=== PATIENT | male | born 1945 | race Caucasian/White ===

== ENCOUNTER 2018-08-03 15:40 | Emergency (ER) | payer BC ==
[2018-08-03 16:47] LABS: Absolute Lymphocytes (CBC) 1.1 K/uL (0.7-4.9); Absolute Monocytes 0.8 K/uL (0.1-1.3); Absolute Neutrophil 9.7 K/uL (1.8-8.0); Basophils % 0.4 % (0-1.3); Eosinophils % 0.5 % (0-4.4); Lymphocytes % 9.5 % (15.3-44.8); MCH 33.1 pg (27.0-35.0); MCV 98.4 fL (80-100); MPV 9.4 fL (7.6-11.3); Monocytes % 6.9 % (3.3-12.3); RBC Red Blood Cell Count 4.06 M/uL (4.33-5.43)
[2018-08-03 16:54] LABS: Protime INR 1.47
--- NOTE | 2018-08-03 16:59 | RAD REPORT ---
EXAM DESCRIPTION: RAD - Chest Single View - 08/03/2018 4:51 pm CLINICAL HISTORY: Left-sided weakness, history of atrial fibrillation and CHF COMPARISON: November 2017 TECHNIQUE: AP portable chest image was obtained 1647 hours . FINDINGS: No focal mass or consolidation. Interstitial markings are prominent but not clearly differ ent from prior imaging. Heart size is upper normal. Cardiac silhouette is accentuated by pericardial fat pads. Vascular engorgement not suspected. Lung markings are accentuated by shallow inspiration, p ortable technique and large body habitus. No measurable pleural effusion and no pneumothorax. No varun s bony abnormality seen. No acute aortic findings suspected. IMPRESSION: Limited portable study without acute cardiopulmonary finding. No significant change from comparison.
[2018-08-03 17:07] LABS: ALT/SGPT 37 U/L (12-78); AST/SGOT 15 U/L (15-37); Albumin 3.4 g/dL (3.4-5.0); Alkaline Phosphatase 125 U/L (45-117); BUN Blood Urea Nitrogen 11 mg/dL (7-18); Bicarbonate 28 mmol/L (21-32); Bilirubin Direct 0.3 mg/dL (0-0.2); Bilirubin Total 0.9 mg/dL (0.2-1.0); Glucose Level 140 mg/dL (74-106); Magnesium 2.3 mg/dL (1.8-2.4); NT PRO-BNP 1118 pg/mL (<125); Potassium 3.6 mmol/L (3.5-5.1); Protein, Total 7.6 g/dL (6.4-8.2); Sodium Level 137 mmol/L (136-145); Troponin (Emerg Dept Use Only) < 0.02 ng/mL (0.0-0.045)
[2018-08-03] MEDS ORDERED: NA CHLORIDE 0.9% 1,000 ML ONE (18:00)
[2018-08-03] MEDS ORDERED: FOLIC ACID 5 MG/ML VIAL ONE (18:01)
[2018-08-03] MEDS ORDERED: NA CHLORIDE 0.9% 50 ML IV ONE (18:01)
--- NOTE | 2018-08-03 18:04 | EDPHYS ---
Physician Documentation [facility] Name: Alejo Rae Age: 73 yrs Sex: Male : 1945 Arrival Date: 08/03/2018 Time: 15:46 Bed 26 Private MD: DWIGHT Physician Joaquin Sams HPI: 08/03 17:54 This 73 yrs old Male presents to ER via EMS with complaints of weak all over, magda left arm greatest, better now, on elquis. 17:54 The patient's problem is reported as weakness, in the left upper extremity, resolved. magda Onset: The symptoms/episode began/occurred at 14:00. Duration: This was a single incident, resolved. Context: the episode(s) was witnessed, by no one. The symptoms are alleviated by nothing. The symptoms are aggravated by nothing. weakness, hx afib, on eliquis. Associated signs and symptoms: The patient has no apparent associated signs or symptoms. Severity of symptoms: At their worst the symptoms were mild in the emergency department the symptoms have improved markedly, at baseline. Historical: - Allergies: 16:00 No Known Allergies; mg2 - Home Meds: 19:59 amlodipine 5 mg tab 1 tab once daily [Active]; atorvastatin 80 mg Oral tab 1 tab once mg2 daily [Active]; dofetilide 500mcg Oral 1 cap 2 times per day [Active]; furosemide 40 mg Oral tab 1 tab 2 times per day [Active]; gabapentin 300 mg Oral cap 1 cap 3 times per day [Active]; lisinopril 2.5 mg Oral tab 1 tab once daily [Active]; metoprolol succinate 200 mg Oral Tb24 1 tab once daily [Active]; omeprazole 20 mg Oral cpDR 1 cap once daily [Active]; sertraline 100 mg Oral tab 1 tab once daily [Active]; warfarin 5 mg Oral tab 2 tabs once daily [Active]; Xarelto Oral [Active]; - PMHx: 16:00 Atrial Fib; CHF; PTSD; mg2 - PSHx: 16:00 Hernia repair; C1-3 Surgery; mg2 - Immunization history:: Flu vaccine is not up to date. - Social history:: Smoking status: Patient/guardian denies using tobacco, Patient uses alcohol, on a daily basis. - Ebola Screening: : No symptoms or risks identified at this time. - Family history:: not pertinent. ROS: 17:54 Constitutional: Negative for fever, chills, and weight loss, Eyes: Negative for injury, magda pain, redness, and discharge, ENT: Negative for injury, pain, and discharge, Neck: Negative for injury, pain, and swelling, Respiratory: Negative for shortness of breath, cough, wheezing, and pleuritic chest pain, Abdomen/GI: Negative for abdominal pain, nausea, vomiting, diarrhea, and constipation, Back: Negative for injury and pain, : Negative for injury, bleeding, discharge, and swelling, MS/Extremity: Negative for injury and deformity, Skin: Negative for injury, rash, and discoloration, Psych: Negative for depression, anxiety, suicide ideation, homicidal ideation, and hallucinations, Allergy/Immunology: Negative for hives, rash, and allergies, Endocrine: Negative for neck swelling, polydipsia, polyuria, polyphagia, and marked weight changes, Hematologic/Lymphatic: Negative for swollen nodes, abnormal bleeding, and unusual bruising. 17:54 Cardiovascular: Positive for palpitations. 17:54 Neuro: Positive for weakness, of the left arm. Exam: 17:54 Radiologist reports: [facility] 17:54 Constitutional: This is a well developed, well nourished patient who is awake, alert, and in no acute distress. Head/Face: Normocephalic, atraumatic. Eyes: Pupils equal round and reactive to light, extra-ocular motions intact. Lids and lashes normal. Conjunctiva and sclera are non-icteric and not injected. Cornea within normal limits. Periorbital areas with no swelling, redness, or edema. ENT: Nares patent. No nasal discharge, no septal abnormalities noted. Tympanic membranes are normal and external auditory canals are clear. Oropharynx with no redness, swelling, or masses, exudates, or evidence of obstruction, uvula midline. Mucous membranes moist. Neck: Trachea midline, no thyromegaly or masses palpated, and no cervical lymphadenopathy. Supple, full range of motion without nuchal rigidity, or vertebral point tenderness. No Meningismus. Chest/axilla: Normal chest wall appearance and motion. Nontender with no deformity. No lesions are appreciated. Respiratory: Lungs have equal breath sounds bilaterally, clear to auscultation and percussion. No rales, rhonchi or wheezes noted. No increased work of breathing, no retractions or nasal flaring. Abdomen/GI: Soft, non-tender, with normal bowel sounds. No distension or tympany. No guarding or rebound. No evidence of tenderness throughout. Back: No spinal tenderness. No costovertebral tenderness. Full range of motion. Male : Normal genitalia with no discharge or lesions. Skin: Warm, dry with normal turgor. Normal color with no rashes, no lesions, and no evidence of cellulitis. MS/ Extremity: Pulses equal, no cyanosis. Neurovascular intact. Full, normal range of motion. Neuro: Awake and alert, GCS 15, oriented to person, place, time, and situation. Cranial nerves II-XII grossly intact. Motor strength 5/5 in all extremities. Sensory grossly intact. Cerebellar exam normal. Normal gait. Psych: Awake, alert, with orientation to person, place and time. Behavior, mood, and affect are within normal limits. 17:54 Cardiovascular: Rate: normal, Rhythm: irregularly irregular, Pulses: no pulse deficits are appreciated, Heart sounds: normal, Edema: is not appreciated, JVD: is not appreciated. 18:09 Neuro: Orientation: is normal, appropriate for stated age, no acute changes, Mentation: magda is normal, appropriate for stated age, no acute changes, Memory: is normal, appropriate for stated age, no acute changes, Cranial nerves: grossly normal, is grossly normal based on the patient's age, no acute changes, Cerebellar function: is grossly normal, is grossly normal based on the patient's age, no acute changes, Motor: is normal, is grossly normal based on the patient's age, no acute changes, moves all fours, Sensation: is normal, no obvious gross deficits, appropriate no acute changes, Gait: Babinski testing is normal, seizure activity, is not displayed by the patient. 19:08 Neuro: not a tpa candidate, pt at [facility], [facility], on eliquis, took last dose this magda morning. Vital Signs: 16:00 BP 132 / 73; Pulse 67; Resp 18; Pulse Ox 97% on R/A; Weight 113.4 kg; Height 6 ft. 1 mg2 in. (185.42 cm); Pain 0/10; 17:34 BP 139 / 91; Pulse 77; Resp 18; Pulse Ox 99% on R/A; Pain 0/10; mg2 19:16 BP 118 / 77; Pulse 71; Resp 18; Pulse Ox 98% on R/A; Pain 0/10; mg2 20:30 BP 154 / 75; Pulse 80; Resp 18; Temp 98.2; Pulse Ox 100% on R/A; Pain 3/10; mg2 16:00 Body Mass Index 32.98 (113.40 kg, 185.42 cm) mg2 NIH Stroke Scale Scores: 16:32 NIHSS Score: 0 mg2 18:09 NIHSS Score: 0 [facility] [place] Coma Score: 16:32 Eye Response: spontaneous(4). Verbal Response: oriented(5). Motor Response: obeys mg2 commands(6). Total: 15. MDM: 16:17 Patient medically screened. [facility] 18:01 Data reviewed: vital signs, nurses notes, lab test result(s), EKG, radiologic studies, [facility] CT scan, plain films. 08/03 16:34 Order name: Basic Metabolic Panel; Complete Time: 17:40 [facility] [place] 08/03 16:34 Order name: CBC with Diff; Complete Time: 17:40 [facility] [place] 08/03 16:34 Order name: LFT's; Complete Time: 17:40 [facility] [place] [place] 08/03 16:34 Order name: Magnesium; Complete Time: 17:40 [facility] [place] [place] 08/03 16:34 Order name: NT PRO-BNP; Complete Time: 17:40 [facility] [place] [place] 08/03 16:34 Order name: PT-INR; Complete Time: 17:40 [facility] [place] 08/03 16:34 Order name: Troponin (emerg Dept Use Only); Complete Time: 17:40 [facility] [place] 08/03 16:34 Order name: XRAY Chest (1 view); Complete Time: 17:40 [facility] [place] 08/03 17:42 Order name: TSH [facility] 08/03 17:54 Order name: CT Traumagram (Head C Spine CAP wo con); Complete Time: 19:02 [facility] 08/03 16:34 Order name: EKG; Complete Time: 16:35 [facility] [place] [place] 08/03 16:34 Order name: Cardiac monitoring; Complete Time: 16:34 [facility] [place] [place] 08/03 16:34 Order name: EKG - Nurse/Tech; Complete Time: 16:34 [facility] [place] 08/03 16:34 Order name: IV Saline Lock; Complete Time: 16:34 [facility] [place] 08/03 16:34 Order name: Labs collected and sent; Complete Time: 16:34 [facility] [place] 08/03 16:34 Order name: O2 Per Protocol; Complete Time: 16:35 mg2 08/03 16:34 Order name: O2 Sat Monitoring; Complete Time: 16:35 mg2 Administered Medications: 18:32 Drug: foLIC Acid 1 mg Route: IVPB; Site: right hand; mg2 19:49 Follow up: Response: No adverse reaction; IV Status: Completed infusion mg2 18:32 Drug: NS 0.9% 1000 ml Route: IV; Rate: 125 ml/hr; Site: right hand; mg2 19:49 Follow up: Response: No adverse reaction; IV Status: Infusion continued upon transfer mg2 19:49 Drug: Eliquis 5 mg Route: PO; mg2 21:01 Follow up: Response: No adverse reaction mg2 20:30 Drug: fentaNYL (PF) 25 mcg Route: IVP; Site: right hand; mg2 21:01 Follow up: Response: No adverse reaction; Medication administered at discharge. mg2 20:30 Drug: Zofran 4 mg Route: IVP; Site: right hand; mg2 21:00 Follow up: Response: No adverse reaction; Medication administered at discharge. mg2 21:01 Not Given (pain tolerable): fentaNYL (PF) 25 mcg IVP once mg2 Disposition: 08/03/18 18:03 Transfer ordered to [facility]. Diagnosis are Atrial fibrillation and flutter, Weakness, Obesity, unspecified. - Reason for transfer: Higher level of care. - Accepting physician is to [facility], stroke wqork up. - Condition is Stable. - Problem is new. - Symptoms have improved. NIH Stroke Scale - NIH Stroke Score Date: 08/03/2018 Time: 16:32 Total Score = 0 1a. Level of Consciousness (LOC) - 0(Alert) 1b. Level of Consciousness (LOC) (Year \T\ Age) - 0(Both) 1c. LOC Commands (Open \T\ Closes Eyes/Grants Assistant) - 0(Both) 2. Best Gaze (Lateral Gaze Paresis) - 0(Normal) 3. Visual Field Loss - 0(No visual loss) 4. Facial Palsy - 0(Normal) 5a. Left Arm: Motor (10-second hold) - 0(No drift) 5b. Right Arm: Motor (10-second hold) - 0(No drift) 6a. Left Leg: Motor (5-second hold - always test supine) - 0(No drift) 6b. Right Leg: Motor (5-second hold - always test supine) - 0(No drift) 7. Limb Ataxia (finger/nose \T\ heel/crandall - test with eyes open) - 0(Absent) 8. Sensory Loss (pinprick arms/legs/face) - 0(Normal) 9. Best Language: Aphasia (description/naming/reading) - 0(No aphasia) 10. Dysarthria (speech clarity - read or repeat words) - 0(Normal) 11. Extinction and Inattention (visual/tactile/auditory/spatial/personal) - 0(No abnormality) Initials: mg2 NIH Stroke Scale - NIH Stroke Score Date: 08/03/2018 Time: 18:09 Total Score = 0 1a. Level of Consciousness (LOC) - 0(Alert) 1b. Level of Consciousness (LOC) (Year \T\ Age) - 0(Both) 1c. LOC Commands (Open \T\ Closes Eyes/Grants Assistant) - 0(Both) 2. Best Gaze (Lateral Gaze Paresis) - 0(Normal) 3. Visual Field Loss - 0(No visual loss) 4. Facial Palsy - 0(Normal) 5a. Left Arm: Motor (10-second hold) - 0(No drift) 5b. Right Arm: Motor (10-second hold) - 0(No drift) 6a. Left Leg: Motor (5-second hold - always test supine) - 0(No drift) 6b. Right Leg: Motor (5-second hold - always test supine) - 0(No drift) 7. Limb Ataxia (finger/nose \T\ heel/crandall - test with eyes open) - 0(Absent) 8. Sensory Loss (pinprick arms/legs/face) - 0(Normal) 9. Best Language: Aphasia (description/naming/reading) - 0(No aphasia) 10. Dysarthria (speech clarity - read or repeat words) - 0(Normal) 11. Extinction and Inattention (visual/tactile/auditory/spatial/personal) - 0(No abnormality) Initials: magda Signatures: Dispatcher [employer] EDMS Joaquin Sams MD MD cha Gardose, Michele RN RN mg2 Corrections: (The following items were deleted from the chart) 18:10 17:42 Head Brain Wo [id number].BRZ ordered. EDMS EDMS 21:05 18:03 08/03/2018 18:03 Transfer ordered to [facility]. mg2 Diagnosis is Atrial fibrillation and flutter; Weakness; Obesity, unspecified. Reason for transfer: Higher level of care. Accepting physician is to [facility], stroke wqork up. Condition is Stable. Problem is new. Symptoms have improved. magda
--- NOTE | 2018-08-03 18:04 | ER ---
Nurse's Notes [facility] Name: Alejo Rae Age: 73 yrs Sex: Male : 1945 Arrival Date: 08/03/2018 Time: 15:46 Bed 26 Private MD: Diagnosis: Atrial fibrillation and flutter;Weakness;Obesity, unspecified Presentation: 08/03 15:50 Presenting complaint: EMS states: \T\ 1400H he was sitting on his computer chair and mg2 suddenly weakness on his left side and almost fell but the was able to catch him. He had oral surgery last Friday and 3 days prior to that he stopped taking his blood thinner. EMS did the stroke scale and he passed. BGL - 157. Transition of care: patient was not received from another setting of care. Onset of symptoms was August 03, 2018. Risk Assessment: Do you want to hurt yourself or someone else? Patient reports no desire to harm self or others. Initial Sepsis Screen: Does the patient meet any 2 criteria? No. Patient's initial sepsis screen is negative. Does the patient have a suspected source of infection? No. Patient's initial sepsis screen is negative. Care prior to arrival: None. 15:50 Method Of Arrival: EMS: [facility] mg2 15:50 Acuity: ANNA 3 mg2 Historical: - Allergies: 16:00 No Known Allergies; mg2 - Home Meds: 19:59 amlodipine 5 mg tab 1 tab once daily [Active]; atorvastatin 80 mg Oral tab 1 tab once mg2 daily [Active]; dofetilide 500mcg Oral 1 cap 2 times per day [Active]; furosemide 40 mg Oral tab 1 tab 2 times per day [Active]; gabapentin 300 mg Oral cap 1 cap 3 times per day [Active]; lisinopril 2.5 mg Oral tab 1 tab once daily [Active]; metoprolol succinate 200 mg Oral Tb24 1 tab once daily [Active]; omeprazole 20 mg Oral cpDR 1 cap once daily [Active]; sertraline 100 mg Oral tab 1 tab once daily [Active]; warfarin 5 mg Oral tab 2 tabs once daily [Active]; Xarelto Oral [Active]; - PMHx: 16:00 Atrial Fib; CHF; PTSD; mg2 - PSHx: 16:00 Hernia repair; C1-3 Surgery; mg2 - Immunization history:: Flu vaccine is not up to date. - Social history:: Smoking status: Patient/guardian denies using tobacco, Patient uses alcohol, on a daily basis. - Ebola Screening: : No symptoms or risks identified at this time. - Family history:: not pertinent. Screenin:30 Abuse screen: Denies threats or abuse. Denies injuries from another. Nutritional mg2 screening: No deficits noted. Tuberculosis screening: No symptoms or risk factors identified. Fall Risk IV access (20 points). Gait- Weak (10 pts.). Assessment: 16:30 General: Appears in no apparent distress. comfortable, Behavior is calm, cooperative. mg2 Pain: Denies pain. Neuro: Level of Consciousness is awake, alert, obeys commands, Oriented to person, place, time, situation. Cardiovascular: Capillary refill < 3 seconds Patient's skin is warm and dry. Respiratory: Airway is patent Respiratory effort is even, unlabored, Respiratory pattern is regular, symmetrical. GI: No signs and/or symptoms were reported involving the gastrointestinal system. : No signs and/or symptoms were reported regarding the genitourinary system. EENT: No signs and/or symptoms were reported regarding the EENT system. Derm: Skin is intact, Skin is pink, warm \T\ dry. normal. Musculoskeletal: Circulation, motion, and sensation intact. 19:55 Reassessment: Patient appears in no apparent distress at this time. Patient and/or mg2 family updated on plan of care and expected duration. Pain level reassessed. Patient is alert, oriented x 3, equal unlabored respirations, skin warm/dry/pink. report given to EVY An of [facility]. 20:30 Reassessment: Patient appears in no apparent distress at this time. Patient and/or mg2 family updated on plan of care and expected duration. Pain level reassessed. Patient is alert, oriented x 3, equal unlabored respirations, skin warm/dry/pink. Vital Signs: 16:00 BP 132 / 73; Pulse 67; Resp 18; Pulse Ox 97% on R/A; Weight 113.4 kg; Height 6 ft. 1 mg2 in. (185.42 cm); Pain 0/10; 17:34 BP 139 / 91; Pulse 77; Resp 18; Pulse Ox 99% on R/A; Pain 0/10; mg2 19:16 BP 118 / 77; Pulse 71; Resp 18; Pulse Ox 98% on R/A; Pain 0/10; mg2 20:30 BP 154 / 75; Pulse 80; Resp 18; Temp 98.2; Pulse Ox 100% on R/A; Pain 3/10; mg2 16:00 Body Mass Index 32.98 (113.40 kg, 185.42 cm) mg2 [place] Coma Score: 16:32 Eye Response: spontaneous(4). Verbal Response: oriented(5). Motor Response: obeys mg2 commands(6). Total: 15. NIH Stroke Scale Scores: 16:32 NIHSS Score: 0 mg2 18:09 NIHSS Score: 0 [facility] ED Course: 15:46 Patient arrived in ED. iw 15:50 Jamie Enciso, RN is Primary Nurse. mg2 15:58 Triage completed. mg2 16:00 Arm band placed on. mg2 16:14 EKG done, by residential service technician. reviewed by Joaquin Sams MD. sm3 16:17 Joaquin Sams MD is Attending Physician. [facility] 16:31 Patient has correct armband on for positive identification. potline monitor on. Pulse mg2 ox on. NIBP on. Door closed. 16:31 No provider procedures requiring assistance completed. Inserted saline lock: 20 gauge mg2 in right hand, using aseptic technique. Blood collected. 16:49 X-ray completed. Portable x-ray completed in exam room. Patient tolerated procedure ml well. 16:52 XRAY Chest (1 view) In Process Unspecified. EDMS 18:[address] nj 18:13 CT completed. Patient tolerated procedure well. Patient moved back from CT. nj 18:14 CT Traumagram (Head C Spine CAP wo con) In Process Unspecified. EDMS 21:05 Patient transferred, IV remains in place. mg2 Administered Medications: 18:32 Drug: foLIC Acid 1 mg Route: IVPB; Site: right hand; mg2 19:49 Follow up: Response: No adverse reaction; IV Status: Completed infusion mg2 18:32 Drug: NS 0.9% 1000 ml Route: IV; Rate: 125 ml/hr; Site: right hand; mg2 19:49 Follow up: Response: No adverse reaction; IV Status: Infusion continued upon transfer mg2 19:49 Drug: Eliquis 5 mg Route: PO; mg2 21:01 Follow up: Response: No adverse reaction mg2 20:30 Drug: fentaNYL (PF) 25 mcg Route: IVP; Site: right hand; mg2 21:01 Follow up: Response: No adverse reaction; Medication administered at discharge. mg2 20:30 Drug: Zofran 4 mg Route: IVP; Site: right hand; mg2 21:00 Follow up: Response: No adverse reaction; Medication administered at discharge. mg2 21:01 Not Given (pain tolerable): fentaNYL (PF) 25 mcg IVP once mg2 Outcome: 18:03 ER care complete, transfer ordered by . magda 21:05 Transferred by ground EMS to [facility], Transfer form completed. mg2 21:05 Condition: stable 21:05 Instructed on the need for transfer. 21:05 Patient left the ED. mg2 NIH Stroke Scale - NIH Stroke Score Date: 08/03/2018 Time: 16:32 Total Score = 0 1a. Level of Consciousness (LOC) - 0(Alert) 1b. Level of Consciousness (LOC) (Year \T\ Age) - 0(Both) 1c. LOC Commands (Open \T\ Closes Eyes/Head Host/Hostess) - 0(Both) 2. Best Gaze (Lateral Gaze Paresis) - 0(Normal) 3. Visual Field Loss - 0(No visual loss) 4. Facial Palsy - 0(Normal) 5a. Left Arm: Motor (10-second hold) - 0(No drift) 5b. Right Arm: Motor (10-second hold) - 0(No drift) 6a. Left Leg: Motor (5-second hold - always test supine) - 0(No drift) 6b. Right Leg: Motor (5-second hold - always test supine) - 0(No drift) 7. Limb Ataxia (finger/nose \T\ heel/crandall - test with eyes open) - 0(Absent) 8. Sensory Loss (pinprick arms/legs/face) - 0(Normal) 9. Best Language: Aphasia (description/naming/reading) - 0(No aphasia) 10. Dysarthria (speech clarity - read or repeat words) - 0(Normal) 11. Extinction and Inattention (visual/tactile/auditory/spatial/personal) - 0(No abnormality) Initials: mg2 NIH Stroke Scale - NIH Stroke Score Date: 08/03/2018 Time: 18:09 Total Score = 0 1a. Level of Consciousness (LOC) - 0(Alert) 1b. Level of Consciousness (LOC) (Year \T\ Age) - 0(Both) 1c. LOC Commands (Open \T\ Closes Eyes/Head Host/Hostess) - 0(Both) 2. Best Gaze (Lateral Gaze Paresis) - 0(Normal) 3. Visual Field Loss - 0(No visual loss) 4. Facial Palsy - 0(Normal) 5a. Left Arm: Motor (10-second hold) - 0(No drift) 5b. Right Arm: Motor (10-second hold) - 0(No drift) 6a. Left Leg: Motor (5-second hold - always test supine) - 0(No drift) 6b. Right Leg: Motor (5-second hold - always test supine) - 0(No drift) 7. Limb Ataxia (finger/nose \T\ heel/carndall - test with eyes open) - 0(Absent) 8. Sensory Loss (pinprick arms/legs/face) - 0(Normal) 9. Best Language: Aphasia (description/naming/reading) - 0(No aphasia) 10. Dysarthria (speech clarity - read or repeat words) - 0(Normal) 11. Extinction and Inattention (visual/tactile/auditory/spatial/personal) - 0(No abnormality) Initials: magda Signatures: Dispatcher [employer] EDJoaquin Jett MD MD cha Williams, Irene, EVY RATLIFF iw Donald, Sukhdeep Hope Michele, RN RN mg2 Yu Clay3 Corrections: (The following items were deleted from the chart) 16:01 15:50 Presenting complaint: EMS states: he was sitting on his computer chair mg2 and suddenly weakness on his left side and almost fell but the was able to catch him. He had oral surgery last Friday and 3 days prior to that he stopped taking his blood thinner. EMS did the stroke scale and he passed. BGL - 157. mg2
--- NOTE | 2018-08-03 18:40 | RAD REPORT ---
EXAM DESCRIPTION: CT - Head C Spine Cap Wo Con - 08/03/2018 6:13 pm CLINICAL HISTORY: Head and neck injury with chest and abdominal pain status post fall. TECHNIQUE: Computed axial tomography of the head and cervical spine was obtained. Coronal and sagitt al reconstruction was performed Computed axial tomography of the chest, abdomen and pelvis was obtained. Contrast was not requested. All CT scans are performed using dose optimization technique as appropriate and may include automated exposure control or mA/KV adjustment according to patient size. COMPARISON: November 2017 FINDINGS: The evaluation of the mediastinum, aftab, vessels, solid organs and bowel is limited secondary to lack of contrast administration. An intracranial bleed is not seen. Mild low-density areas within periventricular, deep and subcortica l white matter are unchanged likely representing ischemic changes secondary to small vessel disease. The ventricles are normal in caliber. An extra-axial fluid collection is not seen. Fluid within the sinuses/mastoids is not seen. A cervical fracture is not seen. No dislocation is noted .spondylosis involves the cervical spine A mediastinal hematoma is not seen. Small pleural effusions are present. . A lung contusion is not se en. A lung consolidation is not noted Fatty infiltration liver is seen. Spleen, pancreas, adrenals and right kidney appear grossly normal. 6.8 centimeters cyst extends off of the left kidney. The appendix is normal. There is no evidence of diverticulitis. Small inguinal hernias contain fat IMPRESSION: 1. No acute intracranial abnormality is seen. 2. A cervical fracture is not visualized. If the patient continues have symptoms to suggest intracran ial/spinal cord pathology then MRI would be recommended 3. No acute abnormality involving the chest /abdomen/pelvis
[2018-08-03] MEDS ORDERED: APIXABAN 5 MG TABLET ONE (19:47)
[2018-08-03] MEDS ORDERED: FENTANYL CITR 100 MCG/2 ML ONE (20:29)
[2018-08-03] MEDS ORDERED: ONDANSETRON 4 MG/2 ML VIAL ONE (20:29)
[2018-08-03 22:05] VITALS: BP 154/75; TEMP 98.2; O2SAT 100
--- NOTE | 2018-08-04 09:26 | EKG ---
Test Date: 2018-08-03 Test Time: 16:02:57 Bill Of Materials Clerk: LEILANI MEASUREMENT RESULTS: Intervals: Rate: 61 NV: QRSD: 70 QT: 444 QTc: 446 [place]: P: NV: QRS: 69 T: 80 INTERPRETIVE STATEMENTS: Atrial fibrillation Nonspecific ST abnormality, probably digitalis effect Abnormal ECG Compared to ECG 11/15/2017 23:49:45 ST (T wave) deviation now present Electronically Signed On 08-04-18 09:24:21 CDT by Dante Little
== END 2018-08-03 21:05 | disposition short-term general hospital (02) ==
LOC: ER 15:40
DX: I48.91 Unspecified atrial fibrillation (principal); I48.92 Unspecified atrial flutter; E66.9 Obesity, unspecified; I50.9 Heart failure, unspecified; F43.10 Post-traumatic stress disorder, unspecified; Z79.01 Long term (current) use of anticoagulants
CPT/HCPCS: 36415; 70450; 71045; 71250; 72125; 80048; 80076; 83735; 83880; 84443; 84484; 85025; 85610; 93005; 96365; 96375; 99285; J2405; J3010; J7030

== ENCOUNTER 2019-03-02 18:56 | Inpatient (IN) | payer BC ==
--- OUTSIDE RECORDS SUMMARY | 2019-03-02 19:42 | XMS REPORT | Clinical Summary ---
:1945 Author Organization [facility] Address [address] [place] [address] Care Team Providers Name Role Phone Bayron Nuno MD Primary Care Provider Allergies No Known Allergies Medications Medication Sig Dispensed Refills Start Date End Date Status metoprolol Take 100 mg 0 Active (TOPROL-XL) 100 MG 24 by mouth 2 hr tablet (two) times daily before meals. gabapentin Take 300 mg 0 Active (NEURONTIN) 300 MG by mouth 3 capsule (three) times daily. furosemide (LASIX) 40 Take 40 mg by 0 Active MG tablet mouth daily. atorvastatin Take 80 mg by 0 Active (LIPITOR) 80 MG mouth daily. tablet dofetilide (TIKOSYN) Take 500 mcg 0 Active 500 MCG capsule by mouth 2 (two) times daily. apixaban (ELIQUIS) 5 Take 5 mg by 0 Active mg Tab tablet mouth 2 (two) times daily. amLODIPine (NORVASC) Take 1 tablet 90 tablet 3 08/14/2018 Active 5 MG tablet (5 mg total) 9 by mouth daily. lisinopril Take 2 180 tablet 3 08/14/2018 Active (PRINIVIL,ZESTRIL) tablets (5 mg 9 2.5 MG tablet total) by mouth daily. ticagrelor (BRILINTA) Take 1 tablet 180 tablet 3 08/14/2018 Active 90 mg Tab tablet (90 mg total) 9 by mouth 2 (two) times daily. pantoprazole Take 1 tablet 180 tablet 3 08/14/2018 Active (PROTONIX) 40 MG (40 mg total) 9 tablet by mouth 2 (two) times daily. lisinopril Take 2.5 mg 0 Discontinued (PRINIVIL,ZESTRIL) by mouth 8 2.5 MG tablet daily. amoxicillin (AMOXIL) Take 500 mg 0 Discontinued 500 MG capsule by mouth 3 8 (three) times daily. diphenhydrAMINE 12.5 Take 20 mg by 0 Discontinued mg/5 mL (BENADRYL) mouth 2 (two) 8 12.5 mg/5 mL times daily. elixirIndications: Allergies aspirin 81 MG EC Take 1 tablet 30 tablet 0 08/14/2018 tablet (81 mg total) 8 by mouth daily for 30 days. Active Problems Problem Noted Date Leukocytosis 08/06/2018 Abdominal pain 08/06/2018 Multiple and bilateral precerebral artery syndromes 08/06/2018 Acute CVA (cerebrovascular accident) 08/06/2018 Generalized abdominal pain 08/05/2018 Other constipation 08/05/2018 TIA (transient ischemic attack) 08/03/2018 Encounters Date Type Specialty Care Team Description 11/18/2018 Hospital Encounter Radiology Chaz France Occlusion of right ManMD carotid artery 11/17/2018 Outside Orders Radiology Chaz France of right ManMD carotid artery (Primary Dx) 08/12/2018 Orders Only General Internal Medicine 08/11/2018 Anesthesia Event Perez Pulido 08/11/2018 Surgery Virtual, Surgeon PROCEDURE DONE OUTSIDE OR 08/10/2018 Surgery Virtual, Surgeon PROCEDURE DONE OUTSIDE OR 08/10/2018 Anesthesia Event Perez Pulido 08/08/2018 Anesthesia Event Milagros Diggs MD 08/07/2018 Surgery Virtual, Surgeon PROCEDURE DONE OUTSIDE OR 08/03/2018 - Hospital Encounter General Internal Stefanie De La Cruz Multiple and bilateral precerebral artery syndromes; 08/14/2018 Rulsan Campos MD Transient cerebral ischemia, unspecified type; Steve Hernandez Hypertension, unspecified type; MD Nelson Atrial fibrillation, unspecified type (HCC); Franny Carter MD Generalized abdominal pain; Leukocytosis, unspecified type; Chronic congestive heart failure, unspecified heart failure type (HCC); Acute CVA (cerebrovascular accident) (HCC); Stenosis of right carotid artery; TIA (transient ischemic attack) after 03/01/2018 Immunizations Name Dates Previously Given Next Due Influenza Four-QIV Non-PF 5+ YR 08/14/2018 Pneumococcal Conjugate (Prevnar) 13-Valent 08/14/2018 Social History Tobacco Use Types Packs/Day Years Used Date Never Smoker Sex Assigned at Date Recorded Not on file Job Start Date Occupation Industry Not on file Not on file Not on file Travel History Travel Start Travel End No recent travel history available. Last Filed Vital Signs Vital Sign Reading Time Taken Blood Pressure 116/67 08/14/2018 11:45 AM CDT Pulse 68 08/14/2018 11:45 AM CDT Temperature 37 C (98.6 F) 08/14/2018 11:45 AM CDT Respiratory Rate 18 08/14/2018 11:45 AM CDT Oxygen Saturation 97% 08/14/2018 11:45 AM CDT Inhaled Oxygen Concentration 40% 08/12/2018 4:23 AM CDT Weight 129.7 kg (286 lb) 08/03/2018 10:54 PM CDT Height 185.4 cm (6' 1") 08/03/2018 10:54 PM CDT Body Mass Index 37.73 08/03/2018 10:54 PM CDT Plan of Treatment Not on file Procedures Procedure Name Priority Date/Time Associated Comments Diagnosis CAROTID DOPPLER Routine 11/18/2018 9:45 Occlusion of right Results for this BILATERAL AM MAIL CALLER carotid artery procedure are in the results section. RHYTHM STRIP - SCAN 08/18/2018 8:21 AM CDT (CELLAVISION MANUAL Routine 08/14/2018 4:24 Results for this DIFF) AM CDT procedure are in the results section. CBC W/PLT COUNT & Routine 08/14/2018 4:24 Results for this AUTO DIFFERENTIAL AM CDT procedure are in the results section. BASIC METABOLIC PANEL Routine 08/14/2018 4:24 Results for this (7) AM CDT procedure are in the results section. CBC W/PLT COUNT & Routine 08/14/2018 4:24 Results for this AUTO DIFFERENTIAL AM CDT procedure are in the results section. CBC W/PLT COUNT & Routine 08/13/2018 4:06 Results for this AUTO DIFFERENTIAL AM CDT procedure are in the results section. BASIC METABOLIC PANEL Routine 08/13/2018 4:06 Results for this (7) AM CDT procedure are in the results section. CBC W/PLT COUNT & Routine 08/13/2018 4:06 Results for this AUTO DIFFERENTIAL AM CDT procedure are in the results section. XR CHEST 1 VIEW SHELBY 08/12/2018 2:54 Results for this PORTABLE/BEDSIDE PM CDT procedure are in the results section. ECG 12-LEAD Routine 08/12/2018 8:50 AM CDT Procedure Note - Interface, External Ris In - 08/12/2018 9:02 AM CDT Ventricular Rate 82 BPM Atrial Rate 357 BPM QRS Duration 84 ms Q-T Interval 408 ms QTC Calculation(Bazett) 476 ms R [place] 44 degrees T [place] 49 degrees Atrial fibrillation Abnormal ECG When compared with ECG of 08-AUG-2018 14:50, No significant change was found ECG 12-LEAD Routine 08/12/2018 8:50 AM Results for this CDT procedure are in the results section. CBC W/PLT COUNT & Routine 08/12/2018 3:43 AM Results for this AUTO DIFFERENTIAL CDT procedure are in the results section. BASIC METABOLIC PANEL Routine 08/12/2018 3:43 AM Results for this (7) CDT procedure are in the results section. CBC W/PLT COUNT & Routine 08/12/2018 3:43 AM Results for this AUTO DIFFERENTIAL CDT procedure are in the results section. NV CAROTID ARTERY Routine 08/11/2018 4:51 PM Results for this STENT PLACEMENT W CDT procedure are in PROTECTION the results section. POCT-ACT Routine 08/11/2018 3:47 PM Results for this CDT procedure are in the results section. PROCEDURE DONE 08/11/2018 2:00 PM Stenosis of carotid OUTSIDE OR CDT artery, unspecified laterality POCT-P2Y12 PLATELET STAT 08/11/2018 12:21 PM Results for this AGGREGATION CDT procedure are in the results section. PT/APTT STAT 08/11/2018 12:21 PM Results for this CDT procedure are in the results section. CBC W/PLT COUNT & Routine 08/11/2018 6:24 AM Results for this AUTO DIFFERENTIAL CDT procedure are in the results section. CBC (HEMOGRAM ONLY) Routine 08/11/2018 6:24 AM Results for this CDT procedure are in the results section. POCT-P2Y12 PLATELET Routine 08/11/2018 6:24 AM Results for this AGGREGATION CDT procedure are in the results section. POCT-ASPIRIN PLATELET Routine 08/11/2018 6:24 AM Results for this AGGREGATION CDT procedure are in the results section. BASIC METABOLIC PANEL Routine 08/11/2018 6:24 AM Results for this (7) CDT procedure are in the results section. CBC W/PLT COUNT & Routine 08/11/2018 6:24 AM Results for this AUTO DIFFERENTIAL CDT procedure are in the results section. NV CAROTID ARTERY Routine 08/10/2018 1:22 PM Results for this STENT PLACEMENT W CDT procedure are in PROTECTION the results section. NV CEREBRAL 4 VESSEL Routine 08/10/2018 1:22 PM Results for this ANGIOGRAM CDT procedure are in the results section. PROCEDURE DONE 08/10/2018 12:00 PM Stenosis of carotid OUTSIDE OR CDT artery, unspecified laterality Special Needs ; REQ TF BASIC METABOLIC PANEL (7) Routine 08/10/2018 6:50 AM CDT CBC W/PLT COUNT & AUTO Routine 08/10/2018 6:08 AM CDT Results for this DIFFERENTIAL procedure are in the results section. APTT Routine 08/10/2018 6:08 AM CDT CBC W/PLT COUNT & AUTO Routine 08/10/2018 6:08 AM CDT Results for this DIFFERENTIAL procedure are in the results section. APTT Routine 08/09/2018 10:00 PM CDT URINALYSIS W/ MICROSCOPIC Routine 08/09/2018 12:35 PM CDT EOSINOPHIL SMEAR, URINE Routine 08/09/2018 12:35 PM CDT SODIUM, RANDOM URINE Routine 08/09/2018 12:35 PM CDT CREATININE, RANDOM URINE Routine 08/09/2018 12:35 PM CDT PROTEIN, RANDOM URINE Routine 08/09/2018 12:35 PM CDT APTT Routine 08/09/2018 12:12 PM CDT PROTEIN ELECTROPHORESIS, AP Routine 08/09/2018 5:16 AM CDT Results for this SERUM procedure are in the results section. MANINDER TITER AND PATTERN Routine 08/09/2018 5:07 AM CDT RPR Routine 08/09/2018 5:07 AM CDT ANTI-NUCLEAR ANTIBODY (MANINDER) Routine 08/09/2018 5:07 AM CDT TSH/FREE T4 IF INDICATED Routine 08/09/2018 5:07 AM CDT BASIC METABOLIC PANEL (7) Routine 08/09/2018 5:07 AM CDT POTASSIUM Routine 08/09/2018 5:07 AM CDT BUN AND CREATININE Routine 08/09/2018 5:07 AM CDT CBC W/PLT COUNT & AUTO Routine 08/09/2018 3:55 AM CDT Results for this DIFFERENTIAL procedure are in the results section. APTT Routine 08/09/2018 3:55 AM CDT CBC (HEMOGRAM ONLY) Routine 08/09/2018 3:55 AM CDT CBC W/PLT COUNT & AUTO Routine 08/09/2018 3:55 AM CDT Results for this DIFFERENTIAL procedure are in the results section. APTT Routine 08/08/2018 4:29 PM CDT PLATELET COUNT Routine 08/08/2018 4:29 PM CDT ECG 12-LEAD Routine 08/08/2018 2:50 PM CDT CBC W/PLT COUNT & AUTO Routine 08/08/2018 6:43 AM CDT Results for this DIFFERENTIAL procedure are in the results section. MAGNESIUM Routine 08/08/2018 6:43 AM CDT BASIC METABOLIC PANEL (7) Routine 08/08/2018 6:43 AM CDT CBC W/PLT COUNT & AUTO Routine 08/08/2018 6:43 AM CDT Results for this DIFFERENTIAL procedure are in the results section. TRANSFUSION SERVICE REPORT 08/07/2018 6:01 PM CDT - SCAN CT ABDOMEN/PELVIS WITH IV Routine 08/07/2018 4:36 PM CDT Results for this CONTRAST procedure are in the results section. CT CHEST WITH IV CONTRAST Routine 08/07/2018 4:36 PM CDT CBC W/PLT COUNT & AUTO Routine 08/07/2018 5:58 AM CDT Results for this DIFFERENTIAL procedure are in the results section. BASIC METABOLIC PANEL (7) Routine 08/07/2018 5:58 AM CDT CBC W/PLT COUNT & AUTO Routine 08/07/2018 5:58 AM CDT Results for this DIFFERENTIAL procedure are in the results section. XR CHEST 2 VIEWS Routine 08/06/2018 9:27 PM CDT ECG 12-LEAD Routine 08/06/2018 7:54 PM CDT TYPE AND SCREEN, AUTOMATED Routine 08/06/2018 4:10 PM CDT PROTHROMBIN TIME/INR Routine 08/06/2018 4:10 PM CDT PROCALCITONIN Routine 08/06/2018 4:10 PM CDT VITAMIN B12 AND FOLATE Routine 08/06/2018 3:43 PM CDT LACTIC ACID, VENOUS Routine 08/06/2018 3:43 PM CDT BLOOD CULTURE Routine 08/06/2018 3:43 PM CDT BLOOD CULTURE Routine 08/06/2018 3:43 PM CDT MR BRAIN WITHOUT IV STAT 08/06/2018 11:40 AM CDT Results for this CONTRAST procedure are in the results section. MR MRA NECK WITHOUT IV Routine 08/06/2018 11:33 AM CDT Results for this CONTRAST procedure are in the results section. MR MRA HEAD WITHOUT Routine 08/06/2018 11:33 AM CDT Results for this CONTRAST procedure are in the results section. (CELLAVISION MANUAL DIFF) Routine 08/06/2018 5:51 AM CDT CBC W/PLT COUNT & AUTO Routine 08/06/2018 5:51 AM CDT Results for this DIFFERENTIAL procedure are in the results section. BASIC METABOLIC PANEL (7) Routine 08/06/2018 5:51 AM CDT CBC W/PLT COUNT & AUTO Routine 08/06/2018 5:51 AM CDT Results for this DIFFERENTIAL procedure are in the results section. ECHOCARDIOGRAM REPORT - 08/05/2018 5:30 PM CDT SCAN 2D ECHO W/ DOPPLER Routine 08/05/2018 11:12 AM CDT Results for this (CW/PW/COLOR) procedure are in the results section. URINALYSIS W/ REFLEX URINE Routine 08/05/2018 5:30 AM CDT Results for this CULTURE procedure are in the results section. (CELLAVISION MANUAL DIFF) Routine 08/05/2018 4:46 AM CDT CBC W/PLT COUNT & AUTO Routine 08/05/2018 4:46 AM CDT Results for this DIFFERENTIAL procedure are in the results section. BASIC METABOLIC PANEL (7) Routine 08/05/2018 4:46 AM CDT CBC W/PLT COUNT & AUTO Routine 08/05/2018 4:46 AM CDT Results for this DIFFERENTIAL procedure are in the results section. US TESTICULAR (SCROTUM) Routine 08/05/2018 4:09 AM CDT TROPONIN I Routine 08/04/2018 1:35 PM CDT XR ABDOMEN 1 VIEW STAT 08/04/2018 11:39 AM CDT ECG 12-LEAD Routine 08/04/2018 10:15 AM CDT CBC W/PLT COUNT & AUTO Routine 08/04/2018 1:39 AM CDT Results for this DIFFERENTIAL procedure are in the results section. HEMOGLOBIN A1C Routine 08/04/2018 1:39 AM CDT LIPID PANEL Routine 08/04/2018 1:39 AM CDT HOMOCYSTEINE Routine 08/04/2018 1:39 AM CDT TROPONIN I Routine 08/04/2018 1:39 AM CDT CBC W/PLT COUNT & AUTO Routine 08/04/2018 1:39 AM CDT Results for this DIFFERENTIAL procedure are in the results section. BASIC METABOLIC PANEL (7) Routine 08/04/2018 1:39 AM CDT after 03/01/2018 Results Carotid doppler bilateral (11/18/2018 9:45 AM MAIL CALLER) [facility] Specimen Impressions Performed At Right Impression [facility] 1. Post stent placement, the internal carotid artery is patent with velocities of: Pre stent- 76/19 cm/sec, proximal stent- 41/8 cm/sec, mid stent-51/12 cm/sec , distal stent- 50/15 cm/sec, post stent- 66/24 cm/sec. 2. There is stenosis in the external carotid artery. 3. There is mild intimal thickening in the common carotid artery. 4. The vertebral artery flow is antegrade . 5. The subclavian artery is patent where visualized. Left Impression 1. There is <50% diameter reduction (approximately 38% by 2-D measurement) in the internal carotid artery with a peak velocity of cm/sec and heterogeneous plaque. 2. There is stenosis in the external carotid artery. 3. There is mild intimal thickening in the common carotid artery. 4. The vertebral artery flow is antegrade . 5. The subclavian artery is patent where visualized. Conclusions Summary Carotid duplex scanning and color flow imaging were performed bilaterally. The arteries were technically difficult however adequately viauslized. The right internal carotid artery was patent post stent placement. The left internal carotid artery had <50% hemodynamically insignificant stenosis (approximately 38% by 2-D measurement) with heterogeneous plaque. The vertebral artery flow was antegrade bilaterally. Signature Velocities are measured in cm/s ; Diameters are measured in cm Carotid Right Measurements + +----+----+-----+ +---- + + !Location !PSV !EDV !Angle!%Stenosis 2D!%Stenosis Doppler!Tortuosity ! + +----+----+-----+ +---- + + !Prox CCA !116 !28.4! !! ! ! + +----+----+-----+ +---- + + !Dist CCA !87.9!20.8! !! ! ! + +----+----+-----+ +---- + + !Prox ICA !41!8 ! !! ! ! + +----+----+-----+ +---- + + !Mid ICA!51!12! !! ! ! + +----+----+-----+ +---- + + !Dist ICA !66!24! !! ! ! + +----+----+-----+ +---- + + !Prox ECA !187 !40.5! !! ! ! + +----+----+-----+ +---- + + !Vertebral!58!21! !! ! ! + +----+----+-----+ +---- + + !Prox Subclavian!100 !28! !! ! ! + +----+----+-----+ +---- + + - There is antegrade vertebral flow noted on the right side. - Additional Measurements:ICAPSV/CCAPSV 0.75.ICAEDV/CCAEDV 0.85. Carotid Left Measurements + +----+----+-----+ +---- + + !Location !PSV !EDV !Angle!%Stenosis 2D!%Stenosis Doppler!Tortuosity ! + +----+----+-----+ +---- + + !Prox CCA !117 !29.9! !! ! ! + +----+----+-----+ +---- + + !Dist CCA !125 !33.1! !! ! ! + +----+----+-----+ +---- + + !Prox ICA !102 !26.8! !38% !<50% ! ! + +----+----+-----+ +---- + + !Dist ICA !103 !40.5! !! ! ! + +----+----+-----+ +---- + + !Prox ECA !178 !32.4! !! ! ! + +----+----+-----+ +---- + + !Vertebral!59.7!24.8! !! ! ! + +----+----+-----+ +---- + + !Prox Subclavian!100 !25! !! ! ! + +----+----+-----+ +---- + + - There is antegrade vertebral flow noted on the left side. - Additional Measurements:ICAPSV/CCAPSV 0.82.ICAEDV/CCAEDV 1.35. Narrative Performed At [facility] - Carotid Duplex Study [facility] Demographics Patient Name ALEJO LIVINGSTON Date of Study11/18/2018 [id number] Visit Number [id number] Gender Male Accession Number [id number] Date of Birth1945 [facility] Number Physician SonographerTuyet Zuñiga Interpreting Gillian Cai, EVY, Norberto VILLEDA Procedure Type of Study: Cerebral: Carotid, CAROTID DOPPLER, BILATERAL. Indications for Study:Carotid artery stenosis . Patient Status:Routine. Study Location:Vascular Lab. Technical Quality:Adequate visualization. Risk Factors History of Disease + +----+ + !Diagnosis!Kennedy e!Comments ! + +----+ + !History/Risk Factors:!!CHF, a fib, SADIQ stent 2017! + +----+ + Procedure Note Interface, External Ris In - 11/18/2018 10:10 AM MAIL CALLER [facility] - Carotid Duplex Study Demographics Patient Name ALEJO LIVINGSTON Date of Study 11/18/2018 Age 73 Visit Number [id number] Gender Male Accession Number [id number] Date of 1945 Referring [facility] Room Number Physician Community Education Specialist Tuyet Zuñiga Interpreting Gillian Cai, EVY, RVT Physician MD Procedure Type of Study: Cerebral: Carotid, CAROTID DOPPLER, BILATERAL. Indications for Study:Carotid artery stenosis . Patient Status:Routine. Study Location:Vascular Lab. Technical Quality:Adequate visualization. Risk Factors History of Disease + +----+ + !Diagnosis !Date!Comments ! + +----+ + !History/Risk Factors: ! !CHF, a fib, SADIQ stent 2018 ! + +----+ + Impressions Right Impression 1. Post stent placement, the internal carotid artery is patent with velocities of: Pre stent- 76/19 cm/sec, proximal stent- 41/8 cm/sec, mid stent-51/12 cm/sec , distal stent- 50/15 cm/sec, post stent- 66/24 cm/sec. 2. There is stenosis in the external carotid artery. 3. There is mild intimal thickening in the common carotid artery. 4. The vertebral artery flow is antegrade . 5. The subclavian artery is patent where visualized. Left Impression 1. There is <50% diameter reduction (approximately 38% by 2-D measurement) in the internal carotid artery with a peak velocity of cm/sec and heterogeneous plaque. 2. There is stenosis in the external carotid artery. 3. There is mild intimal thickening in the common carotid artery. 4. The vertebral artery flow is antegrade . 5. The subclavian artery is patent where visualized. Conclusions Summary Carotid duplex scanning and color flow imaging were performed bilaterally. The arteries were technically difficult however adequately viauslized. The right internal carotid artery was patent post stent placement. The left internal carotid artery had <50% hemodynamically insignificant stenosis (approximately 38% by 2-D measurement) with heterogeneous plaque. The vertebral artery flow was antegrade bilaterally. Signature Velocities are measured in cm/s ; Diameters are measured in cm Carotid Right Measurements + +----+----+-----+ + + + !Location !PSV !EDV !Angle!%Stenosis 2D!%Stenosis Doppler!Tortuosity ! + +----+----+-----+ + + + !Prox CCA !116 !28.4! ! ! ! ! + +----+----+-----+ + + + !Dist CCA !87.9!20.8! ! ! ! ! + +----+----+-----+ + + + !Prox ICA !41 !8 ! ! ! ! ! + +----+----+-----+ + + + !Mid ICA !51 !12 ! ! ! ! ! + +----+----+-----+ + + + !Dist ICA !66 !24 ! ! ! ! ! + +----+----+-----+ + + + !Prox ECA !187 !40.5! ! ! ! ! + +----+----+-----+ + + + !Vertebral !58 !21 ! ! ! ! ! + +----+----+-----+ + + + !Prox Subclavian!100 !28 ! ! ! ! ! + +----+----+-----+ + + + - There is antegrade vertebral flow noted on the right side. - Additional Measurements:ICAPSV/CCAPSV 0.75.ICAEDV/CCAEDV 0.85. Carotid Left Measurements + +----+----+-----+ + + + !Location !PSV !EDV !Angle!%Stenosis 2D!%Stenosis Doppler!Tortuosity ! + +----+----+-----+ + + + !Prox CCA !117 !29.9! ! ! ! ! + +----+----+-----+ + + + !Dist CCA !125 !33.1! ! ! ! ! + +----+----+-----+ + + + !Prox ICA !102 !26.8! !38% !<50% ! ! + +----+----+-----+ + + + !Dist ICA !103 !40.5! ! ! ! ! + +----+----+-----+ + + + !Prox ECA !178 !32.4! ! ! ! ! + +----+----+-----+ + + + !Vertebral !59.7!24.8! ! ! ! ! + +----+----+-----+ + + + !Prox Subclavian!100 !25 ! ! ! ! ! + +----+----+-----+ + + + - There is antegrade vertebral flow noted on the left side. - Additional Measurements:ICAPSV/CCAPSV 0.82.ICAEDV/CCAEDV 1.35. Performing Organization Address City/State/Zipcode Phone Number [facility] RHYTHM STRIP - SCAN (08/18/2018 8:21 AM CDT) Narrative Performed At Manual Differential (08/14/2018 4:24 AM CDT)Only the most recent of3 resultswithin the time period is included. % Neutros 73 % [facility] % Lymphs 9 % [facility] % Monos 9 % [facility] % Eos 2 % [facility] % Metamyelo 1 (H) 0 - 0 % [facility] % Bands 5 0 - 10 % [facility] % Atypical Lymphs 1 (H) 0 - 0 % [facility] # Neutros 8.18 (H) 1.78 - 5.38 K/ul [facility] # Lymphs 1.01 (L) 1.32 - 3.57 K/ul [facility] # Monos 1.01 (H) 0.30 - 0.82 K/uL [facility] # Eos 0.22 0.04 - 0.54 K/uL [facility] # Metamyelo 0.11 (H) 0.00 - 0.00 K/uL [facility] # Bands 0.56 0.00 - 0.80 K/uL [facility] # Atypical Lymphs 0.11 (H) 0.00 - 0.00 K/uL [facility] Total Counted 100 [facility] Smudge Cells Present [facility] Giant Platelet Present [facility] Polychromasia 1+ few [facility] Anisocytosis 1+ few [facility] Poikilocytes 2+ moderate [facility] Milton Cells 1+ few [facility] Platelet Conc Adequate [facility] Specimen Blood Narrative Performed At Received comment: [facility] User comments: Slide comments: Performing Organization Address City/State/Zipcode Phone Number [facility] [address] [place] [address] [phone] CENTER CBC with platelet count + automated diff (08/14/2018 4:24 AM CDT)Only the most recent of11 resultswithin the time period is included. WBC 11.2 (H) 3.5 - 10.5 K/L [facility] RBC 3.76 (L) 4.63 - 6.08 M/L [facility] Hemoglobin 12.2 (L) 13.7 - 17.5 GM/DL [facility] Hematocrit 38.3 (L) 40.1 - 51.0 % [facility] MCV 101.9 (H) 79.0 - 92.2 fL [facility] MCH 32.4 (H) 25.7 - 32.2 pg [facility] MCHC 31.9 (L) 32.3 - 36.5 GM/DL [facility] RDW 11.9 11.6 - 14.4 % [facility] Platelets 275 150 - 450 K/CU MM [facility] MPV 11.0 9.4 - 12.4 fL [facility] nRBC 0 0 - 0 /100 WBC [facility] Specimen Blood Performing Organization Address City/State/Zipcode Phone Number [facility] [address] [place] [address] CENTER Basic Metabolic Panel (08/14/2018 4:24 AM CDT)Only the most recent of11 resultswithin the time period is included. Sodium 133 (L) 136 - 145 meq/L [facility] Potassium 3.9 3.5 - 5.1 meq/L [facility] Chloride 100 98 - 107 meq/L [facility] CO2 26 22 - 29 meq/L [facility] BUN 17 7 - 21 mg/dL [facility] Creatinine 0.84 0.57 - 1.25 mg/dL [facility] Glucose 111 (H) 70 - 105 mg/dL [facility] [facility] Calcium 8.6 8.4 - 10.2 mg/dL [facility] EGFR 89Comment: ESTIMATED GFR IS mL/min/1.73 sq m [facility] NOT ACCURATE [facility] CLEARANCE IN PREDICTING GLOMERULAR FILTRATION RATE. ESTIMATED GFR IS NOT APPLICABLE FOR DIALYSIS PATIENTS. Specimen Blood Performing Organization Address City/State/Zipcode Phone Number [facility] [address] [place] [address] [phone] CENTER XR chest 1 view portable / bedside (08/12/2018 2:54 PM CDT) Specimen Narrative Performed At FINAL REPORT GE RIS Chest one view INDICATION: Shortness of breath COMPARISON: 08/06/2018 IMPRESSION: Multiple chronic right rib fractures are again seen with stable pleural thickening and possible effusion with stable right lung opacity suggesting atelectasis or scarring. The left lung is grossly clear. Heart size is at the upper limit of normal. Aortic tortuosity and hypertrophic spine changes are noted. Signed: Chantale Hernandez MD Report Verified Date/Time:08/12/2018 15:59:35 Reading Location: [address] Transitional Reading Room Procedure Note Interface, External Ris In - 08/12/2018 4:01 PM CDT FINAL REPORT Chest one view INDICATION: Shortness of breath COMPARISON: 08/06/2018 IMPRESSION: Multiple chronic right rib fractures are again seen with stable pleural thickening and possible effusion with stable right lung opacity suggesting atelectasis or scarring. The left lung is grossly clear. Heart size is at the upper limit of normal. Aortic tortuosity and hypertrophic spine changes are noted. Signed: Chantale Hernandez MD Report Verified Date/Time: 08/12/2018 15:59:35 Reading Location: [facility] C0[facility] Transitional Reading Room Performing Organization Address City/State/Zipcode Phone Number GE RIS ECG 12 lead (08/12/2018 8:50 AM CDT)Only the most recent of4 resultswithin the time period is included. Specimen Narrative Performed At Ventricular Rate 82 BPM GE MUSE Atrial Rate 357 BPM QRS Duration 84 ms Q-T Interval 408 ms QTC Calculation(Bazett) 476 ms R [place] 44 degrees T [place] 49 degrees Atrial fibrillation Nonspecific ST abnormality Abnormal ECG When compared with ECG of 08-AUG-2018 14:50, No significant change was found Confirmed by MD HOLDER JORGE ([id number]) on 08/12/2018 1:55:24 PM Procedure Note Interface, External Ris In - 08/12/2018 1:55 PM CDT Ventricular Rate 82 BPM Atrial Rate 357 BPM QRS Duration 84 ms Q-T Interval 408 ms QTC Calculation(Bazett) 476 ms R [place] 44 degrees T [place] 49 degrees Atrial fibrillation Nonspecific ST abnormality Abnormal ECG When compared with ECG of 08-AUG-2018 14:50, No significant change was found Confirmed by MD HOLDER JORGE ([id number]) on 08/12/2018 1:55:24 PM Performing Organization Address City/State/Zipcode Phone Number GE MUSE [place] Carotid Artery Stent Placement w/Protection (08/11/2018 4:51 PM CDT)Only the most recent of2 resultswithin the time period is included. Specimen Narrative Performed At FINAL REPORT [facility] DATE OF PROCEDURE: 08/11/18 SURGEON:Chaz France MD ANALYTICAL CHEMIST: Leta Barreto MD PREOPERATIVE DIAGNOSIS: Transient ischemic attacks and severe right carotid artery stenosis POST OPERATIVE DIAGNOSIS: Transient ischemic attacks and severe right carotid artery stenosis OPERATION: 1) Selective Cerebral Angiogram 2) Right carotid stent ANESTHESIA:Moderate sedation ESTIMATED BLOOD LOSS: Less than 15 mL COMPLICATIONS: None INDICATIONS:The patient is a 73-year-old man who presented with transient ischemic attack. Stroke work up revealed carotid stenosis for which he underwent a diagnostic cerebral angiogram demonstrating critical right internal carotid artery stenosis. He presents today for angiogram for stenting. He had been maintained on Brilinta and ASA prior to the procedure with sufficient platelet inhibition. The lesion here extends up to the bottom of C2. PROCEDURE:Following explanation of the benefits, risks and alternatives for the procedure, informed consent was obtained from the patient.The risks including but not limited to stroke, intracranial hemorrhage, vascular injury to the cervical or femoral vessels and groin hematoma were discussed with the patient.A time-out was performed.Both groins were prepped in the usual sterile fashion using Chloraprep, and sterilely draped. A standard access using a micropuncture kit was attempted on each side, but due to difficulty arising from his calcified femoral arteries, no blood return could be achieved. Ultrasound guidance was used, and blood return was achieved, but the wire could not be passed through the micropuncture needle. Thus, an 18-gauge needle was used to puncture the right femoral artery. A 5 Taiwanese short sheath was then passed over an angled glide catheter. Using coaxial technique, a 5 Taiwanese [place] 2 catheter was advanced into the descending aorta, back-bled, and flushed in the usual fashion.Using coaxial technique, the catheter was advanced into the aortic arch, and with the aid of the roadmapping, digital fluoroscopy, and careful guidewire manipulation the right common carotid artery.Upon each successive selective catheterization, digital subtraction angiography using the appropriate rate and volume of contrast in multiple projections was performed.Digital subtraction angiogram of the common femoral arteries was performed. The catheter was removed. The femoral sheath was removed and hemostasis was achieved with angio seal and manual compression. The patient tolerated the procedure well and was taken to recovery in stable condition. FINDINGS: RIGHT COMMON FEMORAL ARTERY (DSA \\X2013\\ PA - PELVIS) The right femoral artery is patent with no stenosis or ulceration. The puncture is above the level of the bifurcation. RIGHT COMMON CAROTID ARTERY (DSA - PA, LATERAL - CERVICAL) The origin of the right internal carotid artery demonstrates significant stenosis, measuringgreater than 80% stenosis by NASCET criteria.The external carotid artery is widely patent without evidence of ulceration or stenosis. RIGHT COMMON CAROTID ARTERY (DSA - PA, LATERAL, OBLIQUE - HEAD) There is a small size posterior communicating artery, through which the vertebrobasilar system is opacified. There is initially is no spontaneous filling of the right anterior cerebral artery and delayed flow; however, after stenting, there is improvement in flow with opacification of the right anterior cerebral artery territory. No vascular malformation or arteriovenous shunting is noted. No stenosis or vasospasm is observed. No significant abnormalities are seen in the capillary and venous phases. The venous phase demonstrates patent transverse and sigmoid sinuses. The visualized portions of the external carotid artery and its branches are normal without evidence of ulceration or stenosis. ENDOVASCULAR INTERVENTION: The diagnostic catheter was removed and exchanged in the descending aorta for a 6F Cook shuttle sheath. At this point, the patient was heparinized, with a satisfactory ACT. A VTK catheter was then used to position the shuttle within the common carotid artery. The stenotic lesion was traversed using a NAV6 distal projection device. Using standard monorail technique, a 8 x6 x 40 Xact carotid stent was then deployed in the internal carotid artery extending into the common carotid artery.Next we inflated a 4 x 30mm Viatrac 14 Plus balloon within the stent to ensure full deployment and apposition. The anesthesia team had given glycopyrrolate preemptively and had atropine on standby during this maneuver. Post stenting, an angiogram of the cervical carotid was performed demonstrating mild stenosis on the order of under 30% and satisfactory positioning of the stent. The distal projection device was then captured. A repeat whole head angiogram demonstrated improved flow in right ICA territory with no evidence of branch occlusions or slow filling branches, and no other untoward findings. SUPERVISION AND INTERPRETATION: Angiographic study demonstrates: 1. Severe right carotid stenosis, successfully treated with an 8 x 6x 40mm Xact carotid stent. No immediate technical or clinical complications. Signed: Chaz France MD Report Verified Date/Time:08/12/2018 12:14:40 Reading Location: [facility] Y026 Neuro Angio Reading Room Procedure Note Interface, External Ris In - 08/12/2018 12:17 PM CDT FINAL REPORT DATE OF PROCEDURE: 08/11/18 SURGEON: Chaz France MD ANALYTICAL CHEMIST: Leta Barreto MD PREOPERATIVE DIAGNOSIS: Transient ischemic attacks and severe right carotid artery stenosis POST OPERATIVE DIAGNOSIS: Transient ischemic attacks and severe right carotid artery stenosis OPERATION: 1) Selective Cerebral Angiogram 2) Right carotid stent ANESTHESIA: Moderate sedation ESTIMATED BLOOD LOSS: Less than 15 mL COMPLICATIONS: None INDICATIONS: The patient is a 73-year-old man who presented with transient ischemic attack. Stroke work up revealed carotid stenosis for which he underwent a diagnostic cerebral angiogram demonstrating critical right internal carotid artery stenosis. He presents today for angiogram for stenting. He had been maintained on Brilinta and ASA prior to the procedure with sufficient platelet inhibition. The lesion here extends up to the bottom of C2. PROCEDURE: Following explanation of the benefits, risks and alternatives for the procedure, informed consent was obtained from the patient. The risks including but not limited to stroke, intracranial hemorrhage, vascular injury to the cervical or femoral vessels and groin hematoma were discussed with the patient. A time-out was performed. Both groins were prepped in the usual sterile fashion using Chloraprep, and sterilely draped. A standard access using a micropuncture kit was attempted on each side, but due to difficulty arising from his calcified femoral arteries, no blood return could be achieved. Ultrasound guidance was used, and blood return was achieved, but the wire could not be passed through the micropuncture needle. Thus, an 18-gauge needle was used to puncture the right femoral artery. A 5 Taiwanese short sheath was then passed over an angled glide catheter. Using coaxial technique, a 5 Taiwanese [place] 2 catheter was advanced into the descending aorta, back-bled, and flushed in the usual fashion. Using coaxial technique, the catheter was advanced into the aortic arch, and with the aid of the roadmapping, digital fluoroscopy, and careful guidewire manipulation the right common carotid artery. Upon each successive selective catheterization, digital subtraction angiography using the appropriate rate and volume of contrast in multiple projections was performed. Digital subtraction angiogram of the common femoral arteries was performed. The catheter was removed. The femoral sheath was removed and hemostasis was achieved with angio seal and manual compression. The patient tolerated the procedure well and was taken to recovery in stable condition. FINDINGS: RIGHT COMMON FEMORAL ARTERY (DSA \\X2013\\ PA - PELVIS) The right femoral artery is patent with no stenosis or ulceration. The puncture is above the level of the bifurcation. RIGHT COMMON CAROTID ARTERY (DSA - PA, LATERAL - CERVICAL) The origin of the right internal carotid artery demonstrates significant stenosis, measuring greater than 80% stenosis by NASCET criteria. The external carotid artery is widely patent without evidence of ulceration or stenosis. RIGHT COMMON CAROTID ARTERY (DSA - PA, LATERAL, OBLIQUE - HEAD) There is a small size posterior communicating artery, through which the vertebrobasilar system is opacified. There is initially is no spontaneous filling of the right anterior cerebral artery and delayed flow; however, after stenting, there is improvement in flow with opacification of the right anterior cerebral artery territory. No vascular malformation or arteriovenous shunting is noted. No stenosis or vasospasm is observed. No significant abnormalities are seen in the capillary and venous phases. The venous phase demonstrates patent transverse and sigmoid sinuses. The visualized portions of the external carotid artery and its branches are normal without evidence of ulceration or stenosis. ENDOVASCULAR INTERVENTION: The diagnostic catheter was removed and exchanged in the descending aorta for a 6F Cook shuttle sheath. At this point, the patient was heparinized, with a satisfactory ACT. A VTK catheter was then used to position the shuttle within the common carotid artery. The stenotic lesion was traversed using a NAV6 distal projection device. Using standard monorail technique, a 8 x6 x 40 Xact carotid stent was then deployed in the internal carotid artery extending into the common carotid artery. Next we inflated a 4 x 30mm Viatrac 14 Plus balloon within the stent to ensure full deployment and apposition. The anesthesia team had given glycopyrrolate preemptively and had atropine on standby during this maneuver. Post stenting, an angiogram of the cervical carotid was performed demonstrating mild stenosis on the order of under 30% and satisfactory positioning of the stent. The distal projection device was then captured. A repeat whole head angiogram demonstrated improved flow in right ICA territory with no evidence of branch occlusions or slow filling branches, and no other untoward findings. SUPERVISION AND INTERPRETATION: Angiographic study demonstrates: 1. Severe right carotid stenosis, successfully treated with an 8 x 6x 40mm Xact carotid stent. No immediate technical or clinical complications. Signed: Chaz France MD Report Verified Date/Time: 08/12/2018 12:14:40 Reading Location: [facility] Y02 Neuro Angio Reading Room Performing Organization Address City/[facility]/Zipcode Phone Number GE RIS POC ACTIVATED CLOTTING TIME (08/11/2018 3:47 PM CDT) Activated Clotting Time 241Comment: TESTED AT sec [address] [id number] Specimen Blood Performing Organization Address City/[facility]/Zipcode Phone Number [address] [address] [phone] CENTER POCT-P2Y12 PLATELET AGGREGATION (08/11/2018 12:21 PM CDT)Only the most recent of2 resultswithin the time period is included. POC-P2Y12 Plt Agg 51 PRU [facility] Specimen Blood Narrative Performed At RANGE INFORMATION: PRU reference range is [facility] 194-418. Post Drug Results: Lower PRU levels are associated with expected antiplatelet effect. Values may be below the stated reference range above. The post-drug PRU values reported in the VerifyNow P2Y12 package insert are [id number]. Performing Organization Address [facility] Phone Number [address] [phone] [place] PT/aPTT (08/11/2018 12:21 PM CDT) Protime 16.1 (H) 11.7 - 14.7 seconds [facility] INR 1.3 <=5.9 [facility] PTT 40.0 (H) 22.5 - 36.0 seconds [facility] Specimen Blood Narrative Performed At [facility] RECOMMENDED COUMADIN/WARFARIN INR THERAPY RANGES STANDARD DOSE: 2.0 - 3.0 Includes: PROPHYLAXIS for venous thrombosis, systemic embolization; TREATMENT for venous thrombosis and/or pulmonary embolus. HIGH RISK: Target INR is 2.5-3.5 for patients with mechanical heart valves. Performing Organization Address [facility] Phone Number [address] [address] [place] POCT-ASPIRIN PLATELET AGGREGATION (08/11/2018 6:24 AM CDT) POC-Aspirin Plt Agg 408 ARU [facility] Specimen Blood Narrative Performed At RANGE INFORMATION: 350-549 ARU Therapeutic [facility] range for platelet function. 550-700 ARU Non-Therapeutic range for platelet function. Performing Organization Address [facility] Phone Number [address] [address] [place] CBC (hemogram only) (08/11/2018 6:24 AM CDT)Only the most recent of2 resultswithin the time period is included. WBC 12.4 (H) 3.5 - 10.5 K/L [facility] RBC 3.54 (L) 4.63 - 6.08 M/L [facility] Hemoglobin 11.4 (L) 13.7 - 17.5 GM/DL [facility] Hematocrit 35.6 (L) 40.1 - 51.0 % [facility] MCV 100.6 (H) 79.0 - 92.2 fL [facility] MCH 32.2 25.7 - 32.2 pg [facility] MCHC 32.0 (L) 32.3 - 36.5 GM/DL [facility] RDW 11.9 11.6 - 14.4 % [facility] Platelets 271 150 - 450 K/CU MM [facility] MPV 11.2 9.4 - 12.4 fL [facility] nRBC 0 0 - 0 /100 WBC [facility] Specimen Blood Performing Organization Address City/State/Zipcode Phone Number [facility] [address] [place] [address] CENTER [place] cerebral 4 vessel angiogram (08/10/2018 1:22 PM CDT) Specimen Narrative Performed At FINAL REPORT [facility] DATE OF PROCEDURE: 08/10/2018 SURGEON: Chaz France M.D. ANALYTICAL CHEMIST:Leta Barreto MD PREOPERATIVE DIAGNOSIS:carotid stenosis POST OPERATIVE DIAGNOSIS:critical right carotid stenosis PROCEDURE:Cerebral Angiogram ANESTHESIA: MAC ESTIMATED BLOOD LOSS: Minimal COMPLICATIONS: None INDICATIONS: The patient is a 73 year old man with a history of atrial fibrillation on apixiban, hypertension, obesity, and heart disease who presents after transient ischemic attack.Stroke work up at that time was suggestive of carotid stenosis prompting cerebral angiogram for further evaluation. PROCEDURE: Following explanation of the benefits, risks and alternatives for the procedure, informed consent was obtained from the patient. The risks including but not limited to stroke, intracranial hemorrhage, vascular injury to the cervical or femoral vessels and groin hematoma were discussed with the patient. A time-out was performed. Both groins were prepped in the usual sterile fashion using Chloraprep, and sterilely draped. The skin over the right femoral artery was anesthetized with 1% lidocaine. A single wall puncture of the right femoral artery was performed using a micropuncture set and dilator and a 5-Fr short sheath was inserted into the right common femoral artery and maintained on heparinized flush. Using coaxial technique, a 5-Fr Angled glide catheter was advanced into the descending aorta, back-bled, and flushed in the usual fashion. Using coaxial technique, the catheter was advanced into the aortic arch, and with the aid of the roadmapping, digital fluoroscopy, and careful guidewire manipulation the right vertebral, right common carotid, right left common carotid, and left vertebral arteries were catheterized. Upon each successive selective catheterization, digital subtraction angiography using the appropriate rate and volume of contrast in multiple projections was performed. The catheter was removed. The femoral sheath was removed and hemostasis was achieved with manual compression. The patient tolerated the procedure well and was taken to recovery in stable condition. FINDINGS: RIGHT COMMON FEMORAL ARTERY (DSA - PA, LATERAL - ILIAC) The sheath enters above the femoral bifurcation. The femoral artery and bifurcation are widely patent without evidence of ulceration or stenosis. RIGHT COMMON CAROTID ARTERY (DSA - PA, LATERAL - CERVICAL) The right internal carotid artery has critical stenosis at its origin. There is over 80% stenosis by NASCET criteria with down regulation of the vessel caliber distal to the stenosis.The visualized portions of the external carotid artery is patent and normal. RIGHT COMMON CAROTID ARTERY (DSA - PA, LATERAL, OBLIQUE - HEAD) There is a small posterior communicating artery. The left anterior cerebral artery territory is supplied by the contralateral internal carotid artery.There is delayed filling of the right middle cerebral artery territory. No vascular malformation or arteriovenous shunting is noted. No stenosis or vasospasm is observed. No significant abnormalities are seen in the capillary and venous phases. The venous phase demonstrates patent transverse and sigmoid sinuses. The visualized portions of the external carotid artery and its branches are normal without evidence of ulceration or stenosis. There is no evidence of arteriovenous shunting. The venous phase is normal. RIGHT VERTEBRAL ARTERY (DSA - PA, LATERAL - CERVICAL) The origin of the right vertebral artery is patent without significant stenotic lesion. LEFT COMMON CAROTID ARTERY (DSA - PA, LATERAL - CERVICAL) The origins of the left internal and external carotid arteries are widely patent without evidence of ulceration or stenosis. LEFT COMMON CAROTID ARTERY (DSA - PA, LATERAL, OBLIQUE - HEAD) There is spontaneous crossfilling across the anterior communicating artery with opacification of the distal right anterior cerebral and right middle cerebral arteries territories. There is a medium size posterior communicating artery. No vascular malformations, stenosis, or vasospasm is observed. No significant abnormalities are seen in the capillary and venous phases. The venous phase demonstrates patent transverse and sigmoid sinuses. The visualized portions of the external carotid artery and its branches are normal without evidence of ulceration or stenosis. There is no evidence of arteriovenous shunting. The venous phase is normal. LEFT VERTEBRAL ARTERY (DSA - PA, LATERAL - HEAD) The left vertebral artery is patent without significant stenotic lesion. The basilar artery shows no significant abnormality. 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 There is contrast reflux into the right vertebral artery. No aneurysms, vascular malformations, or stenotic lesions are noted in the vertebrobasilar system. The venous phase shows patent bilateral transverse and sigmoid sinuses. SUPERVISION AND INTERPRETATION: Angiographic study demonstrates: 1. 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 No immediate technical or clinical complications. Signed: Chaz France MD Report Verified Date/Time:08/12/2018 09:29:38 Reading Location: [place] [address] Neuro Angio Reading Room Procedure Note Interface, External Ris In - 08/12/2018 9:29 AM CDT FINAL REPORT DATE OF PROCEDURE: 08/10/2018 SURGEON: Chaz France M.D. ANALYTICAL CHEMIST: Leta Barreto MD PREOPERATIVE DIAGNOSIS: carotid stenosis POST OPERATIVE DIAGNOSIS: critical right carotid stenosis PROCEDURE: Cerebral Angiogram ANESTHESIA: MAC ESTIMATED BLOOD LOSS: Minimal COMPLICATIONS: None INDICATIONS: The patient is a 73 year old man with a history of atrial fibrillation on apixiban, hypertension, obesity, and heart disease who presents after transient ischemic attack. Stroke work up at that time was suggestive of carotid stenosis prompting cerebral angiogram for further evaluation. PROCEDURE: Following explanation of the benefits, risks and alternatives for the procedure, informed consent was obtained from the patient. The risks including but not limited to stroke, intracranial hemorrhage, vascular injury to the cervical or femoral vessels and groin hematoma were discussed with the patient. A time-out was performed. Both groins were prepped in the usual sterile fashion using Chloraprep, and sterilely draped. The skin over the right femoral artery was anesthetized with 1% lidocaine. A single wall puncture of the right femoral artery was performed using a micropuncture set and dilator and a 5-Fr short sheath was inserted into the right common femoral artery and maintained on heparinized flush. Using coaxial technique, a 5-Fr Angled glide catheter was advanced into the descending aorta, back-bled, and flushed in the usual fashion. Using coaxial technique, the catheter was advanced into the aortic arch, and with the aid of the roadmapping, digital fluoroscopy, and careful guidewire manipulation the right vertebral, right common carotid, right left common carotid, and left vertebral arteries were catheterized. Upon each successive selective catheterization, digital subtraction angiography using the appropriate rate and volume of contrast in multiple projections was performed. The catheter was removed. The femoral sheath was removed and hemostasis was achieved with manual compression. The patient tolerated the procedure well and was taken to recovery in stable condition. FINDINGS: RIGHT COMMON FEMORAL ARTERY (DSA - PA, LATERAL - ILIAC) The sheath enters above the femoral bifurcation. The femoral artery and bifurcation are widely patent without evidence of ulceration or stenosis. RIGHT COMMON CAROTID ARTERY (DSA - PA, LATERAL - CERVICAL) The right internal carotid artery has critical stenosis at its origin. There is over 80% stenosis by NASCET criteria with down regulation of the vessel caliber distal to the stenosis. The visualized portions of the external carotid artery is patent and normal. RIGHT COMMON CAROTID ARTERY (DSA - PA, LATERAL, OBLIQUE - HEAD) There is a small posterior communicating artery. The left anterior cerebral artery territory is supplied by the contralateral internal carotid artery. There is delayed filling of the right middle cerebral artery territory. No vascular malformation or arteriovenous shunting is noted. No stenosis or vasospasm is observed. No significant abnormalities are seen in the capillary and venous phases. The venous phase demonstrates patent transverse and sigmoid sinuses. The visualized portions of the external carotid artery and its branches are normal without evidence of ulceration or stenosis. There is no evidence of arteriovenous shunting. The venous phase is normal. RIGHT VERTEBRAL ARTERY (DSA - PA, LATERAL - CERVICAL) The origin of the right vertebral artery is patent without significant stenotic lesion. LEFT COMMON CAROTID ARTERY (DSA - PA, LATERAL - CERVICAL) The origins of the left internal and external carotid arteries are widely patent without evidence of ulceration or stenosis. LEFT COMMON CAROTID ARTERY (DSA - PA, LATERAL, OBLIQUE - HEAD) There is spontaneous crossfilling across the anterior communicating artery with opacification of the distal right anterior cerebral and right middle cerebral arteries territories. There is a medium size posterior communicating artery. No vascular malformations, stenosis, or vasospasm is observed. No significant abnormalities are seen in the capillary and venous phases. The venous phase demonstrates patent transverse and sigmoid sinuses. The visualized portions of the external carotid artery and its branches are normal without evidence of ulceration or stenosis. There is no evidence of arteriovenous shunting. The venous phase is normal. LEFT VERTEBRAL ARTERY (DSA - PA, LATERAL - HEAD) The left vertebral artery is patent without significant stenotic lesion. The basilar artery shows no significant abnormality. 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 There is contrast reflux into the right vertebral artery. No aneurysms, vascular malformations, or stenotic lesions are noted in the vertebrobasilar system. The venous phase shows patent bilateral transverse and sigmoid sinuses. SUPERVISION AND INTERPRETATION: Angiographic study demonstrates: 1. 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 No immediate technical or clinical complications. Signed: Chaz France MD Report Verified Date/Time: 08/12/2018 09:29:38 Reading Location: [facility] Y02 Neuro Angio Reading Room Performing Organization Address [facility] Phone Number GE RIS aPTT (08/10/2018 6:08 AM CDT)Only the most recent of5 resultswithin the time period is included. PTT 38.3 (H) 22.5 - 36.0 seconds [facility] Specimen Blood Performing Organization Address City/[facility]/Zipcode Phone Number [facility] [address] [place] [address] [phone] CENTER Sodium, random urine (08/09/2018 12:35 PM CDT) Sodium Urine 74 meq/L [facility] Specimen Urine Narrative Performed At [facility] Reference Range: No Normals Performing Organization Address [facility]/Zipcode Phone Number [facility] [address] [address] [place] Protein, random urine (08/09/2018 12:35 PM CDT) Protein, Urine <7 0 - 14 mg/dL [facility] Specimen Urine Performing Organization Address [facility] [place] [place] [address] [place] Creatinine, random urine (08/09/2018 12:35 PM CDT) Creatinine, Ur 18.9 mg/dL [facility] Specimen Urine Narrative Performed At [facility] Reference Range: No Normals Performing Organization Address [facility] Phone Number [address] [address] [place] Urinalysis w/Microscopic (08/09/2018 12:35 PM CDT) Color, UA Light Yellow [facility] Clarity, UA Clear [facility] Specific [place], UA 1.003 1.001 - 1.035 [facility] pH, UA 6.5 5.0 - 8.0 [facility] Protein, UA Negative Negative [facility] Glucose, UA Negative Negative [facility] Ketones, UA Negative Negative [facility] Bilirubin, UA Negative Negative [facility] Blood, UA Small (A) Negative [facility] Nitrite, UA Negative Negative [facility] Leukocytes, UA Negative Negative [facility] Urobilinogen, UA 0.2 0.2 - 1.0 mg/dL [facility] RBC, UA 0 /HPF [facility] WBC, UA 0 /HPF [facility] Specimen Source Urine, Voided [facility] Specimen Urine Performing Organization Address [facility] Phone Number [address] [address] [phone] CENTER Eosinophil smear (08/09/2018 12:35 PM CDT) Eosinophil Smear No EOS seen No EOS seen [facility] Specimen Urine Performing Organization Address [facility] Phone Number [address] [address] [phone] [place] Protein electrophoresis, serum (08/09/2018 5:16 AM CDT) Albumin Fraction 2.6 (L) 3.5 - 5.5 g/dL [facility] Alpha 1 Fraction 0.4 0.2 - 0.4 g/dL [facility] Alpha 2 Fraction 1.0 (H) 0.5 - 0.9 g/dL [facility] Beta Fraction 1.0 0.6 - 1.1 g/dL [facility] Gamma Globulin Fraction 1.0 0.7 - 1.7 g/dL [facility] Interpretation Pattern consistent with [facility] acute inflammatory [facility] process. No monoclonal bands detected. Pathologist: Bette Cage MD [facility] (electronic signature) [facility] Protein, Total 6.1 6.0 - 8.3 gm/dL [facility] Specimen Blood Performing Organization Address City/[facility] Phone Number [address] [address] [phone] [place] TSH/Free T4 If Indicated (08/09/2018 5:07 AM CDT) TSH 0.87 0.35 - 4.94 uIU/mL [facility] Specimen Blood Performing Organization Address City/[facility] Phone Number [address] [address] [place] BUN and Creatinine (08/09/2018 5:07 AM CDT) BUN 13 7 - 21 mg/dL [facility] Creatinine 0.77 0.57 - 1.25 mg/dL [facility] EGFR 99Comment: ESTIMATED GFR IS mL/min/1.73 sq m [facility] NOT ACCURATE [facility] CLEARANCE IN PREDICTING GLOMERULAR FILTRATION RATE. ESTIMATED GFR IS NOT APPLICABLE FOR DIALYSIS PATIENTS. Specimen Blood Performing Organization Address City/State/Zipcode Phone Number [address] [address] [place] MANINDER Titer & Pattern (08/09/2018 5:07 AM CDT) MANINDER Titer 1:160 [facility] MANINDER Pattern Speckled [facility] Specimen Blood Performing Organization Address [facility] Phone Number [address] [address] [phone] CENTER RPR (08/09/2018 5:07 AM CDT) RPR Nonreactive Nonreactive [facility] Specimen Blood Performing Organization Address [facility] Phone Number [address] [address] [place] Anti-Nuclear Antibody (MANINDER) (08/09/2018 5:07 AM CDT) MANINDER Positive (A) Negative [facility] Specimen Blood Narrative Performed At [facility] Test performed by IFA method. Performing Organization Address [facility] Phone Number [address] [phone] CENTER Potassium (08/09/2018 5:07 AM CDT) Potassium 4.1 3.5 - 5.1 meq/L [facility] Specimen Blood Performing Organization Address [facility]/Zipcode Phone Number [facility] [address] [place] [address] CENTER Platelet count (08/08/2018 4:29 PM CDT) Platelets 234 150 - 450 K/CU MM [facility] Specimen Blood Performing Organization Address [facility]/Zipcode Phone Number [place] [phone] [place], [place] [phone] CENTER Magnesium (08/08/2018 6:43 AM CDT) Magnesium 2.2 1.6 - 2.6 mg/dL [facility] Specimen Blood Performing Organization Address [facility]/Zipcode Phone Number [place] [phone] [place], [place] [phone] [place] TRANSFUSION SERVICE REPORT - SCAN (08/07/2018 6:01 PM CDT) Narrative Performed At CT abdomen/pelvis with IV contrast (08/07/2018 4:36 PM CDT) Specimen Narrative Performed At FINAL REPORT [employer] [facility] CT of the Chest, abdomen and pelvis dated 08/07/2018 Clinical information: Chest pain or SOB, pleurisy or effusion suspected Comment:Axial images of the chest, abdomen, and pelvis were obtained from thoracic inlet to the pubic symphysis with GI and intravenous contrast. This exam was performed according to our departmental dose-optimization program, which includes automated exposure control, adjustment of the mA and/or kV according to patient size and/or use of interactive reconstruction technique. Heart is normal in size.Great vessels are unremarkable. No adenopathy in the mediastinum or perihilar region. Trachea and mainstem bronchi are patent. Minimal scarring versus subsegmental atelectasis is seen in both lung bases. The rest of the lungs are clear.No nodular, mass lesion or airspace disease is noted.No interstitial disease or bronchiectasis is present. No pleural effusion or pleural based mass is seen. Multiple old healed rib fractures are seen on the right. Liver and spleen are normal in size. No focal lesion is seen in the liver or the spleen. Gallbladder is surgically absent. No biliary dilatation is noted. Pancreas and adrenals are unremarkable. Both kidneys are normal in size and functioning.No hydronephrosis, hydroureter, or urolithiasis is noted. There is perfusion defects in the upper and inferior pole left kidney suggestive of infarction or pyelonephritis. A 6.1 x 6.9 x 6.5 cm cyst is seen in the upper pole left kidney. Prostate is normal in size. The urinary bladder is minimally distended. The opacified small and large bowel are unremarkable. Appendix is normal in caliber. No mass, adenopathy or ascites is present in the abdomen or pelvis. Impression: 1. Old healed rib fractures in the right hemithorax.. 2. Wedge-shaped perfusion defects in the upper and inferior pole left kidney suggestive of infarction or focal pyelonephritis. 3. Left renal cyst. Signed: Reagan Peck MD Report Verified Date/Time:08/07/2018 17:39:22 Reading Location: [facility] [id number] Consult Reading Room Procedure Note Interface, External Ris In - 08/07/2018 5:41 PM CDT FINAL REPORT CT of the Chest, abdomen and pelvis dated 08/07/2018 Clinical information: Chest pain or SOB, pleurisy or effusion suspected Comment: Axial images of the chest, abdomen, and pelvis were obtained from thoracic inlet to the pubic symphysis with GI and intravenous contrast. This exam was performed according to our departmental dose-optimization program, which includes automated exposure control, adjustment of the mA and/or kV according to patient size and/or use of interactive reconstruction technique. Heart is normal in size. Great vessels are unremarkable. No adenopathy in the mediastinum or perihilar region. Trachea and mainstem bronchi are patent. Minimal scarring versus subsegmental atelectasis is seen in both lung bases. The rest of the lungs are clear. No nodular, mass lesion or airspace disease is noted. No interstitial disease or bronchiectasis is present. No pleural effusion or pleural based mass is seen. Multiple old healed rib fractures are seen on the right. Liver and spleen are normal in size. No focal lesion is seen in the liver or the spleen. Gallbladder is surgically absent. No biliary dilatation is noted. Pancreas and adrenals are unremarkable. Both kidneys are normal in size and functioning. No hydronephrosis, hydroureter, or urolithiasis is noted. There is perfusion defects in the upper and inferior pole left kidney suggestive of infarction or pyelonephritis. A 6.1 x 6.9 x 6.5 cm cyst is seen in the upper pole left kidney. Prostate is normal in size. The urinary bladder is minimally distended. The opacified small and large bowel are unremarkable. Appendix is normal in caliber. No mass, adenopathy or ascites is present in the abdomen or pelvis. Impression: 1. Old healed rib fractures in the right hemithorax.. 2. Wedge-shaped perfusion defects in the upper and inferior pole left kidney suggestive of infarction or focal pyelonephritis. 3. Left renal cyst. Signed: Reagan Peck MD Report Verified Date/Time: 08/07/2018 17:39:22 Reading Location: [facility] [id number] Consult Reading Room Performing Organization Address City/State/Zipcode Phone Number [facility] CT chest with IV contrast (08/07/2018 4:36 PM CDT) Specimen Narrative Performed At FINAL REPORT [facility] CT of the Chest, abdomen and pelvis dated 08/07/2018 Clinical information: Chest pain or SOB, pleurisy or effusion suspected Comment:Axial images of the chest, abdomen, and pelvis were obtained from thoracic inlet to the pubic symphysis with GI and intravenous contrast. This exam was performed according to our departmental dose-optimization program, which includes automated exposure control, adjustment of the mA and/or kV according to patient size and/or use of interactive reconstruction technique. Heart is normal in size.Great vessels are unremarkable. No adenopathy in the mediastinum or perihilar region. Trachea and mainstem bronchi are patent. Minimal scarring versus subsegmental atelectasis is seen in both lung bases. The rest of the lungs are clear.No nodular, mass lesion or airspace disease is noted.No interstitial disease or bronchiectasis is present. No pleural effusion or pleural based mass is seen. Multiple old healed rib fractures are seen on the right. Liver and spleen are normal in size. No focal lesion is seen in the liver or the spleen. Gallbladder is surgically absent. No biliary dilatation is noted. Pancreas and adrenals are unremarkable. Both kidneys are normal in size and functioning.No hydronephrosis, hydroureter, or urolithiasis is noted. There is perfusion defects in the upper and inferior pole left kidney suggestive of infarction or pyelonephritis. A 6.1 x 6.9 x 6.5 cm cyst is seen in the upper pole left kidney. Prostate is normal in size. The urinary bladder is minimally distended. The opacified small and large bowel are unremarkable. Appendix is normal in caliber. No mass, adenopathy or ascites is present in the abdomen or pelvis. Impression: 1. Old healed rib fractures in the right hemithorax.. 2. Wedge-shaped perfusion defects in the upper and inferior pole left kidney suggestive of infarction or focal pyelonephritis. 3. Left renal cyst. Signed: Reagan Peck MD Report Verified Date/Time:08/07/2018 17:39:22 Reading Location: [facility] [id number] Consult Reading Room Procedure Note Interface, External Ris In - 08/07/2018 5:41 PM CDT FINAL REPORT CT of the Chest, abdomen and pelvis dated 08/07/2018 Clinical information: Chest pain or SOB, pleurisy or effusion suspected Comment: Axial images of the chest, abdomen, and pelvis were obtained from thoracic inlet to the pubic symphysis with GI and intravenous contrast. This exam was performed according to our departmental dose-optimization program, which includes automated exposure control, adjustment of the mA and/or kV according to patient size and/or use of interactive reconstruction technique. Heart is normal in size. Great vessels are unremarkable. No adenopathy in the mediastinum or perihilar region. Trachea and mainstem bronchi are patent. Minimal scarring versus subsegmental atelectasis is seen in both lung bases. The rest of the lungs are clear. No nodular, mass lesion or airspace disease is noted. No interstitial disease or bronchiectasis is present. No pleural effusion or pleural based mass is seen. Multiple old healed rib fractures are seen on the right. Liver and spleen are normal in size. No focal lesion is seen in the liver or the spleen. Gallbladder is surgically absent. No biliary dilatation is noted. Pancreas and adrenals are unremarkable. Both kidneys are normal in size and functioning. No hydronephrosis, hydroureter, or urolithiasis is noted. There is perfusion defects in the upper and inferior pole left kidney suggestive of infarction or pyelonephritis. A 6.1 x 6.9 x 6.5 cm cyst is seen in the upper pole left kidney. Prostate is normal in size. The urinary bladder is minimally distended. The opacified small and large bowel are unremarkable. Appendix is normal in caliber. No mass, adenopathy or ascites is present in the abdomen or pelvis. Impression: 1. Old healed rib fractures in the right hemithorax.. 2. Wedge-shaped perfusion defects in the upper and inferior pole left kidney suggestive of infarction or focal pyelonephritis. 3. Left renal cyst. Signed: Reagan Peck MD Report Verified Date/Time: 08/07/2018 17:39:22 Reading Location: [address] Consult Reading Room Performing Organization Address City/State/Zipcode Phone Number GE RIS XR chest 2 views (08/06/2018 9:27 PM CDT) Specimen Narrative Performed At FINAL REPORT [employer] and Lateral views of the chest dated 08/06/2018 Clinical information: Shortness of breath, and concern for pneumonia. Comment:Heart is in upper limits of normal in size. Pulmonary vasculature is unremarkable. Lungs are clear. No pulmonary infiltrate or pleural effusion is present. Pleural thickening is noted bilaterally. Impression:No active cardiopulmonary disease. Signed: Reagan Peck MD Report Verified Date/Time:08/06/2018 21:57:16 Reading Location: [facility] C013 Consult Reading Room Procedure Note Interface, External Ris In - 08/06/2018 9:59 PM CDT FINAL REPORT PA and Lateral views of the chest dated 08/06/2018 Clinical information: Shortness of breath, and concern for pneumonia. Comment: Heart is in upper limits of normal in size. Pulmonary vasculature is unremarkable. Lungs are clear. No pulmonary infiltrate or pleural effusion is present. Pleural thickening is noted bilaterally. Impression: No active cardiopulmonary disease. Signed: Reagan Peck MD Report Verified Date/Time: 08/06/2018 21:57:16 Reading Location: [facility] B[facility] C013W Consult Reading Room Performing Organization Address City/[facility]/Zipcode Phone Number GE RIS Procalcitonin (08/06/2018 4:10 PM CDT) Procalcitonin 0.17 (H) <0.05 ng/mL [facility] Specimen Blood Narrative Performed At [facility] SEPSIS RISK (ng/mL) Low:0.05-0.50 Intermediate: 0.51-2.00 High: >=2.01 Performing Organization Address [facility] Phone Number [address] [address] [phone] CENTER Type and screen, automated (08/06/2018 4:10 PM CDT) ABO/RH AUTOMATED (BEAKER) A POSITIVE [facility] Ab Scrn NEGATIVE [facility] Specimen Blood Performing Organization Address [facility] Phone Number [address] [address] Prothrombin time/INR (08/06/2018 4:10 PM CDT) Protime 21.4 (H) 11.7 - 14.7 seconds [facility] INR 1.9 <=5.9 [facility] Specimen Blood Narrative Performed At [facility] RECOMMENDED COUMADIN/WARFARIN INR THERAPY RANGES STANDARD DOSE: 2.0 - 3.0 Includes: PROPHYLAXIS for venous thrombosis, systemic embolization; TREATMENT for venous thrombosis and/or pulmonary embolus. HIGH RISK: Target INR is 2.5-3.5 for patients with mechanical heart valves. Performing Organization Address [facility]/Zipcode Phone Number [address] [address] CENTER Vitamin B12 and Folate (08/06/2018 3:43 PM CDT) Vitamin B12 541 213 - 816 pg/mL [facility] Folate 14.3 >=7.0 ng/mL [facility] Specimen Blood Performing Organization Address City/[facility]/Zipcode Phone Number [address] [phone] [place] Lactic acid, venous, whole blood (08/06/2018 3:43 PM CDT) Lactate, Venous 1.8Comment: Specimen 0.5 - 2.2 mmol/L [facility] slightly hemolyzed [facility] Specimen Blood Narrative Performed At [facility] Effective 03/13/2016: Units/Reference Range Change New: 0.5-2.2 mmol/LPrevious: 5-20 mg/dL Performing Organization Address [place] [facility] Phone Number [address] [phone] [place] Blood culture (08/06/2018 3:43 PM CDT)Only the most recent of2 resultswithin the time period is included. Result No growth in 5 days [facility] Specimen Blood Performing Organization Address City/[facility] Phone Number [address] [phone] [place] MR brain without IV contrast (08/06/2018 11:40 AM CDT) Specimen Narrative Performed At FINAL REPORT [employer] [facility] MRI brain Comparison: None Reason for exam: Stroke Ischemic Stroke Evaluation Discussion: Multiplanar MR imaging the brain was performed using T1, T2, FLAIR, FFE, diffusion, and ADC map imaging. There are no intracranial hematomas, mass effect, hydrocephalus, shift, or extra-axial collections. Moderate chronic microvascular changes are seen in both cerebral hemispheres and in the brainstem. Additionally, semiconfluent patchy CAREER SPECIALIST territory diffusion restricted recent infarctions are seen along the medial aspect of the right-sided temporal and occipital lobe regions. Additional small cortical infarcts are seen in the midportion of the right-sided precentral gyrus and at a few scattered punctate locations along the right-sided middle frontal gyrus. Flow-voids are seen in the basilar and internal carotid arteries as well as in the large posterior dural sinuses. The pineal, sella, and craniocervical junction regions are unremarkable. The visualized orbital contents, paranasal sinuses, skullbase and surrounding soft tissues are unremarkable.. 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 No hematoma or mass effect. Signed: Marci Sanchez MD Report Verified Date/Time:08/06/2018 12:15:05 Reading Location: [facility] C013V Neuro Reading Room Procedure Note Interface, External Ris In - 08/06/2018 12:25 PM CDT FINAL REPORT MRI brain Comparison: None Reason for exam: Stroke Ischemic Stroke Evaluation Discussion: Multiplanar MR imaging the brain was performed using T1, T2, FLAIR, FFE, diffusion, and ADC map imaging. There are no intracranial hematomas, mass effect, hydrocephalus, shift, or extra-axial collections. Moderate chronic microvascular changes are seen in both cerebral hemispheres and in the brainstem. Additionally, semiconfluent patchy CAREER SPECIALIST territory diffusion restricted recent infarctions are seen along the medial aspect of the right-sided temporal and occipital lobe regions. Additional small cortical infarcts are seen in the midportion of the right-sided precentral gyrus and at a few scattered punctate locations along the right-sided middle frontal gyrus. Flow-voids are seen in the basilar and internal carotid arteries as well as in the large posterior dural sinuses. The pineal, sella, and craniocervical junction regions are unremarkable. The visualized orbital contents, paranasal sinuses, skullbase and surrounding soft tissues are unremarkable. . 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 No hematoma or mass effect. Signed: Marci Sanchez MD Report Verified Date/Time: 08/06/2018 12:15:05 Reading Location: [facility] C013V Neuro Reading Room Performing Organization Address City/State/Zipcode Phone Number [employer] MRA neck without IV contrast (08/06/2018 11:33 AM CDT) Specimen Narrative Performed At FINAL REPORT [employer] MRA brain and neck without contrast 08/06/2018 1:51 PM CLINICAL HISTORY: Stroke Ischemic Stroke Evaluation COMPARISON: None available TECHNIQUE: Two- and three-dimensional [id number] MRA images of the intra- and extracranial arterial vasculature was performed, from which maximal intensity projection 3-D reconstructions were created. FINDINGS: Patient motion limits these examinations. Pathology may be obscured. With this limitation in mind, there is no vessel occlusion in the intracranial or extracranial arterial vasculature. There is 90% right and 33% left cervical internal carotid artery stenosis (NASCET criteria). Flow is antegrade in both vertebral arteries. IMPRESSION: 1. Motion limited examination, without evidence for acute vascular compromise. 2. Severe right and mild left cervical internal carotid artery stenosis. Signed: Aristides Lester MD Report Verified Date/Time:08/06/2018 13:54:13 Reading Location: [facility] Reading Room Procedure Note Interface, External Ris In - 08/06/2018 1:56 PM CDT FINAL REPORT MRA brain and neck without contrast 08/06/2018 1:51 PM CLINICAL HISTORY: Stroke Ischemic Stroke Evaluation COMPARISON: None available TECHNIQUE: Two- and three-dimensional [id number] MRA images of the intra- and extracranial arterial vasculature was performed, from which maximal intensity projection 3-D reconstructions were created. FINDINGS: Patient motion limits these examinations. Pathology may be obscured. With this limitation in mind, there is no vessel occlusion in the intracranial or extracranial arterial vasculature. There is 90% right and 33% left cervical internal carotid artery stenosis (NASCET criteria). Flow is antegrade in both vertebral arteries. IMPRESSION: 1. Motion limited examination, without evidence for acute vascular compromise. 2. Severe right and mild left cervical internal carotid artery stenosis. Signed: Aristides Lester MD Report Verified Date/Time: 08/06/2018 13:54:13 Reading Location: [facility] Radiology Reading Room Performing Organization Address City/State/Zipcode Phone Number [employer] MRA head without IV contrast (08/06/2018 11:33 AM CDT) Specimen Narrative Performed At FINAL REPORT [facility] MRA brain and neck without contrast 08/06/2018 1:51 PM CLINICAL HISTORY: Stroke Ischemic Stroke Evaluation COMPARISON: None available TECHNIQUE: Two- and three-dimensional [id number]-[id number] MRA images of the intra- and extracranial arterial vasculature was performed, from which maximal intensity projection 3-D reconstructions were created. FINDINGS: Patient motion limits these examinations. Pathology may be obscured. With this limitation in mind, there is no vessel occlusion in the intracranial or extracranial arterial vasculature. There is 90% right and 33% left cervical internal carotid artery stenosis (NASCET criteria). Flow is antegrade in both vertebral arteries. IMPRESSION: 1. Motion limited examination, without evidence for acute vascular compromise. 2. Severe right and mild left cervical internal carotid artery stenosis. Signed: Aristides Lester MD Report Verified Date/Time:08/06/2018 13:54:44 Reading Location: [facility] Reading Room Procedure Note Interface, External Ris In - 08/06/2018 1:56 PM CDT FINAL REPORT MRA brain and neck without contrast 08/06/2018 1:51 PM CLINICAL HISTORY: Stroke Ischemic Stroke Evaluation COMPARISON: None available TECHNIQUE: Two- and three-dimensional [id number]-[id number] MRA images of the intra- and extracranial arterial vasculature was performed, from which maximal intensity projection 3-D reconstructions were created. FINDINGS: Patient motion limits these examinations. Pathology may be obscured. With this limitation in mind, there is no vessel occlusion in the intracranial or extracranial arterial vasculature. There is 90% right and 33% left cervical internal carotid artery stenosis (NASCET criteria). Flow is antegrade in both vertebral arteries. IMPRESSION: 1. Motion limited examination, without evidence for acute vascular compromise. 2. Severe right and mild left cervical internal carotid artery stenosis. Signed: Aristides Lester MD Report Verified Date/Time: 08/06/2018 13:54:44 Reading Location: [facility] Radiology Reading Room Performing Organization Address City/State/Zipcode Phone Number [facility] ECHOCARDIOGRAM REPORT - SCAN (08/05/2018 5:30 PM CDT) Narrative Performed At Transthoracic 2D echo w/ doppler (cw/pw/color) (08/05/2018 11:12 AM CDT) Ejection Fraction [facility] ECHO HEARTLAB [facility] Specimen Narrative Performed At Transthoracic Echocardiography Report (TTE) [facility] ECHO HEARTLAB [facility] Demographics Patient Name PUTKAR, EDDIEDate of Study 08/05/2018 [id number] GenderMale Visit Number [id number] Unknown [id number] Room Number 2263 Number Date of Birth4Referring Physician TEDDY PUENTE Age73 year(s)Community Education Specialist Clarence Sanon InterpretingStOswaldo Plaza Physician Procedure Type of Study TTE procedure:2DECHO W DOPPLER(CW/PW/COLOR) (STAT) Indications:Acute Chest Pain/ Suspected CAD. Clinical History AFIB CHF TIA Height: 73 inches Weight: 129.73 kg (286 lbs) BSA: 2.51 m^2 BMI: 37.73 kg/m^2 HR: 80 bpm BP: 136/71 mmHg Summary 1. All of the LV segments have low normal contractility Estimated LVEF by qualitative assessment is lower limits of normal (50-55%) . 2. RV chamber size is normal . Global RV systolic function is low normal . Previous Study No prior exam available for comparison. Signature Findings Technical Quality: Technically adequate exam. Rhythm/BPIrregular rhythm during the exam. Left Ventricle The left ventricle is chamber size (by PSLAX di mension) is normal (male - LVIDd 4.2-5.8cm) . Mi ld concentric LV hypertrophy. All of the LV se gments have low normal contractility . Global LV sy stolic function lower limits of normal . Es timated LVEF by qualitative assessment is lower li mits of normal (50-55%) . Degree of diastolic dy sfunction (LAP assessment) is inconclusive due to ar rhythmia . Left AtriumLA size is mildly enlarged (35-41 ml/m2) . Right VentricleRV chamber size is normal . Gl obal RV systolic function is low normal . Right Atrium RA cavity size is normal . Aortic Valve Mild AoV cusp thickening. Mitral Valve Mild MV leaflet thickening. Mi ld mitral annular calcification. Tricuspid ValveUnable to estimate peak systolic PA pressure; in adequate TR velocity signal. Pulmonic Valve Normal PV structure and function. AortaAortic root size (SInus of Valsalva diameter) is no rmal . Proximal ascending aorta size is normal . PericardiumNo significant pericardial effusion is visualized. IVC/SVC/PA/PV/PleuralThe estimated RA pressure by IVC dynamics 5-10mmHg . Chambers/Structures Left Atrium LA Volume: 86.7 mlLA Area: 32.86 cm^2 LA Vol. Index: 35 ml/m^2 Left Ventricle LVIDd: 4.59 cm LV Septum Diastolic: 1.18 cm LV PW Diastolic: 1.16 cm LVOT Diameter: 2.13 cm Right Ventricle TAPSE: 1.49 cm Aorta Ao Root S of Jemma.: 3.49 cmAscending Aorta: 3.44 cm Doppler/Quantitative Measurements Aortic Valve Peak Velocity: 1.51 m/sMean Velocity: 1.1 m/s Peak Gradient: 9.17 mmHg Mean Gradient: 5.56 mmHg AV Area (continuity): 2.41 cm^2 AV VTI: 24.97 cm AV DVI: 0.68 LVOT Peak Velocity: 0.97 m/s Peak Gradient: 3.79 mmHg Mean Velocity: 0.71 m/s Mean Gradient: 2.26 mmHg LVOT Diameter: 2.13 cmLVOT VTI: 16.88 cm LVOT Area: 3.56 cm^2LVOT SV:60.12 ml LVOT CO: 4.81 l/min LVOT CI: 1.92 l/min/m^2 Procedure Note Interface, External Ris In - 08/05/2018 4:17 PM CDT Transthoracic Echocardiography Report (TTE) Demographics Patient Name ALEJO LIVINGSTON Date of Study 08/05/2018 Gender Male Visit Number [id number] Race Unknown Room Number 2263 Number Date of 1945 Referring Physician TEDDY PUENTE Age 73 year(s) 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 Clinical History AFIB CHF TIA Height: 73 inches Weight: 129.73 kg (286 lbs) BSA: 2.51 m^2 BMI: 37.73 kg/m^2 HR: 80 bpm BP: 136/71 mmHg Summary 1. All of the LV segments have low normal contractility Estimated LVEF by qualitative assessment is lower limits of normal (50-55%) . 2. RV chamber size is normal . Global RV systolic function is low normal . Previous Study No prior exam available for comparison. Signature Findings Technical Quality: Technically adequate exam. Rhythm/BP Irregular rhythm during the exam. Left Ventricle The left ventricle is chamber size (by PSLAX dimension) is normal (male - LVIDd 4.2-5.8cm) . Mild concentric LV hypertrophy. All of the LV segments have low normal contractility . Global LV systolic function lower limits of normal . Estimated LVEF by qualitative assessment is lower limits of normal (50-55%) . Degree of diastolic dysfunction (LAP assessment) is inconclusive due to arrhythmia . Left Atrium LA size is mildly enlarged (35-41 ml/m2) . Right Ventricle RV chamber size is normal . Global RV systolic function is low normal . Right Atrium RA cavity size is normal . Aortic Valve Mild AoV cusp thickening. Mitral Valve Mild MV leaflet thickening. Mild mitral annular calcification. Tricuspid Valve Unable to estimate peak systolic PA pressure; inadequate TR velocity signal. Pulmonic Valve Normal PV structure and function. Aorta Aortic root size (SInus of Valsalva diameter) is normal . Proximal ascending aorta size is normal . Pericardium No significant pericardial effusion is visualized. IVC/SVC/PA/PV/Pleural The estimated RA pressure by IVC dynamics 5-10mmHg . Chambers/Structures Left Atrium LA Volume: 86.7 ml LA Area: 32.86 cm^2 LA Vol. Index: 35 ml/m^2 Left Ventricle LVIDd: 4.59 cm LV Septum Diastolic: 1.18 cm LV PW Diastolic: 1.16 cm LVOT Diameter: 2.13 cm Right Ventricle TAPSE: 1.49 cm Aorta Ao Root S of Jemma.: 3.49 cm Ascending Aorta: 3.44 cm Doppler/Quantitative Measurements Aortic Valve Peak Velocity: 1.51 m/s Mean Velocity: 1.1 m/s Peak Gradient: 9.17 mmHg Mean Gradient: 5.56 mmHg AV Area (continuity): 2.41 cm^2 AV VTI: 24.97 cm AV DVI: 0.68 LVOT Peak Velocity: 0.97 m/s Peak Gradient: 3.79 mmHg Mean Velocity: 0.71 m/s Mean Gradient: 2.26 mmHg LVOT Diameter: 2.13 cm LVOT VTI: 16.88 cm LVOT Area: 3.56 cm^2 LVOT SV:60.12 ml LVOT CO: 4.81 l/min LVOT CI: 1.92 l/min/m^2 Performing Organization Address City/State/Zipcode Phone Number [facility] [employer] HEARTLAB [facility] Urinalysis w/Microscopic + Reflex to Culture (08/05/2018 5:30 AM CDT) Color, UA Yellow [facility] Clarity, UA Hazy [facility] Specific [place], UA 1.022 1.001 - 1.035 [facility] pH, UA 5.5 5.0 - 8.0 [facility] Protein, UA 100 mg/dL (A) Negative [facility] Glucose, UA Negative Negative [facility] Ketones, UA Negative Negative [facility] Bilirubin, UA Negative Negative [facility] Blood, UA Trace (A) Negative [facility] Nitrite, UA Negative Negative [facility] Leukocytes, UA Negative Negative [facility] Urobilinogen, UA 2.0 (H) 0.2 - 1.0 mg/dL [facility] RBC, UA 11 /HPF [facility] WBC, UA 3 /HPF [facility] Mucus Many [facility] Squam Epithel, UA <1 /HPF [facility] Hyaline Casts, UA 5 /LPF [facility] Specimen Source [facility] Specimen Urine Performing Organization Address City/State/Zipcode Phone Number [facility] [address] [place] [address] CENTER US testicular (scrotum) (08/05/2018 4:09 AM CDT) Specimen Narrative Performed At FINAL REPORT [employer] U/S, TESTICULAR (SCROTUM) CLINICAL INDICATION: scrotal swelling COMPARISON: None TECHNIQUE: The scrotum was evaluated using real-time barnett scale and color and spectral Doppler sonography. FINDINGS: Right testis: Size: 4.9 x 2.5 x 3.4 cm Echotexture: Normal echogenicity. Rare microcalcifications. Color Doppler: Preserved vascular flow. Left testis: Size: 4.9 x 2.4 x 3.3 cm Echotexture: Normal echogenicity. Scattered minimal microcalcifications. Color Doppler: Preserved vascular flow. Epididymides: Size: Normal without focal lesion. Small anechoic right epididymal head cyst. Color Doppler: Preserved vascular flow. Hydrocele: Trace bilaterally. Varicocele: None Additional findings: Left indirect inguinal hernia with peristaltic motion on real-time sonography. IMPRESSION: Unremarkable testicular ultrasound, with normal testicular Doppler blood flow. No scrotal swelling. Indirect left inguinal hernia. Signed: JR De La O Robert MD Report Verified Date/Time:08/05/2018 04:28:36 Reading Location: [address] Body Reading Room Procedure Note Interface, External Ris In - 08/05/2018 4:30 AM CDT FINAL REPORT U/S, TESTICULAR (SCROTUM) CLINICAL INDICATION: scrotal swelling COMPARISON: None TECHNIQUE: The scrotum was evaluated using real-time barnett scale and color and spectral Doppler sonography. FINDINGS: Right testis: Size: 4.9 x 2.5 x 3.4 cm Echotexture: Normal echogenicity. Rare microcalcifications. Color Doppler: Preserved vascular flow. Left testis: Size: 4.9 x 2.4 x 3.3 cm Echotexture: Normal echogenicity. Scattered minimal microcalcifications. Color Doppler: Preserved vascular flow. Epididymides: Size: Normal without focal lesion. Small anechoic right epididymal head cyst. Color Doppler: Preserved vascular flow. Hydrocele: Trace bilaterally. Varicocele: None Additional findings: Left indirect inguinal hernia with peristaltic motion on real-time sonography. IMPRESSION: Unremarkable testicular ultrasound, with normal testicular Doppler blood flow. No scrotal swelling. Indirect left inguinal hernia. Signed: JR De La O Robert MD Report Verified Date/Time: 08/05/2018 04:28:36 Reading Location: [facility] C013 CT Body Reading Room Performing Organization Address City/State/Zipcode Phone Number [facility] Troponin I (08/04/2018 1:35 PM CDT)Only the most recent of2 resultswithin the time period is included. Troponin I <0.01 0.00 - 0.03 ng/mL [facility] Specimen Blood Narrative Performed At [facility] Troponin I (TnI) levels must be interpreted in the context of the presenting symptoms and the clinical findings. Elevated TnI levels indicate myocardial damage, but are not specific for ischemic heart disease. Elevated TnI levels are seen in patients with other cardiac conditions (including myocarditis and congestive heart failure), and slight TnI elevations occur in patients with other conditions, including sepsis, renal failure, acidosis, acute neurological disease, and persistent tachyarrhythmia. Performing Organization Address City/State/Zipcode Phone Number [facility] [address] [place] [address] [phone] CENTER XR abdomen / KUB 1 view (08/04/2018 11:39 AM CDT) Specimen Narrative Performed At FINAL REPORT [employer] CLINICAL HISTORY: abdominal pain TECHNIQUE: Supine abdomen COMPARISON: None IMPRESSION: There is a large amount of stool throughout the colon. There are no focally distended loops of bowel. Free air and air-fluid levels are not seen but cannot be definitively excluded on the supine view. Signed: Colton Marquis MD Report Verified Date/Time:08/04/2018 12:40:36 Reading Location: [facility] Radiology Reading Room Procedure Note Interface, External Ris In - 08/04/2018 12:42 PM CDT FINAL REPORT CLINICAL HISTORY: abdominal pain TECHNIQUE: Supine abdomen COMPARISON: None IMPRESSION: There is a large amount of stool throughout the colon. There are no focally distended loops of bowel. Free air and air-fluid levels are not seen but cannot be definitively excluded on the supine view. Signed: Colton Marquis MD Report Verified Date/Time: 08/04/2018 12:40:36 Reading Location: [facility] Radiology Reading Room Performing Organization Address City/State/Zipcode Phone Number [employer] Homocysteine (08/04/2018 1:39 AM CDT) Homocysteine 6.5 5.1 - 15.4 umol/L [facility] Specimen Blood Performing Organization Address City/[facility]/Zipcode Phone Number [facility] [address] [place] [address] [place] Hemoglobin A1c - Fasting (08/04/2018 1:39 AM CDT) Hemoglobin A1C 5.6 4.3 - 6.1 % [facility] Specimen Blood Narrative Performed At Fasting [facility] Performing Organization Address City/State/Zipcode Phone Number [facility] [address] [place] [address] [phone] [place] Fasting lipid panel (08/04/2018 1:39 AM CDT) Triglycerides 111 mg/dL [facility] Cholesterol 113 mg/dL [facility] HDL 26 mg/dL [facility] LDL Calculated 65 mg/dL [facility] Specimen Blood Narrative Performed At [facility] Triglyceride Reference Range: Low Risk <150 [id number] High Risk 200-499 Very High Risk>=500 Cholesterol Reference Range: Low Risk <200 [id number] High Risk>240 HDL Cholesterol Reference Range: Low Risk >=60 High Risk <40 LDL Cholesterol Reference Range: Optimal<100 Near [id number] Pnys659-342 Very High >=190 Fasting Performing Organization Address City/State/Zipcode Phone Number [facility] [address] [place] [address] [phone] CENTER after 03/01/2018 Insurance Payer Benefit Plan / Subscriber ID Type Phone Address Group BLUE CROSS/BLUE BCBS HMO xxxxxxxxxxxx HMO/POS [phone] [address] [employer] [place] [address] Advance Directives For more information, please contact:[address] [phone] Code Status Date Activated Date Inactivated Comments Full Code 08/03/2018 11:33 PM 08/14/2018 4:40 PM This code status was determined by: Patient
--- OUTSIDE RECORDS SUMMARY | 2019-03-02 19:44 | XMS REPORT ---
:1945 [facility] Address [address] [place] [address] [address]. [address] [place] [address] Care Team Providers Name Role Phone OKSANA RIVER Unavailable Unavailable Problems This patient has no known problems. Allergies, Adverse Reactions, Alerts This patient has no known allergies or adverse reactions. Medications This patient has no known medications. Results Test Description Test Time Test Comments Text Results Atomic Results Result Comments CBC W/PLT COUNT & AUTO DIFFERENTIAL 2018-08-14 11:36:00 Test Item Value Reference Range Comments WHITE BLOOD CELL COUNT (BEAKER) (test bxke=619) 11.2 K/ L 3.5-10.5 RED BLOOD CELL COUNT (BEAKER) (test phnh=434) 3.76 M/ L 4.63-6.08 HEMOGLOBIN (BEAKER) (test ahdw=325) 12.2 GM/DL 13.7-17.5 HEMATOCRIT (BEAKER) (test jwfn=986) 38.3 % 40.1-51.0 MEAN CORPUSCULAR VOLUME (BEAKER) (test ipwm=519) 101.9 fL 79.0-92.2 MEAN CORPUSCULAR HEMOGLOBIN (BEAKER) (test brte=333) 32.4 pg 25.7-32.2 MEAN CORPUSCULAR HEMOGLOBIN CONC (BEAKER) (test vqjc=772) 31.9 GM/DL 32.3- 36.5 RED CELL DISTRIBUTION WIDTH (BEAKER) (test lzxl=144) 11.9 % 11.6-14.4 PLATELET COUNT (BEAKER) (test oqve=043) 275 K/CU MM 150-450 MEAN PLATELET VOLUME (BEAKER) (test uqxa=842) 11.0 fL 9.4-12.4 NUCLEATED RED BLOOD CELLS (BEAKER) (test ighr=787) 0 /100 WBC 0-0 (CELLAVISION MANUAL DIFF)2018-08-14 11:36:00 Test Item Value Reference Range Comments NEUTROPHILS - REL (CELLAVISION)(BEAKER) (test 73 % hrmu=1108) LYMPHOCYTES - REL (CELLAVISION)(BEAKER) (test 9 % huor=3774) MONOCYTES - REL (CELLAVISION)(BEAKER) (test 9 % rwtx=1800) EOSINOPHILS - REL (CELLAVISION)(BEAKER) (test 2 % npoh=1571) METAMYELOCYTES - REL (CELLAVISION)(BEAKER) (test 1 % 0-0 fciv=4824) BANDS - REL (CELLAVISION)(BEAKER) (test 5 % 0-10 iich=7040) ATYPICAL LYMPHOCYTES - REL (CELLAVISION)(BEAKER) 1 % 0-0 (test hzpq=1313) NEUTROPHILS - ABS (CELLAVISION)(BEAKER) (test 8.18 K/ul 1.78-5.38 nuvu=5972) LYMPHOCYTES - ABS (CELLAVISION)(BEAKER) (test 1.01 K/ul 1.32-3.57 jtgi=1214) MONOCYTES - ABS (CELLAVISION)(BEAKER) (test 1.01 K/uL 0.30-0.82 lpwg=8806) EOSINOPHILS - ABS (CELLAVISION)(BEAKER) (test 0.22 K/uL 0.04-0.54 ymyl=6505) METAMYELOCYTES - ABS (CELLAVISION)(BEAKER) (test 0.11 K/uL 0.00-0.00 orge=8586) BANDS - ABS (CELLAVISION)(BEAKER) (test 0.56 K/uL 0.00-0.80 rldc=6339) ATYPICAL LYMPHOCYTES - ABS (CELLAVISION)(BEAKER) 0.11 K/uL 0.00-0.00 (test tfnu=5268) TOTAL COUNTED (BEAKER) (test ptkb=3037) 100 SMUDGE CELLS (BEAKER) (test gjft=2766) Present GIANT PLATELETS (BEAKER) (test ipan=869) Present POLYCHROMATOPHILLIC RBCS(BEAKER) (test aqfx=582) 1+ few ANISOCYTOSIS (BEAKER) (test jqlc=440) 1+ few POIKILOCYTES (BEAKER) (test wgvx=664) 2+ moderate CARLOS CELLS (BEAKER) (test kppe=882) 1+ few PLATELET CONCENTRATION (CELLAVISION)(BEAKER) Adequate (test lyop=1113) Received comment: User comments: Slide comments:BASIC METABOLIC [id number] 06:11:00 Test Item Value Reference Range Comments SODIUM (BEAKER) (test 133 meq/L 136-145 jltl=248) POTASSIUM (BEAKER) (test 3.9 meq/L 3.5-5.1 jdzu=015) CHLORIDE (BEAKER) (test 100 meq/L 98-107 fvxo=387) CO2 (BEAKER) (test 26 meq/L 22-29 aspf=738) BLOOD UREA NITROGEN 17 mg/dL 7-21 (BEAKER) (test xvym=442) CREATININE (BEAKER) (test 0.84 mg/dL 0.57-1.25 tadr=625) GLUCOSE RANDOM (BEAKER) 111 mg/dL 70-105 (test izvc=739) CALCIUM (BEAKER) (test 8.6 mg/dL 8.4-10.2 hvjd=449) EGFR (BEAKER) (test 89 mL/min/1.73 sq m ESTIMATED GFR IS NOT zmgl=8355) ACCURATE CREATININE CLEARANCE IN PREDICTING GLOMERULAR FILTRATION RATE. ESTIMATED GFR IS NOT APPLICABLE FOR DIALYSIS PATIENTS. BASIC METABOLIC [id number] 05:32:00 Test Item Value Reference Range Comments SODIUM (BEAKER) (test 136 meq/L 136-145 cfik=436) POTASSIUM (BEAKER) (test 4.1 meq/L 3.5-5.1 odld=256) CHLORIDE (BEAKER) (test 104 meq/L 98-107 zyhd=508) CO2 (BEAKER) (test 22 meq/L 22-29 njst=504) BLOOD UREA NITROGEN 15 mg/dL 7-21 (BEAKER) (test fxlv=256) CREATININE (BEAKER) (test 0.84 mg/dL 0.57-1.25 vsxz=557) GLUCOSE RANDOM (BEAKER) 108 mg/dL 70-105 (test sran=869) CALCIUM (BEAKER) (test 8.8 mg/dL 8.4-10.2 vtiv=919) EGFR (BEAKER) (test 89 mL/min/1.73 sq m ESTIMATED GFR IS NOT wxcp=1085) ACCURATE CREATININE CLEARANCE IN PREDICTING GLOMERULAR FILTRATION RATE. ESTIMATED GFR IS NOT APPLICABLE FOR DIALYSIS PATIENTS. CBC W/PLT COUNT & AUTO [id number] 05:12:00 Test Item Value Reference Range Comments WHITE BLOOD CELL COUNT (BEAKER) (test vjjw=544) 12.0 K/ L 3.5-10.5 RED BLOOD CELL COUNT (BEAKER) (test gvcj=178) 3.66 M/ L 4.63-6.08 HEMOGLOBIN (BEAKER) (test jxta=395) 11.8 GM/DL 13.7-17.5 HEMATOCRIT (BEAKER) (test stsq=504) 37.3 % 40.1-51.0 MEAN CORPUSCULAR VOLUME (BEAKER) (test qplc=652) 101.9 fL 79.0-92.2 MEAN CORPUSCULAR HEMOGLOBIN (BEAKER) (test 32.2 pg 25.7-32.2 btxu=604) MEAN CORPUSCULAR HEMOGLOBIN CONC (BEAKER) (test 31.6 GM/DL 32.3-36.5 liwp=081) RED CELL DISTRIBUTION WIDTH (BEAKER) (test 11.8 % 11.6-14.4 jfns=542) PLATELET COUNT (BEAKER) (test zcyw=566) 254 K/CU MM 150-450 MEAN PLATELET VOLUME (BEAKER) (test lzvv=471) 11.6 fL 9.4-12.4 NUCLEATED RED BLOOD CELLS (BEAKER) (test 0 /100 WBC 0-0 xnss=112) NEUTROPHILS RELATIVE PERCENT (BEAKER) (test 69 % ikxt=277) LYMPHOCYTES RELATIVE PERCENT (BEAKER) (test 14 % xefx=322) MONOCYTES RELATIVE PERCENT (BEAKER) (test 10 % enaq=422) EOSINOPHILS RELATIVE PERCENT (BEAKER) (test 1 % mkxd=293) BASOPHILS RELATIVE PERCENT (BEAKER) (test 1 % usll=735) NEUTROPHILS ABSOLUTE COUNT (BEAKER) (test 8.32 K/ L 1.78-5.38 wlxk=353) LYMPHOCYTES ABSOLUTE COUNT (BEAKER) (test 1.68 K/ L 1.32-3.57 xoui=850) MONOCYTES ABSOLUTE COUNT (BEAKER) (test 1.21 K/ L 0.30-0.82 apqm=513) EOSINOPHILS ABSOLUTE COUNT (BEAKER) (test 0.16 K/ L 0.04-0.54 aozh=457) BASOPHILS ABSOLUTE COUNT (BEAKER) (test 0.15 K/ L 0.01-0.08 vsfa=970) IMMATURE GRANULOCYTES-RELATIVE PERCENT (BEAKER) 4 % 0-1 (test vuty=5069) RAD, CHEST, 1 VIEW, NON [id number] 15:59:00Reason for exam:->SOBShould this be performed at the bedside?->YesFINAL REPORT Chest one view INDICATION: Shortness of breath COMPARISON: 08/06/2018 IMPRESSION : Multiple chronic right rib fractures are again seen with stable pleural thickening and possible effusion with stable right lung opacity suggesting atelectasis or scarring. The left lungis grossly clear. Heart size is at the upper limit of normal. Aortic tortuosity and hypertrophic spine changes are noted. Signed: Chantale Hernandezepmiranda Verified Date/Time: 08/12/2018 15: 59:35 Reading Location: [address] Transitional Reading Room PROTEIN ELECTROPHORESIS, [id number] 13:04:00 Test Item Value Reference Range Comments ALBUMIN FRACTION (BEAKER) 2.6 g/dL 3.5-5.5 (test phhc=404) ALPHA 1 FRACTION (BEAKER) 0.4 g/dL 0.2-0.4 (test ffsn=254) ALPHA 2 FRACTION (BEAKER) 1.0 g/dL 0.5-0.9 (test mzyz=379) BETA FRACTION (BEAKER) (test 1.0 g/dL 0.6-1.1 uhal=154) GAMMA GLOBULIN FRACTION 1.0 g/dL 0.7-1.7 (BEAKER) (test shvq=337) INTERPRETATION-119 (BEAKER) Pattern consistent with acute (test pgxm=3055) inflammatory process. No monoclonal bands detected. CMDC-[id number] Bette Cage MD (BEAKER) (test baro=5451) (electronic signature) PROTEIN TOTAL SERUM, SPEP 6.1 gm/dL 6.0-8.3 (BEAKER) (test swdx=8051) THANG, CAROTID STENT W [id number] 12:14:00Reason for exam:->right carotid stenosisFINAL REPORT DATE OF PROCEDURE: 08/11/18 SURGEON: Chaz France MD REGISTERED DENTAL ASSISTANT: Leta Barreto MD PREOPERATIVE DIAGNOSIS: Transient ischemic attacks and severe right carotidartery stenosis POST OPERATIVE DIAGNOSIS: Transient ischemic attacks and severe right carotid arterystenosis OPERATION: 1) Selective Cerebral Angiogram2) Right carotid stent ANESTHESIA: Moderate sedation ESTIMATED BLOOD LOSS: Less than 15 mL COMPLICATIONS: None INDICATIONS: The patient is a 73-year-old man who presented with transient ischemic attack. Stroke work up revealed carotid stenosis for which he underwent a diagnostic cerebral angiogram demonstrating critical right internal carotid artery stenosis. He presents today for angiogram for stenting. He had been maintained on Brilinta and ASAprior to the procedure with sufficient platelet inhibition. The lesion here extends up to the bottomof C2. PROCEDURE: Following explanation of the benefits, [...] return was achieved, but the wire could notbe passed through the micropuncture needle. Thus, an 18- gauge needle was used to puncture the right femoral artery. A 5 Czech short sheath was then passed over an angled glide catheter. Using coaxial technique, a 5 Czech Trujlilo 2 catheter was advanced into the descending aorta, back-bled , and flushed in the usual fashion. Using [...] condition. FINDINGS: RIGHT COMMON FEMORAL ARTERY (DSA \X2013\ PA - PELVIS) The right femoral artery [...] No vascular malformation or arteriovenous shunting is noted.No stenosis or vasospasm is observed. No significant abnormalities are seen in the capillary and venous phases. The venous phase demonstrates patent transverse and sigmoid sinuses. The visualized portions of the external carotid artery and its branches are normal without evidence of ulceration or stenosis. ENDOVASCULAR INTERVENTION: The diagnostic catheter was removed and exchanged in the descendingaorta for a 6F Audionamix shuttle sheath. At this point, the patient [...] occlusions or slow filling branches, and no otheruntoward findings. SUPERVISION AND INTERPRETATION: Angiographic study demonstrates: 1. Severe rightcarotid stenosis, successfully treated with an 8 x 6x 40mm Xact carotid stent. No immediate technical or clinical complications. Signed: Chaz France Verified Date/Time: 08/12/2018 12:14:40 Reading Location: [facility] Y026 Neuro Angio Reading Room NV, ANGIOGRAM, [id number] 09:29:00Reason for exam:-& gt;carotid stenosisFINAL REPORT DATE OF PROCEDURE: 2017 SURGEON: Chaz France M.D. REGISTERED DENTAL ASSISTANT: Leta Barreto MD PREOPERATIVE DIAGNOSIS: carotid stenosis POST OPERATIVE DIAGNOSIS: critical right carotid stenosis PROCEDURE: Cerebral Angiogram ANESTHESIA: MAC ESTIMATED BLOOD LOSS: Minimal COMPLICATIONS: None INDICATIONS: The patient is a 73 year old man with a history of atrial fibrillation on apixiban, hypertension, obesity , and heart disease who presents after transient ischemic attack. Stroke work up at that time was suggestive of carotid stenosis prompting cerebral angiogram for further evaluation. PROCEDURE: Following explanation of the benefits, risks and alternatives for the procedure, informed consent was obtained from the patient. The risks including but not limited tostroke, intracranial hemorrhage, vascular injury to the cervical or femoral vessels and groin hematoma were discussed with the patient. A time-out was performed. Both groins were prepped in the usual sterile fashion using Chloraprep, and sterilely draped. The skin over the right femoral artery was anesthetized with 1% lidocaine. A single wall puncture of the right femoral artery was performed using amicropuncture set and dilator and a 5-Fr short [...] The femoral sheath was removed and hemostasis wasachieved with manual compression. The patient tolerated the procedure well and was taken to recoveryin stable condition. FINDINGS: RIGHT COMMON FEMORAL ARTERY [...] artery. There is delayed filling of the rightmiddle cerebral artery territory. No vascular malformation or arteriovenous shunting is noted. No stenosis or vasospasm is observed. No significant abnormalities are seen in the capillary and venous phases. The venous phase demonstrates patent transverse and sigmoid sinuses. The visualized portions ofthe external carotid artery and its branches are [...] OBLIQUE - HEAD) There is spontaneous crossfilling acrossthe anterior communicating artery with opacification of the distal right anterior cerebral and rightmiddle cerebral arteries territories. There is a medium size posterior communicating artery. No vascular malformations , stenosis, or vasospasm is observed. No significant abnormalities are seen in the capillary and venous phases. The venous phase demonstrates patent transverse and sigmoid sinuses. Thevisualized portions of the external carotid artery and [...] technical or clinical complications. Signed: Chaz France MDReport Verified Date/Time: 08/12/2018 09:29:38 Reading Location: [facility] Y026 Neuro Angio Reading Room [id number] 07:30:00 Test Item Value Reference Range Comments ACTIVATED CLOTTING TIME 241 sec TESTED AT [facility] [address] (BEAKER) (test tmnm=964) [facility] [address] BASIC METABOLIC [id number] 04:36:00 Test Item Value Reference Range Comments SODIUM (BEAKER) (test 134 meq/L 136-145 iojg=017) POTASSIUM (BEAKER) (test 4.0 meq/L 3.5-5.1 swbk=896) CHLORIDE (BEAKER) (test 102 meq/L 98-107 mofj=953) CO2 (BEAKER) (test 24 meq/L 22-29 sitz=963) BLOOD UREA NITROGEN 18 mg/dL 7-21 (BEAKER) (test vwzu=561) CREATININE (BEAKER) (test 0.84 mg/dL 0.57-1.25 fivs=521) GLUCOSE RANDOM (BEAKER) 108 mg/dL 70-105 (test jkxz=830) CALCIUM (BEAKER) (test 9.0 mg/dL 8.4-10.2 fdwk=200) EGFR (BEAKER) (test 89 mL/min/1.73 sq m ESTIMATED GFR IS NOT jynn=8789) ACCURATE CREATININE CLEARANCE IN PREDICTING GLOMERULAR FILTRATION RATE. ESTIMATED GFR IS NOT APPLICABLE FOR DIALYSIS PATIENTS. CBC W/PLT COUNT & AUTO [id number] 04:14:00 Test Item Value Reference Range Comments WHITE BLOOD CELL COUNT (BEAKER) (test inct=551) 11.1 K/ L 3.5-10.5 RED BLOOD CELL COUNT (BEAKER) (test mjqv=868) 3.69 M/ L 4.63-6.08 HEMOGLOBIN (BEAKER) (test yjzj=916) 11.9 GM/DL 13.7-17.5 HEMATOCRIT (BEAKER) (test ivqc=621) 36.8 % 40.1-51.0 MEAN CORPUSCULAR VOLUME (BEAKER) (test thjo=599) 99.7 fL 79.0-92.2 MEAN CORPUSCULAR HEMOGLOBIN (BEAKER) (test 32.2 pg 25.7-32.2 dmem=043) MEAN CORPUSCULAR HEMOGLOBIN CONC (BEAKER) (test 32.3 GM/DL 32.3-36.5 lfwm=551) RED CELL DISTRIBUTION WIDTH (BEAKER) (test 11.9 % 11.6-14.4 zryc=334) PLATELET COUNT (BEAKER) (test jldf=283) 279 K/CU MM 150-450 MEAN PLATELET VOLUME (BEAKER) (test qqdo=107) 11.4 fL 9.4-12.4 NUCLEATED RED BLOOD CELLS (BEAKER) (test 0 /100 WBC 0-0 reoc=209) NEUTROPHILS RELATIVE PERCENT (BEAKER) (test 74 % radj=531) LYMPHOCYTES RELATIVE PERCENT (BEAKER) (test 12 % aeas=475) MONOCYTES RELATIVE PERCENT (BEAKER) (test 9 % ptjk=541) EOSINOPHILS RELATIVE PERCENT (BEAKER) (test 1 % rjzn=519) BASOPHILS RELATIVE PERCENT (BEAKER) (test 1 % ibgk=741) NEUTROPHILS ABSOLUTE COUNT (BEAKER) (test 8.23 K/ L 1.78-5.38 xeqp=196) LYMPHOCYTES ABSOLUTE COUNT (BEAKER) (test 1.33 K/ L 1.32-3.57 fgnw=799) MONOCYTES ABSOLUTE COUNT (BEAKER) (test 1.05 K/ L 0.30-0.82 rygc=730) EOSINOPHILS ABSOLUTE COUNT (BEAKER) (test 0.12 K/ L 0.04-0.54 eiep=285) BASOPHILS ABSOLUTE COUNT (BEAKER) (test 0.09 K/ L 0.01-0.08 mknp=429) IMMATURE GRANULOCYTES-RELATIVE PERCENT (BEAKER) 3 % 0-1 (test vjtp=8418) BLOOD [id number] 18:00:00 Test Item Value Reference Range Comments CULTURE (BEAKER) (test uajn=9016) No growth in 5 days BLOOD [id number] 18:00:00 Test Item Value Reference Range Comments CULTURE (BEAKER) (test mrwq=6959) No growth in 5 days POCT-P2Y12 PLATELET [id number] 13:28:00 Test Item Value Reference Range Comments POC-P2Y12 PLATELET AGG (BEAKER) (test dpqh=6981) 51 PRU RANGE INFORMATION: PRU reference range is 194-418. Post Drug Results: Lower PRU levels are associated with expected antiplatelet effect. Values may be below the stated reference range above. The post-drug PRU values reported in the [employer] P2Y12 package insert are [id number] 13:21:00 Test Item Value Reference Range Comments PROTIME (BEAKER) (test gfwr=302) 16.1 seconds 11.7-14.7 INR (BEAKER) (test ltma=701) 1.3 <=5.9 PARTIAL THROMBOPLASTIN TIME (BEAKER) (test 40.0 seconds 22.5-36.0 ymcb=249) RECOMMENDED COUMADIN/WARFARIN INR THERAPY RANGESSTANDARD DOSE: 2.0 - 3.0 Includes: PROPHYLAXIS forvenous thrombosis, systemic embolization; TREATMENT for venous thrombosis and/or pulmonary embolus.HIGH RISK: Target INR is 2.5-3.5 for patients with mechanical heart valves.POCT-P2Y12 PLATELET [id number] 07:23:00 Test Item Value Reference Range Comments POC-P2Y12 PLATELET AGG (BEAKER) (test nopm=4720) 216 PRU RANGE INFORMATION: PRU reference range is 194-418. Post Drug Results: Lower PRU levels are associated with expected antiplatelet effect. Values may be below the stated reference range above. The post-drug PRU values reported in the [employer] P2Y12 package insert are [id number].POCT-ASPIRIN PLATELET [id number] 07:23:00 Test Item Value Reference Range Comments POC-ASPIRIN PLATELET AGG (BEAKER) (test ffza=0622) 408 ARU RANGE INFORMATION: 350-549 ARU Therapeutic range for platelet function. 550-700 ARU Non-Therapeutic range for platelet function.BASIC METABOLIC [id number] 07:15:00 Test Item Value Reference Range Comments SODIUM (BEAKER) (test 136 meq/L 136-145 yoid=941) POTASSIUM (BEAKER) (test 4.6 meq/L 3.5-5.1 kdvv=154) CHLORIDE (BEAKER) (test 101 meq/L 98-107 zrxx=625) CO2 (BEAKER) (test 27 meq/L 22-29 yuse=448) BLOOD UREA NITROGEN 15 mg/dL 7-21 (BEAKER) (test mdom=050) CREATININE (BEAKER) (test 0.82 mg/dL 0.57-1.25 yhhk=148) GLUCOSE RANDOM (BEAKER) 106 mg/dL 70-105 (test ilff=058) CALCIUM (BEAKER) (test 8.8 mg/dL 8.4-10.2 dbqb=891) EGFR (BEAKER) (test 92 mL/min/1.73 sq m ESTIMATED GFR IS NOT wuzc=7600) ACCURATE CREATININE CLEARANCE IN PREDICTING GLOMERULAR FILTRATION RATE. ESTIMATED GFR IS NOT APPLICABLE FOR DIALYSIS PATIENTS. CBC W/PLT COUNT & AUTO [id number] 06:54:00 Test Item Value Reference Range Comments WHITE BLOOD CELL COUNT (BEAKER) (test zbze=137) 12.4 K/ L 3.5-10.5 RED BLOOD CELL COUNT (BEAKER) (test xjtz=447) 3.54 M/ L 4.63-6.08 HEMOGLOBIN (BEAKER) (test lbnp=665) 11.4 GM/DL 13.7-17.5 HEMATOCRIT (BEAKER) (test hcml=787) 35.6 % 40.1-51.0 MEAN CORPUSCULAR VOLUME (BEAKER) (test qowo=177) 100.6 fL 79.0-92.2 MEAN CORPUSCULAR HEMOGLOBIN (BEAKER) (test 32.2 pg 25.7-32.2 eqky=822) MEAN CORPUSCULAR HEMOGLOBIN CONC (BEAKER) (test 32.0 GM/DL 32.3-36.5 ztdv=393) RED CELL DISTRIBUTION WIDTH (BEAKER) (test 11.9 % 11.6-14.4 kxea=988) PLATELET COUNT (BEAKER) (test rmtt=228) 271 K/CU MM 150-450 MEAN PLATELET VOLUME (BEAKER) (test cijz=041) 11.2 fL 9.4-12.4 NUCLEATED RED BLOOD CELLS (BEAKER) (test 0 /100 WBC 0-0 rdks=542) NEUTROPHILS RELATIVE PERCENT (BEAKER) (test 79 % nxkd=727) LYMPHOCYTES RELATIVE PERCENT (BEAKER) (test 10 % otio=700) MONOCYTES RELATIVE PERCENT (BEAKER) (test 8 % dqhy=379) EOSINOPHILS RELATIVE PERCENT (BEAKER) (test 1 % qqxv=505) BASOPHILS RELATIVE PERCENT (BEAKER) (test 1 % wtiz=309) NEUTROPHILS ABSOLUTE COUNT (BEAKER) (test 9.79 K/ L 1.78-5.38 hdnr=092) LYMPHOCYTES ABSOLUTE COUNT (BEAKER) (test 1.23 K/ L 1.32-3.57 qsus=340) MONOCYTES ABSOLUTE COUNT (BEAKER) (test 0.99 K/ L 0.30-0.82 jlfh=226) EOSINOPHILS ABSOLUTE COUNT (BEAKER) (test 0.10 K/ L 0.04-0.54 eaqo=387) BASOPHILS ABSOLUTE COUNT (BEAKER) (test 0.06 K/ L 0.01-0.08 jttd=417) IMMATURE GRANULOCYTES-RELATIVE PERCENT (BEAKER) 2 % 0-1 (test vprf=4458) CBC (HEMOGRAM ONLY)2018-08-11 06:52:00 Test Item Value Reference Range Comments WHITE BLOOD CELL COUNT (BEAKER) (test nfiw=785) 12.4 K/ L 3.5-10.5 RED BLOOD CELL COUNT (BEAKER) (test xhjc=203) 3.54 M/ L 4.63-6.08 HEMOGLOBIN (BEAKER) (test mpvh=447) 11.4 GM/DL 13.7-17.5 HEMATOCRIT (BEAKER) (test vwdk=888) 35.6 % 40.1-51.0 MEAN CORPUSCULAR VOLUME (BEAKER) (test ntnj=757) 100.6 fL 79.0-92.2 MEAN CORPUSCULAR HEMOGLOBIN (BEAKER) (test 32.2 pg 25.7-32.2 gnjo=747) MEAN CORPUSCULAR HEMOGLOBIN CONC (BEAKER) (test 32.0 GM/DL 32.3-36.5 toov=049) RED CELL DISTRIBUTION WIDTH (BEAKER) (test 11.9 % 11.6-14.4 sndf=069) PLATELET COUNT (BEAKER) (test zcmo=457) 271 K/CU MM 150-450 MEAN PLATELET VOLUME (BEAKER) (test fmyv=300) 11.2 fL 9.4-12.4 NUCLEATED RED BLOOD CELLS (BEAKER) (test 0 /100 WBC 0-0 pnlf=152) THANG, CAROTID STENT W [id number] 14:30:00Reason for exam:->carotid stenosis, rightKanFINAL REPORT DATE OF PROCEDURE: 2017 SURGEON: Chaz France M.D. REGISTERED DENTAL ASSISTANT: Leta Barreto MD PREOPERATIVE DIAGNOSIS: carotid stenosis POST OPERATIVE DIAGNOSIS: critical right carotid stenosis PROCEDURE: Cerebral Angiogram ANESTHESIA: MAC ESTIMATED BLOOD LOSS: Minimal COMPLICATIONS: None INDICATIONS: The patient is a 73 year old man with a history of atrial fibrillation on apixiban, hypertension, obesity , and heart disease who presents after transient ischemic attack. Stroke work up at that time was suggestive of carotid stenosis prompting cerebral angiogram for further evaluation. PROCEDURE: Following explanation of the benefits, risks and alternatives for the procedure, informed consent was obtained from the patient. The risks including but not limited tostroke, intracranial hemorrhage, vascular injury to the cervical or femoral vessels and groin hematoma were discussed with the patient. A time-out was performed. Both groins were prepped in the usual sterile fashion using Chloraprep, and sterilely draped. The skin over the right femoral artery was anesthetized with 1% lidocaine. A single wall puncture of the right femoral artery was performed using amicropuncture set and dilator and a 5-Fr short [...] The femoral sheath was removed and hemostasis wasachieved with manual compression. The patient tolerated the procedure well and was taken to recoveryin stable condition. FINDINGS: RIGHT COMMON FEMORAL ARTERY [...] artery. There is delayed filling of the rightmiddle cerebral artery territory. No vascular malformation or arteriovenous shunting is noted. No stenosis or vasospasm is observed. No significant abnormalities are seen in the capillary and venous phases. The venous phase demonstrates patent transverse and sigmoid sinuses. The visualized portions ofthe external carotid artery and its branches are [...] OBLIQUE - HEAD) There is spontaneous crossfilling acrossthe anterior communicating artery with opacification of the distal right anterior cerebral and rightmiddle cerebral arteries territories. There is a medium size posterior communicating artery. No vascular malformations , stenosis, or vasospasm is observed. No significant abnormalities are seen in the capillary and venous phases. The venous phase demonstrates patent transverse and sigmoid sinuses. Thevisualized portions of the external carotid artery and [...] immediate technical or clinical complications. Signed: Chaz Franceeport Verified Date/Time: 08/10/2018 14:30:38 Reading Location: [facility] Y026 Neuro Angio Reading Room ANTI-NUCLEAR ANTIBODY (MANINDER)2018-08-10 10:29:00 Test Item Value Reference Range Comments ANTI-NUCLEAR ANTIBODY (MANINDER) (BEAKER) (test Positive Negative uacc=758) Test performed by IFA method.MANINDER TITER AND [id number] 10:29:00 Test Item Value Reference Range Comments MANINDER TITER (BEAKER) (test nyjn=2446) :160 MANINDER PATTERN (BEAKER) (test eyiv=9951) Speckled BASIC METABOLIC [id number] 07:36:00 Test Item Value Reference Range Comments SODIUM (BEAKER) (test 137 meq/L 136-145 jtbv=993) POTASSIUM (BEAKER) (test 4.4 meq/L 3.5-5.1 hvyt=243) CHLORIDE (BEAKER) (test 102 meq/L 98-107 zgqw=127) CO2 (BEAKER) (test 31 meq/L 22-29 rnyq=371) BLOOD UREA NITROGEN 11 mg/dL 7-21 (BEAKER) (test myyg=860) CREATININE (BEAKER) (test 0.82 mg/dL 0.57-1.25 fbhu=216) GLUCOSE RANDOM (BEAKER) 109 mg/dL 70-105 (test pstt=573) CALCIUM (BEAKER) (test 9.0 mg/dL 8.4-10.2 uwom=031) EGFR (BEAKER) (test 92 mL/min/1.73 sq m ESTIMATED GFR IS NOT fmye=2985) ACCURATE CREATININE CLEARANCE IN PREDICTING GLOMERULAR FILTRATION RATE. ESTIMATED GFR IS NOT APPLICABLE FOR DIALYSIS PATIENTS. [id number] 06:53:00 Test Item Value Reference Range Comments PARTIAL THROMBOPLASTIN TIME (BEAKER) (test 38.3 seconds 22.5-36.0 vrdp=906) CBC W/PLT COUNT & AUTO [id number] 06:42:00 Test Item Value Reference Range Comments WHITE BLOOD CELL COUNT (BEAKER) (test sfvs=303) 12.8 K/ L 3.5-10.5 RED BLOOD CELL COUNT (BEAKER) (test ldop=830) 3.63 M/ L 4.63-6.08 HEMOGLOBIN (BEAKER) (test lead=558) 11.9 GM/DL 13.7-17.5 HEMATOCRIT (BEAKER) (test amgx=192) 36.3 % 40.1-51.0 MEAN CORPUSCULAR VOLUME (BEAKER) (test dpgc=116) 100.0 fL 79.0-92.2 MEAN CORPUSCULAR HEMOGLOBIN (BEAKER) (test 32.8 pg 25.7-32.2 gskx=893) MEAN CORPUSCULAR HEMOGLOBIN CONC (BEAKER) (test 32.8 GM/DL 32.3-36.5 akqi=697) RED CELL DISTRIBUTION WIDTH (BEAKER) (test 11.9 % 11.6-14.4 bkyf=031) PLATELET COUNT (BEAKER) (test pqtx=636) 282 K/CU MM 150-450 MEAN PLATELET VOLUME (BEAKER) (test qtcm=253) 12.0 fL 9.4-12.4 NUCLEATED RED BLOOD CELLS (BEAKER) (test 0 /100 WBC 0-0 djbu=543) NEUTROPHILS RELATIVE PERCENT (BEAKER) (test 79 % mbdy=421) LYMPHOCYTES RELATIVE PERCENT (BEAKER) (test 11 % jkxq=311) MONOCYTES RELATIVE PERCENT (BEAKER) (test 8 % jrzu=099) EOSINOPHILS RELATIVE PERCENT (BEAKER) (test 1 % uypv=413) BASOPHILS RELATIVE PERCENT (BEAKER) (test 1 % ezaw=122) NEUTROPHILS ABSOLUTE COUNT (BEAKER) (test 10.06 K/ L 1.78-5.38 chvu=422) LYMPHOCYTES ABSOLUTE COUNT (BEAKER) (test 1.39 K/ L 1.32-3.57 mcmg=852) MONOCYTES ABSOLUTE COUNT (BEAKER) (test 0.99 K/ L 0.30-0.82 rnpk=563) EOSINOPHILS ABSOLUTE COUNT (BEAKER) (test 0.09 K/ L 0.04-0.54 tdwl=554) BASOPHILS ABSOLUTE COUNT (BEAKER) (test 0.08 K/ L 0.01-0.08 kuqu=692) IMMATURE GRANULOCYTES-RELATIVE PERCENT (BEAKER) 1 % 0-1 (test azgt=2845) [id number] 04:26:00 Test Item Value Reference Range Comments RPR SCREEN (BEAKER) (test vquq=528) Nonreactive Nonreactive [id number] 22:40:00 Test Item Value Reference Range Comments PARTIAL THROMBOPLASTIN TIME (BEAKER) (test 48.7 seconds 22.5-36.0 brpp=610) EOSINOPHIL SMEAR, [id number] 14:32:00 Test Item Value Reference Range Comments EOSINOPHIL SMEAR, URINE (BEAKER) (test No EOS seen No EOS seen fstv=0895) PROTEIN, RANDOM [id number] 13:14:00 Test Item Value Reference Range Comments PROTEIN, URINE (BEAKER) (test foml=2559) < mg/dL 0-14 CREATININE, RANDOM [id number] 13:12:00 Test Item Value Reference Range Comments CREATININE URINE (BEAKER) (test ksue=065) 18.9 mg/dL Reference Range: No NormalsSODIUM, RANDOM [id number] 13:12:00 Test Item Value Reference Range Comments SODIUM URINE (BEAKER) (test wycx=538) 74 meq/L Reference Range: No NormalsURINALYSIS W/ [id number] 13:00:00 Test Item Value Reference Range Comments COLOR (BEAKER) (test ccve=951) Light Yellow CLARITY (BEAKER) (test zdmk=273) Clear SPECIFIC GRAVITY UA (BEAKER) (test mzif=060) 1.003 1.001-1.035 PH UA (BEAKER) (test nbix=171) 6.5 5.0-8.0 PROTEIN UA (BEAKER) (test argn=720) Negative Negative GLUCOSE UA (BEAKER) (test sire=359) Negative Negative KETONES UA (BEAKER) (test zcii=584) Negative Negative BILIRUBIN UA (BEAKER) (test qjjz=245) Negative Negative BLOOD UA (BEAKER) (test euda=962) Small Negative NITRITE UA (BEAKER) (test dmsw=350) Negative Negative LEUKOCYTE ESTERASE UA (BEAKER) (test qisi=609) Negative Negative UROBILINOGEN UA (BEAKER) (test mqwq=809) 0.2 mg/dL 0.2-1.0 RBC UA (BEAKER) (test mhiw=372) 0 /HPF WBC UA (BEAKER) (test avkc=852) 0 /HPF SOURCE(BEAKER) (test zknx=2042) Urine, Voided [id number] 12:33:00 Test Item Value Reference Range Comments PARTIAL THROMBOPLASTIN TIME (BEAKER) (test 47.0 seconds 22.5-36.0 uztn=849) TSH/FREE T4 IF [id number] 06:11:00 Test Item Value Reference Range Comments THYROID STIMULATING HORMONE (BEAKER) (test 0.87 uIU/mL 0.35-4.94 txox=281) [id number] 05:36:00 Test Item Value Reference Range Comments POTASSIUM (BEAKER) (test wftm=021) 4.1 meq/L 3.5-5.1 BUN AND [id number] 05:36:00 Test Item Value Reference Range Comments BLOOD UREA NITROGEN 13 mg/dL 7-21 (BEAKER) (test wfmn=114) CREATININE (BEAKER) (test 0.77 mg/dL 0.57-1.25 jxgt=921) EGFR (BEAKER) (test 99 mL/min/1.73 sq m ESTIMATED GFR IS NOT ucyy=2288) ACCURATE CREATININE CLEARANCE IN PREDICTING GLOMERULAR FILTRATION RATE. ESTIMATED GFR IS NOT APPLICABLE FOR DIALYSIS PATIENTS. BASIC METABOLIC [id number] 05:36:00 Test Item Value Reference Range Comments SODIUM (BEAKER) (test 139 meq/L 136-145 qivx=806) POTASSIUM (BEAKER) (test 4.1 meq/L 3.5-5.1 ijrf=129) CHLORIDE (BEAKER) (test 104 meq/L 98-107 ihgr=310) CO2 (BEAKER) (test 28 meq/L 22-29 rhfm=233) BLOOD UREA NITROGEN 13 mg/dL 7-21 (BEAKER) (test hbnm=926) CREATININE (BEAKER) (test 0.77 mg/dL 0.57-1.25 tkqm=383) GLUCOSE RANDOM (BEAKER) 96 mg/dL 70-105 (test xbbv=356) CALCIUM (BEAKER) (test 9.0 mg/dL 8.4-10.2 fcnm=953) EGFR (BEAKER) (test 99 mL/min/1.73 sq m ESTIMATED GFR IS NOT nnmw=0672) ACCURATE CREATININE CLEARANCE IN PREDICTING GLOMERULAR FILTRATION RATE. ESTIMATED GFR IS NOT APPLICABLE FOR DIALYSIS PATIENTS. [id number] 04:35:00 Test Item Value Reference Range Comments PARTIAL THROMBOPLASTIN TIME (BEAKER) (test 37.5 seconds 22.5-36.0 brsi=975) CBC W/PLT COUNT & AUTO [id number] 04:17:00 Test Item Value Reference Range Comments WHITE BLOOD CELL COUNT (BEAKER) (test ijhl=396) 11.0 K/ L 3.5-10.5 RED BLOOD CELL COUNT (BEAKER) (test dhnl=262) 3.45 M/ L 4.63-6.08 HEMOGLOBIN (BEAKER) (test kkjb=202) 11.0 GM/DL 13.7-17.5 HEMATOCRIT (BEAKER) (test lguh=632) 34.7 % 40.1-51.0 MEAN CORPUSCULAR VOLUME (BEAKER) (test puku=822) 100.6 fL 79.0-92.2 MEAN CORPUSCULAR HEMOGLOBIN (BEAKER) (test 31.9 pg 25.7-32.2 hilh=894) MEAN CORPUSCULAR HEMOGLOBIN CONC (BEAKER) (test 31.7 GM/DL 32.3-36.5 sgls=329) RED CELL DISTRIBUTION WIDTH (BEAKER) (test 12.0 % 11.6-14.4 fbbc=368) PLATELET COUNT (BEAKER) (test mddf=516) 236 K/CU MM 150-450 MEAN PLATELET VOLUME (BEAKER) (test vjci=090) 12.0 fL 9.4-12.4 NUCLEATED RED BLOOD CELLS (BEAKER) (test 0 /100 WBC 0-0 qbzo=067) NEUTROPHILS RELATIVE PERCENT (BEAKER) (test 77 % edyk=281) LYMPHOCYTES RELATIVE PERCENT (BEAKER) (test 12 % ldyr=746) MONOCYTES RELATIVE PERCENT (BEAKER) (test 9 % thks=162) EOSINOPHILS RELATIVE PERCENT (BEAKER) (test 1 % vcno=104) BASOPHILS RELATIVE PERCENT (BEAKER) (test 1 % tovx=834) NEUTROPHILS ABSOLUTE COUNT (BEAKER) (test 8.44 K/ L 1.78-5.38 avda=878) LYMPHOCYTES ABSOLUTE COUNT (BEAKER) (test 1.35 K/ L 1.32-3.57 vwoo=151) MONOCYTES ABSOLUTE COUNT (BEAKER) (test 0.96 K/ L 0.30-0.82 qvgg=436) EOSINOPHILS ABSOLUTE COUNT (BEAKER) (test 0.05 K/ L 0.04-0.54 zinv=731) BASOPHILS ABSOLUTE COUNT (BEAKER) (test 0.06 K/ L 0.01-0.08 ohco=063) IMMATURE GRANULOCYTES-RELATIVE PERCENT (BEAKER) 1 % 0-1 (test ratu=7455) CBC (HEMOGRAM ONLY)2018-08-09 04:13:00 Test Item Value Reference Range Comments WHITE BLOOD CELL COUNT (BEAKER) (test tcbq=072) 11.0 K/ L 3.5-10.5 RED BLOOD CELL COUNT (BEAKER) (test okhm=160) 3.45 M/ L 4.63-6.08 HEMOGLOBIN (BEAKER) (test jioo=741) 11.0 GM/DL 13.7-17.5 HEMATOCRIT (BEAKER) (test mutu=248) 34.7 % 40.1-51.0 MEAN CORPUSCULAR VOLUME (BEAKER) (test fyuq=974) 100.6 fL 79.0-92.2 MEAN CORPUSCULAR HEMOGLOBIN (BEAKER) (test 31.9 pg 25.7-32.2 uhby=205) MEAN CORPUSCULAR HEMOGLOBIN CONC (BEAKER) (test 31.7 GM/DL 32.3-36.5 dtls=950) RED CELL DISTRIBUTION WIDTH (BEAKER) (test 12.0 % 11.6-14.4 dhgx=772) PLATELET COUNT (BEAKER) (test pcqw=383) 236 K/CU MM 150-450 MEAN PLATELET VOLUME (BEAKER) (test osmj=098) 12.0 fL 9.4-12.4 NUCLEATED RED BLOOD CELLS (BEAKER) (test 0 /100 WBC 0-0 dalg=697) [id number] 17:06:00 Test Item Value Reference Range Comments PARTIAL THROMBOPLASTIN TIME (BEAKER) (test 41.3 seconds 22.5-36.0 iydj=754) Prior to initiating heparinPLATELET [id number] 16:40:00 Test Item Value Reference Range Comments PLATELET COUNT (BEAKER) (test fxhj=201) 234 K/CU MM 150-450 [id number] 14:14:00 Test Item Value Reference Range Comments MAGNESIUM (BEAKER) (test qttp=972) 2.2 mg/dL 1.6-2.6 BASIC METABOLIC [id number] 07:16:00 Test Item Value Reference Range Comments SODIUM (BEAKER) (test 134 meq/L 136-145 qnfu=647) POTASSIUM (BEAKER) (test 4.4 meq/L 3.5-5.1 bfpd=018) CHLORIDE (BEAKER) (test 101 meq/L 98-107 ztdz=795) CO2 (BEAKER) (test 28 meq/L 22-29 abbo=310) BLOOD UREA NITROGEN 18 mg/dL 7-21 (BEAKER) (test azoc=816) CREATININE (BEAKER) (test 0.77 mg/dL 0.57-1.25 cayb=657) GLUCOSE RANDOM (BEAKER) 110 mg/dL 70-105 (test hpfp=734) CALCIUM (BEAKER) (test 8.9 mg/dL 8.4-10.2 rixa=969) EGFR (BEAKER) (test 99 mL/min/1.73 sq m ESTIMATED GFR IS NOT llqg=9204) ACCURATE CREATININE CLEARANCE IN PREDICTING GLOMERULAR FILTRATION RATE. ESTIMATED GFR IS NOT APPLICABLE FOR DIALYSIS PATIENTS. CBC W/PLT COUNT & AUTO [id number] 07:07:00 Test Item Value Reference Range Comments WHITE BLOOD CELL COUNT (BEAKER) (test aqrm=368) 11.8 K/ L 3.5-10.5 RED BLOOD CELL COUNT (BEAKER) (test tswo=622) 3.51 M/ L 4.63-6.08 HEMOGLOBIN (BEAKER) (test iwfn=623) 11.5 GM/DL 13.7-17.5 HEMATOCRIT (BEAKER) (test ucaw=071) 35.0 % 40.1-51.0 MEAN CORPUSCULAR VOLUME (BEAKER) (test iwpv=565) 99.7 fL 79.0-92.2 MEAN CORPUSCULAR HEMOGLOBIN (BEAKER) (test 32.8 pg 25.7-32.2 eucm=542) MEAN CORPUSCULAR HEMOGLOBIN CONC (BEAKER) (test 32.9 GM/DL 32.3-36.5 tguz=438) RED CELL DISTRIBUTION WIDTH (BEAKER) (test 12.0 % 11.6-14.4 bevo=926) PLATELET COUNT (BEAKER) (test epnx=194) 224 K/CU MM 150-450 MEAN PLATELET VOLUME (BEAKER) (test nrae=209) 11.4 fL 9.4-12.4 NUCLEATED RED BLOOD CELLS (BEAKER) (test 0 /100 WBC 0-0 sxgz=154) NEUTROPHILS RELATIVE PERCENT (BEAKER) (test 82 % yykv=197) LYMPHOCYTES RELATIVE PERCENT (BEAKER) (test 9 % ihpb=181) MONOCYTES RELATIVE PERCENT (BEAKER) (test 8 % sdmu=975) EOSINOPHILS RELATIVE PERCENT (BEAKER) (test 0 % djcv=307) BASOPHILS RELATIVE PERCENT (BEAKER) (test 0 % salv=272) NEUTROPHILS ABSOLUTE COUNT (BEAKER) (test 9.69 K/ L 1.78-5.38 cjed=094) LYMPHOCYTES ABSOLUTE COUNT (BEAKER) (test 1.01 K/ L 1.32-3.57 iapt=043) MONOCYTES ABSOLUTE COUNT (BEAKER) (test 0.96 K/ L 0.30-0.82 rric=055) EOSINOPHILS ABSOLUTE COUNT (BEAKER) (test 0.04 K/ L 0.04-0.54 xtph=668) BASOPHILS ABSOLUTE COUNT (BEAKER) (test 0.04 K/ L 0.01-0.08 xgre=679) IMMATURE GRANULOCYTES-RELATIVE PERCENT (BEAKER) 1 % 0-1 (test sezq=4210) CT, CHEST, WITH [id number] 17:39:00FINAL REPORT CT of the Chest, abdomen and pelvis dated 08/07/2018 Clinical information: Chest pain or SOB, pleurisy or effusion suspected Comment: Axial images of the chest , abdomen, and pelvis were obtained from thoracic inlet to the pubic symphysis with GI and intravenous contrast. This exam was performed according to our departmental dose-optimization program, which includes automated exposure control, adjustment of the mA and/or kV according to patient size and/or useof interactive reconstruction technique. Heart is normal in [...] Old healed rib fractures in the right hemithorax..2. Wedge- shaped perfusion defects in the upper and inferior pole left kidney suggestive of infarction or focal pyelonephritis.3. Left renal cyst. Signed: Reagan Peck MDReport Verified Date/Time: 08/07/2018 17:39:22 Reading Location: [address] Consult Reading Room Electronically signed by: REAGAN PECK M.D. on08/07/2018 05:39 PMCT, [id number] 17:39:00FINAL REPORT CT of the Chest, abdomen and [...] and/or kV according to patient size and/or useof interactive reconstruction technique. Heart is normal in [...] Old healed rib fractures in the right hemithorax..2. Wedge-shaped perfusion defects in the upper and inferior pole left kidney suggestive of infarction or focal pyelonephritis.3. Left renal cyst. Signed: Reagan Peck MDReport Verified Date/Time: 08/07/2018 17 :39:22 Reading Location: [facility] B1 [id number] Consult Reading Room Electronically signed by: REAGAN PECK M.D. on08/07/2018 05:39 PMBASI METABOLIC [id number] 06:53:00 Test Item Value Reference Range Comments SODIUM (BEAKER) (test 135 meq/L 136-145 egmx=391) POTASSIUM (BEAKER) (test 4.3 meq/L 3.5-5.1 yxfo=730) CHLORIDE (BEAKER) (test 97 meq/L 98-107 ddcg=221) CO2 (BEAKER) (test 31 meq/L 22-29 etdf=262) BLOOD UREA NITROGEN 24 mg/dL 7-21 (BEAKER) (test fgyc=879) CREATININE (BEAKER) (test 1.00 mg/dL 0.57-1.25 rfhw=806) GLUCOSE RANDOM (BEAKER) 118 mg/dL 70-105 (test rtfz=454) CALCIUM (BEAKER) (test 9.1 mg/dL 8.4-10.2 tyeo=483) EGFR (BEAKER) (test 73 mL/min/1.73 sq m ESTIMATED GFR IS NOT lwck=9284) ACCURATE CREATININE CLEARANCE IN PREDICTING GLOMERULAR FILTRATION RATE. ESTIMATED GFR IS NOT APPLICABLE FOR DIALYSIS PATIENTS. CBC W/PLT COUNT & AUTO [id number] 06:22:00 Test Item Value Reference Range Comments WHITE BLOOD CELL COUNT (BEAKER) (test qlha=265) 16.2 K/ L 3.5-10.5 RED BLOOD CELL COUNT (BEAKER) (test whns=953) 3.59 M/ L 4.63-6.08 HEMOGLOBIN (BEAKER) (test oeod=567) 11.6 GM/DL 13.7-17.5 HEMATOCRIT (BEAKER) (test cvzq=624) 35.7 % 40.1-51.0 MEAN CORPUSCULAR VOLUME (BEAKER) (test iyws=523) 99.4 fL 79.0-92.2 MEAN CORPUSCULAR HEMOGLOBIN (BEAKER) (test 32.3 pg 25.7-32.2 hcox=825) MEAN CORPUSCULAR HEMOGLOBIN CONC (BEAKER) (test 32.5 GM/DL 32.3-36.5 yfkl=286) RED CELL DISTRIBUTION WIDTH (BEAKER) (test 12.0 % 11.6-14.4 xinv=289) PLATELET COUNT (BEAKER) (test aycd=920) 187 K/CU MM 150-450 MEAN PLATELET VOLUME (BEAKER) (test jmcr=064) 11.6 fL 9.4-12.4 NUCLEATED RED BLOOD CELLS (BEAKER) (test 0 /100 WBC 0-0 cgdc=273) NEUTROPHILS RELATIVE PERCENT (BEAKER) (test 82 % etcl=057) LYMPHOCYTES RELATIVE PERCENT (BEAKER) (test 8 % swhh=382) MONOCYTES RELATIVE PERCENT (BEAKER) (test 9 % efuw=259) EOSINOPHILS RELATIVE PERCENT (BEAKER) (test 0 % gmgv=365) BASOPHILS RELATIVE PERCENT (BEAKER) (test 0 % javj=349) NEUTROPHILS ABSOLUTE COUNT (BEAKER) (test 13.30 K/ L 1.78-5.38 nwti=297) LYMPHOCYTES ABSOLUTE COUNT (BEAKER) (test 1.27 K/ L 1.32-3.57 dtmz=501) MONOCYTES ABSOLUTE COUNT (BEAKER) (test 1.44 K/ L 0.30-0.82 jsoy=123) EOSINOPHILS ABSOLUTE COUNT (BEAKER) (test 0.01 K/ L 0.04-0.54 oxdm=732) BASOPHILS ABSOLUTE COUNT (BEAKER) (test 0.05 K/ L 0.01-0.08 urbb=167) IMMATURE GRANULOCYTES-RELATIVE PERCENT (BEAKER) 1 % 0-1 (test zqtb=0648) RAD, CHEST, 2 [id number] 21:57:00Reason for exam:->Shortness of breath, and concern for pneumonia.FINAL REPORT PA and Lateral views of the chest dated 08/06/2018 Clinical information: Shortness of breath, and concern for pneumonia. Comment: Heart is in upper limits of normalin size. Pulmonary vasculature is unremarkable. Lungs are clear. No pulmonary infiltrate or pleural effusion is present. Pleural thickening is noted bilaterally. Impression: No active cardiopulmonary disease. Signed: Reagan Peckeport Verified Date/Time: 08/06/2018 21:57:16 Reading Location: [address] Consult Reading Room 09: 57 [id number] 17:55:00 Test Item Value Reference Range Comments PROCALCITONIN (BEAKER) (test fzfk=0665) 0.17 ng/mL <0.05 SEPSIS RISK (ng/mL)Low: 0.05-0.50Intermediate: 0.51-2.00High: & gt;=2.01PROTHROMBIN TIME/[id number] 17:16:00 Test Item Value Reference Range Comments PROTIME (BEAKER) (test kjua=020) 21.4 seconds 11.7-14.7 INR (BEAKER) (test ridd=400) 1.9 <=5.9 RECOMMENDED COUMADIN/WARFARIN INR THERAPY RANGESSTANDARD DOSE: 2.0 - 3.0 Includes: PROPHYLAXIS forvenous thrombosis, systemic embolization; TREATMENT for venous thrombosis and/or pulmonary embolus.HIGH RISK: Target INR is 2.5-3.5 for patients with mechanical heart valves.VITAMIN B12 AND [id number] 17:02 :00 Test Item Value Reference Range Comments VITAMIN B12 (BEAKER) (test pjtk=556) 541 pg/mL 213-816 FOLATE (BEAKER) (test hhhv=582) 14.3 ng/mL >=7.0 LACTIC ACID, VENOUS, WHOLE [id number] 16:28:00 Test Item Value Reference Range Comments LACTATE BLOOD VENOUS (2) 1.8 mmol/L 0.5-2.2 Specimen slightly hemolyzed (BEAKER) (test jvkn=6353) Effective 03/13/2016: Units/Reference Range ChangeNew: 0.5-2.2 mmol/L Previous: 5 -20 mg/dLMR, MRA, NECK, WITHOUT IV [id number] 13:54:00Reason for exam:-& gt;Ischemic Stroke EvaluationFINAL REPORT MRA brain and neck without contrast 08/06/2018 1:51 PM CLINICAL HISTORY: StrokeIschemic Stroke Evaluation COMPARISON: None available TECHNIQUE: Two- and three-dimensional time -of-flight MRA images of the intra- and extracranial [...] both vertebral arteries. IMPRESSION: 1. Motion limited examination , without evidence for acute vascular compromise. 2. Severe right and mild left cervical internal carotid artery stenosis. Signed: Aristides Lester Verified Date/Time: 08/06/2018 13:54:13 Reading Location: [facility] Reading Room Electronically signed by: ARISTIDES LESTER M.D. on 01:54 PMMR, MRA, BRAIN, WITHOUT [id number] 13:54:00Reason for exam:->Ischemic Stroke EvaluationFINAL REPORT MRA brain and neck without contrast 08/06/2018 1:51 PM CLINICAL HISTORY: StrokeIschemic Stroke Evaluation COMPARISON: None available TECHNIQUE: Two- and three-dimensional itvn-oc-mmsgol MRA images of the intra- and extracranial arterial vasculature was performed, from which maximal intensity projection 3-D reconstructions were created. FINDINGS: Patient motion limits these examinations. Pathology may be obscured. With this limitation in mind, there is no vessel occlusion in the intracranial or extracranial arterial vasculature. There is 90% right and 33% left cervical internal carotid artery stenosis ( NASCET criteria). Flow is antegrade in both vertebral arteries. IMPRESSION: 1. Motion limited examination, without evidence for acute vascular compromise. 2. Severe right and mild left cervical internal carotid artery stenosis. Signed: Aristides Lester Verified Date/Time: 08/06/2018 13:54:44 Reading Location: [facility] Reading Room MR, BRAIN, WITHOUT [id number] 12:15:00Reason for exam:->Ischemic Stroke EvaluationFINAL REPORT MRI brain Comparison: None Reason for exam: StrokeIschemic Stroke Evaluation Discussion: Multiplanar MR imaging the brain was performed using T1, T2, FLAIR, FFE, diffusion, and ADC map imaging. There are no intracranial hematomas, mass effect, hydrocephalus, shift, or extra- axial collections. Moderate chronic microvascular changes are seen in both cerebral hemispheres and in the brainstem. Additionally, semiconfluent patchy [employer] territory diffusion restricted recent infarctions are seen [...] soft tissues are unremarkable. . 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 No hematoma or mass effect. Signed: Marci Sanchez Verified Date/Time: 08/06/2018 12:15:05 Reading Location: [address] Neuro Reading Room CBC W/PLT COUNT & AUTO [id number] 11:56:00 Test Item Value Reference Range Comments WHITE BLOOD CELL COUNT (BEAKER) (test jofw=059) 20.6 K/ L 3.5-10.5 RED BLOOD CELL COUNT (BEAKER) (test chuo=943) 3.85 M/ L 4.63-6.08 HEMOGLOBIN (BEAKER) (test tqaa=674) 12.4 GM/DL 13.7-17.5 HEMATOCRIT (BEAKER) (test txui=630) 38.3 % 40.1-51.0 MEAN CORPUSCULAR VOLUME (BEAKER) (test eofe=821) 99.5 fL 79.0-92.2 MEAN CORPUSCULAR HEMOGLOBIN (BEAKER) (test 32.2 pg 25.7-32.2 sjhm=226) MEAN CORPUSCULAR HEMOGLOBIN CONC (BEAKER) (test 32.4 GM/DL 32.3-36.5 btcq=985) RED CELL DISTRIBUTION WIDTH (BEAKER) (test 12.2 % 11.6-14.4 ifeq=418) PLATELET COUNT (BEAKER) (test fydo=028) 180 K/CU MM 150-450 MEAN PLATELET VOLUME (BEAKER) (test ojuo=712) 11.3 fL 9.4-12.4 NUCLEATED RED BLOOD CELLS (BEAKER) (test 0 /100 WBC 0-0 eslz=917) (CELLAVISION MANUAL DIFF)2018-08-06 11:56:00 Test Item Value Reference Range Comments NEUTROPHILS - REL (CELLAVISION)(BEAKER) (test 87 % qiij=8222) LYMPHOCYTES - REL (CELLAVISION)(BEAKER) (test 7 % xhsg=3861) MONOCYTES - REL (CELLAVISION)(BEAKER) (test 6 % fgkq=5061) NEUTROPHILS - ABS (CELLAVISION)(BEAKER) (test 17.92 K/ul 1.78-5.38 zbae=0434) LYMPHOCYTES - ABS (CELLAVISION)(BEAKER) (test 1.44 K/ul 1.32-3.57 jhvf=3464) MONOCYTES - ABS (CELLAVISION)(BEAKER) (test 1.24 K/uL 0.30-0.82 egnf=3080) TOTAL COUNTED (BEAKER) (test luzr=3398) 100 WBC MORPHOLOGY (BEAKER) (test csbh=494) Normal LARGE PLT(BEAKER) (test ifkr=3035) Present POLYCHROMATOPHILLIC RBCS(BEAKER) (test lwli=424) 1+ few CARLOS CELLS (BEAKER) (test agiv=365) 1+ few ARTIFACT (CELLAVISION)(BEAKER) (test kmdc=1504) Present PLATELET CONCENTRATION (CELLAVISION)(BEAKER) Adequate (test rmuq=7700) Received comment: User comments: Slide comments:BASIC METABOLIC [id number] 06:50:00 Test Item Value Reference Range Comments SODIUM (BEAKER) (test 134 meq/L 136-145 hikr=085) POTASSIUM (BEAKER) (test 3.7 meq/L 3.5-5.1 wdte=762) CHLORIDE (BEAKER) (test 96 meq/L 98-107 kwkz=732) CO2 (BEAKER) (test 28 meq/L 22-29 ioqz=534) BLOOD UREA NITROGEN 30 mg/dL 7-21 (BEAKER) (test airv=876) CREATININE (BEAKER) (test 1.18 mg/dL 0.57-1.25 atym=665) GLUCOSE RANDOM (BEAKER) 115 mg/dL 70-105 (test enmr=284) CALCIUM (BEAKER) (test 8.9 mg/dL 8.4-10.2 qmnl=533) EGFR (BEAKER) (test 60 mL/min/1.73 sq m ESTIMATED GFR IS NOT bcss=4546) ACCURATE CREATININE CLEARANCE IN PREDICTING GLOMERULAR FILTRATION RATE. ESTIMATED GFR IS NOT APPLICABLE FOR DIALYSIS PATIENTS. CBC W/PLT COUNT & AUTO [id number] 07:59:00 Test Item Value Reference Range Comments WHITE BLOOD CELL COUNT (BEAKER) (test dgsx=137) 26.0 K/ L 3.5-10.5 RED BLOOD CELL COUNT (BEAKER) (test mihs=252) 4.04 M/ L 4.63-6.08 HEMOGLOBIN (BEAKER) (test vxcw=727) 13.4 GM/DL 13.7-17.5 HEMATOCRIT (BEAKER) (test huwo=485) 39.5 % 40.1-51.0 MEAN CORPUSCULAR VOLUME (BEAKER) (test gvyl=886) 97.8 fL 79.0-92.2 MEAN CORPUSCULAR HEMOGLOBIN (BEAKER) (test 33.2 pg 25.7-32.2 faxy=011) MEAN CORPUSCULAR HEMOGLOBIN CONC (BEAKER) (test 33.9 GM/DL 32.3-36.5 ocsa=105) RED CELL DISTRIBUTION WIDTH (BEAKER) (test 12.1 % 11.6-14.4 iezh=162) PLATELET COUNT (BEAKER) (test ugdq=703) 195 K/CU MM 150-450 MEAN PLATELET VOLUME (BEAKER) (test rpnj=059) 11.6 fL 9.4-12.4 NUCLEATED RED BLOOD CELLS (BEAKER) (test 0 /100 WBC 0-0 xjer=186) (CELLAVISION MANUAL DIFF)2018-08-05 07:59:00 Test Item Value Reference Range Comments NEUTROPHILS - REL (CELLAVISION)(BEAKER) (test 86 % dzpi=3620) LYMPHOCYTES - REL (CELLAVISION)(BEAKER) (test 6 % baee=5914) MONOCYTES - REL (CELLAVISION)(BEAKER) (test 4 % klgz=5021) BANDS - REL (CELLAVISION)(BEAKER) (test 4 % 0-10 qehx=3746) NEUTROPHILS - ABS (CELLAVISION)(BEAKER) (test 22.36 K/ul 1.78-5.38 txkj=0318) LYMPHOCYTES - ABS (CELLAVISION)(BEAKER) (test 1.56 K/ul 1.32-3.57 hcjh=4733) MONOCYTES - ABS (CELLAVISION)(BEAKER) (test 1.04 K/uL 0.30-0.82 zlqt=1241) BANDS - ABS (CELLAVISION)(BEAKER) (test 1.04 K/uL 0.00-0.80 cjoo=0464) TOTAL COUNTED (BEAKER) (test rrqu=7846) 100 PLT MORPHOLOGY (BEAKER) (test pyjl=279) Normal SMUDGE CELLS (BEAKER) (test zznw=9882) Present POIKILOCYTES (BEAKER) (test ulzj=387) 1+ few PLATELET CONCENTRATION (CELLAVISION)(BEAKER) Adequate (test swxd=9039) Received comment: User comments: Slide comments:URINALYSIS W/ REFLEX URINE [id number] 05:52:00 Test Item Value Reference Range Comments COLOR (BEAKER) (test siim=448) Yellow CLARITY (BEAKER) (test cxtz=330) Hazy SPECIFIC GRAVITY UA (BEAKER) (test ekdu=331) 1.022 1.001-1.035 PH UA (BEAKER) (test xocj=176) 5.5 5.0-8.0 PROTEIN UA (BEAKER) (test zyfl=464) 100 mg/dL Negative GLUCOSE UA (BEAKER) (test fxsu=304) Negative Negative KETONES UA (BEAKER) (test hvvo=214) Negative Negative BILIRUBIN UA (BEAKER) (test zkfj=969) Negative Negative BLOOD UA (BEAKER) (test ixhl=186) Trace Negative NITRITE UA (BEAKER) (test xott=558) Negative Negative LEUKOCYTE ESTERASE UA (BEAKER) (test yzgk=244) Negative Negative UROBILINOGEN UA (BEAKER) (test qtow=633) 2.0 mg/dL 0.2-1.0 RBC UA (BEAKER) (test nzgv=348) 11 /HPF WBC UA (BEAKER) (test dlly=978) 3 /HPF MUCUS (BEAKER) (test rqtx=6691) Many SQUAMOUS EPITHELIAL (BEAKER) (test kgtc=603) < /HPF HYALINE CASTS (BEAKER) (test jztz=601) 5 /LPF SOURCE(BEAKER) (test vkix=0232) BASIC METABOLIC [id number] 05:45:00 Test Item Value Reference Range Comments SODIUM (BEAKER) (test 135 meq/L 136-145 yjlu=907) POTASSIUM (BEAKER) (test 3.9 meq/L 3.5-5.1 kkzk=265) CHLORIDE (BEAKER) (test 99 meq/L 98-107 xdhb=470) CO2 (BEAKER) (test 26 meq/L 22-29 qtir=700) BLOOD UREA NITROGEN 21 mg/dL 7-21 (BEAKER) (test pjcr=029) CREATININE (BEAKER) (test 1.09 mg/dL 0.57-1.25 nxvz=157) GLUCOSE RANDOM (BEAKER) 127 mg/dL 70-105 (test bwzx=887) CALCIUM (BEAKER) (test 9.0 mg/dL 8.4-10.2 ejtr=230) EGFR (BEAKER) (test 66 mL/min/1.73 sq m ESTIMATED GFR IS NOT lgij=5338) ACCURATE CREATININE CLEARANCE IN PREDICTING GLOMERULAR FILTRATION RATE. ESTIMATED GFR IS NOT APPLICABLE FOR DIALYSIS PATIENTS. U/S, TESTICULAR (SCROTUM)2018-08-05 04:28:00Reason for exam:->scrotal swellingFINAL REPORT U/S, TESTICULAR (SCROTUM) CLINICAL INDICATION: scrotal swelling COMPARISON: None TECHNIQUE: The scrotum was evaluated using real-time barnett scale and color and spectral Doppler sonography. FINDINGS: Right testis: Size: 4.9 x 2.5 x 3.4 cm Echotexture: Normal echogenicity. Rare microcalcifications. Color Doppler: Preserved vascular flow. Left testis:Size: 4.9 x 2.4 x 3.3 cm Echotexture: [...] hernia. Signed: JR De La O Robert MDReport Verified Date/Time: 2017 04:28:36 Reading Location: [facility] C013Y CT Body Reading Room TROPONIN [id number] 14:22:00 Test Item Value Reference Range Comments TROPONIN I (BEAKER) (test hibk=252) < ng/mL 0.00-0.03 Troponin I (TnI) levels must be interpreted [...] failure, acidosis, acute neurological disease, and persistent tachyarrhythmia.RAD, ABDOMEN/KUB, 1 VIEW [id number] 12 :40:00Reason for exam:->abdominal painFINAL REPORT CLINICAL HISTORY: abdominal pain TECHNIQUE: Supine abdomen COMPARISON: None IMPRESSION: There is a large amount of stool throughout the colon. There are no focally distended loops of bowel. Free air and air-fluid levels are not seen but cannot be definitively excluded on the supine view. Signed: Colton Marquis Verified Date/Time: 08/04/2018 12:40:36 Reading Location: [facility] Radiology Reading Room HEMOGLOBIN [id number] 05:30:00 Test Item Value Reference Range Comments HEMOGLOBIN A1C (BEAKER) (test ylep=438) 5.6 % 4.3-6.1 [id number] 02:50:00 Test Item Value Reference Range Comments HOMOCYSTEINE (BEAKER) (test xdyr=942) 6.5 umol/L 5.1-15.4 TROPONIN [id number] 02:25:00 Test Item Value Reference Range Comments TROPONIN I (BEAKER) (test grdb=500) < ng/mL 0.00-0.03 Troponin I (TnI) levels must be interpreted [...] failure, acidosis, acute neurological disease, and persistent tachyarrhythmia.FastingLIPID [id number] 02:19:00 Test Item Value Reference Range Comments TRIGLYCERIDES (BEAKER) (test chkn=478) 111 mg/dL CHOLESTEROL (BEAKER) (test sviz=272) 113 mg/dL HDL CHOLESTEROL (BEAKER) (test cqnj=799) 26 mg/dL LDL CHOLESTEROL CALCULATED (BEAKER) (test 65 mg/dL umcw=052) Triglyceride Reference Range: Low Risk <150 Borderline 150- 199 High Risk 200-499 Very High Risk >=500Cholesterol Reference Range: Low Risk <200 Borderline 200-239 High Risk > 240HDL Cholesterol Reference Range: Low Risk >=60 High Risk <40LDL Cholesterol Reference Range: Optimal <100 Near Optimal 100-129 Borderline 130-159 High 160-189 Very High >=190 FastingBASIC METABOLIC [id number] 02:19:00 Test Item Value Reference Range Comments SODIUM (BEAKER) (test 140 meq/L 136-145 qekb=925) POTASSIUM (BEAKER) (test 3.6 meq/L 3.5-5.1 ufqa=307) CHLORIDE (BEAKER) (test 109 meq/L 98-107 rzho=714) CO2 (BEAKER) (test 23 meq/L 22-29 uyio=060) BLOOD UREA NITROGEN 15 mg/dL 7-21 (BEAKER) (test hsrc=444) CREATININE (BEAKER) (test 0.85 mg/dL 0.57-1.25 lizf=727) GLUCOSE RANDOM (BEAKER) 135 mg/dL 70-105 (test zsey=763) CALCIUM (BEAKER) (test 8.2 mg/dL 8.4-10.2 kvei=648) EGFR (BEAKER) (test 88 mL/min/1.73 sq m ESTIMATED GFR IS NOT enxw=4266) ACCURATE CREATININE CLEARANCE IN PREDICTING GLOMERULAR FILTRATION RATE. ESTIMATED GFR IS NOT APPLICABLE FOR DIALYSIS PATIENTS. FastingCBC W/PLT COUNT & AUTO [id number] 01:57:00 Test Item Value Reference Range Comments WHITE BLOOD CELL COUNT (BEAKER) (test oezd=013) 14.2 K/ L 3.5-10.5 RED BLOOD CELL COUNT (BEAKER) (test bvsm=410) 3.86 M/ L 4.63-6.08 HEMOGLOBIN (BEAKER) (test ncgy=931) 12.7 GM/DL 13.7-17.5 HEMATOCRIT (BEAKER) (test egfv=199) 37.7 % 40.1-51.0 MEAN CORPUSCULAR VOLUME (BEAKER) (test zhig=755) 97.7 fL 79.0-92.2 MEAN CORPUSCULAR HEMOGLOBIN (BEAKER) (test 32.9 pg 25.7-32.2 xywg=722) MEAN CORPUSCULAR HEMOGLOBIN CONC (BEAKER) (test 33.7 GM/DL 32.3-36.5 uyvt=250) RED CELL DISTRIBUTION WIDTH (BEAKER) (test 12.0 % 11.6-14.4 moug=160) PLATELET COUNT (BEAKER) (test uqfh=237) 183 K/CU MM 150-450 MEAN PLATELET VOLUME (BEAKER) (test oeua=069) 11.1 fL 9.4-12.4 NUCLEATED RED BLOOD CELLS (BEAKER) (test 0 /100 WBC 0-0 bclq=344) NEUTROPHILS RELATIVE PERCENT (BEAKER) (test 83 % vhwr=594) LYMPHOCYTES RELATIVE PERCENT (BEAKER) (test 9 % rlyg=482) MONOCYTES RELATIVE PERCENT (BEAKER) (test 7 % wjjf=959) EOSINOPHILS RELATIVE PERCENT (BEAKER) (test 0 % ehsf=972) BASOPHILS RELATIVE PERCENT (BEAKER) (test 0 % uejf=955) NEUTROPHILS ABSOLUTE COUNT (BEAKER) (test 11.72 K/ L 1.78-5.38 mwkm=497) LYMPHOCYTES ABSOLUTE COUNT (BEAKER) (test 1.28 K/ L 1.32-3.57 mvva=609) MONOCYTES ABSOLUTE COUNT (BEAKER) (test 0.98 K/ L 0.30-0.82 cjct=603) EOSINOPHILS ABSOLUTE COUNT (BEAKER) (test 0.02 K/ L 0.04-0.54 bkkv=671) BASOPHILS ABSOLUTE COUNT (BEAKER) (test 0.05 K/ L 0.01-0.08 pnyd=860) IMMATURE GRANULOCYTES-RELATIVE PERCENT (BEAKER) 1 % 0-1 (test envx=9817)
[2019-03-02] MEDS ORDERED: ACETAMINOPHEN 500 MG TAB PO PRN (20:27)
[2019-03-02 21:02] LABS: Absolute Lymphocytes (CBC) 0.8 K/uL (0.7-4.9); Absolute Monocytes 0.7 K/uL (0.1-1.3); Absolute Neutrophil 12.2 K/uL (1.8-8.0); Basophils % 0.6 % (0-1.3); Eosinophils % 0.1 % (0-4.4); Hematocrit 34.3 % (39.6-49.0); MPV 9.7 fL (7.6-11.3); Monocytes % 4.9 % (3.3-12.3); RBC Red Blood Cell Count 3.66 M/uL (4.33-5.43)
[2019-03-02 21:30] LABS: Albumin 3.2 g/dL (3.4-5.0); Magnesium 1.9 mg/dL (1.8-2.4); Potassium 3.7 mmol/L (3.5-5.1); Protein, Total 7.3 g/dL (6.4-8.2); Thyroid Stimulating Hormone 0.586 uIU/mL (0.360-3.740)
[2019-03-02] MEDS ORDERED: VANCOMYCIN/NS 1 gm 1 GM/250 ML BAG IVPB SCH (21:30)
[2019-03-02] MEDS ORDERED: CEFTRIAXONE 1 GM/NS 50 ML 1 GM/50 ML BAG IV SCH (22:00)
[2019-03-02] MEDS: NA CHLORIDE 0.9% 1,000 ML IV SCH (22:35)
[2019-03-02] MEDS ORDERED: CEFTRIAXONE 1000 MG/VIAL ONE (22:57)
[2019-03-02] MEDS ORDERED: VANCOMYCIN 2 GM in NA CHLORIDE 0.9% 500 ML IVPB SCH (23:00)
[2019-03-02 23:07] LABS: Blood Morphology Comment NOTED (NOT SEEN); Platelet Estimate ADEQ; Polychromasia 1+
[2019-03-02] MEDS: ENOXAPARIN 30 MG/0.3 ML SQ SCH (23:51)
[2019-03-03 04:12] LABS: Urine Appearance CLEAR; Urine Bilirubin NEGATIVE (NEG); Urine Blood NEGATIVE (NEG); Urine Color YELLOW; Urine Glucose NEGATIVE (NEG); Urine Protein TRACE (NEG); Urine Specific Gravity 1.025 (1.005-1.030); Urine pH 5.5 (5.0-7.0)
[2019-03-03 04:39] LABS: Urine Bacteria <20 /HPF (NONE SEEN); Urine Culture Reflex Order NOT NEEDED; Urine Mucus 2+ /HPF (NONE SEEN); Urine RBC <5 /HPF (NONE SEEN)
--- NOTE | 2019-03-03 06:38 | HP ---
Date of Admission: 03/02/2019 Chief Complaint: Fever, chills. History Of Present Illness: A 73-year-old male patient who is not compliant with his office visit followup. Last time, he was seen at office in October. After that he did not keep appointment to return back to see me until all of a sudden today his called, requested appointment to come see me because he was having fever and chills and he was seen this evening. Information that I have learned today that for last almost 4 weeks or so, he is having some infection of his right great toe and he has been seeing mechanical engineering professor, Dr. Quinones and getting topical dressing changes done for this right foot toe problem and has home health services who also helps him with dressing changes. The patient' s reports that Dr. Quinones is considering amputation on his great toe. Meanwhile, he started to have this fever and chills over the weekend and today he came into office to see me. He is having some clear nasal drainage for last 2 to 3 weeks due to allergy problem as he describes. In the last 2 to 3 days, he has been feeling weak and having generalized body ache along with the fever and chills. He has impaired sensation on both feet, so really denies any pain in his foot. After he was evaluated at the office, he was admitted to the hospital with my concerns about having osteomyelitis of right foot and possibility of sepsis that we need to rule out considering his clinical presentation. His temperature at office was 101.5 degrees Fahrenheit, oral temperature. Allergies: NO KNOWN ALLERGIES. Medications: Aspirin 81 mg p.o. daily, Eliquis 5 mg 2 times a day, amlodipine 5 mg in the morning, atorvastatin 80 mg every day in the evening time, dofetilide 500 mcg 1 p.o. 2 times a day, furosemide 40 mg p.o. daily, Eliquis 5 mg twice a day, gabapentin 300 mg 3 times a day, lisinopril 5 mg daily, metoprolol ER 100 mg 2 times a day, pantoprazole 40 mg p.o. 2 times a day. Review of Systems: Musculoskeletal: As mentioned above. Dermatology: As mentioned above. Constitutional: As mentioned above. All other systems reviewed and negative. Past Medical History: Type 2 diabetes mellitus, chronic gastritis, peripheral neuropathy, atrial fibrillation, stroke, PTSD, hypertension, hyperlipidemia, lung cancer, chronic anticoagulation therapy, bilateral carotid artery stenosis. Past Surgical History: Carotid artery stent placement for right carotid artery stenosis in 2018; hernia repair x3 in 2002; knee arthroscopic surgery, 1982; tonsillectomy, 1949; electrical cardioversion and ablation for atrial fibrillation. Family History: Significant for Parkinson disease. Social History: Prior history of smoking, not at present time. Use of alcohol , positive, Physical Examination: Vital Signs: His temperature at office today 101.5 degree Fahrenheit checked orally, blood pressure was 157/79, pulse 87, respiratory rate 16, height 73 inches, weight 178.8 pounds. General: Awake, alert, oriented, not in distress. HEENT: Head atraumatic, normocephalic. Conjunctivae nonerythematous. Sclerae white. Mouth, no thrush or edema noted. Ears/Nose, no mass, lesion, discharge noted. Neck: Supple. No JVD, lymph nodes, bruit, thyromegaly noted. Lungs: Bilateral good equal air entry. Clear to auscultation. No rhonchi. No rales. Heart: Normal heart sounds, no murmur or gallop. Abdomen: Soft, bowel sounds normal. No guarding, rigidity, tenderness, mass, hepatosplenomegaly, distention, or bruit noted. Extremities: Right foot great toe has mild edema present. Skin proximal to the nailbed area on the right great toe is pick, warm, and the patient's plantar aspect of the toe has a small open wound. There is presence of foul smell but no discharge, no bleeding. Skin: No rash, ulcer, cellulitis. Lymphatics: No lymph node enlargement in neck, supraclavicular, infraclavicular region. Neuro: No focal neurological deficit. Chest: Unremarkable. External Genitalia: Deferred. Rectal: Deferred. Laboratory Data: Sodium 136, potassium 3.7, chloride 102, bicarb 26, BUN 18, creatinine 0.92, glucose 129, lactic acid 1.2, procalcitonin 0.19, sed rate higher than 140, CRP 125. WBC 13.8, hemoglobin 11.5, platelets 204. Foot x- ray result pending. Impression: 1. Right foot osteomyelitis. 2. Rule out sepsis. 3. Chronic atrial fibrillation. 4. History of stroke. 5. Type 2 diabetes mellitus. 6. Peripheral neuropathy. 7. Chronic ascites. 8. Post-traumatic stress disorder. 9. Hypertension. 10. Hyperlipidemia. 11. Carotid artery stenosis. 12. Lung cancer. 13. Chronic anticoagulation therapy. Plan: Admit the patient to hospital for further evaluation and management of this problem. The patient is appropriate for inpatient and is expected to spend 2 midnights in hospital. We will go ahead and continue home medications per order. We will start empiric antibiotics per order. Consult Pharmacy for management of vancomycin dosing and tomorrow we will order MRI or bone scan for further evaluation of this right foot problem and consult general surgeon. Depending on x-ray and further radiology imaging studies, we will decide further plan of treatment. Our first goal would be to try to save his toe if possible. If not, he may need amputation, but all those decisions will be made over period of this hospitalization. Details and plan of treatment discussed with the patient and his . We will not give any Eliquis at this point and give Lovenox 30 mg subcutaneous injection every 12 hours, IV fluid, Tylenol, etc. ADELITA/MODL Voice ID: [id number]
[2019-03-03] MEDS: NA CHLORIDE 0.9% 1,000 ML IV SCH ×3 (07:00→17:00)
[2019-03-03] MEDS ORDERED: D50W 25 GM/50 ML SYRINGE IV PRN (07:21)
[2019-03-03] MEDS ORDERED: GLUCAGON 1 MG/VIAL IM PRN (07:21)
[2019-03-03] MEDS: INSULIN -REGULAR HUMAN 50 UNIT/0.5 ML ML SQ SCH ×4 (07:30→21:00)
[2019-03-03] MEDS ORDERED: VANCOMYCIN 3 GM in NA CHLORIDE 0.9% 500 ML IVPB ONE (08:30)
[2019-03-03] MEDS ORDERED: FUROSEMIDE 40 MG TABLET PO SCH (09:00)
[2019-03-03] MEDS ORDERED: AMLODIPINE 5 MG TAB PO SCH (09:00)
[2019-03-03] MEDS ORDERED: LISINOPRIL 5 MG TAB PO SCH (09:00)
[2019-03-03] MEDS ORDERED: POTASSIUM CL SA 10 MEQ TAB PO ONE (09:00)
[2019-03-03] MEDS ORDERED: ASPIRIN EC 81 MG TAB PO SCH (09:00)
[2019-03-03] MEDS ORDERED: GABAPENTIN 300 MG CAP PO SCH (09:00)
[2019-03-03] MEDS ORDERED: METOPROLOL XL 100 MG TAB PO SCH (09:00)
[2019-03-03] MEDS: VANCOMYCIN/NS 1 gm 1 GM/250 ML BAG IVPB SCH ×2 (10:05→21:55)
[2019-03-03] MEDS: CEFTRIAXONE/SWI 1gm 1 GM/10 ML SYR IV SCH ×2 (10:07→21:55)
[2019-03-03] MEDS: ENOXAPARIN 30 MG/0.3 ML SQ SCH ×2 (10:12→21:55)
--- NOTE | 2019-03-03 10:17 | RAD REPORT ---
EXAM DESCRIPTION: MRIFoot Right Wo Cont03/03/2019 9:35 am CLINICAL HISTORY: Right foot pain and swelling COMPARISON: X-ray March 02, 2019 TECHNIQUE: Axial, sagittal and coronal magnetic resonance imaging of the right foot was obtained. FINDINGS: Abnormal signal involves most of the first distal phalanx consistent with osteomyelitis. S mall area of abnormal signal also involves the distal aspect of the first proximal phalanx consistent with osteomyelitis. Resection of most of the fifth digit Diffuse edema within subcutaneous tissues. IMPRESSION: Osteomyelitis involving most of the first distal phalanx. Small amount of additional ost eomyelitis involves first proximal phalanx
--- NOTE | 2019-03-03 10:21 | RAD REPORT ---
EXAM DESCRIPTION: US - Upper Lower Extrem Art Multi - 03/03/2019 9:54 am CLINICAL HISTORY: Right foot osteomyelitis COMPARISON: None. TECHNIQUE: Left brachial artery pressure measurement was obtained. Waveforms were obtained along the length of each lower extremity. Ankle pressure measurements were obtained with index values calculat ed. Visual inspection of the lower extremity arterial tree performed. FINDINGS: JOSTIN values or 0.99 on the right and 1.21 on the left. No occlusion or focal flow restricti ng lesion identifiable. Triphasic waveform pattern is seen on the right from the common femoral arter y to the popliteal artery. Monophasic flow was seen in the right posterior tibial and dorsalis pedis arteries. Left leg shows triphasic waveform pattern from groin to ankle with exception of biphasic fl ow in the left dorsalis pedis artery. Visual inspection psoas arterial wall wall calcifications. No occlusion or focal flow restricting les ion identifiable. IMPRESSION: No occlusion or flow restricting lesion identifiable. Bqik-rh-nhglucne below-knee right lower extremity peripheral arterial disease. Left lower extremity p eripheral vascular disease is minimal.
[2019-03-03] MEDS: ASPIRIN EC 81 MG TAB PO SCH (14:32)
[2019-03-03] MEDS: NEURONTIN 300 MG PO SCH ×2 (14:33→21:59)
[2019-03-03] MEDS: AMLODIPINE 5 MG TAB PO SCH (14:33)
[2019-03-03] MEDS: LISINOPRIL 2.5 MG TAB PO SCH (15:43)
--- NOTE | 2019-03-03 16:12 | ECHO ---
HEIGHT: 6 ft 1 in WEIGHT: 279 lb 0 oz DATE OF STUDY: 03/03/[address]: Dillon Ferraro MD 2-DIMENSIONAL: YES M.MODE: YES DOPPLER: YES COLOR FLOW: YES TDS: PORTABLE: DEFINITY: BUBBLE STUDY: DIAGNOSIS: ATRIAL FIBRILLATION CARDIAC HISTORY: CATHERIZATION: NO SURGERY: NO PROSTHETIC VALVE: NO PACEMAKER: NO MEASUREMENTS (cm) DIASTOLIC (NORMALS) SYSTOLIC (NORMALS) IVSd 1.2 (0.6-1.2) LA Diam 4.7 (1.9-4.0) LVEF 56% LVIDd 3.9 (3.5-5.7) LVIDs 2.8 (2.0-3.5) %FS 29% LVPWd 1.7 (0.6-1.2) Ao Diam 3.3 (2.0-3.7) 2 DIMENSIONAL ASSESSMENT: RIGHT ATRIUM: NORMAL LEFT ATRIUM: DILATED RIGHT VENTRICLE: NORMAL LEFT VENTRICLE: LEFT VENTRICULAR HYPERTROPHY TRICUSPID VALVE: NORMAL MITRAL VALVE: NORMAL PULMONIC VALVE: NORMAL AORTIC VALVE: POORLY SEEN, CALCIFIED PERICARDIAL EFFUSION: NONE AORTIC ROOT: NORMAL LEFT VENTRICULAR WALL MOTION: NORMAL DOPPLER/COLOR FLOW: TRACE TRICUSPID REGURGITATION. NORMAL RIGHT VENTRICULAR SYSTOLIC PRESSURE. COMMENTS: NORMAL LEFT VENTRICULAR EJECTION FRACTION. DILATED LEFT ATRIUM. LEFT VENTRICULAR HYPERTROPHY. AORTIC SCLEROSIS WITH NO AORTIC STENOSIS/ AORTIC REGURGITATION. TRACE TRICUSPID REGURGITATION. ATRIAL FIBRILLATION. TECHNICALLY DIFFICULT STUDY. TECHNOLOGIST: SVETLANA CLAY
[2019-03-03] MEDS: FUROSEMIDE 40 MG TABLET PO SCH (18:02)
--- NOTE | 2019-03-03 20:17 | PN ---
Date of Progress Note: 03/03/2019 Subjective: The patient was seen this morning for followup. No new complaints or problems reported by him. Vital signs reviewed. Had low-grade fever overnight. Hemodynamically, he was stable. Objective: Vital signs: Reviewed. HEENT: Examination unremarkable. Lungs: Clear to auscultation. Heart: Sounds normal. Abdomen: Soft, bowel sounds normal. No guarding, rigidity, tenderness, or distention. Extremities: No leg edema. Right foot examination remains unchanged. Labs: Arterial Doppler of lower extremity shows vkgj-po-fphartta peripheral vascular disease involvi ng right leg and MRI of the right foot shows evidence of osteomyelitis involving right great toe. Impression: 1.Osteomyelitis, right foot great toe. 2.Peripheral vascular disease. 3.Atrial fibrillation. 4.Hypertension. Plan: We will go ahead and continue current IV antibiotics. Blood culture is pending. Wound cultur e is pending. We will continue IV vancomycin and ceftriaxone at present time. Our goal is to hopefu lly avoid any amputation if at all possible and we will see how he responds to the medications and I will see him tomorrow for followup. ADELITA/MODL Voice ID: [id number] Report ID: [id number]
[2019-03-03] MEDS: DOFETILIDE 500 MCG PO SCH (21:58)
[2019-03-03] MEDS: METOPROLOL SUCCINATE 200 MG PO SCH (21:59)
[2019-03-03] MEDS: ATORVASTATIN 80 MG TAB PO SCH (22:01)
[2019-03-04] MEDS: NA CHLORIDE 0.9% 1,000 ML IV SCH (03:00)
[2019-03-04] MEDS ORDERED: VANCOMYCIN 2 GM in NA CHLORIDE 0.9% 500 ML IVPB SCH (04:00)
[2019-03-04 06:02] LABS: Absolute Lymphocytes (CBC) 1.1 K/uL (0.7-4.9); Absolute Monocytes 1.1 K/uL (0.1-1.3); Absolute Neutrophil 7.2 K/uL (1.8-8.0); Basophils % 0.5 % (0-1.3); Eosinophils % 0.8 % (0-4.4); Hematocrit 31.5 % (39.6-49.0); Lymphocytes % 11.9 % (15.3-44.8); MPV 9.7 fL (7.6-11.3); Monocytes % 11.6 % (3.3-12.3); RBC Red Blood Cell Count 3.38 M/uL (4.33-5.43)
[2019-03-04 06:23] LABS: BUN Blood Urea Nitrogen 13 mg/dL (7-18); Bicarbonate 28 mmol/L (21-32); Glucose Level 105 mg/dL (74-106); HDL Cholesterol 27 mg/dL (40-60); LDL Cholesterol, Calculated 47 (<130); Potassium 3.7 mmol/L (3.5-5.1); Protime INR 1.35; Sodium Level 139 mmol/L (136-145)
[2019-03-04] MEDS ORDERED: POTASSIUM 25 MEQ EFFERV TAB PO ONE (06:26)
[2019-03-04] MEDS: PANTOPRAZOLE 40MG TABLET PO SCH (06:44)
[2019-03-04] MEDS: INSULIN -REGULAR HUMAN 50 UNIT/0.5 ML ML SQ SCH ×4 (07:30→21:00)
[2019-03-04] MEDS: CEFTRIAXONE/SWI 1gm 1 GM/10 ML SYR IV SCH ×2 (08:46→20:58)
[2019-03-04] MEDS: VANCOMYCIN/NS 1 gm 1 GM/250 ML BAG IVPB SCH ×2 (08:46→20:59)
[2019-03-04] MEDS: NEURONTIN 300 MG PO SCH ×3 (08:47→22:02)
[2019-03-04] MEDS: LISINOPRIL 2.5 MG TAB PO SCH (08:47)
[2019-03-04] MEDS: FUROSEMIDE 40 MG TABLET PO SCH ×2 (08:47→17:19)
[2019-03-04] MEDS: METOPROLOL SUCCINATE 200 MG PO SCH ×2 (08:48→21:59)
[2019-03-04] MEDS: DOFETILIDE 500 MCG PO SCH ×2 (08:48→22:00)
[2019-03-04] MEDS: AMLODIPINE 5 MG TAB PO SCH (08:49)
[2019-03-04] MEDS: ASPIRIN EC 81 MG TAB PO SCH (08:49)
[2019-03-04] MEDS: APIXABAN 5 MG TABLET PO SCH ×2 (08:51→21:00)
--- NOTE | 2019-03-04 11:47 | RAD REPORT ---
EXAM DESCRIPTION: RAD - Foot Right 3 View - 03/02/2019 10:55 pm CLINICAL HISTORY: Osteomyelitis R great toe COMPARISON: None. TECHNIQUE: XR FOOT 3 OR MORE VIEWS 03/02/2019 8:30 PM CDT FINDINGS: There is no fracture. Amputation of the fifth digit was performed in the mid metatarsal. T here are degenerative changes throughout the midfoot. There is soft tissue swelling involving the tip of the first digit small ulcer. There are no erosive changes. There is a large calcaneal spur. IMPRESSION: First digit soft tissue swelling with a small ulcer. No convincing acute osteomyelitis.: Electronically signed by: Russ Bhatia MD 03/02/2019 10:14 PM CDT Due to temporary technical issues with the PACS/Fluency reporting system, reports are being signed by the in house radiologist as a courtesy to ensure prompt reporting. The interpreting radiologist is f ully responsible for the content of the report.
[2019-03-04] MEDS: ATORVASTATIN 80 MG TAB PO SCH (20:59)
--- NOTE | 2019-03-05 01:48 | PN ---
Date of Progress Note: 03/04/2019 Subjective: The patient was seen this morning for followup. No new complaints or problems reported by patient, lying in bed, not in any distress. He feels fine, afebrile. No complaints. No nausea, vomiting, diarrhea. No fevers. No chills. Objective: Vital Signs: Reviewed. HEENT: Examination unremarkable. Lungs: Clear to auscultation. Heart: Sounds normal. Abdomen: Soft, bowel sounds normal. No guarding, rigidity, tenderness, or distention. Extremities: No leg edema. Right great toe, the redness from great toe is slightly better compared to yesterday and day before yesterday. Still has a small wound on the plantar aspect of the great toe draining purulent discharge. Labs: His white count today 9.6, hemoglobin 10.8, platelets 208. Sodium 139, potassium 3.7, chloride 104, bicarb 28, BUN 13, creatinine 0.79, glucose 105. Hemoglobin A1c 6.3. Impression: 1. Osteomyelitis, right foot. 2. Peripheral arterial disease. 3. Impaired fasting glucose. 4. Atrial fibrillation. 5. Anemia. Plan: We will go ahead and continue current empiric antibiotic which is vancomycin and ceftriaxone. So far, wound culture has remained negative. Another wound culture was requested to be obtained today when I saw him this morning as he had some purulent discharge from the wound. Blood culture is negative so far. He is responding well to antibiotics. We will continue current antibiotics. The patient uses Dr. Ogden as his general surgeon who is out of town and when he returns back next week on Friday, I will request consultation from him at that time. Our plan and goal is to try to avoid amputation if possible and 6 weeks of IV antibiotic therapy will be needed. PICC line was ordered. We will plan for discharge sometime next week. After obtaining patient's permission, I did call his son, who is a surgeon in [facility] at [employer] and discussed details with him as well. As far as disposition is concerned , we will have to look into it whether to send him home with home health and home IV antibiotic therapy or to send him to long-term acute care facility. ADELITA/MODL Voice ID: [id number] Report ID: [id number] RAUL
[2019-03-05] MEDS: PANTOPRAZOLE 40MG TABLET PO SCH (05:31)
[2019-03-05 06:08] LABS: BUN Blood Urea Nitrogen 13 mg/dL (7-18); Bicarbonate 30 mmol/L (21-32); Glucose Level 123 mg/dL (74-106); Potassium 3.8 mmol/L (3.5-5.1); Sodium Level 139 mmol/L (136-145)
[2019-03-05] MEDS: INSULIN -REGULAR HUMAN 50 UNIT/0.5 ML ML SQ SCH ×4 (07:30→21:00)
[2019-03-05] MEDS: CEFTRIAXONE/SWI 1gm 1 GM/10 ML SYR IV SCH ×2 (08:53→21:00)
[2019-03-05] MEDS: ASPIRIN EC 81 MG TAB PO SCH (08:55)
[2019-03-05] MEDS: APIXABAN 5 MG TABLET PO SCH ×2 (08:55→20:39)
[2019-03-05] MEDS: FUROSEMIDE 40 MG TABLET PO SCH ×2 (08:55→17:01)
[2019-03-05] MEDS: LISINOPRIL 2.5 MG TAB PO SCH (08:56)
[2019-03-05] MEDS: DOFETILIDE 500 MCG PO SCH ×2 (08:56→20:37)
[2019-03-05] MEDS: AMLODIPINE 5 MG TAB PO SCH (08:56)
[2019-03-05] MEDS: NEURONTIN 300 MG PO SCH ×3 (08:57→20:37)
[2019-03-05] MEDS: METOPROLOL SUCCINATE 200 MG PO SCH ×2 (08:57→20:36)
[2019-03-05] MEDS ORDERED: POTASSIUM 25 MEQ EFFERV TAB PO ONE (09:00)
[2019-03-05] MEDS: VANCOMYCIN/NS 1 gm 1 GM/250 ML BAG IVPB SCH (09:00)
[2019-03-05] MEDS: VANCOMYCIN 2 GM in NA CHLORIDE 0.9% 500 ML IVPB SCH ×2 (10:34→20:35)
--- NOTE | 2019-03-05 10:58 | RAD REPORT ---
EXAM DESCRIPTION: RAD - Chest Single View - 03/05/2019 3:39 am CLINICAL HISTORY: The patient is 73 years old and is Male; PICC Placement TECHNIQUE: Frontal view of the chest. COMPARISON: No relevant prior studies available. FINDINGS: LUNGS: Unremarkable. No consolidation. PLEURAL SPACE: Blunting of the right costophrenic angle is present. No pneumothorax. HEART: Unremarkable. No cardiomegaly. MEDIASTINUM: Unremarkable. BONES/JOINTS: Several healed right-sided rib fractures are noted. TUBES, LINES AND DEVICES: A right upper extremity PICC is present with the tip in the SVC. IMPRESSION: 1. Right upper extremity PICC tip in the SVC. 2. Findings suggest right pleural effusion and/or scarring. Electronically signed by: Shantel Barth MD 03/05/2019 3:41 AM CDT Due to temporary technical issues with the PACS/Fluency reporting system, reports are being signed by the in house radiologist as a courtesy to ensure prompt reporting. The interpreting radiologist is f ully responsible for the content of the report.
[2019-03-05] MEDS: ATORVASTATIN 80 MG TAB PO SCH (20:42)
--- NOTE | 2019-03-05 23:55 | PN ---
Date of Progress Note: 03/05/2019 Subjective: The patient was seen this morning for followup. No new complaints, problems reported. No chest pain, shortness of breath, nausea, vomiting. He is afebrile. Objective: Vital Signs: Reviewed. HEENT: Unremarkable. Lungs: Clear to auscultation. Heart: Sounds normal. Abdomen: Soft. Bowel sounds normal. No guarding, rigidity, tenderness, distention. Extremities: No leg edema. Laboratory Data: Sodium 139, potassium 3.8, chloride 103, bicarb 30, BUN 13, creatinine 0.77, glucos e 123. Impression: 1.Osteomyelitis, right foot great toe. 2.Chronic atrial fibrillation. 3.Hypertension. 4.Peripheral neuropathy. 5.Impaired fasting glucose. 6.Peripheral vascular disease. Plan: We will continue current medication, antibiotic, which is ceftriaxone and vancomycin. So far, cultures are negative, which is wound culture and blood culture. Continue Eliquis for atrial fibril lation problem. I did talk to the patient about 6 weeks of IV antibiotic therapy and hopefully we ca n try to avoid any amputation. We will follow up with Dr. Ogden next week. PICC line is in place . The patient would prefer to go home for home IV antibiotic therapy and in that case, he will follo w up with me as well as Dr. Ogden on outpatient basis. Pharmacy is to adjust vancomycin dosing after reviewing his last night's vancomyci n peak and trough level. ADELITA/MODL Voice ID: [id number] Report ID: [id number]
[2019-03-06] MEDS: PANTOPRAZOLE 40MG TABLET PO SCH (05:35)
[2019-03-06] MEDS: INSULIN -REGULAR HUMAN 50 UNIT/0.5 ML ML SQ SCH ×4 (07:30→21:00)
[2019-03-06 07:58] LABS: Absolute Monocytes 0.7 K/uL (0.1-1.3); Absolute Neutrophil 7.9 K/uL (1.8-8.0); Basophils % 0.4 % (0-1.3); Hematocrit 32.6 % (39.6-49.0); Lymphocytes % 10.4 % (15.3-44.8); MPV 9.7 fL (7.6-11.3); Monocytes % 7.3 % (3.3-12.3); RBC Red Blood Cell Count 3.48 M/uL (4.33-5.43)
[2019-03-06 08:07] LABS: BUN Blood Urea Nitrogen 12 mg/dL (7-18); Bicarbonate 32 mmol/L (21-32); Glucose Level 97 mg/dL (74-106); Magnesium 2.3 mg/dL (1.8-2.4); Sodium Level 142 mmol/L (136-145)
[2019-03-06] MEDS: CEFTRIAXONE/SWI 1gm 1 GM/10 ML SYR IV SCH ×2 (09:04→21:25)
[2019-03-06] MEDS: VANCOMYCIN 2 GM in NA CHLORIDE 0.9% 500 ML IVPB SCH ×2 (09:04→21:26)
[2019-03-06] MEDS: APIXABAN 5 MG TABLET PO SCH ×2 (09:04→21:00)
[2019-03-06] MEDS: DOFETILIDE 500 MCG PO SCH ×2 (09:06→21:26)
[2019-03-06] MEDS: FUROSEMIDE 40 MG TABLET PO SCH ×2 (09:06→17:02)
[2019-03-06] MEDS: AMLODIPINE 5 MG TAB PO SCH (09:06)
[2019-03-06] MEDS: NEURONTIN 300 MG PO SCH ×2 (09:06→13:05)
[2019-03-06] MEDS: METOPROLOL SUCCINATE 200 MG PO SCH ×2 (09:06→21:27)
[2019-03-06] MEDS: ASPIRIN EC 81 MG TAB PO SCH (09:06)
[2019-03-06] MEDS: LISINOPRIL 2.5 MG TAB PO SCH (09:06)
[2019-03-06] MEDS ORDERED: CODEINE 30MG/APAP 300MG TAB PO PRN (11:57)
--- NOTE | 2019-03-06 16:53 | PN ---
Date of Progress Note: 03/06/2019 Subjective: The patient was seen this morning for followup. Lying in bed, not in any distress. Com plaining of sharp shooting pain in his right toe and right foot area. The patient reported that at h ome his gabapentin is 300 mg and instead of 1 pill 3 times a day he takes 2 pills in the morning and 2 pills in the evening, and sometime 1 or 2 pills during middle of the day. He also has some rash in his perineal skin area that he reported today, which is concerning for fungus infection of the skin. Objective: Vital signs: Reviewed. He is afebrile. HEENT: Unremarkable. Lungs: Clear to auscultation. Heart: Sounds normal. Abdomen: Soft. Bowel sounds normal. No guarding, rigidity, tenderness, distention. Extremities: No leg edema. Right foot exam, open wound, which is about 2-3 mm size on the plantar a spect of the right great toe, has clean base. No discharge. No bleeding. Surrounding skin is jayden l. Dorsum aspect of the right great toe, skin redness and warmness that he had when he first came in and also a couple of days ago. It is much better today than on previous exam. His skin proximal to the nail bed is a little soft and friable, and I believe that this is probably due to dampness of th e dressing, and I did talk to the patient's nurse and informed her that the only wet dressing needs t o be applied was on the plantar aspect of the foot, but on the dorsum aspect of the foot on the toe a veronique has to be dry dressing to avoid any dampness considering the skin changes that I have seen today. Laboratory Data: White count 9.8, hemoglobin 11, platelets 231. Sodium 142, potassium 4, chloride 1 04, bicarb 32, BUN 12, creatinine 0.73, glucose 97, magnesium 2.3. Vancomycin trough level 15.9. Impression: 1.Osteomyelitis, right foot. 2.Peripheral vascular disease. 3.Peripheral neuropathy. 4.Chronic atrial fibrillation. Plan: We will continue current antibiotics, which is ceftriaxone and vancomycin. We will adjust Kyler rontin dose of 300 mg capsules. The patient will take 2 in the morning and 2 in the evening, so tota l 600 mg twice a day, and then depending on how he does, we will decide to add the third dose. Pain medication Tylenol with Codeine was ordered for p.r.n. use and nystatin cream was ordered to be appli ed to topically to perineal skin rash area. His external genitalia and groin examination were done t chloe, and he does have some pinkish color diffuse rash on the perineal skin region with some whitish dry discharge in the posterior scrotum present consistent with fungus infection of this skin area. I did talk to patient and his both and his preference would be to go home for home IV antibiotics . He does have a dog at home, and I informed him that he must keep his wound covered, and he should not allow his dog to lick on his leg or any other body area. He was advised to make sure that he is compliant with his followup visits. ADELITA/LESLIE Voice ID: [id number] Report ID: [id number]
[2019-03-06] MEDS ORDERED: GABAPENTIN 300 MG CAP PO SCH (21:00)
[2019-03-06] MEDS: ATORVASTATIN 80 MG TAB PO SCH (21:25)
[2019-03-06] MEDS: NYSTATIN 100MU/GM CREAM 15GM TOP SCH (21:26)
[2019-03-07] MEDS: PANTOPRAZOLE 40MG TABLET PO SCH (06:04)
[2019-03-07] MEDS: INSULIN -REGULAR HUMAN 50 UNIT/0.5 ML ML SQ SCH ×4 (07:30→21:00)
[2019-03-07] MEDS: APIXABAN 5 MG TABLET PO SCH ×2 (09:12→20:20)
[2019-03-07] MEDS: VANCOMYCIN 2 GM in NA CHLORIDE 0.9% 500 ML IVPB SCH ×2 (09:12→21:00)
[2019-03-07] MEDS: CEFTRIAXONE/SWI 1gm 1 GM/10 ML SYR IV SCH ×2 (09:12→20:19)
[2019-03-07] MEDS: GABAPENTIN 300 MG CAP PO SCH ×2 (09:12→20:20)
[2019-03-07] MEDS: ASPIRIN EC 81 MG TAB PO SCH (09:13)
[2019-03-07] MEDS: NYSTATIN 100MU/GM CREAM 15GM TOP SCH ×2 (09:13→21:21)
[2019-03-07] MEDS: AMLODIPINE 5 MG TAB PO SCH (09:14)
[2019-03-07] MEDS: DOFETILIDE 500 MCG PO SCH ×2 (09:14→20:21)
[2019-03-07] MEDS: METOPROLOL SUCCINATE 200 MG PO SCH ×2 (09:14→20:20)
[2019-03-07] MEDS: FUROSEMIDE 40 MG TABLET PO SCH ×2 (09:14→17:14)
[2019-03-07] MEDS: LISINOPRIL 2.5 MG TAB PO SCH (09:14)
--- NOTE | 2019-03-07 19:05 | PN ---
Date of Progress Note: 03/07/2019 Subjective: Patient was seen this morning for followup. No new complaints, problems reported by dominic ramirez lying in bed, not in distress. His pain in his right foot is much better compared to yesterday. Objective: Vital Signs: Reviewed. HEENT Examination: Unremarkable. Lungs: Clear to auscultation. Heart: Sounds normal. Abdomen: Soft bowel sounds, normal. No guarding, rigidity, tenderness, distention. Extremities Exam: No leg edema. Right foot examination, redness from the right great toe on the mo sum aspect is significantly better with a soft skin that was noted proximal to the nail bed area yest erday has significantly improved and just has no redness in this area. Open wound on the plantar asp ect is clean. No discharge. No bleeding. Impression: 1.Osteomyelitis, right foot. 2.Impaired fasting glucose. 3.Peripheral neuropathy. 4.Atrial fibrillation. 5.Hypertension. 6.Peripheral vascular disease. Plan: We will continue current medications, antibiotics per order. Tomorrow, we will repeat blood w ork. The patient is currently on vancomycin and ceftriaxone. So far, wound culture and blood cultur e are negative, so we are going to continue combination of this empiric antibiotic therapy and he seems to be responding well to it. I will see him tomorrow for followup. ADELITA/MODL Voice ID: [id number] Report ID: [id number]
[2019-03-07] MEDS: ATORVASTATIN 80 MG TAB PO SCH (20:20)
[2019-03-08 05:13] LABS: Absolute Lymphocytes (CBC) 1.4 K/uL (0.7-4.9); Absolute Monocytes 0.6 K/uL (0.1-1.3); Absolute Neutrophil 7.8 K/uL (1.8-8.0); Basophils % 0.7 % (0-1.3); Eosinophils % 2.5 % (0-4.4); Hematocrit 32.9 % (39.6-49.0); Lymphocytes % 13.4 % (15.3-44.8); MPV 9.7 fL (7.6-11.3); Monocytes % 6.1 % (3.3-12.3); RBC Red Blood Cell Count 3.52 M/uL (4.33-5.43)
[2019-03-08] MEDS: PANTOPRAZOLE 40MG TABLET PO SCH (05:14)
[2019-03-08 05:18] VITALS: BMI 36.4
[2019-03-08 05:25] LABS: BUN Blood Urea Nitrogen 11 mg/dL (7-18); Bicarbonate 32 mmol/L (21-32); Glucose Level 102 mg/dL (74-106); Magnesium 2.2 mg/dL (1.8-2.4); Sodium Level 141 mmol/L (136-145)
[2019-03-08 06:32] LABS: Blood Morphology Comment NOT SEEN (NOT SEEN); Platelet Estimate ADEQ
[2019-03-08] MEDS: INSULIN -REGULAR HUMAN 50 UNIT/0.5 ML ML SQ SCH ×4 (07:30→20:33)
[2019-03-08] MEDS: VANCOMYCIN 2 GM in NA CHLORIDE 0.9% 500 ML IVPB SCH ×2 (09:00→21:55)
[2019-03-08] MEDS: CEFTRIAXONE/SWI 1gm 1 GM/10 ML SYR IV SCH ×2 (09:57→20:29)
[2019-03-08] MEDS: GABAPENTIN 300 MG CAP PO SCH ×2 (09:57→20:31)
[2019-03-08] MEDS: APIXABAN 5 MG TABLET PO SCH ×2 (09:57→20:29)
[2019-03-08] MEDS: DOFETILIDE 500 MCG PO SCH ×2 (10:01→20:31)
[2019-03-08] MEDS: AMLODIPINE 5 MG TAB PO SCH (10:01)
[2019-03-08] MEDS: FUROSEMIDE 40 MG TABLET PO SCH ×2 (10:01→17:47)
[2019-03-08] MEDS: ASPIRIN EC 81 MG TAB PO SCH (10:01)
[2019-03-08] MEDS: METOPROLOL SUCCINATE 200 MG PO SCH ×2 (10:01→20:32)
[2019-03-08] MEDS: LISINOPRIL 2.5 MG TAB PO SCH (10:01)
[2019-03-08] MEDS: NYSTATIN 100MU/GM CREAM 15GM TOP SCH ×2 (10:02→20:33)
[2019-03-08] MEDS ORDERED: FENTANYL CITR 100 MCG/2 ML ONE (13:32)
[2019-03-08] MEDS: ATORVASTATIN 80 MG TAB PO SCH (20:32)
[2019-03-08] MEDS ORDERED: NA CHLORIDE 0.9% 250 ML ONE (22:04)
--- NOTE | 2019-03-09 00:22 | PN ---
Date of Progress Note: 03/08/2019 Subjective: The patient was seen this morning for followup. No new complaints, problems reported by him, lying in bed, not in distress. Objective: Vital Signs: Reviewed. HEENT: Unremarkable. Lungs: Clear to auscultation. Heart: Sounds normal. Abdomen: Soft. Bowel sounds normal. No guarding, rigidity, tenderness, distention. Extremities: No leg edema. Laboratory Data: White count 10.1, hemoglobin 11.2, platelets 251. Sodium 141, potassium 4, chlorid e 104, bicarb 32, BUN 11, creatinine 0.79, glucose 102. Wound culture growing Enterococcus faecalis, sensitive to vancomycin that the patient is currently on. Vancomycin trough level last night was 19 .1. Impression: 1.Osteomyelitis, right foot great toe. 2.Atrial fibrillation, chronic. 3.Hypertension. 4.Peripheral neuropathy. 5.Impaired fasting glucose. Plan: We will go ahead and continue current ceftriaxone and vancomycin. Continue other current [facility]. The patient had ambulated very well yesterday outside his room in the hallway and vincent s no problem with ambulation. I will see him tomorrow for followup. Social service consultation was requested to help make arrangements for home IV antibiotic therapy. Possible discharge to go home this week. ADELITA/MODL Voice ID: [id number] Report ID: [id number]
[2019-03-09] MEDS: PANTOPRAZOLE 40MG TABLET PO SCH (05:45)
[2019-03-09] MEDS: INSULIN -REGULAR HUMAN 50 UNIT/0.5 ML ML SQ SCH ×4 (07:30→21:00)
[2019-03-09] MEDS: NYSTATIN 100MU/GM CREAM 15GM TOP SCH ×2 (09:00→21:00)
[2019-03-09] MEDS: VANCOMYCIN 2 GM in NA CHLORIDE 0.9% 500 ML IVPB SCH (09:00)
[2019-03-09] MEDS: GABAPENTIN 300 MG CAP PO SCH ×2 (09:25→20:58)
[2019-03-09] MEDS: METOPROLOL SUCCINATE 200 MG PO SCH ×2 (09:26→20:57)
[2019-03-09] MEDS: APIXABAN 5 MG TABLET PO SCH ×2 (09:26→20:58)
[2019-03-09] MEDS: CEFTRIAXONE/SWI 1gm 1 GM/10 ML SYR IV SCH ×2 (09:26→21:01)
[2019-03-09] MEDS: DOFETILIDE 500 MCG PO SCH ×2 (09:28→20:57)
[2019-03-09] MEDS: FUROSEMIDE 40 MG TABLET PO SCH ×2 (09:29→17:47)
[2019-03-09] MEDS: AMLODIPINE 5 MG TAB PO SCH (09:29)
[2019-03-09] MEDS: LISINOPRIL 2.5 MG TAB PO SCH (09:30)
[2019-03-09] MEDS: ASPIRIN EC 81 MG TAB PO SCH (09:30)
[2019-03-09] MEDS: VANCOMYCIN 1.75 GM in NA CHLORIDE 0.9% 500 ML IVPB SCH ×2 (11:41→22:12)
[2019-03-09] MEDS: ATORVASTATIN 80 MG TAB PO SCH (21:00)
[2019-03-09] MEDS ORDERED: VANCOMYCIN 1.75 GM in NA CHLORIDE 0.9% 500 ML IVPB SCH (21:00)
--- NOTE | 2019-03-09 21:10 | PN ---
Date of Progress Note: 03/09/2019 Subjective: The patient was seen this morning for followup. No new complaints or problems reported by patient. Denies any pain in his foot or leg. Ambulates well. Denies any nausea, vomiting, or di arrhea. Objective: Vital Signs: Reviewed. HEENT: Unremarkable. Lungs: Clear to auscultation. Heart: Sounds normal. Abdomen: Soft. Bowel sounds normal. No guarding, rigidity, tenderness, or distention. Extremities: No leg edema. Right foot examination; the redness from the right great toe, on the mo sum aspect has significantly improved. I would say from the time of admission until today it is abou t 80%-90% better. Small superficial wound on the plantar aspect of the right great toe. Does not vincent ve any drainage or bleeding. Impression: 1.Osteomyelitis, right foot great toe. 2.Chronic atrial fibrillation. 3.Hypertension. 4.Peripheral neuropathy. 5.Impaired fasting glucose. Plan: We will go ahead and continue current IV antibiotics. Home arrangements for IV antibiotic hav e been completed. Possible discharge to go home in next 1-2 days. I will request Dr. Ogden to ev aluate him probably tomorrow. ADELITA/MODL Voice ID: [id number] Report ID: [id number]
[2019-03-09] MEDS ORDERED: ALTEPLASE 2 MG/VIAL IV SCH (22:00)
[2019-03-09] MEDS ORDERED: NA CHLORIDE 0.9% 250 ML ONE (22:36)
[2019-03-10] MEDS ORDERED: WATER FOR INJ,STERILE 10 ML ONE (01:37)
[2019-03-10] MEDS: PANTOPRAZOLE 40MG TABLET PO SCH (05:40)
[2019-03-10] MEDS: INSULIN -REGULAR HUMAN 50 UNIT/0.5 ML ML SQ SCH ×4 (07:30→21:00)
[2019-03-10] MEDS: CEFTRIAXONE/SWI 1gm 1 GM/10 ML SYR IV SCH ×2 (08:54→21:10)
[2019-03-10] MEDS: METOPROLOL SUCCINATE 200 MG PO SCH ×2 (08:55→21:08)
[2019-03-10] MEDS: GABAPENTIN 300 MG CAP PO SCH ×2 (08:55→21:00)
[2019-03-10] MEDS: APIXABAN 5 MG TABLET PO SCH ×2 (08:55→21:00)
[2019-03-10] MEDS: LISINOPRIL 2.5 MG TAB PO SCH (08:55)
[2019-03-10] MEDS: DOFETILIDE 500 MCG PO SCH ×2 (08:56→21:07)
[2019-03-10] MEDS: AMLODIPINE 5 MG TAB PO SCH (08:56)
[2019-03-10] MEDS: ASPIRIN EC 81 MG TAB PO SCH (08:57)
[2019-03-10] MEDS: FUROSEMIDE 40 MG TABLET PO SCH ×2 (08:57→16:32)
[2019-03-10] MEDS: NYSTATIN 100MU/GM CREAM 15GM TOP SCH ×2 (08:58→21:09)
[2019-03-10] MEDS: VANCOMYCIN 1.75 GM in NA CHLORIDE 0.9% 500 ML IVPB SCH ×2 (12:03→23:55)
[2019-03-10] MEDS: ATORVASTATIN 80 MG TAB PO SCH (21:08)
--- NOTE | 2019-03-11 00:09 | PN ---
Date of Progress Note: 03/10/2019 Subjective: The patient was seen this morning for followup. No new complaints or problems reported by the patient. Objective: General: Lying in bed. Not in distress. Vital Signs: Reviewed. HEENT: Unremarkable. Lungs: Clear to auscultation. Heart: Sounds normal. Abdomen: Soft. Bowel sounds normal. No guarding, rigidity, tenderness, or distention. Extremities: No leg edema. Right great toe exam remains unchanged from yesterday, which is signific antly better from the time of admission. Impression: 1.Osteomyelitis, right foot. 2.Chronic atrial fibrillation. 3.Chronic anticoagulation therapy. 4.Peripheral neuropathy. Plan: We will continue current medications, IV antibiotics. Last vancomycin trough level was 20, wh ich is right upper end of normal range. The patient will have another trough level tonight at 10 p.m . I have seen that his trough level every time we have done it has slowly gone up, so I would like t o wait for the next trough level to make decision rather his dose of vancomycin will be changed or no t and if it needs to be changed, then we will have to make that change before he goes home. I did ta lk to Dr. Ogden and he will evaluate the patient per my request. Depending on the patient's blood work and Dr. Ogden's recommendation, we will decide if we can discharge him to go home tomorrow possibly. ADELITA/MODL Voice ID: [id number] Report ID: [id number]
[2019-03-11] MEDS: PANTOPRAZOLE 40MG TABLET PO SCH (04:06)
[2019-03-11] MEDS: INSULIN -REGULAR HUMAN 50 UNIT/0.5 ML ML SQ SCH ×4 (07:30→20:33)
[2019-03-11] MEDS ORDERED: FENTANYL CITR 100 MCG/2 ML ONE (07:40)
[2019-03-11] MEDS ORDERED: LIDOCAINE 1% MPF 5 ML VIAL ONE (07:40)
[2019-03-11] MEDS ORDERED: PROPOFOL 200 MG/20 ML VIAL IV ONE ×2 (07:40→08:42)
[2019-03-11] MEDS ORDERED: NA CHLORIDE 0.9% 1,000 ML ONE (07:59)
--- NOTE | 2019-03-11 08:00 | P.CNS ---
Date of Consult: 03/10/19 Chief Complaint: right foot celulitis with osteo and non-healing wound right first toe Allergies No Known Allergies Allergy (Verified 03/17/16 03:30) Home Medications: Amlodipine [Norvasc] 5 mg PO DAILY 03/03/19 Apixaban [Eliquis] 5 mg PO BID 03/03/19 Aspirin 81 mg PO DAILY 03/03/19 Dofetilide 500 mcg PO BID 03/03/19 Furosemide [Lasix] 40 mg PO DAILY 03/03/19 Gabapentin [Neurontin] 300 mg PO TID 03/03/19 Lisinopril [Zestril] 2.5 mg PO DAILY 03/03/19 Metoprolol Succinate [Toprol Xl] 100 mg PO BID 03/03/19 - Past Medical/Surgical History Diabetic: No -: Atrial fibrillation -: Hypertension -: Dyslipidemia -: Lung cancer -: CVA -: hernia sx -: abd sx -: lobectomy of right middle lobe - Family History Father Medical History: Other (see notes) Notes: parkinson - Social History Smoking Status: Current some day smoker Alcohol use: Yes CD- Drugs: No Caffeine use: Yes Place of Residence: Home Review of Systems General: Fever (no), Chills (no) Eyes: Unremarkable Respiratory: Unremarkable Gastrointestinal: Unremarkable Genitourinary: Unremarkable Musculoskeletal: As per HPI Physical Examination Temp Pulse Resp BP Pulse Ox 97.5 F 53 18 100/50 L 96 03/11/19 04:00 03/11/19 04:00 03/11/19 04:00 03/11/19 04:00 03/11/19 04:00 General: Alert, In no apparent distress, Oriented x3, Cooperative HEENT: PERRLA, EOMI Neck: Supple Gastrointestinal: Soft and benign Musculoskeletal: Erythema, Tenderness, Warmth Laboratory Data (last 24 hrs) 03/10/19 21:15: Creatinine 0.92 Conclusions/Impression: Right foot celulitis with osteomyelitis and non-healing wound right first toe debridement right first toe BAR fully explained including but not limited to infection, bleeding , damage to adjacent structures, non healing wound PR even . Pt advixe the importance of compliance with IV abx, wound care amd chronic medical condition f /u. Pt doest not want amputation and this NPO past midnight.
[2019-03-11] MEDS ORDERED: BUPIVACAINE 0.5% PF 10 ML VIAL ONE (08:16)
[2019-03-11] MEDS ORDERED: MIDAZOLAM HCL 2 MG/2 ML INJ ONE (08:42)
[2019-03-11] MEDS ORDERED: KETOROLAC 30 MG/ML INJ ONE (08:43)
[2019-03-11] MEDS ORDERED: LIDOCAINE 2% MPF 5 ML VIAL ONE (08:43)
[2019-03-11] MEDS: CEFTRIAXONE/SWI 1gm 1 GM/10 ML SYR IV SCH ×2 (08:55→20:27)
[2019-03-11] MEDS: METOPROLOL SUCCINATE 200 MG PO SCH ×2 (09:00→20:29)
[2019-03-11] MEDS: LISINOPRIL 2.5 MG TAB PO SCH (09:00)
[2019-03-11] MEDS: DOFETILIDE 500 MCG PO SCH ×2 (09:00→20:29)
[2019-03-11] MEDS: ASPIRIN EC 81 MG TAB PO SCH (09:00)
[2019-03-11] MEDS: AMLODIPINE 5 MG TAB PO SCH (09:00)
[2019-03-11] MEDS: APIXABAN 5 MG TABLET PO SCH ×2 (09:00→20:30)
[2019-03-11] MEDS: NYSTATIN 100MU/GM CREAM 15GM TOP SCH ×2 (09:00→20:28)
[2019-03-11] MEDS: FUROSEMIDE 40 MG TABLET PO SCH ×2 (09:00→17:19)
--- NOTE | 2019-03-11 09:14 | P.BOP ---
Preoperative diagnosis: cellulitis, osteomyelitis non healing wound of right first toe Postoperative diagnosis: same Primary procedure: Excisional debridement of non healing wound of right first toe Secondary procedure: 3 x 3 x 0.7 cm Estimated blood loss: <10cc Specimen: devitalized tissue Findings: see dictation Anesthesia: General Complications: None Transferred to: Recovery Room Condition: Good
[2019-03-11] MEDS: GABAPENTIN 300 MG CAP PO SCH ×2 (10:08→20:33)
--- NOTE | 2019-03-11 11:39 | PN ---
Date of Progress Note: 03/11/2019 Subjective: The patient was seen this morning for followup. He was sleeping easily, arousable, not in any distress. Denies any new complaints. Objective: Vital Signs: Reviewed. HEENT: Unremarkable. Lungs: Clear to auscultation. Heart: Sounds normal. Abdomen: Soft. Bowel sounds normal. No guarding, rigidity, tenderness, or distention. Extremities: No leg edema. Impression: 1.Right foot osteomyelitis, great toe. 2.Chronic atrial fibrillation. 3.Chronic anticoagulation therapy. 4.Hypertension. 5.Peripheral neuropathy. 6.Impaired fasting glucose. 7.Peripheral vascular disease. Plan: The patient's vancomycin trough level last night was 19.2. We will continue current vancomyci n and ceftriaxone. Dr. Ogden from General Surgery has evaluated the patient and he has scheduled the patient to have debridement procedure done on the right great toe today. His last dose of Eliqui s was 9 a.m. yesterday and I have asked nursing staff to notify Dr. Ogden with that information si nce he is going to have debridement procedure today. Depending on how he does after the procedure, plan is to consider to discharge him to go home tomorrow if he is stable. ADEILTA/MODL Voice ID: [id number] Report ID: [id number]
[2019-03-11] MEDS: VANCOMYCIN 1.75 GM in NA CHLORIDE 0.9% 500 ML IVPB SCH ×2 (11:46→23:31)
--- NOTE | 2019-03-11 20:22 | OP ---
Date of Procedure: 03/11/2019 Surgeon: Victoriano Ogden MD Preoperative Diagnoses: Cellulitis and osteomyelitis with non-healing wounds over the right first to e. Postoperative Diagnoses: Cellulitis and osteomyelitis with non-healing wounds over the right first t oe. Procedure: Excisional debridement of an open nonhealing wound down to subcutaneous tissue of the rig ht first toe, an area about 3 x 3 x 0.7 cm. Specimen: Devitalized tissue and culture. Anesthesia: MAC plus local. Findings: The patient has a cavity over that region. Bone is palpated. That toe is about double th e size of the first toe. The devitalized tissue was removed and the area was packed with Nu Gauze. This is the case of a 73-year-old patient diagnosed with osteomyelitis and cellulitis of the first to e. The patient is going to be on chronic antibiotics. They asked me for consult. Due to the cavity that we found on the toe with no good access for packing, we decided to remove the devitalized tissu e to help with the healing process. The benefits, alternatives, and risks of debridement were fully explained, which included but were not limited to infection, bleeding, damage to adjacent structures, anesthesia complication, nonhealing wound, VT, and even . He also understands this might not r elieve any symptoms. He might need more than one surgical intervention. He understands the importan ce of also being compliant with doctor's orders and antibiotics. Description Of Procedure: The patient was brought to the operating room, placed in supine position. Anesthesia was done without complication. A time-out was called. Right foot was prepped and draped in sterile fashion. Using a sharp knife, we proceeded to remove the devitalized tissue. This gave us access of about 3 x 3 cm on the plantar area of the toe, although if we put the instrument through , it goes almost through and through. Bone is palpated, confirming the findings of the osteomyelitis . The area was irrigated. Hemostasis obtained and the area was packed with Nu Gauze quarter of an i nch. The patient tolerated the procedure well. The patient was sent to Recovery in stable condition . The plan by the primary doctor is to send him today home with IV antibiotics and home health and a lso Nu Gauze quarter of an inch packing. We agree with that with the condition he comes [facility]. HM/MODL Voice ID: [id number] Report ID: [id number]
[2019-03-11] MEDS: ATORVASTATIN 80 MG TAB PO SCH (20:27)
[2019-03-11 23:13] VITALS: O2SAT 97
[2019-03-12] MEDS: PANTOPRAZOLE 40MG TABLET PO SCH (05:36)
[2019-03-12] MEDS: INSULIN -REGULAR HUMAN 50 UNIT/0.5 ML ML SQ SCH ×2 (07:30→11:30)
[2019-03-12] MEDS: LISINOPRIL 2.5 MG TAB PO SCH (09:00)
[2019-03-12] MEDS: METOPROLOL SUCCINATE 200 MG PO SCH (09:00)
[2019-03-12] MEDS: DOFETILIDE 500 MCG PO SCH (09:00)
[2019-03-12] MEDS: ASPIRIN EC 81 MG TAB PO SCH (09:00)
[2019-03-12] MEDS: FUROSEMIDE 40 MG TABLET PO SCH (09:00)
[2019-03-12] MEDS: AMLODIPINE 5 MG TAB PO SCH (09:00)
[2019-03-12] MEDS: APIXABAN 5 MG TABLET PO SCH (09:00)
[2019-03-12] MEDS: GABAPENTIN 300 MG CAP PO SCH (09:31)
[2019-03-12] MEDS: CEFTRIAXONE/SWI 1gm 1 GM/10 ML SYR IV SCH (09:31)
[2019-03-12] MEDS: NYSTATIN 100MU/GM CREAM 15GM TOP SCH (09:34)
[2019-03-12] MEDS: VANCOMYCIN 1.75 GM in NA CHLORIDE 0.9% 500 ML IVPB SCH (10:57)
[2019-03-12 14:20] VITALS: BP 125/64; TEMP 98.5
--- NOTE | 2019-03-13 04:44 | DS ---
Date of Discharge: 03/12/2019 Disposition: Discharged to go home. Physical Examination: HEENT: Unremarkable. Lungs: Clear to auscultation. Heart: Sounds normal. Abdomen: Soft. Bowel sounds normal. No guarding, rigidity, tenderness, distention. Extremities: No leg edema. Hospital Course: A 73-year-old male patient admitted to the hospital after he presented to my office with fever and chills. Please see dictated H and P for more information. The patient was evaluated at office and admitted to the hospital with concerns about osteomyelitis of right foot and also concerns about possibility of sepsis as a result of that. After he was evaluated, he was admitted directly to the hospital. Routine blood work was done, which showed elevated white count of 13.8. Foot x-ray was negative for any changes of osteomyelitis. Procalcitonin was 0.19. Sedimentation rate was higher than 140. CRP was 125. Blood culture was done. Wound culture was done. He was started on empiric antibiotic, ceftriaxone and vancomycin. Pharmacy was consulted to manage vancomycin dose. His initial wound culture was negative, but day after admission, there was some more purulent discharge noted and repeat wound culture was sent, and that grew enterococcus. With empiric antibiotics, his right foot great toe has started to show improvement. Dr. Ogden was consulted from General Surgery and he took the patient for debridement procedure yesterday. We are hoping that with help of IV antibiotic therapy, we can help improve his process, where we can actually avoid any kind of amputation. Arterial Doppler of lower extremity showed [id number] peripheral arterial disease. His home medications were continued including his anticoagulant medication, Eliquis. MRI of the right foot showed evidence of osteomyelitis. Drainage that he had from the right foot has resolved. His redness from the right dorsal foot has significantly improved. He is ambulating well without any problem. PICC line was placed. The patient wanted to go home with home health and home IV antibiotic therapy. Social Service was consulted and once arrangements completed, the patient was discharged to go home today in stable condition. Final Diagnoses: 1. Osteomyelitis, right foot great toe, acute. 2. Chronic atrial fibrillation. 3. Chronic anticoagulation therapy. 4. Hypertension. 5. Type 2 diabetes mellitus. 6. Peripheral neuropathy. 7. Posttraumatic stress disorder. 8. Hyperlipidemia. 9. Carotid artery stenosis. Laboratory Data: Initial white count was 13.8, hemoglobin was 11.5, platelets 204. Last white count on 03/08/2019, was 10.1, hemoglobin 11.2, platelets 251. Initial chemistry; sodium 136, potassium 3.7, chloride 102, bicarb 26, BUN 18 , creatinine 0.92, glucose 129. Liver function tests unremarkable. Discharge Medications And Instructions: 1. Continue all prior home medications. 2. Home health nurse to assist the patient with IV antibiotic. Change PICC line dressing per protocol, flush PIC per protocol, remove PICC line after 5 weeks of IV antibiotic therapy completed. 3. Ceftriaxone 1 g IV every 12 hours for 5 . 4. Vancomycin 1.75 g IV piggyback every 12 hours for 5 weeks. 5. Home health nurse to draw blood for CBC, Chem-7, and vancomycin trough level every third day and bring blood specimen to [facility] lab for testing to be done. 6. Follow up with Dr. Ogden at wound healing center next week on . 7. Follow up at my office in 1 week. 8. Wound care dressing changes as per order from Dr. Ogden. ADELITA/MODL Voice ID: [id number] Report ID: [id number] [facility]ITALNaun
== END 2019-03-12 13:35 | disposition home health service (06) | DRG 623 ==
LOC: 2ND 19:31
PROVIDERS: ADMIT Internal Medicine; ATTEND Internal Medicine
PROC: 02HV33Z Insertion of Infusion Device into Superior Vena Cava, Percutaneous Approach (ICD-10-PCS; 2019-03-05)
PROC: 0JBQ0ZZ Excision of Right Foot Subcutaneous Tissue and Fascia, Open Approach (ICD-10-PCS; principal; 2019-03-11 07:30)
DX: E11.69 Type 2 diabetes mellitus with other specified complication (principal); M86.171 Other acute osteomyelitis, right ankle and foot; R18.8 Other ascites; L03.031 Cellulitis of right toe; B95.2 Enterococcus as the cause of diseases classified elsewhere; I48.2 Chronic atrial fibrillation; E11.42 Type 2 diabetes mellitus with diabetic polyneuropathy; E11.51 Type 2 diabetes mellitus with diabetic peripheral angiopathy without gangrene; Z91.19 Patient's noncompliance with other medical treatment and regimen; F43.10 Post-traumatic stress disorder, unspecified; I10 Essential (primary) hypertension; E78.5 Hyperlipidemia, unspecified; I25.10 Atherosclerotic heart disease of native coronary artery without angina pectoris; Z79.01 Long term (current) use of anticoagulants; Z79.82 Long term (current) use of aspirin; Z87.891 Personal history of nicotine dependence; Z85.118 Personal history of other malignant neoplasm of bronchus and lung; Z90.2 Acquired absence of lung [part of]
CPT/HCPCS: 36415; 71045; 80048; 80053; 80061; 80202; 81001; 82565; 82962; 83036; 83605; 83735; 84145; 84443; 85025; 85610; 85652; 85730; 86140; 87040; 87070; 87075; 87077; 87186; 87205; 88304; 93005; 93306; 93923; J0696; J1650; J2250; J2704; J2997; J3010; J3370; J7030

== ENCOUNTER 2019-03-13 00:27 | Emergency (ER) | payer BC ==
--- OUTSIDE RECORDS SUMMARY | 2019-03-13 00:31 | XMS REPORT | Clinical Summary ---
:1945 Author Organization [facility] Address [address] [place] [address] Care Team Providers Name Role Phone Bayron [...] Multiple and bilateral precerebral artery syndromes; 08/14/2018 Ruslan Campos MD Transient cerebral ischemia, unspecified type; Steve Hernandez Hypertension, unspecified type; MD Nelson Atrial fibrillation, unspecified type (HCC); Franny Carter MD Generalized abdominal pain; Leukocytosis, unspecified type; Chronic congestive heart failure, unspecified heart failure type (HCC); Acute CVA (cerebrovascular accident) (HCC); Stenosis of right carotid artery; TIA (transient ischemic attack) after 03/12/2018 Immunizations Name Dates Previously Given Next Due [...] Procedure Name Priority Date/Time Associated Comments Diagnosis REPORT OF PROCEDURE - 03/11/2019 11:11 ENDOSCOPY SCAN AM CDT CAROTID DOPPLER Routine 11/18/2018 9:45 Occlusion of right Results for this BILATERAL AM FURNITURE INSPECTOR carotid artery procedure are in the results [...] 408 ms QTC Calculation(Bazett) 476 ms R [place] 44 degrees T [place] 49 degrees Atrial fibrillation Abnormal ECG When [...] (7) Routine 08/04/2018 1:39 AM CDT after 03/12/2018 Results EKG-SCANNED (03/11/2019 11:11 AM CDT) Narrative Performed At Carotid doppler bilateral (11/18/2018 9:45 AM FURNITURE INSPECTOR) [facility] ECHO HEART[facility] Specimen Impressions Performed At Right Impression [facility] ECHO HEART[facility] 1. Post stent placement, the internal carotid [...] Additional Measurements:ICAPSV/CCAPSV 0.82.ICAEDV/CCAEDV 1.35. Narrative Performed At LAB - Carotid Duplex Study [facility] ECHO HEART[facility] Demographics Patient Name ALEJO LIVINGSTON Date of Study11/18/2018 [id number] Visit Number [id number] Gender Male Accession Number [id number] Date of Birth1945 ReferringPeter KanRoom Number Physician SonographerTuyet Zuñiga Interpreting Gillian Cai, EVY, RVTPhyberlin VILLEDA Procedure Type of Study: Cerebral: Carotid, CAROTID DOPPLER, BILATERAL. Indications for Study:Carotid artery stenosis . Patient Status:Routine. Study Location:Vascular Lab. Technical Quality:Adequate visualization. Risk Factors History of Disease + +----+ + !Diagnosis!Kennedy e!Comments ! + +----+ + !History/Risk Factors:!!CHF, a fib, SADIQ stent 2017! + +----+ + Procedure Note Interface, External Ris In - 11/18/2018 10:10 AM FURNITURE INSPECTOR PV LAB - Carotid Duplex Study Demographics Patient Name ALEJO LIVINGSTON Date of Study 11/18/2018 Age 73 Visit Number [id number] Gender Male Accession Number [id number] Date of [address] [facility] Room Number Physician Nursing Teacher Tuyet Zuñiga Interpreting Gillian Cai, RN, RVT Physician MD Procedure Type of Study: [...] Performing Organization Address City/State/Zipcode Phone Number [facility] ECHO HEART[facility] CPA RHYTHM STRIP - SCAN (08/18/2018 8:21 AM CDT) Narrative Performed At Manual Differential (08/14/2018 4:24 AM CDT)Only the most recent of3 resultswithin the time period is included. % Neutros 73 % [facility] % Lymphs 9 % [facility] % Monos 9 % [facility] % Eos 2 % [facility] % Metamyelo 1 (H) 0 - 0 % [facility] % Bands 5 0 - 10 % [facility] % Atypical Lymphs 1 (H) 0 - 0 % [facility] # Neutros 8.18 (H) 1.78 - 5.38 K/ul [facility] # Lymphs 1.01 (L) 1.32 - 3.57 K/ul [facility] # Monos 1.01 (H) 0.30 - 0.82 K/uL [facility] # Eos 0.22 0.04 - 0.54 K/uL [facility] # Metamyelo 0.11 (H) 0.00 - 0.00 K/uL [facility] # Bands 0.56 0.00 - 0.80 K/uL [facility] # Atypical Lymphs 0.11 (H) 0.00 - 0.00 K/uL [facility] Total Counted 100 [facility] Smudge Cells Present [facility] Giant Platelet Present [facility] Polychromasia 1+ few [facility] Anisocytosis 1+ few [facility] Poikilocytes 2+ moderate [facility] Alvin Cells 1+ few [facility] Platelet Conc Adequate [facility] Specimen Blood Narrative Performed At Received comment: [facility] User comments: Slide comments: Performing Organization Address City/State/Zipcode Phone Number [facility] [address] [place] [address] CENTER CBC with platelet count + automated diff (08/14/2018 4:24 AM CDT)Only the most recent of11 resultswithin the time period is included. WBC 11.2 (H) 3.5 - 10.5 K/L [facility] RBC 3.76 (L) 4.63 - 6.08 M/L [facility] Hemoglobin 12.2 (L) 13.7 - 17.5 GM/DL [facility] Hematocrit 38.3 (L) 40.1 - 51.0 % [facility] MCV 101.9 (H) 79.0 - 92.2 fL [facility] MCH 32.4 (H) 25.7 - 32.2 pg [facility] MCHC 31.9 (L) 32.3 - 36.5 GM/DL [facility] RDW 11.9 11.6 - 14.4 % [facility] Platelets 275 150 - 450 K/CU MM [facility] MPV 11.0 9.4 - 12.4 fL [facility] nRBC 0 0 - 0 /100 WBC [facility] Specimen Blood Performing Organization Address City/State/Zipcode Phone Number [facility] [address] [place] [address] [phone] CENTER Basic Metabolic Panel (08/14/2018 4:24 AM CDT)Only the most recent of11 resultswithin the time period is included. Sodium 133 (L) 136 - 145 meq/L [facility] Potassium 3.9 3.5 - 5.1 meq/L [facility] Chloride 100 98 - 107 meq/L [facility] CO2 26 22 - 29 meq/L [facility] BUN 17 7 - 21 mg/dL [facility] Creatinine 0.84 0.57 - 1.25 mg/dL [facility] Glucose 111 (H) 70 - 105 mg/dL [facility] Calcium 8.6 8.4 - 10.2 mg/dL [facility] EGFR 89Comment: ESTIMATED GFR IS mL/min/1.73 sq m [facility] NOT ACCURATE [facility] CLEARANCE IN PREDICTING GLOMERULAR FILTRATION RATE. ESTIMATED GFR IS NOT APPLICABLE FOR DIALYSIS PATIENTS. Specimen Blood Performing Organization Address City/State/Zipcode Phone Number [facility] [address] [place] [address] CENTER XR chest 1 view portable / bedside (08/12/2018 2:54 PM CDT) Specimen Narrative Performed At FINAL REPORT [facility] Chest one view INDICATION: Shortness of breath [...] MD Report Verified Date/Time:08/12/2018 15:59:35 Reading Location: [address] Transitional Reading Room Procedure Note Interface, [...] Report Verified Date/Time: 08/12/2018 15:59:35 Reading Location: [facility] C013T Transitional Reading Room Performing Organization Address City/State/Zipcode Phone Number GE [facility] ECG 12 lead (08/12/2018 8:50 AM CDT)Only the most recent of4 resultswithin the time period is included. Specimen Narrative Performed At Ventricular Rate 82 BPM GE MUSE Atrial Rate 357 BPM QRS Duration 84 ms Q-T Interval 408 ms QTC Calculation(Bazett) 476 ms R [place] 44 degrees T [place] 49 degrees Atrial fibrillation Nonspecific ST abnormality Abnormal ECG When compared with ECG of 08-AUG-2018 14:50, No significant change was found Confirmed by MD HOLDER JORGE ([id number]) on 08/12/2018 1:55:24 PM Procedure Note Interface, External Ris In - 08/12/2018 1:55 PM CDT Ventricular Rate 82 BPM Atrial Rate 357 BPM QRS Duration 84 ms Q-T Interval 408 ms QTC Calculation(Bazett) 476 ms R [place] 44 degrees T [place] 49 degrees Atrial fibrillation Nonspecific ST abnormality Abnormal ECG When compared with ECG of 08-AUG-2018 14:50, No significant change was found Confirmed by MD HOLDER JORGE ([id number]) on 08/12/2018 1:55:24 PM Performing Organization Address City/State/[facility] Phone Number [employer] [place] Carotid Artery Stent Placement w/Protection (08/11/2018 4:51 PM CDT)Only the most recent of2 resultswithin the time period is included. Specimen Narrative Performed At FINAL REPORT [facility] DATE OF PROCEDURE: 08/11/18 SURGEON:Chaz France MD AUTOMOBILE MECHANIC APPRENTICE: Leta Barreto MD PREOPERATIVE DIAGNOSIS: Transient ischemic [...] puncture the right femoral artery. A 5 Rwandan short sheath was then passed over an angled glide catheter. Using coaxial technique, a 5 [place] 2 catheter was advanced into the [...] MD Report Verified Date/Time:08/12/2018 12:14:40 Reading Location: [facility] Procedure Note Interface, External Ris In - 08/12/2018 12:17 PM CDT FINAL REPORT DATE OF PROCEDURE: 08/11/18 SURGEON: Chaz France MD AUTOMOBILE MECHANIC APPRENTICE: Leta Barreto MD PREOPERATIVE DIAGNOSIS: Transient ischemic [...] puncture the right femoral artery. A 5 Rwandan short sheath was then passed over an angled glide catheter. Using coaxial technique, a 5 R[place]an [employer] 2 catheter was advanced into the descending [...] Report Verified Date/Time: 08/12/2018 12:14:40 Reading Location: [place] [address] Neuro Angio Reading Room Performing Organization Address City/State/Zipcode Phone Number GE [facility] POC ACTIVATED CLOTTING TIME (08/11/2018 3:47 PM CDT) Activated Clotting Time 241Comment: TESTED AT sec [facility] [address] [place] [address] Specimen Blood Performing Organization Address City/[facility]/Zipcode Phone Number [address] [address] CENTER POCT-P2Y12 PLATELET AGGREGATION (08/11/2018 12:21 PM CDT)Only the most recent of2 resultswithin the time period is included. POC-P2Y12 Plt Agg 51 PRU [facility] Specimen Blood Narrative Performed At RANGE INFORMATION: PRU reference range is [facility] 194-418. Post Drug Results: Lower PRU levels are associated with expected antiplatelet effect. Values may be below the stated reference range above. The post-drug PRU values reported in the [employer] P2Y12 package insert are [id number]. Performing Organization Address [facility] Phone Number [address] [phone] CENTER PT/aPTT (08/11/2018 12:21 PM CDT) Protime 16.1 (H) 11.7 - 14.7 seconds [facility] INR 1.3 <=5.9 [facility] PTT 40.0 (H) 22.5 - 36.0 seconds [facility] Specimen Blood Narrative Performed At [facility] RECOMMENDED COUMADIN/WARFARIN INR THERAPY RANGES STANDARD DOSE: 2.0 - 3.0 Includes: PROPHYLAXIS for venous thrombosis, systemic embolization; TREATMENT for venous thrombosis and/or pulmonary embolus. HIGH RISK: Target INR is 2.5-3.5 for patients with mechanical heart valves. Performing Organization Address [facility] Phone Number [address] [phone] CENTER POCT-ASPIRIN PLATELET AGGREGATION (08/11/2018 6:24 AM CDT) POC-Aspirin Plt Agg 408 ARU [facility] Specimen Blood Narrative Performed At RANGE INFORMATION: 350-549 ARU Therapeutic [facility] range for platelet function. 550-700 ARU Non-Therapeutic range for platelet function. Performing Organization Address [facility] Cent[facility] Phone Number [address] [address] CENTER CBC (hemogram only) (08/11/2018 6:24 AM CDT)Only the most recent of2 resultswithin the time period is included. WBC 12.4 (H) 3.5 - 10.5 K/L [facility] RBC 3.54 (L) 4.63 - 6.08 M/L [facility] Hemoglobin 11.4 (L) 13.7 - 17.5 GM/DL [facility] Hematocrit 35.6 (L) 40.1 - 51.0 % [facility] MCV 100.6 (H) 79.0 - 92.2 fL [facility] MCH 32.2 25.7 - 32.2 pg [facility] MCHC 32.0 (L) 32.3 - 36.5 GM/DL [facility] RDW 11.9 11.6 - 14.4 % [facility] Platelets 271 150 - 450 K/CU MM [facility] MPV 11.2 9.4 - 12.4 fL [facility] nRBC 0 0 - 0 /100 WBC [facility] Specimen Blood Performing Organization Address City/State/Zipcode Phone Number [facility] [address] [place] [address] CENTER [place] cerebral 4 vessel angiogram (08/10/2018 1:22 PM CDT) Specimen Narrative Performed At FINAL REPORT [facility] DATE OF PROCEDURE: 08/10/2018 SURGEON: Chaz France M.D. AUTOMOBILE MECHANIC APPRENTICE:Leta Barreto MD PREOPERATIVE DIAGNOSIS:carotid stenosis POST OPERATIVE [...] MD Report Verified Date/Time:08/12/2018 09:29:38 Reading Location: [facility] [id number] Neuro Angio Reading Room Procedure Note Interface, External Ris In - 08/12/2018 9:29 AM CDT FINAL REPORT DATE OF PROCEDURE: 08/10/2018 SURGEON: Chaz France M.D. AUTOMOBILE MECHANIC APPRENTICE: Leta Barreto MD PREOPERATIVE DIAGNOSIS: carotid stenosis [...] Report Verified Date/Time: 08/12/2018 09:29:38 Reading Location: [place] [address] Neuro Angio Reading Room Performing Organization Address City/State/Zipcode Phone Number GE RIS aPTT (08/10/2018 6:08 AM CDT)Only the most recent of5 resultswithin the time period is included. PTT 38.3 (H) 22.5 - 36.0 seconds [facility] Specimen Blood Performing Organization Address City/State/Zipcode Phone Number [facility] [address] [place] [address] [phone] CENTER Sodium, random urine (08/09/2018 12:35 PM CDT) Sodium Urine 74 meq/L [facility] Specimen Urine Narrative Performed At [facility] Reference Range: No Normals Performing Organization Address [facility] Cent[facility]ode Phone Number [address] [address] [place] Protein, random urine (08/09/2018 12:35 PM CDT) Protein, Urine <7 0 - 14 mg/dL [facility] Specimen Urine Performing Organization Address [facility] Cent[facility] Phone Number [address] [address] [place] Creatinine, random urine (08/09/2018 12:35 PM CDT) Creatinine, Ur 18.9 mg/dL [facility] Specimen Urine Narrative Performed At [facility] Reference Range: No Normals Performing Organization Address [facility] Phone Number [address] [address] [place] Urinalysis w/Microscopic (08/09/2018 12:35 PM CDT) Color, UA Light Yellow [facility] Clarity, UA Clear [facility] Specific [place], UA 1.003 1.001 - 1.035 [facility] pH, UA 6.5 5.0 - 8.0 [facility] Protein, UA Negative Negative [facility] Glucose, UA Negative Negative [facility] Ketones, UA Negative Negative [facility] Bilirubin, UA Negative Negative [facility] Blood, UA Small (A) Negative [facility] Nitrite, UA Negative Negative [facility] Leukocytes, UA Negative Negative [facility] Urobilinogen, UA 0.2 0.2 - 1.0 mg/dL [facility] RBC, UA 0 /HPF [facility] WBC, UA 0 /HPF [facility] Specimen Source Urine, Voided [facility] Specimen Urine Performing Organization Address City/[facility]/Zipcode Phone Number [address] [address] [phone] [place] Eosinophil smear (08/09/2018 12:35 PM CDT) Eosinophil Smear No EOS seen No EOS seen [facility] Specimen Urine Performing Organization Address [facility] Phone Number [address] [address] [phone] [place] Protein electrophoresis, serum (08/09/2018 5:16 AM CDT) Albumin Fraction 2.6 (L) 3.5 - 5.5 g/dL [facility] Alpha 1 Fraction 0.4 0.2 - 0.4 g/dL [facility] Alpha 2 Fraction 1.0 (H) 0.5 - 0.9 g/dL [facility] Beta Fraction 1.0 0.6 - 1.1 g/dL [facility] Gamma Globulin Fraction 1.0 0.7 - 1.7 g/dL [facility] Interpretation Pattern consistent with [facility] acute inflammatory [facility] process. No monoclonal bands detected. Pathologist: Bette Cage MD [facility] (electronic signature) [facility] Protein, Total 6.1 6.0 - 8.3 gm/dL [facility] Specimen Blood Performing Organization Address City/[facility] Cent[facility]ode Phone Number [address] [address] [phone] CENTER TSH/Free T4 If Indicated (08/09/2018 5:07 AM CDT) TSH 0.87 0.35 - 4.94 uIU/mL [facility] Specimen Blood Performing Organization Address City/[facility]/Zipcode Phone Number [address] [address] [place] BUN and Creatinine (08/09/2018 5:07 AM CDT) BUN 13 7 - 21 mg/dL [facility] Creatinine 0.77 0.57 - 1.25 mg/dL [facility] EGFR 99Comment: ESTIMATED GFR IS mL/min/1.73 sq m [facility] NOT ACCURATE [facility] CLEARANCE IN PREDICTING GLOMERULAR FILTRATION RATE. ESTIMATED GFR IS NOT APPLICABLE FOR DIALYSIS PATIENTS. Specimen Blood Performing Organization Address [facility] Cent[facility]ode Phone Number [address] [address] [place] MANINDER Titer & Pattern (08/09/2018 5:07 AM CDT) MANINDER Titer 1:160 [facility] MANINDER Pattern Speckled [facility] Specimen Blood Performing Organization Address [facility] Cent[facility]ode Phone Number [address] [address] [place] RPR (08/09/2018 5:07 AM CDT) RPR Nonreactive Nonreactive [facility] Specimen Blood Performing Organization Address City/[facility]/Zipcode Phone Number [address] [address] [place] Anti-Nuclear Antibody (MANINDER) (08/09/2018 5:07 AM CDT) MANINDER Positive (A) Negative [facility] Specimen Blood Narrative Performed At [facility] Test performed by IFA method. Performing Organization Address [facility] Centercode Phone Number [address] [address] [phone] CENTER Potassium (08/09/2018 5:07 AM CDT) Potassium 4.1 3.5 - 5.1 meq/L [facility] Specimen Blood Performing Organization Address [facility] Cent[facility]ode Phone Number [address] [phone] [place] Platelet count (08/08/2018 4:29 PM CDT) Platelets 234 150 - 450 K/CU MM [facility] Specimen Blood Performing Organization Address [facility] Cent[facility]ode Phone Number [address] [address] CENTER Magnesium (08/08/2018 6:43 AM CDT) Magnesium 2.2 1.6 - 2.6 mg/dL [facility] Specimen Blood Performing Organization Address [facility] Phone Number [address] [address] [phone] [place] TRANSFUSION SERVICE REPORT - SCAN (08/07/2018 6:01 PM CDT) Narrative Performed At CT abdomen/pelvis with IV contrast (08/07/2018 4:36 PM CDT) Specimen Narrative Performed At FINAL REPORT [facility] CT of the Chest, abdomen and [...] MD Report Verified Date/Time:08/07/2018 17:39:22 Reading Location: [facility] C013 Consult Reading Room Procedure Note Interface, [...] Report Verified Date/Time: 08/07/2018 17:39:22 Reading Location: [facility] C013W Consult Reading Room Performing Organization Address City/State/Zipcode Phone Number [facility] CT chest with IV contrast (08/07/2018 4:36 PM CDT) Specimen Narrative Performed At FINAL REPORT [facility] CT of the Chest, abdomen and pelvis [...] MD Report Verified Date/Time:08/07/2018 17:39:22 Reading Location: [facility] [id number] Consult Reading Room Procedure Note Interface, [...] Report Verified Date/Time: 08/07/2018 17:39:22 Reading Location: [address] Consult Reading Room Performing Organization Address City/State/Zipcode Phone Number GE R[facility] XR chest 2 views (08/06/2018 9:27 PM CDT) Specimen Narrative Performed At FINAL REPORT [facility] PA and Lateral views of the chest dated 08/06/2018 Clinical information: Shortness of breath, and concern for pneumonia. Comment:Heart is in upper limits of normal in size. Pulmonary vasculature is unremarkable. Lungs are clear. No pulmonary infiltrate or pleural effusion is present. Pleural thickening is noted bilaterally. Impression:No active cardiopulmonary disease. Signed: Reagan Peck MD Report Verified Date/Time:08/06/2018 21:57:16 Reading Location: [facility] C013W Consult Reading Room Procedure Note Interface, [...] Report Verified Date/Time: 08/06/2018 21:57:16 Reading Location: [facility] B1 C013W Consult Reading Room Performing Organization Address City/[facility] Cent[facility] Phone Number [facility] Procalcitonin (08/06/2018 4:10 PM CDT) Procalcitonin 0.17 (H) <0.05 ng/mL [facility] Specimen Blood Narrative Performed At [facility] SEPSIS RISK (ng/mL) Low:0.05-0.50 Intermediate: 0.51-2.00 High: >=2.01 Performing Organization Address [facility] Phone Number [address] [address] CENTER Type and screen, automated (08/06/2018 4:10 PM CDT) ABO/RH AUTOMATED (BEAKER) A POSITIVE [facility] Ab Scrn NEGATIVE [facility] Specimen Blood Performing Organization Address [facility] Phone Number [address] [address] Prothrombin time/INR (08/06/2018 4:10 PM CDT) Protime 21.4 (H) 11.7 - 14.7 seconds [facility] INR 1.9 <=5.9 [facility] Specimen Blood Narrative Performed At [facility] RECOMMENDED COUMADIN/WARFARIN INR THERAPY RANGES STANDARD DOSE: 2.0 - 3.0 Includes: PROPHYLAXIS for venous thrombosis, systemic embolization; TREATMENT for venous thrombosis and/or pulmonary embolus. HIGH RISK: Target INR is 2.5-3.5 for patients with mechanical heart valves. Performing Organization Address City/[facility] Cent[facility] Phone Number [address] [address] [place] Vitamin B12 and Folate (08/06/2018 3:43 PM CDT) Vitamin B12 541 213 - 816 pg/mL [facility] Folate 14.3 >=7.0 ng/mL [facility] Specimen Blood Performing Organization Address City/[facility] Cent[facility]ode Phone Number [address] [address] [place] Lactic acid, venous, whole blood (08/06/2018 3:43 PM CDT) Lactate, Venous 1.8Comment: Specimen 0.5 - 2.2 mmol/L [facility] slightly hemolyzed [facility] Specimen Blood Narrative Performed At [facility] Effective 03/13/2016: Units/Reference Range Change New: 0.5-2.2 mmol/LPrevious: 5-20 mg/dL Performing Organization Address City/[facility] Centercode Phone Number [address] [phone] [place] Blood culture (08/06/2018 3:43 PM CDT)Only the most recent of2 resultswithin the time period is included. Result No growth in 5 days [facility] Specimen Blood Performing Organization Address [facility] Centercode Phone Number [address] [phone] [place] MR brain without IV contrast (08/06/2018 11:40 AM CDT) Specimen Narrative Performed At FINAL REPORT [facility] MRI brain Comparison: None Reason for exam: Stroke Ischemic Stroke Evaluation Discussion: Multiplanar MR imaging the brain was performed using T1, T2, FLAIR, FFE, diffusion, and ADC map imaging. There are no intracranial hematomas, mass effect, hydrocephalus, shift, or extra-axial collections. Moderate chronic microvascular changes are seen in both cerebral hemispheres and in the brainstem. Additionally, semiconfluent patchy RUBBER PRODUCTION MACHINE OPERATOR territory diffusion restricted recent infarctions are seen [...] surrounding soft tissues are unremarkable.. Impressions: Right-sided RUBBER PRODUCTION MACHINE OPERATOR and right-sided frontal diffusion restricted recent infarctions as discussed. No hematoma or mass effect. Signed: Marci Sanchez MD Report Verified Date/Time:08/06/2018 12:15:05 Reading Location: [address] Neuro Reading Room Procedure Note Interface, External [...] and in the brainstem. Additionally, semiconfluent patchy RUBBER PRODUCTION MACHINE OPERATOR territory diffusion restricted recent infarctions are seen [...] soft tissues are unremarkable. . Impressions: Right-sided RUBBER PRODUCTION MACHINE OPERATOR and right-sided frontal diffusion restricted recent infarctions as discussed. No hematoma or mass effect. Signed: Marci Sanchez MD Report Verified Date/Time: 08/06/2018 12:15:05 Reading Location: [facility] Neuro Reading Room Performing Organization Address City/State/Zipcode Phone Number [facility] MRA neck without IV contrast (08/06/2018 11:33 AM CDT) Specimen Narrative Performed At FINAL REPORT [facility] MRA brain and neck without contrast 08/06/2018 1:51 PM CLINICAL HISTORY: Stroke Ischemic Stroke Evaluation COMPARISON: None available TECHNIQUE: Two- and three-dimensional [id number]-[id number] MRA images of the intra- and extracranial [...] MD Report Verified Date/Time:08/06/2018 13:54:13 Reading Location: [facility] Reading Room Procedure Note Interface, External Ris In - 08/06/2018 1:56 PM CDT FINAL REPORT MRA brain and neck without contrast 08/06/2018 1:51 PM CLINICAL HISTORY: Stroke Ischemic Stroke Evaluation COMPARISON: None available TECHNIQUE: Two- and three-dimensional [id number]-pt-[id number] MRA images of the intra- and extracranial [...] Report Verified Date/Time: 08/06/2018 13:54:13 Reading Location: [facility] Radiology Reading Room Performing Organization Address City/State/Zipcode Phone Number [facility] MRA head without IV contrast (08/06/2018 11:33 AM CDT) Specimen Narrative Performed At FINAL REPORT [facility] MRA brain and neck without contrast 08/06/2018 1:51 PM CLINICAL HISTORY: Stroke Ischemic Stroke Evaluation COMPARISON: None available TECHNIQUE: Two- and three-dimensional [id number]-[id number]-[id number] MRA images of the intra- and extracranial [...] MD Report Verified Date/Time:08/06/2018 13:54:44 Reading Location: [facility] Reading Room Procedure Note Interface, External [facility] In - 08/06/2018 1:56 PM CDT FINAL REPORT MRA brain and neck without contrast 08/06/2018 1:51 PM CLINICAL HISTORY: Stroke Ischemic Stroke Evaluation COMPARISON: None available TECHNIQUE: Two- and three-dimensional [id number]-mh-[id number] MRA images of the intra- and extracranial [...] Report Verified Date/Time: 08/06/2018 13:54:44 Reading Location: [facility] Radiology Reading Room Performing Organization Address City/State/Zipcode Phone Number [employer] RIS ECHOCARDIOGRAM REPORT - SCAN (08/05/2018 5:30 PM CDT) Narrative Performed At Transthoracic 2D echo w/ doppler (cw/pw/color) (08/05/2018 11:12 AM CDT) Ejection Fraction [facility] Specimen Narrative Performed At Transthoracic Echocardiography Report (TTE) [facility] Demographics Patient Name MIKI, EDDIEDate of Study 08/05/2018 [id number] GenderMale Visit Number [id number] Unknown [id number] Room Number [id number] Number Date of Birth4Referring Physician TEDDY PUENTE Age73 year(s)Nursing Teacher Clarence Sanon InterpretingStOswaldo Plaza MD Procedure Type of Study TTE procedure:2DECHO [...] of Study 08/05/2018 Gender Male Visit Number [id number] Race Unknown Room Number 2263 Number Date of 1945 Referring Physician TEDDY PUENTE Age 73 year(s) Nursing Teacher Clarence Moore 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 Sanon Interpreting Oswaldo Junior Physician Procedure Type of Study TTE procedure:2DECHO [...] Performing Organization Address City/State/Zipcode Phone Number [facility] Urinalysis w/Microscopic + Reflex to Culture (08/05/2018 5:30 AM CDT) Color, UA Yellow [facility] Clarity, UA Hazy [facility] Specific [place], UA 1.022 1.001 - 1.035 [facility] pH, UA 5.5 5.0 - 8.0 [facility] Protein, UA 100 mg/dL (A) Negative [facility] Glucose, UA Negative Negative [facility] Ketones, UA Negative Negative [facility] Bilirubin, UA Negative Negative [facility] Blood, UA Trace (A) Negative [facility] Nitrite, UA Negative Negative [facility] Leukocytes, UA Negative Negative [facility] Urobilinogen, UA 2.0 (H) 0.2 - 1.0 mg/dL [facility] RBC, UA 11 /HPF [facility] WBC, UA 3 /HPF [facility] Mucus Many [facility] Squam Epithel, UA <1 /HPF [facility] Hyaline Casts, UA 5 /LPF [facility] Specimen Source [facility] Specimen Urine Performing Organization Address City/State/Zipcode Phone Number [facility] [address] [place] [address] [phone] CENTER US testicular (scrotum) (08/05/2018 4:09 AM CDT) Specimen Narrative Performed At FINAL REPORT [employer] U/S, TESTICULAR (SCROTUM) CLINICAL INDICATION: scrotal swelling [...] MD Report Verified Date/Time:08/05/2018 04:28:36 Reading Location: [facility] B1 C013Y CT Body Reading Room Procedure Note Interface, [...] Report Verified Date/Time: 08/05/2018 04:28:36 Reading Location: [facility] B1 C013Y CT Body Reading Room Performing Organization Address City/State/Zipcode Phone Number [facility] Troponin I (08/04/2018 1:35 PM CDT)Only the most recent of2 resultswithin the time period is included. Troponin I <0.01 0.00 - 0.03 ng/mL [facility] Specimen Blood Narrative Performed At [facility] Troponin I (TnI) levels must be interpreted [...] tachyarrhythmia. Performing Organization Address City/State/Zipcode Phone Number [place] [phone] [place] [address] CENTER XR abdomen / KUB 1 view (08/04/2018 11:39 AM CDT) Specimen Narrative Performed At FINAL REPORT [facility] CLINICAL HISTORY: abdominal pain TECHNIQUE: Supine abdomen COMPARISON: None IMPRESSION: There is a large amount of stool throughout the colon. There are no focally distended loops of bowel. Free air and air-fluid levels are not seen but cannot be definitively excluded on the supine view. Signed: Colton Marquis MD Report Verified Date/Time:08/04/2018 12:40:36 Reading Location: [facility] Radiology Reading Room Procedure Note Interface, External [...] Report Verified Date/Time: 08/04/2018 12:40:36 Reading Location: [facility] Radiology Reading Room Performing Organization Address City/State/Zipcode Phone Number [employer] Homocysteine (08/04/2018 1:39 AM CDT) Homocysteine 6.5 5.1 - 15.4 umol/L [facility] Specimen Blood Performing Organization Address City/[facility]/Zipcode Phone Number [facility] [address] [place] [address] [place] Hemoglobin A1c - Fasting (08/04/2018 1:39 AM CDT) Hemoglobin A1C 5.6 4.3 - 6.1 % [facility] Specimen Blood Narrative Performed At Fasting [facility] Performing Organization Address City/[facility]/Zipcode Phone Number [facility] [address] [place] [address] [phone] [place] Fasting lipid panel (08/04/2018 1:39 AM CDT) Triglycerides 111 mg/dL [facility] Cholesterol 113 mg/dL [facility] HDL 26 mg/dL [facility] LDL Calculated 65 mg/dL [facility] Specimen Blood Narrative Performed At [facility] Triglyceride Reference Range: Low Risk <150 [id number] High Risk 200-499 Very High Risk>=500 Cholesterol Reference Range: Low Risk <200 [id number] High Risk>240 HDL Cholesterol Reference Range: Low Risk >=60 High Risk <40 LDL Cholesterol Reference Range: Optimal<100 Near [id number] Very High >=190 Fasting Performing Organization Address City/[facility]/Zipcode Phone Number [facility] [address] [place] [address] [phone] CENTER after 03/12/2018 Insurance Payer Benefit Plan / Subscriber ID Type Phone Address Group BLUE CROSS/BLUE BCBS HMO xxxxxxxxxxxx HMO/POS [phone] [address] [employer] [place] [address] Advance Directives For more information, please contact:[address] [phone] Code Status Date Activated Date Inactivated Comments Full Code 08/03/2018 11:33 PM 08/14/2018 4:40 PM This code status was determined by: Patient
--- OUTSIDE RECORDS SUMMARY | 2019-03-13 00:33 | XMS REPORT ---
:1945 [facility] Address [address] [place] [address] Care Team Providers Name Role Phone OKSANA [...] Comments WHITE BLOOD CELL COUNT (BEAKER) (test dvwc=575) 11.2 K/ L 3.5-10.5 RED BLOOD CELL COUNT (BEAKER) (test plhv=802) 3.76 M/ L 4.63-6.08 HEMOGLOBIN (BEAKER) (test fqhi=686) 12.2 GM/DL 13.7-17.5 HEMATOCRIT (BEAKER) (test qfym=041) 38.3 % 40.1-51.0 MEAN CORPUSCULAR VOLUME (BEAKER) (test ueba=861) 101.9 fL 79.0-92.2 MEAN CORPUSCULAR HEMOGLOBIN (BEAKER) (test gczs=401) 32.4 pg 25.7-32.2 MEAN CORPUSCULAR HEMOGLOBIN CONC (BEAKER) (test nqbd=637) 31.9 GM/DL 32.3- 36.5 RED CELL DISTRIBUTION WIDTH (BEAKER) (test mkjj=389) 11.9 % 11.6-14.4 PLATELET COUNT (BEAKER) (test nqaf=669) 275 K/CU MM 150-450 MEAN PLATELET VOLUME (BEAKER) (test qazp=397) 11.0 fL 9.4-12.4 NUCLEATED RED BLOOD CELLS (BEAKER) (test ispf=519) 0 /100 WBC 0-0 (CELLAVISION MANUAL DIFF)2018-08-14 11:36:00 Test Item Value Reference Range Comments NEUTROPHILS - REL (CELLAVISION)(BEAKER) (test 73 % oafz=3066) LYMPHOCYTES - REL (CELLAVISION)(BEAKER) (test 9 % wzzg=6963) MONOCYTES - REL (CELLAVISION)(BEAKER) (test 9 % kide=7352) EOSINOPHILS - REL (CELLAVISION)(BEAKER) (test 2 % barz=9453) METAMYELOCYTES - REL (CELLAVISION)(BEAKER) (test 1 % 0-0 kffl=8665) BANDS - REL (CELLAVISION)(BEAKER) (test 5 % 0-10 xfax=0527) ATYPICAL LYMPHOCYTES - REL (CELLAVISION)(BEAKER) 1 % 0-0 (test kbqs=9498) NEUTROPHILS - ABS (CELLAVISION)(BEAKER) (test 8.18 K/ul 1.78-5.38 cydw=0862) LYMPHOCYTES - ABS (CELLAVISION)(BEAKER) (test 1.01 K/ul 1.32-3.57 yzfu=2866) MONOCYTES - ABS (CELLAVISION)(BEAKER) (test 1.01 K/uL 0.30-0.82 vowb=4026) EOSINOPHILS - ABS (CELLAVISION)(BEAKER) (test 0.22 K/uL 0.04-0.54 nasp=5176) METAMYELOCYTES - ABS (CELLAVISION)(BEAKER) (test 0.11 K/uL 0.00-0.00 aupm=8812) BANDS - ABS (CELLAVISION)(BEAKER) (test 0.56 K/uL 0.00-0.80 cymi=4882) ATYPICAL LYMPHOCYTES - ABS (CELLAVISION)(BEAKER) 0.11 K/uL 0.00-0.00 (test qire=1119) TOTAL COUNTED (BEAKER) (test cenr=7739) 100 SMUDGE CELLS (BEAKER) (test dqmx=3115) Present GIANT PLATELETS (BEAKER) (test szle=770) Present POLYCHROMATOPHILLIC RBCS(BEAKER) (test lpkj=674) 1+ few ANISOCYTOSIS (BEAKER) (test aqdu=218) 1+ few POIKILOCYTES (BEAKER) (test aiec=212) 2+ moderate CARLOS CELLS (BEAKER) (test eodm=989) 1+ few PLATELET CONCENTRATION (CELLAVISION)(BEAKER) Adequate (test zbhm=9109) Received comment: User comments: Slide comments:BASIC METABOLIC [id number] 06:11:00 Test Item Value Reference Range Comments SODIUM (BEAKER) (test 133 meq/L 136-145 ubbx=163) POTASSIUM (BEAKER) (test 3.9 meq/L 3.5-5.1 mhqh=300) CHLORIDE (BEAKER) (test 100 meq/L 98-107 nlfq=044) CO2 (BEAKER) (test 26 meq/L 22-29 olaf=513) BLOOD UREA NITROGEN 17 mg/dL 7-21 (BEAKER) (test fvea=331) CREATININE (BEAKER) (test 0.84 mg/dL 0.57-1.25 ywgt=556) GLUCOSE RANDOM (BEAKER) 111 mg/dL 70-105 (test dimj=050) CALCIUM (BEAKER) (test 8.6 mg/dL 8.4-10.2 cxjc=223) EGFR (BEAKER) (test 89 mL/min/1.73 sq m ESTIMATED GFR IS NOT kamd=0847) ACCURATE CREATININE CLEARANCE IN PREDICTING GLOMERULAR FILTRATION RATE. ESTIMATED GFR IS NOT APPLICABLE FOR DIALYSIS PATIENTS. BASIC METABOLIC [id number] 05:32:00 Test Item Value Reference Range Comments SODIUM (BEAKER) (test 136 meq/L 136-145 etyg=296) POTASSIUM (BEAKER) (test 4.1 meq/L 3.5-5.1 guwb=892) CHLORIDE (BEAKER) (test 104 meq/L 98-107 gzpn=906) CO2 (BEAKER) (test 22 meq/L 22-29 hbqb=654) BLOOD UREA NITROGEN 15 mg/dL 7-21 (BEAKER) (test dphr=340) CREATININE (BEAKER) (test 0.84 mg/dL 0.57-1.25 wtpw=405) GLUCOSE RANDOM (BEAKER) 108 mg/dL 70-105 (test oknk=620) CALCIUM (BEAKER) (test 8.8 mg/dL 8.4-10.2 gfxi=946) EGFR (BEAKER) (test 89 mL/min/1.73 sq m ESTIMATED GFR IS NOT rdhn=0048) ACCURATE CREATININE CLEARANCE IN PREDICTING GLOMERULAR FILTRATION RATE. ESTIMATED GFR IS NOT APPLICABLE FOR DIALYSIS PATIENTS. CBC W/PLT COUNT & AUTO [id number] 05:12:00 Test Item Value Reference Range Comments WHITE BLOOD CELL COUNT (BEAKER) (test tmsa=489) 12.0 K/ L 3.5-10.5 RED BLOOD CELL COUNT (BEAKER) (test scny=065) 3.66 M/ L 4.63-6.08 HEMOGLOBIN (BEAKER) (test cogg=820) 11.8 GM/DL 13.7-17.5 HEMATOCRIT (BEAKER) (test nsbl=240) 37.3 % 40.1-51.0 MEAN CORPUSCULAR VOLUME (BEAKER) (test zegc=787) 101.9 fL 79.0-92.2 MEAN CORPUSCULAR HEMOGLOBIN (BEAKER) (test 32.2 pg 25.7-32.2 jklo=651) MEAN CORPUSCULAR HEMOGLOBIN CONC (BEAKER) (test 31.6 GM/DL 32.3-36.5 xkyk=456) RED CELL DISTRIBUTION WIDTH (BEAKER) (test 11.8 % 11.6-14.4 wups=163) PLATELET COUNT (BEAKER) (test revv=474) 254 K/CU MM 150-450 MEAN PLATELET VOLUME (BEAKER) (test mvei=523) 11.6 fL 9.4-12.4 NUCLEATED RED BLOOD CELLS (BEAKER) (test 0 /100 WBC 0-0 wquk=218) NEUTROPHILS RELATIVE PERCENT (BEAKER) (test 69 % sttm=642) LYMPHOCYTES RELATIVE PERCENT (BEAKER) (test 14 % dlxq=143) MONOCYTES RELATIVE PERCENT (BEAKER) (test 10 % eqzm=269) EOSINOPHILS RELATIVE PERCENT (BEAKER) (test 1 % ceqp=725) BASOPHILS RELATIVE PERCENT (BEAKER) (test 1 % naqf=248) NEUTROPHILS ABSOLUTE COUNT (BEAKER) (test 8.32 K/ L 1.78-5.38 qncr=308) LYMPHOCYTES ABSOLUTE COUNT (BEAKER) (test 1.68 K/ L 1.32-3.57 wyes=723) MONOCYTES ABSOLUTE COUNT (BEAKER) (test 1.21 K/ L 0.30-0.82 xqww=788) EOSINOPHILS ABSOLUTE COUNT (BEAKER) (test 0.16 K/ L 0.04-0.54 xddz=511) BASOPHILS ABSOLUTE COUNT (BEAKER) (test 0.15 K/ L 0.01-0.08 rjkf=515) IMMATURE GRANULOCYTES-RELATIVE PERCENT (BEAKER) 4 % 0-1 (test vgjt=0735) RAD, CHEST, 1 VIEW, NON [id number] 15:59:00Reason for exam:->SOBShould this be performed at [...] spine changes are noted. Signed: Chantale Hernandez MDReport Verified Date/Time: 08/12/2018 15: 59:35 Reading Location: [address] Transitional Reading Room PROTEIN ELECTROPHORESIS, [id number] 13:04:00 Test Item Value Reference Range Comments ALBUMIN FRACTION (BEAKER) 2.6 g/dL 3.5-5.5 (test wjro=279) ALPHA 1 FRACTION (BEAKER) 0.4 g/dL 0.2-0.4 (test txaq=271) ALPHA 2 FRACTION (BEAKER) 1.0 g/dL 0.5-0.9 (test elyl=055) BETA FRACTION (BEAKER) (test 1.0 g/dL 0.6-1.1 agej=373) GAMMA GLOBULIN FRACTION 1.0 g/dL 0.7-1.7 (BEAKER) (test qrpj=055) INTERPRETATION-119 (BEAKER) Pattern consistent with acute (test pssl=0709) inflammatory process. No monoclonal bands detected. [id number] Bette Cage MD (BEAKER) (test ezqj=2147) (electronic signature) PROTEIN TOTAL SERUM, SPEP 6.1 gm/dL 6.0-8.3 (BEAKER) (test zjza=8948) THANG, CAROTID STENT W [id number] 12:14:00Reason for exam:->right carotid stenosisFINAL REPORT DATE OF PROCEDURE: 08/11/18 SURGEON: Chaz France MD HOME COMFORT ADVISOR: Leta Barreto MD PREOPERATIVE DIAGNOSIS: Transient ischemic [...] puncture the right femoral artery. A 5 Georgian short sheath was then passed over an angled glide catheter. Using coaxial technique, a 5 Georgian [place] 2 catheter was advanced into the [...] exchanged in the descendingaorta for a 6F [employer] shuttle sheath. At this point, the patient [...] No immediate technical or clinical complications. Signed: Jose, Peter MDReport Verified Date/Time: 08/12/2018 12:14:40 Reading Location: [facility] Y026 Neuro Angio Reading Room NV, ANGIOGRAM, [id number] 09:29:00Reason for exam:-& gt;carotid stenosisFINAL REPORT DATE OF PROCEDURE: 2017 SURGEON: Chaz France M.D. HOME COMFORT ADVISOR: Leta Barrteo MD PREOPERATIVE DIAGNOSIS: carotid stenosis POST OPERATIVE [...] MDReport Verified Date/Time: 08/12/2018 09:29:38 Reading Location: [facility] Y026 Neuro Angio Reading Room [id number] 07:30:00 Test Item Value Reference Range Comments ACTIVATED CLOTTING TIME [address] [facility] [address] (BEAKER) (test qdus=136) [facility] [address] BASIC METABOLIC [id number] 04:36:00 Test Item Value Reference Range Comments SODIUM (BEAKER) (test 134 meq/L 136-145 icfo=542) POTASSIUM (BEAKER) (test 4.0 meq/L 3.5-5.1 uwom=001) CHLORIDE (BEAKER) (test 102 meq/L 98-107 bkdk=912) CO2 (BEAKER) (test 24 meq/L 22-29 eutp=330) BLOOD UREA NITROGEN 18 mg/dL 7-21 (BEAKER) (test wopm=323) CREATININE (BEAKER) (test 0.84 mg/dL 0.57-1.25 bisp=808) GLUCOSE RANDOM (BEAKER) 108 mg/dL 70-105 (test rgxu=347) CALCIUM (BEAKER) (test 9.0 mg/dL 8.4-10.2 zwhp=829) EGFR (BEAKER) (test 89 mL/min/1.73 sq m ESTIMATED GFR IS NOT csjq=0782) ACCURATE CREATININE CLEARANCE IN PREDICTING GLOMERULAR FILTRATION RATE. ESTIMATED GFR IS NOT APPLICABLE FOR DIALYSIS PATIENTS. CBC W/PLT COUNT & AUTO [id number] 04:14:00 Test Item Value Reference Range Comments WHITE BLOOD CELL COUNT (BEAKER) (test fhvq=424) 11.1 K/ L 3.5-10.5 RED BLOOD CELL COUNT (BEAKER) (test nlzw=505) 3.69 M/ L 4.63-6.08 HEMOGLOBIN (BEAKER) (test qcba=356) 11.9 GM/DL 13.7-17.5 HEMATOCRIT (BEAKER) (test fals=989) 36.8 % 40.1-51.0 MEAN CORPUSCULAR VOLUME (BEAKER) (test xzhd=916) 99.7 fL 79.0-92.2 MEAN CORPUSCULAR HEMOGLOBIN (BEAKER) (test 32.2 pg 25.7-32.2 frzi=437) MEAN CORPUSCULAR HEMOGLOBIN CONC (BEAKER) (test 32.3 GM/DL 32.3-36.5 sdvt=633) RED CELL DISTRIBUTION WIDTH (BEAKER) (test 11.9 % 11.6-14.4 qacy=540) PLATELET COUNT (BEAKER) (test aacp=747) 279 K/CU MM 150-450 MEAN PLATELET VOLUME (BEAKER) (test ikau=908) 11.4 fL 9.4-12.4 NUCLEATED RED BLOOD CELLS (BEAKER) (test 0 /100 WBC 0-0 bqad=122) NEUTROPHILS RELATIVE PERCENT (BEAKER) (test 74 % jdjj=300) LYMPHOCYTES RELATIVE PERCENT (BEAKER) (test 12 % fage=857) MONOCYTES RELATIVE PERCENT (BEAKER) (test 9 % gjoy=612) EOSINOPHILS RELATIVE PERCENT (BEAKER) (test 1 % ooho=623) BASOPHILS RELATIVE PERCENT (BEAKER) (test 1 % kksm=444) NEUTROPHILS ABSOLUTE COUNT (BEAKER) (test 8.23 K/ L 1.78-5.38 finv=670) LYMPHOCYTES ABSOLUTE COUNT (BEAKER) (test 1.33 K/ L 1.32-3.57 nnzb=372) MONOCYTES ABSOLUTE COUNT (BEAKER) (test 1.05 K/ L 0.30-0.82 fdoq=383) EOSINOPHILS ABSOLUTE COUNT (BEAKER) (test 0.12 K/ L 0.04-0.54 dueq=642) BASOPHILS ABSOLUTE COUNT (BEAKER) (test 0.09 K/ L 0.01-0.08 lidm=826) IMMATURE GRANULOCYTES-RELATIVE PERCENT (BEAKER) 3 % 0-1 (test pdxq=7995) BLOOD [id number] 18:00:00 Test Item Value Reference Range Comments CULTURE (BEAKER) (test zdsd=2688) No growth in 5 days BLOOD [id number] 18:00:00 Test Item Value Reference Range Comments CULTURE (BEAKER) (test qtcc=6819) No growth in 5 days POCT-P2Y12 PLATELET [id number] 13:28:00 Test Item Value Reference Range Comments POC-P2Y12 PLATELET AGG (BEAKER) (test xyjx=4929) 51 PRU RANGE INFORMATION: PRU reference range is 194-418. Post Drug Results: Lower PRU levels are associated with expected antiplatelet effect. Values may be below the stated reference range above. The post-drug PRU values reported in the [employer] P2Y12 package insert are [id number] 13:21:00 Test Item Value Reference Range Comments PROTIME (BEAKER) (test bucm=114) 16.1 seconds 11.7-14.7 INR (BEAKER) (test bzfr=933) 1.3 <=5.9 PARTIAL THROMBOPLASTIN TIME (BEAKER) (test 40.0 seconds 22.5-36.0 nobc=999) RECOMMENDED COUMADIN/WARFARIN INR THERAPY RANGESSTANDARD DOSE: 2.0 - 3.0 Includes: PROPHYLAXIS forvenous thrombosis, systemic embolization; TREATMENT for venous thrombosis and/or pulmonary embolus.HIGH RISK: Target INR is 2.5-3.5 for patients with mechanical heart valves.POCT-P2Y12 PLATELET [id number] 07:23:00 Test Item Value Reference Range Comments POC-P2Y12 PLATELET AGG (BEAKER) (test dukj=1044) 216 PRU RANGE INFORMATION: PRU reference range is 194-418. Post Drug Results: Lower PRU levels are associated with expected antiplatelet effect. Values may be below the stated reference range above. The post-drug PRU values reported in the [employer] P2Y12 package insert are [id number].POCT-ASPIRIN PLATELET [id number] 07:23:00 Test Item Value Reference Range Comments POC-ASPIRIN PLATELET AGG (BEAKER) (test uhxs=7190) 408 ARU RANGE INFORMATION: 350-549 ARU Therapeutic range for platelet function. 550-700 ARU Non-Therapeutic range for platelet function.BASIC METABOLIC [id number] 07:15:00 Test Item Value Reference Range Comments SODIUM (BEAKER) (test 136 meq/L 136-145 rfiu=814) POTASSIUM (BEAKER) (test 4.6 meq/L 3.5-5.1 nolp=114) CHLORIDE (BEAKER) (test 101 meq/L 98-107 dqyo=964) CO2 (BEAKER) (test 27 meq/L 22-29 gerg=945) BLOOD UREA NITROGEN 15 mg/dL 7-21 (BEAKER) (test uvwz=324) CREATININE (BEAKER) (test 0.82 mg/dL 0.57-1.25 ficy=116) GLUCOSE RANDOM (BEAKER) 106 mg/dL 70-105 (test xaet=384) CALCIUM (BEAKER) (test 8.8 mg/dL 8.4-10.2 iujg=129) EGFR (BEAKER) (test 92 mL/min/1.73 sq m ESTIMATED GFR IS NOT woss=7145) ACCURATE CREATININE CLEARANCE IN PREDICTING GLOMERULAR FILTRATION RATE. ESTIMATED GFR IS NOT APPLICABLE FOR DIALYSIS PATIENTS. CBC W/PLT COUNT & AUTO [id number] 06:54:00 Test Item Value Reference Range Comments WHITE BLOOD CELL COUNT (BEAKER) (test kkjx=674) 12.4 K/ L 3.5-10.5 RED BLOOD CELL COUNT (BEAKER) (test shyc=023) 3.54 M/ L 4.63-6.08 HEMOGLOBIN (BEAKER) (test bdqc=590) 11.4 GM/DL 13.7-17.5 HEMATOCRIT (BEAKER) (test poqs=417) 35.6 % 40.1-51.0 MEAN CORPUSCULAR VOLUME (BEAKER) (test mnhc=777) 100.6 fL 79.0-92.2 MEAN CORPUSCULAR HEMOGLOBIN (BEAKER) (test 32.2 pg 25.7-32.2 dvvf=301) MEAN CORPUSCULAR HEMOGLOBIN CONC (BEAKER) (test 32.0 GM/DL 32.3-36.5 iiqb=644) RED CELL DISTRIBUTION WIDTH (BEAKER) (test 11.9 % 11.6-14.4 bfgt=202) PLATELET COUNT (BEAKER) (test jdnj=250) 271 K/CU MM 150-450 MEAN PLATELET VOLUME (BEAKER) (test bczl=780) 11.2 fL 9.4-12.4 NUCLEATED RED BLOOD CELLS (BEAKER) (test 0 /100 WBC 0-0 ssxt=911) NEUTROPHILS RELATIVE PERCENT (BEAKER) (test 79 % bsvg=378) LYMPHOCYTES RELATIVE PERCENT (BEAKER) (test 10 % okpq=120) MONOCYTES RELATIVE PERCENT (BEAKER) (test 8 % ixlo=625) EOSINOPHILS RELATIVE PERCENT (BEAKER) (test 1 % vwwm=364) BASOPHILS RELATIVE PERCENT (BEAKER) (test 1 % ojvq=149) NEUTROPHILS ABSOLUTE COUNT (BEAKER) (test 9.79 K/ L 1.78-5.38 wawy=217) LYMPHOCYTES ABSOLUTE COUNT (BEAKER) (test 1.23 K/ L 1.32-3.57 govf=833) MONOCYTES ABSOLUTE COUNT (BEAKER) (test 0.99 K/ L 0.30-0.82 bvip=689) EOSINOPHILS ABSOLUTE COUNT (BEAKER) (test 0.10 K/ L 0.04-0.54 ellm=865) BASOPHILS ABSOLUTE COUNT (BEAKER) (test 0.06 K/ L 0.01-0.08 anqy=605) IMMATURE GRANULOCYTES-RELATIVE PERCENT (BEAKER) 2 % 0-1 (test ozxl=0789) CBC (HEMOGRAM ONLY)2018-08-11 06:52:00 Test Item Value Reference Range Comments WHITE BLOOD CELL COUNT (BEAKER) (test udph=342) 12.4 K/ L 3.5-10.5 RED BLOOD CELL COUNT (BEAKER) (test ufii=247) 3.54 M/ L 4.63-6.08 HEMOGLOBIN (BEAKER) (test pfvc=699) 11.4 GM/DL 13.7-17.5 HEMATOCRIT (BEAKER) (test onkh=490) 35.6 % 40.1-51.0 MEAN CORPUSCULAR VOLUME (BEAKER) (test bbqz=469) 100.6 fL 79.0-92.2 MEAN CORPUSCULAR HEMOGLOBIN (BEAKER) (test 32.2 pg 25.7-32.2 wazj=723) MEAN CORPUSCULAR HEMOGLOBIN CONC (BEAKER) (test 32.0 GM/DL 32.3-36.5 ngsg=909) RED CELL DISTRIBUTION WIDTH (BEAKER) (test 11.9 % 11.6-14.4 yevy=795) PLATELET COUNT (BEAKER) (test kxas=246) 271 K/CU MM 150-450 MEAN PLATELET VOLUME (BEAKER) (test rnmk=907) 11.2 fL 9.4-12.4 NUCLEATED RED BLOOD CELLS (BEAKER) (test 0 /100 WBC 0-0 ihgd=640) THANG, CAROTID STENT W [id number] 14:30:00Reason for exam:->carotid stenosis, rightKanFINAL REPORT DATE OF PROCEDURE: 2017 SURGEON: Chaz France M.D. HOME COMFORT ADVISOR: Leta Barreto MD PREOPERATIVE DIAGNOSIS: carotid stenosis [...] clinical complications. Signed: Chaz France Verified Date/Time: 08/10/2018 14:30:38 [facility] ANTI-NUCLEAR ANTIBODY (MANINDER)2018-08-10 10:29:00 Test Item Value Reference Range Comments ANTI-NUCLEAR ANTIBODY (MANINDER) (BEAKER) (test Positive Negative anap=980) Test performed by IFA method.MANINDER TITER AND [id number] 10:29:00 Test Item Value Reference Range Comments MANINDER TITER (BEAKER) (test qrda=1217) :160 MANINDER PATTERN (BEAKER) (test hvyc=2538) Speckled BASIC METABOLIC [id number] 07:36:00 Test Item Value Reference Range Comments SODIUM (BEAKER) (test 137 meq/L 136-145 qhyn=690) POTASSIUM (BEAKER) (test 4.4 meq/L 3.5-5.1 hfnb=690) CHLORIDE (BEAKER) (test 102 meq/L 98-107 aadp=593) CO2 (BEAKER) (test 31 meq/L 22-29 jizk=597) BLOOD UREA NITROGEN 11 mg/dL 7-21 (BEAKER) (test wmrx=028) CREATININE (BEAKER) (test 0.82 mg/dL 0.57-1.25 ztne=325) GLUCOSE RANDOM (BEAKER) 109 mg/dL 70-105 (test yjiu=696) CALCIUM (BEAKER) (test 9.0 mg/dL 8.4-10.2 gozs=235) EGFR (BEAKER) (test 92 mL/min/1.73 sq m ESTIMATED GFR IS NOT ejzo=4394) ACCURATE CREATININE CLEARANCE IN PREDICTING GLOMERULAR FILTRATION RATE. ESTIMATED GFR IS NOT APPLICABLE FOR DIALYSIS PATIENTS. [id number] 06:53:00 Test Item Value Reference Range Comments PARTIAL THROMBOPLASTIN TIME (BEAKER) (test 38.3 seconds 22.5-36.0 coln=174) CBC W/PLT COUNT & AUTO [id number] 06:42:00 Test Item Value Reference Range Comments WHITE BLOOD CELL COUNT (BEAKER) (test kwns=997) 12.8 K/ L 3.5-10.5 RED BLOOD CELL COUNT (BEAKER) (test lrch=591) 3.63 M/ L 4.63-6.08 HEMOGLOBIN (BEAKER) (test mfsy=383) 11.9 GM/DL 13.7-17.5 HEMATOCRIT (BEAKER) (test fikw=469) 36.3 % 40.1-51.0 MEAN CORPUSCULAR VOLUME (BEAKER) (test qred=416) 100.0 fL 79.0-92.2 MEAN CORPUSCULAR HEMOGLOBIN (BEAKER) (test 32.8 pg 25.7-32.2 yqlh=307) MEAN CORPUSCULAR HEMOGLOBIN CONC (BEAKER) (test 32.8 GM/DL 32.3-36.5 uyfs=494) RED CELL DISTRIBUTION WIDTH (BEAKER) (test 11.9 % 11.6-14.4 fjwk=492) PLATELET COUNT (BEAKER) (test qynm=212) 282 K/CU MM 150-450 MEAN PLATELET VOLUME (BEAKER) (test twvx=127) 12.0 fL 9.4-12.4 NUCLEATED RED BLOOD CELLS (BEAKER) (test 0 /100 WBC 0-0 wpoj=758) NEUTROPHILS RELATIVE PERCENT (BEAKER) (test 79 % uqnq=861) LYMPHOCYTES RELATIVE PERCENT (BEAKER) (test 11 % mahe=273) MONOCYTES RELATIVE PERCENT (BEAKER) (test 8 % srnl=037) EOSINOPHILS RELATIVE PERCENT (BEAKER) (test 1 % zvqq=418) BASOPHILS RELATIVE PERCENT (BEAKER) (test 1 % vwxk=851) NEUTROPHILS ABSOLUTE COUNT (BEAKER) (test 10.06 K/ L 1.78-5.38 jifw=689) LYMPHOCYTES ABSOLUTE COUNT (BEAKER) (test 1.39 K/ L 1.32-3.57 jfaa=484) MONOCYTES ABSOLUTE COUNT (BEAKER) (test 0.99 K/ L 0.30-0.82 qvmv=720) EOSINOPHILS ABSOLUTE COUNT (BEAKER) (test 0.09 K/ L 0.04-0.54 axvb=624) BASOPHILS ABSOLUTE COUNT (BEAKER) (test 0.08 K/ L 0.01-0.08 ucmj=580) IMMATURE GRANULOCYTES-RELATIVE PERCENT (BEAKER) 1 % 0-1 (test ifdu=4630) [id number] 04:26:00 Test Item Value Reference Range Comments RPR SCREEN (BEAKER) (test zrth=365) Nonreactive Nonreactive [id number] 22:40:00 Test Item Value Reference Range Comments PARTIAL THROMBOPLASTIN TIME (BEAKER) (test 48.7 seconds 22.5-36.0 auhu=192) EOSINOPHIL SMEAR, [id number] 14:32:00 Test Item Value Reference Range Comments EOSINOPHIL SMEAR, URINE (BEAKER) (test No EOS seen No EOS seen szwd=7849) PROTEIN, RANDOM [id number] 13:14:00 Test Item Value Reference Range Comments PROTEIN, URINE (BEAKER) (test ayaw=1699) < mg/dL 0-14 CREATININE, RANDOM [id number] 13:12:00 Test Item Value Reference Range Comments CREATININE URINE (BEAKER) (test pygo=082) 18.9 mg/dL Reference Range: No NormalsSODIUM, RANDOM [id number] 13:12:00 Test Item Value Reference Range Comments SODIUM URINE (BEAKER) (test kswz=402) 74 meq/L Reference Range: No NormalsURINALYSIS W/ [id number] 13:00:00 Test Item Value Reference Range Comments COLOR (BEAKER) (test xdyt=567) Light Yellow CLARITY (BEAKER) (test fkdg=093) Clear SPECIFIC GRAVITY UA (BEAKER) (test xpqu=610) 1.003 1.001-1.035 PH UA (BEAKER) (test pwhr=229) 6.5 5.0-8.0 PROTEIN UA (BEAKER) (test lzqb=785) Negative Negative GLUCOSE UA (BEAKER) (test shhu=542) Negative Negative KETONES UA (BEAKER) (test gecn=796) Negative Negative BILIRUBIN UA (BEAKER) (test tcac=007) Negative Negative BLOOD UA (BEAKER) (test zgit=118) Small Negative NITRITE UA (BEAKER) (test sfzd=248) Negative Negative LEUKOCYTE ESTERASE UA (BEAKER) (test lgdk=879) Negative Negative UROBILINOGEN UA (BEAKER) (test eolg=512) 0.2 mg/dL 0.2-1.0 RBC UA (BEAKER) (test wbzb=044) 0 /HPF WBC UA (BEAKER) (test jgio=977) 0 /HPF SOURCE(BEAKER) (test givp=3099) Urine, Voided [id number] 12:33:00 Test Item Value Reference Range Comments PARTIAL THROMBOPLASTIN TIME (BEAKER) (test 47.0 seconds 22.5-36.0 oxzu=980) TSH/FREE T4 IF [id number] 06:11:00 Test Item Value Reference Range Comments THYROID STIMULATING HORMONE (BEAKER) (test 0.87 uIU/mL 0.35-4.94 ljoh=813) [id number] 05:36:00 Test Item Value Reference Range Comments POTASSIUM (BEAKER) (test cxhl=945) 4.1 meq/L 3.5-5.1 BUN AND [id number] 05:36:00 Test Item Value Reference Range Comments BLOOD UREA NITROGEN 13 mg/dL 7-21 (BEAKER) (test mbav=800) CREATININE (BEAKER) (test 0.77 mg/dL 0.57-1.25 qecr=759) EGFR (BEAKER) (test 99 mL/min/1.73 sq m ESTIMATED GFR IS NOT pexp=8519) ACCURATE CREATININE CLEARANCE IN PREDICTING GLOMERULAR FILTRATION RATE. ESTIMATED GFR IS NOT APPLICABLE FOR DIALYSIS PATIENTS. BASIC METABOLIC [id number] 05:36:00 Test Item Value Reference Range Comments SODIUM (BEAKER) (test 139 meq/L 136-145 smgi=809) POTASSIUM (BEAKER) (test 4.1 meq/L 3.5-5.1 ggml=357) CHLORIDE (BEAKER) (test 104 meq/L 98-107 jllf=953) CO2 (BEAKER) (test 28 meq/L 22-29 lohf=237) BLOOD UREA NITROGEN 13 mg/dL 7-21 (BEAKER) (test ejas=453) CREATININE (BEAKER) (test 0.77 mg/dL 0.57-1.25 oeui=938) GLUCOSE RANDOM (BEAKER) 96 mg/dL 70-105 (test rsgz=059) CALCIUM (BEAKER) (test 9.0 mg/dL 8.4-10.2 zlfc=933) EGFR (BEAKER) (test 99 mL/min/1.73 sq m ESTIMATED GFR IS NOT gysf=6285) ACCURATE CREATININE CLEARANCE IN PREDICTING GLOMERULAR FILTRATION RATE. ESTIMATED GFR IS NOT APPLICABLE FOR DIALYSIS PATIENTS. [id number] 04:35:00 Test Item Value Reference Range Comments PARTIAL THROMBOPLASTIN TIME (BEAKER) (test 37.5 seconds 22.5-36.0 hdqu=126) CBC W/PLT COUNT & AUTO [id number] 04:17:00 Test Item Value Reference Range Comments WHITE BLOOD CELL COUNT (BEAKER) (test ryzw=218) 11.0 K/ L 3.5-10.5 RED BLOOD CELL COUNT (BEAKER) (test zqne=692) 3.45 M/ L 4.63-6.08 HEMOGLOBIN (BEAKER) (test zswa=606) 11.0 GM/DL 13.7-17.5 HEMATOCRIT (BEAKER) (test dzza=067) 34.7 % 40.1-51.0 MEAN CORPUSCULAR VOLUME (BEAKER) (test eimb=855) 100.6 fL 79.0-92.2 MEAN CORPUSCULAR HEMOGLOBIN (BEAKER) (test 31.9 pg 25.7-32.2 akzi=256) MEAN CORPUSCULAR HEMOGLOBIN CONC (BEAKER) (test 31.7 GM/DL 32.3-36.5 uazs=122) RED CELL DISTRIBUTION WIDTH (BEAKER) (test 12.0 % 11.6-14.4 naac=509) PLATELET COUNT (BEAKER) (test itcq=705) 236 K/CU MM 150-450 MEAN PLATELET VOLUME (BEAKER) (test fkme=124) 12.0 fL 9.4-12.4 NUCLEATED RED BLOOD CELLS (BEAKER) (test 0 /100 WBC 0-0 nmvn=665) NEUTROPHILS RELATIVE PERCENT (BEAKER) (test 77 % hfvn=604) LYMPHOCYTES RELATIVE PERCENT (BEAKER) (test 12 % thlg=525) MONOCYTES RELATIVE PERCENT (BEAKER) (test 9 % hzdk=678) EOSINOPHILS RELATIVE PERCENT (BEAKER) (test 1 % yuxs=978) BASOPHILS RELATIVE PERCENT (BEAKER) (test 1 % tacp=523) NEUTROPHILS ABSOLUTE COUNT (BEAKER) (test 8.44 K/ L 1.78-5.38 scpu=119) LYMPHOCYTES ABSOLUTE COUNT (BEAKER) (test 1.35 K/ L 1.32-3.57 varf=299) MONOCYTES ABSOLUTE COUNT (BEAKER) (test 0.96 K/ L 0.30-0.82 uwjd=392) EOSINOPHILS ABSOLUTE COUNT (BEAKER) (test 0.05 K/ L 0.04-0.54 rbyq=581) BASOPHILS ABSOLUTE COUNT (BEAKER) (test 0.06 K/ L 0.01-0.08 axmc=101) IMMATURE GRANULOCYTES-RELATIVE PERCENT (BEAKER) 1 % 0-1 (test hxao=4503) CBC (HEMOGRAM ONLY)2018-08-09 04:13:00 Test Item Value Reference Range Comments WHITE BLOOD CELL COUNT (BEAKER) (test qrfj=890) 11.0 K/ L 3.5-10.5 RED BLOOD CELL COUNT (BEAKER) (test elql=683) 3.45 M/ L 4.63-6.08 HEMOGLOBIN (BEAKER) (test ohzo=080) 11.0 GM/DL 13.7-17.5 HEMATOCRIT (BEAKER) (test wvoq=841) 34.7 % 40.1-51.0 MEAN CORPUSCULAR VOLUME (BEAKER) (test yycm=814) 100.6 fL 79.0-92.2 MEAN CORPUSCULAR HEMOGLOBIN (BEAKER) (test 31.9 pg 25.7-32.2 sval=472) MEAN CORPUSCULAR HEMOGLOBIN CONC (BEAKER) (test 31.7 GM/DL 32.3-36.5 sesv=808) RED CELL DISTRIBUTION WIDTH (BEAKER) (test 12.0 % 11.6-14.4 uzbk=847) PLATELET COUNT (BEAKER) (test tfbd=407) 236 K/CU MM 150-450 MEAN PLATELET VOLUME (BEAKER) (test duea=479) 12.0 fL 9.4-12.4 NUCLEATED RED BLOOD CELLS (BEAKER) (test 0 /100 WBC 0-0 lkso=391) [id number] 17:06:00 Test Item Value Reference Range Comments PARTIAL THROMBOPLASTIN TIME (BEAKER) (test 41.3 seconds 22.5-36.0 lirg=930) Prior to initiating heparinPLATELET [id number] 16:40:00 Test Item Value Reference Range Comments PLATELET COUNT (BEAKER) (test wjsb=351) 234 K/CU MM 150-450 [id number] 14:14:00 Test Item Value Reference Range Comments MAGNESIUM (BEAKER) (test ipof=818) 2.2 mg/dL 1.6-2.6 BASIC METABOLIC [id number] 07:16:00 Test Item Value Reference Range Comments SODIUM (BEAKER) (test 134 meq/L 136-145 tlqn=023) POTASSIUM (BEAKER) (test 4.4 meq/L 3.5-5.1 tuco=556) CHLORIDE (BEAKER) (test 101 meq/L 98-107 oxqu=526) CO2 (BEAKER) (test 28 meq/L 22-29 bkpa=885) BLOOD UREA NITROGEN 18 mg/dL 7-21 (BEAKER) (test flti=540) CREATININE (BEAKER) (test 0.77 mg/dL 0.57-1.25 gupm=680) GLUCOSE RANDOM (BEAKER) 110 mg/dL 70-105 (test fhdy=887) CALCIUM (BEAKER) (test 8.9 mg/dL 8.4-10.2 ibib=978) EGFR (BEAKER) (test 99 mL/min/1.73 sq m ESTIMATED GFR IS NOT enft=0196) ACCURATE CREATININE CLEARANCE IN PREDICTING GLOMERULAR FILTRATION RATE. ESTIMATED GFR IS NOT APPLICABLE FOR DIALYSIS PATIENTS. CBC W/PLT COUNT & AUTO [id number] 07:07:00 Test Item Value Reference Range Comments WHITE BLOOD CELL COUNT (BEAKER) (test hbqk=722) 11.8 K/ L 3.5-10.5 RED BLOOD CELL COUNT (BEAKER) (test uduk=150) 3.51 M/ L 4.63-6.08 HEMOGLOBIN (BEAKER) (test fphw=699) 11.5 GM/DL 13.7-17.5 HEMATOCRIT (BEAKER) (test yadp=288) 35.0 % 40.1-51.0 MEAN CORPUSCULAR VOLUME (BEAKER) (test jzny=975) 99.7 fL 79.0-92.2 MEAN CORPUSCULAR HEMOGLOBIN (BEAKER) (test 32.8 pg 25.7-32.2 mlmt=965) MEAN CORPUSCULAR HEMOGLOBIN CONC (BEAKER) (test 32.9 GM/DL 32.3-36.5 kjfl=473) RED CELL DISTRIBUTION WIDTH (BEAKER) (test 12.0 % 11.6-14.4 smph=330) PLATELET COUNT (BEAKER) (test kbxp=229) 224 K/CU MM 150-450 MEAN PLATELET VOLUME (BEAKER) (test upsm=491) 11.4 fL 9.4-12.4 NUCLEATED RED BLOOD CELLS (BEAKER) (test 0 /100 WBC 0-0 nqnj=635) NEUTROPHILS RELATIVE PERCENT (BEAKER) (test 82 % yojo=796) LYMPHOCYTES RELATIVE PERCENT (BEAKER) (test 9 % uqaf=220) MONOCYTES RELATIVE PERCENT (BEAKER) (test 8 % stol=547) EOSINOPHILS RELATIVE PERCENT (BEAKER) (test 0 % wxjh=692) BASOPHILS RELATIVE PERCENT (BEAKER) (test 0 % mztx=187) NEUTROPHILS ABSOLUTE COUNT (BEAKER) (test 9.69 K/ L 1.78-5.38 ozyd=416) LYMPHOCYTES ABSOLUTE COUNT (BEAKER) (test 1.01 K/ L 1.32-3.57 evlr=470) MONOCYTES ABSOLUTE COUNT (BEAKER) (test 0.96 K/ L 0.30-0.82 qony=318) EOSINOPHILS ABSOLUTE COUNT (BEAKER) (test 0.04 K/ L 0.04-0.54 anbr=805) BASOPHILS ABSOLUTE COUNT (BEAKER) (test 0.04 K/ L 0.01-0.08 hgbs=670) IMMATURE GRANULOCYTES-RELATIVE PERCENT (BEAKER) 1 % 0-1 (test fylf=9588) CT, CHEST, WITH [id number] 17:39:00FINAL REPORT CT of the Chest, abdomen [...] MDReport Verified Date/Time: 08/07/2018 17:39:22 Reading Location: [facility] C0[facility] Consult Reading Room Electronically signed by: REAGAN PECK M.D. on08/07/2018 05:39 PMCT, [id number] 17:39:00FINAL REPORT CT of the Chest, abdomen [...] Verified Date/Time: 08/07/2018 17 :39:22 Reading Location: [facility] B1 C013W Consult Reading Room Electronically signed by: REAGAN PECK M.D. on08/07/2018 05:39 [facility]OL[facility] [id number] 06:53:00 Test Item Value Reference Range Comments SODIUM (BEAKER) (test 135 meq/L 136-145 zxsj=218) POTASSIUM (BEAKER) (test 4.3 meq/L 3.5-5.1 gcnj=157) CHLORIDE (BEAKER) (test 97 meq/L 98-107 mxkk=112) CO2 (BEAKER) (test 31 meq/L 22-29 uqhx=817) BLOOD UREA NITROGEN 24 mg/dL 7-21 (BEAKER) (test abov=361) CREATININE (BEAKER) (test 1.00 mg/dL 0.57-1.25 trbj=136) GLUCOSE RANDOM (BEAKER) 118 mg/dL 70-105 (test nglu=384) CALCIUM (BEAKER) (test 9.1 mg/dL 8.4-10.2 fale=514) EGFR (BEAKER) (test 73 mL/min/1.73 sq m ESTIMATED GFR IS NOT mttb=4406) ACCURATE CREATININE CLEARANCE IN PREDICTING GLOMERULAR FILTRATION RATE. ESTIMATED GFR IS NOT APPLICABLE FOR DIALYSIS PATIENTS. CBC W/PLT COUNT & AUTO [id number] 06:22:00 Test Item Value Reference Range Comments WHITE BLOOD CELL COUNT (BEAKER) (test iofx=444) 16.2 K/ L 3.5-10.5 RED BLOOD CELL COUNT (BEAKER) (test yrdy=295) 3.59 M/ L 4.63-6.08 HEMOGLOBIN (BEAKER) (test qahg=564) 11.6 GM/DL 13.7-17.5 HEMATOCRIT (BEAKER) (test mmnc=849) 35.7 % 40.1-51.0 MEAN CORPUSCULAR VOLUME (BEAKER) (test mmpr=800) 99.4 fL 79.0-92.2 MEAN CORPUSCULAR HEMOGLOBIN (BEAKER) (test 32.3 pg 25.7-32.2 evsa=327) MEAN CORPUSCULAR HEMOGLOBIN CONC (BEAKER) (test 32.5 GM/DL 32.3-36.5 yral=845) RED CELL DISTRIBUTION WIDTH (BEAKER) (test 12.0 % 11.6-14.4 ukjr=632) PLATELET COUNT (BEAKER) (test zgww=870) 187 K/CU MM 150-450 MEAN PLATELET VOLUME (BEAKER) (test zqzq=960) 11.6 fL 9.4-12.4 NUCLEATED RED BLOOD CELLS (BEAKER) (test 0 /100 WBC 0-0 bqhn=145) NEUTROPHILS RELATIVE PERCENT (BEAKER) (test 82 % koiz=437) LYMPHOCYTES RELATIVE PERCENT (BEAKER) (test 8 % izkf=286) MONOCYTES RELATIVE PERCENT (BEAKER) (test 9 % rnyk=437) EOSINOPHILS RELATIVE PERCENT (BEAKER) (test 0 % rsxu=711) BASOPHILS RELATIVE PERCENT (BEAKER) (test 0 % ryop=977) NEUTROPHILS ABSOLUTE COUNT (BEAKER) (test 13.30 K/ L 1.78-5.38 snkn=987) LYMPHOCYTES ABSOLUTE COUNT (BEAKER) (test 1.27 K/ L 1.32-3.57 qrpw=904) MONOCYTES ABSOLUTE COUNT (BEAKER) (test 1.44 K/ L 0.30-0.82 vjgr=282) EOSINOPHILS ABSOLUTE COUNT (BEAKER) (test 0.01 K/ L 0.04-0.54 oxqp=318) BASOPHILS ABSOLUTE COUNT (BEAKER) (test 0.05 K/ L 0.01-0.08 ceef=140) IMMATURE GRANULOCYTES-RELATIVE PERCENT (BEAKER) 1 % 0-1 (test hquo=3794) RAD, CHEST, 2 [id number] 21:57:00Reason for exam:->Shortness of breath, and concern [...] [place] Verified Date/Time: 08/06/2018 21:57:16 Reading Location: [address] Consult Reading Room 09: 57 [id number] 17:55:00 Test Item Value Reference Range Comments PROCALCITONIN (BEAKER) (test gjwc=3501) 0.17 ng/mL <0.05 SEPSIS RISK (ng/mL)Low: 0.05-0.50Intermediate: 0.51-2.00High: & gt;=2.01PROTHROMBIN [id number] 17:16:00 Test Item Value Reference Range Comments PROTIME (BEAKER) (test pbhz=245) 21.4 seconds 11.7-14.7 INR (BEAKER) (test pxnp=682) 1.9 <=5.9 RECOMMENDED COUMADIN/WARFARIN INR THERAPY RANGESSTANDARD DOSE: 2.0 - 3.0 Includes: PROPHYLAXIS forvenous thrombosis, systemic embolization; TREATMENT for venous thrombosis and/or pulmonary embolus.HIGH RISK: Target INR is 2.5-3.5 for patients with mechanical heart valves.VITAMIN B12 AND [id number] 17:02 :00 Test Item Value Reference Range Comments VITAMIN B12 (BEAKER) (test ambk=890) 541 pg/mL 213-816 FOLATE (BEAKER) (test pndt=854) 14.3 ng/mL >=7.0 LACTIC ACID, VENOUS, WHOLE [id number] 16:28:00 Test Item Value Reference Range Comments LACTATE BLOOD VENOUS (2) 1.8 mmol/L 0.5-2.2 Specimen slightly hemolyzed (BEAKER) (test ylrx=5824) Effective 03/13/2016: Units/Reference Range ChangeNew: 0.5-2.2 mmol/L Previous: 5 -20 mg/dLMR, MRA, NECK, WITHOUT IV [id number] 13:54:00Reason for exam:-& gt;Ischemic Stroke EvaluationFINAL REPORT [...] [place] Verified Date/Time: 08/06/2018 13:54:13 Reading Location: [facility] Reading Room Electronically signed by: ARISTIDES LESTER M.D. on 01:54 PMMR, MRA, BRAIN, WITHOUT [id number] 13:54:00Reason for exam:->Ischemic Stroke EvaluationFINAL REPORT MRA brain and neck without contrast 08/06/2018 1:51 PM CLINICAL HISTORY: StrokeIschemic Stroke Evaluation COMPARISON: None available TECHNIQUE: Two- and three-dimensional [id number] MRA images of the intra- and extracranial [...] [place]ester Verified Date/Time: 08/06/2018 13:54:44 Reading Location: [facility] Reading Room MR, BRAIN, WITHOUT [id number] 12:15:00Reason for exam:->Ischemic Stroke EvaluationFINAL REPORT [...] and in the brainstem. Additionally, semiconfluent patchy FRONT DESK ATTENDANT territory diffusion restricted recent infarctions are seen [...] soft tissues are unremarkable. . 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 No hematoma or mass effect. Signed: Marci Sanchez Verified Date/Time: 08/06/2018 12:15:05 Reading Location: [address] Neuro Reading Room CBC W/PLT COUNT & AUTO [id number] 11:56:00 Test Item Value Reference Range Comments WHITE BLOOD CELL COUNT (BEAKER) (test mvbm=421) 20.6 K/ L 3.5-10.5 RED BLOOD CELL COUNT (BEAKER) (test eusm=902) 3.85 M/ L 4.63-6.08 HEMOGLOBIN (BEAKER) (test spsa=630) 12.4 GM/DL 13.7-17.5 HEMATOCRIT (BEAKER) (test xdxe=728) 38.3 % 40.1-51.0 MEAN CORPUSCULAR VOLUME (BEAKER) (test nfuk=787) 99.5 fL 79.0-92.2 MEAN CORPUSCULAR HEMOGLOBIN (BEAKER) (test 32.2 pg 25.7-32.2 bkyn=225) MEAN CORPUSCULAR HEMOGLOBIN CONC (BEAKER) (test 32.4 GM/DL 32.3-36.5 oxst=126) RED CELL DISTRIBUTION WIDTH (BEAKER) (test 12.2 % 11.6-14.4 ikdh=553) PLATELET COUNT (BEAKER) (test msux=524) 180 K/CU MM 150-450 MEAN PLATELET VOLUME (BEAKER) (test rzbj=900) 11.3 fL 9.4-12.4 NUCLEATED RED BLOOD CELLS (BEAKER) (test 0 /100 WBC 0-0 qevt=480) (CELLAVISION MANUAL DIFF)2018-08-06 11:56:00 Test Item Value Reference Range Comments NEUTROPHILS - REL (CELLAVISION)(BEAKER) (test 87 % ffvv=7550) LYMPHOCYTES - REL (CELLAVISION)(BEAKER) (test 7 % cozl=2340) MONOCYTES - REL (CELLAVISION)(BEAKER) (test 6 % hnlx=8846) NEUTROPHILS - ABS (CELLAVISION)(BEAKER) (test 17.92 K/ul 1.78-5.38 rzqj=2795) LYMPHOCYTES - ABS (CELLAVISION)(BEAKER) (test 1.44 K/ul 1.32-3.57 does=7695) MONOCYTES - ABS (CELLAVISION)(BEAKER) (test 1.24 K/uL 0.30-0.82 dxdy=0636) TOTAL COUNTED (BEAKER) (test vtqw=8000) 100 WBC MORPHOLOGY (BEAKER) (test riyx=836) Normal LARGE PLT(BEAKER) (test qafo=0427) Present POLYCHROMATOPHILLIC RBCS(BEAKER) (test vvxm=819) 1+ few CARLOS CELLS (BEAKER) (test ktyj=326) 1+ few ARTIFACT (CELLAVISION)(BEAKER) (test yqcl=0316) Present PLATELET CONCENTRATION (CELLAVISION)(BEAKER) Adequate (test vztm=4991) Received comment: User comments: Slide comments:BASIC METABOLIC [id number] 06:50:00 Test Item Value Reference Range Comments SODIUM (BEAKER) (test 134 meq/L 136-145 unyq=898) POTASSIUM (BEAKER) (test 3.7 meq/L 3.5-5.1 ajuj=263) CHLORIDE (BEAKER) (test 96 meq/L 98-107 ffql=939) CO2 (BEAKER) (test 28 meq/L 22-29 unql=832) BLOOD UREA NITROGEN 30 mg/dL 7-21 (BEAKER) (test nxzc=010) CREATININE (BEAKER) (test 1.18 mg/dL 0.57-1.25 dzmd=579) GLUCOSE RANDOM (BEAKER) 115 mg/dL 70-105 (test xvqk=837) CALCIUM (BEAKER) (test 8.9 mg/dL 8.4-10.2 quzj=939) EGFR (BEAKER) (test 60 mL/min/1.73 sq m ESTIMATED GFR IS NOT dyaj=3401) ACCURATE CREATININE CLEARANCE IN PREDICTING GLOMERULAR FILTRATION RATE. ESTIMATED GFR IS NOT APPLICABLE FOR DIALYSIS PATIENTS. CBC W/PLT COUNT & AUTO [id number] 07:59:00 Test Item Value Reference Range Comments WHITE BLOOD CELL COUNT (BEAKER) (test qoyl=840) 26.0 K/ L 3.5-10.5 RED BLOOD CELL COUNT (BEAKER) (test ssoa=068) 4.04 M/ L 4.63-6.08 HEMOGLOBIN (BEAKER) (test myso=155) 13.4 GM/DL 13.7-17.5 HEMATOCRIT (BEAKER) (test nypf=924) 39.5 % 40.1-51.0 MEAN CORPUSCULAR VOLUME (BEAKER) (test zhal=716) 97.8 fL 79.0-92.2 MEAN CORPUSCULAR HEMOGLOBIN (BEAKER) (test 33.2 pg 25.7-32.2 qrxi=141) MEAN CORPUSCULAR HEMOGLOBIN CONC (BEAKER) (test 33.9 GM/DL 32.3-36.5 nypf=993) RED CELL DISTRIBUTION WIDTH (BEAKER) (test 12.1 % 11.6-14.4 kfvc=718) PLATELET COUNT (BEAKER) (test kvkw=558) 195 K/CU MM 150-450 MEAN PLATELET VOLUME (BEAKER) (test grdb=495) 11.6 fL 9.4-12.4 NUCLEATED RED BLOOD CELLS (BEAKER) (test 0 /100 WBC 0-0 cbol=782) (CELLAVISION MANUAL DIFF)2018-08-05 07:59:00 Test Item Value Reference Range Comments NEUTROPHILS - REL (CELLAVISION)(BEAKER) (test 86 % ebej=4088) LYMPHOCYTES - REL (CELLAVISION)(BEAKER) (test 6 % hsmu=5360) MONOCYTES - REL (CELLAVISION)(BEAKER) (test 4 % tjzd=2633) BANDS - REL (CELLAVISION)(BEAKER) (test 4 % 0-10 pzou=7281) NEUTROPHILS - ABS (CELLAVISION)(BEAKER) (test 22.36 K/ul 1.78-5.38 fsln=9350) LYMPHOCYTES - ABS (CELLAVISION)(BEAKER) (test 1.56 K/ul 1.32-3.57 xxlm=7319) MONOCYTES - ABS (CELLAVISION)(BEAKER) (test 1.04 K/uL 0.30-0.82 lcrk=9761) BANDS - ABS (CELLAVISION)(BEAKER) (test 1.04 K/uL 0.00-0.80 etqy=8211) TOTAL COUNTED (BEAKER) (test otxu=6689) 100 PLT MORPHOLOGY (BEAKER) (test dlgw=840) Normal SMUDGE CELLS (BEAKER) (test higr=7914) Present POIKILOCYTES (BEAKER) (test jagy=685) 1+ few PLATELET CONCENTRATION (CELLAVISION)(BEAKER) Adequate (test oshi=0001) Received comment: User comments: Slide comments:URINALYSIS W/ REFLEX URINE [id number] 05:52:00 Test Item Value Reference Range Comments COLOR (BEAKER) (test kwwv=429) Yellow CLARITY (BEAKER) (test blms=435) Hazy SPECIFIC GRAVITY UA (BEAKER) (test cqlt=363) 1.022 1.001-1.035 PH UA (BEAKER) (test jtgx=318) 5.5 5.0-8.0 PROTEIN UA (BEAKER) (test sjac=504) 100 mg/dL Negative GLUCOSE UA (BEAKER) (test eqel=312) Negative Negative KETONES UA (BEAKER) (test scrv=250) Negative Negative BILIRUBIN UA (BEAKER) (test exqw=627) Negative Negative BLOOD UA (BEAKER) (test yocp=741) Trace Negative NITRITE UA (BEAKER) (test zxxt=570) Negative Negative LEUKOCYTE ESTERASE UA (BEAKER) (test yfmh=253) Negative Negative UROBILINOGEN UA (BEAKER) (test buzi=560) 2.0 mg/dL 0.2-1.0 RBC UA (BEAKER) (test dtpb=944) 11 /HPF WBC UA (BEAKER) (test ayhr=006) 3 /HPF MUCUS (BEAKER) (test pegt=1777) Many SQUAMOUS EPITHELIAL (BEAKER) (test bvaf=136) < /HPF HYALINE CASTS (BEAKER) (test ynkv=708) 5 /LPF SOURCE(BEAKER) (test hjkf=1203) BASIC METABOLIC [id number] 05:45:00 Test Item Value Reference Range Comments SODIUM (BEAKER) (test 135 meq/L 136-145 pqjh=416) POTASSIUM (BEAKER) (test 3.9 meq/L 3.5-5.1 yhel=937) CHLORIDE (BEAKER) (test 99 meq/L 98-107 foln=033) CO2 (BEAKER) (test 26 meq/L 22-29 mnyo=868) BLOOD UREA NITROGEN 21 mg/dL 7-21 (BEAKER) (test orxt=482) CREATININE (BEAKER) (test 1.09 mg/dL 0.57-1.25 eivm=350) GLUCOSE RANDOM (BEAKER) 127 mg/dL 70-105 (test vwvk=029) CALCIUM (BEAKER) (test 9.0 mg/dL 8.4-10.2 zayw=763) EGFR (BEAKER) (test 66 mL/min/1.73 sq m ESTIMATED GFR IS NOT fkdd=4525) ACCURATE CREATININE CLEARANCE IN PREDICTING GLOMERULAR FILTRATION [...] MDReport Verified Date/Time: 2017 04:28:36 Reading Location: [facility] C013Y CT Body Reading Room TROPONIN [id number] 14:22:00 Test Item Value Reference Range Comments TROPONIN I (BEAKER) (test apud=561) < ng/mL 0.00-0.03 Troponin I (TnI) levels [...] disease, and persistent tachyarrhythmia.RAD, ABDOMEN/KUB, 1 VIEW [id number] 12 :40:00Reason for exam:->abdominal painFINAL REPORT CLINICAL HISTORY: abdominal pain TECHNIQUE: Supine abdomen COMPARISON: None IMPRESSION: There is a large amount of stool throughout the colon. There are no focally distended loops of bowel. Free air and air-fluid levels are not seen but cannot be definitively excluded on the supine view. Signed: Colton Marquis Verified Date/Time: 08/04/2018 12:40:36 Reading Location: [facility] Radiology Reading Room HEMOGLOBIN [id number] 05:30:00 Test Item Value Reference Range Comments HEMOGLOBIN A1C (BEAKER) (test hmgv=987) 5.6 % 4.3-6.1 [id number] 02:50:00 Test Item Value Reference Range Comments HOMOCYSTEINE (BEAKER) (test tggo=909) 6.5 umol/L 5.1-15.4 TROPONIN [id number] 02:25:00 Test Item Value Reference Range Comments TROPONIN I (BEAKER) (test avxo=693) < ng/mL 0.00-0.03 Troponin I (TnI) levels [...] acidosis, acute neurological disease, and persistent tachyarrhythmia.FastingLIPID [id number] 02:19:00 Test Item Value Reference Range Comments TRIGLYCERIDES (BEAKER) (test tzul=110) 111 mg/dL CHOLESTEROL (BEAKER) (test dlfb=296) 113 mg/dL HDL CHOLESTEROL (BEAKER) (test kirc=555) 26 mg/dL LDL CHOLESTEROL CALCULATED (BEAKER) (test 65 mg/dL sicu=222) Triglyceride Reference Range: Low Risk <150 Borderline 150- 199 High Risk 200-499 Very High Risk >=500Cholesterol Reference Range: Low Risk <200 Borderline 200-239 High Risk > 240HDL Cholesterol Reference Range: Low Risk >=60 High Risk <40LDL Cholesterol Reference Range: Optimal <100 Near Optimal 100-129 Borderline 130-159 High 160-189 Very High >=190 FastingBASIC METABOLIC [id number] 02:19:00 Test Item Value Reference Range Comments SODIUM (BEAKER) (test 140 meq/L 136-145 qwji=432) POTASSIUM (BEAKER) (test 3.6 meq/L 3.5-5.1 yhsm=503) CHLORIDE (BEAKER) (test 109 meq/L 98-107 kjpd=238) CO2 (BEAKER) (test 23 meq/L 22-29 grsk=986) BLOOD UREA NITROGEN 15 mg/dL 7-21 (BEAKER) (test oxef=930) CREATININE (BEAKER) (test 0.85 mg/dL 0.57-1.25 qtvg=099) GLUCOSE RANDOM (BEAKER) 135 mg/dL 70-105 (test thhs=554) CALCIUM (BEAKER) (test 8.2 mg/dL 8.4-10.2 mpyu=162) EGFR (BEAKER) (test 88 mL/min/1.73 sq m ESTIMATED GFR IS NOT wcsp=2480) ACCURATE CREATININE CLEARANCE IN PREDICTING GLOMERULAR FILTRATION RATE. ESTIMATED GFR IS NOT APPLICABLE FOR DIALYSIS PATIENTS. FastingCBC W/PLT COUNT & AUTO [id number] 01:57:00 Test Item Value Reference Range Comments WHITE BLOOD CELL COUNT (BEAKER) (test ywai=988) 14.2 K/ L 3.5-10.5 RED BLOOD CELL COUNT (BEAKER) (test ourg=488) 3.86 M/ L 4.63-6.08 HEMOGLOBIN (BEAKER) (test oijb=584) 12.7 GM/DL 13.7-17.5 HEMATOCRIT (BEAKER) (test vcuf=674) 37.7 % 40.1-51.0 MEAN CORPUSCULAR VOLUME (BEAKER) (test wovr=077) 97.7 fL 79.0-92.2 MEAN CORPUSCULAR HEMOGLOBIN (BEAKER) (test 32.9 pg 25.7-32.2 ucvn=533) MEAN CORPUSCULAR HEMOGLOBIN CONC (BEAKER) (test 33.7 GM/DL 32.3-36.5 uusp=466) RED CELL DISTRIBUTION WIDTH (BEAKER) (test 12.0 % 11.6-14.4 wnqg=862) PLATELET COUNT (BEAKER) (test bwbk=143) 183 K/CU MM 150-450 MEAN PLATELET VOLUME (BEAKER) (test kvqx=615) 11.1 fL 9.4-12.4 NUCLEATED RED BLOOD CELLS (BEAKER) (test 0 /100 WBC 0-0 xizr=499) NEUTROPHILS RELATIVE PERCENT (BEAKER) (test 83 % dgks=422) LYMPHOCYTES RELATIVE PERCENT (BEAKER) (test 9 % seng=659) MONOCYTES RELATIVE PERCENT (BEAKER) (test 7 % imvk=051) EOSINOPHILS RELATIVE PERCENT (BEAKER) (test 0 % dtwc=801) BASOPHILS RELATIVE PERCENT (BEAKER) (test 0 % nemf=766) NEUTROPHILS ABSOLUTE COUNT (BEAKER) (test 11.72 K/ L 1.78-5.38 nrhx=518) LYMPHOCYTES ABSOLUTE COUNT (BEAKER) (test 1.28 K/ L 1.32-3.57 bhts=815) MONOCYTES ABSOLUTE COUNT (BEAKER) (test 0.98 K/ L 0.30-0.82 gzup=878) EOSINOPHILS ABSOLUTE COUNT (BEAKER) (test 0.02 K/ L 0.04-0.54 mttq=526) BASOPHILS ABSOLUTE COUNT (BEAKER) (test 0.05 K/ L 0.01-0.08 nztg=212) IMMATURE GRANULOCYTES-RELATIVE PERCENT (BEAKER) 1 % 0-1 (test nlgw=7791)
--- NOTE | 2019-03-13 00:48 | EDPHYS ---
Physician Documentation [facility] Name: Alejo Rae Age: 73 yrs Sex: Male : 1945 Arrival Date: 03/13/2019 Time: 00:30 Bed 14 Private MD: Lili Ferraro C ED Physician Joaquin Sams HPI: 03/13 00:49 This 73 yrs old Male presents to ER via Wheelchair with complaints of IV wont snw work. 00:49 Onset: The symptoms/episode began/occurred suddenly. Associated signs and symptoms: The snw patient has no apparent associated signs or symptoms. Modifying factors: The patient symptoms are alleviated by unclamped tubing, educated per Nursing personnel on IVF/abx antibiotic infusion trouble shooting. The patient has not experienced similar symptoms in the past. The patient has been recently seen by a physician: the patient's primary care provider, Dr. Ferraro earlier today. IV tubing inadvertently remained clamped.. Historical: - Allergies: 00:45 No Known Allergies; ed1 - Home Meds: 00:45 amlodipine 5 mg tab 1 tab once daily [Active]; atorvastatin 80 mg Oral tab 1 tab once ed1 daily [Active]; dofetilide 500mcg Oral 1 cap 2 times per day [Active]; furosemide 40 mg Oral tab 1 tab 2 times per day [Active]; gabapentin 300 mg Oral cap 1 cap 3 times per day [Active]; lisinopril 2.5 mg Oral tab 1 tab once daily [Active]; metoprolol succinate 200 mg Oral Tb24 1 tab once daily [Active]; omeprazole 20 mg Oral cpDR 1 cap once daily [Active]; sertraline 100 mg Oral tab 1 tab once daily [Active]; warfarin 5 mg Oral tab 2 tabs once daily [Active]; Xarelto Oral [Active]; - PMHx: 00:45 Atrial Fib; CHF; PTSD; ed1 - PSHx: 00:45 Hernia repair; C1-3 Surgery; ed1 - Immunization history:: Adult Immunizations up to date. - Social history:: Smoking status: Patient/guardian denies using tobacco. - Ebola Screening: : Patient negative for fever greater than or equal to 101.5 degrees Fahrenheit, and additional compatible Ebola Virus Disease symptoms Patient denies exposure to infectious person Patient denies travel to an Ebola-affected area in the 21 days before illness onset No symptoms or risks identified at this time. ROS: 00:49 Constitutional: Negative for fever, chills, and weight loss, Eyes: Negative for injury, snw pain, redness, and discharge, ENT: Negative for injury, pain, and discharge, Neck: Negative for injury, pain, and swelling, Cardiovascular: Negative for chest pain, palpitations, and edema, Respiratory: Negative for shortness of breath, cough, wheezing, and pleuritic chest pain, Abdomen/GI: Negative for abdominal pain, nausea, vomiting, diarrhea, and constipation, Back: Negative for injury and pain, : Negative for injury, bleeding, discharge, and swelling, MS/Extremity: Negative for injury and deformity, Skin: Negative for injury, rash, and discoloration, Neuro: Negative for headache, weakness, numbness, tingling, and seizure. Exam: 00:47 Constitutional: This is a well developed, well nourished patient who is awake, alert, snw and in no acute distress. Head/Face: Normocephalic, atraumatic. Eyes: Pupils equal round and reactive to light, extra-ocular motions intact. Lids and lashes normal. Conjunctiva and sclera are non-icteric and not injected. Cornea within normal limits. Periorbital areas with no swelling, redness, or edema. ENT: Nares patent. No nasal discharge, no septal abnormalities noted. Tympanic membranes are normal and external auditory canals are clear. Oropharynx with no redness, swelling, or masses, exudates, or evidence of obstruction, uvula midline. Mucous membranes moist. Neck: Trachea midline, no thyromegaly or masses palpated, and no cervical lymphadenopathy. Supple, full range of motion without nuchal rigidity, or vertebral point tenderness. No Meningismus. Chest/axilla: Normal chest wall appearance and motion. Nontender with no deformity. No lesions are appreciated. Cardiovascular: Regular rate and rhythm with a normal S1 and S2. No gallops, murmurs, or rubs. Normal PMI, no JVD. No pulse deficits. Respiratory: Lungs have equal breath sounds bilaterally, clear to auscultation and percussion. No rales, rhonchi or wheezes noted. No increased work of breathing, no retractions or nasal flaring. Abdomen/GI: Soft, non-tender, with normal bowel sounds. No distension or tympany. No guarding or rebound. No evidence of tenderness throughout. Back: No spinal tenderness. No costovertebral tenderness. Full range of motion. Skin: Warm, dry with normal turgor. Normal color with no rashes, no lesions, and no evidence of cellulitis. Neuro: Awake and alert, GCS 15, oriented to person, place, time, and situation. Cranial nerves II-XII grossly intact. Motor strength 5/5 in all extremities. Sensory grossly intact. Cerebellar exam normal. Normal gait. Psych: Awake, alert, with orientation to person, place and time. Behavior, mood, and affect are within normal limits. 00:47 Musculoskeletal/extremity: discharged from hospital post 8 days this am for osteomyelitis, bandages intact to foot. Vital Signs: 00:45 BP 112 / 73; Pulse 76; Resp 19; Temp 97.2(TE); Pulse Ox 99% on R/A; Weight 122.47 kg; ed1 Height 6 ft. 1 in. (185.42 cm); Pain 0/10; 00:45 Body Mass Index 35.62 (122.47 kg, 185.42 cm) ed1 MDM: 00:37 Patient medically screened. magda Administered Medications: No medications were administered Disposition: 03/13/19 00:47 Discharged to Home. Impression: Encounter for screening, unspecified. - Condition is Stable. - Medication Reconciliation Form, Thank You Letter, Antibiotic Education, Prescription Opioid Use form. - Follow up: Lili Ferraro MD; When: 2 - 3 days; Reason: Recheck today's complaints, Continuance of care, Re-evaluation by your physician. Follow up: Emergency Department; When: As needed; Reason: Worsening of condition. Addendum: 03/15/2019 06:43 Co-signature as Attending Physician, Joaquin Sams MD I agree with the assessment and c vincent plan of care. Signatures: Joaquin Sams MD MD cha Therrien, Shelly, DENTAL OFFICE COORDINATOR-C DENTAL OFFICE COORDINATOR-Juan Carlosw Gypsy Bradford RN RN ed1 Corrections: (The following items were deleted from the chart) 03/13 00:49 00:47 03/13/2019 00:47 Discharged to Home. Impression: Encounter for screening, ed1 unspecified. Condition is Stable. Forms are Medication Reconciliation Form, Thank You Letter, Antibiotic Education, Prescription Opioid Use. Follow up: A Ferraro; When: 2 - 3 days; Reason: Recheck today's complaints, Continuance of care, Re-evaluation by your physician. Follow up: Emergency Department; When: As needed; Reason: Worsening of condition. snw
--- NOTE | 2019-03-13 00:48 | ER ---
Nurse's Notes [facility] Name: Alejo Rae Age: 73 yrs Sex: Male : 1945 Arrival Date: 03/13/2019 Time: 00:30 Bed 14 Private MD: Lili Ferraro C Diagnosis: Encounter for screening, unspecified Presentation: 03/13 00:43 Presenting complaint: states: I can't get his medication to flow through his PICC ed1 line. Transition of care: patient was not received from another setting of care. Onset of symptoms was March 13, 2019. Risk Assessment: Do you want to hurt yourself or someone else? Patient reports no desire to harm self or others. Initial Sepsis Screen: Does the patient meet any 2 criteria? No. Patient's initial sepsis screen is negative. Does the patient have a suspected source of infection? No. Patient's initial sepsis screen is negative. Care prior to arrival: None. 00:43 Method Of Arrival: Wheelchair ed1 00:43 Acuity: ANNA 5 ed1 Triage Assessment: 00:45 General: Appears in no apparent distress. Behavior is calm, cooperative, Flushed PICC ed1 20mL NS both ports. Connected medication. . Pain: Denies pain. Historical: - Allergies: 00:45 No Known Allergies; ed1 - Home Meds: 00:45 amlodipine 5 mg tab 1 tab once daily [Active]; atorvastatin 80 mg Oral tab 1 tab once ed1 daily [Active]; dofetilide 500mcg Oral 1 cap 2 times per day [Active]; furosemide 40 mg Oral tab 1 tab 2 times per day [Active]; gabapentin 300 mg Oral cap 1 cap 3 times per day [Active]; lisinopril 2.5 mg Oral tab 1 tab once daily [Active]; metoprolol succinate 200 mg Oral Tb24 1 tab once daily [Active]; omeprazole 20 mg Oral cpDR 1 cap once daily [Active]; sertraline 100 mg Oral tab 1 tab once daily [Active]; warfarin 5 mg Oral tab 2 tabs once daily [Active]; Xarelto Oral [Active]; - PMHx: 00:45 Atrial Fib; CHF; PTSD; ed1 - PSHx: 00:45 Hernia repair; C1-3 Surgery; ed1 - Immunization history:: Adult Immunizations up to date. - Social history:: Smoking status: Patient/guardian denies using tobacco. - Ebola Screening: : Patient negative for fever greater than or equal to 101.5 degrees Fahrenheit, and additional compatible Ebola Virus Disease symptoms Patient denies exposure to infectious person Patient denies travel to an Ebola-affected area in the 21 days before illness onset No symptoms or risks identified at this time. Screenin:46 Abuse screen: Denies threats or abuse. Denies injuries from another. Nutritional ed1 screening: No deficits noted. Tuberculosis screening: No symptoms or risk factors identified. Fall Risk No fall in past 12 months (0 pts). No secondary diagnosis (0 pts). IV access (20 points). Ambulatory Aid- Crutches/Cane/Walker (15 pts). Gait- Impaired (20 pts.). Mental Status- Oriented to own ability (0 pts). Total Ojeda Fall Scale indicates High Risk Score (45 or more points). Assessment: 00:46 General: Appears in no apparent distress. Behavior is calm, cooperative. Pain: Denies ed1 pain. Neuro: Level of Consciousness is awake, alert, obeys commands, Oriented to person, place, time, situation. Cardiovascular: Denies chest pain, Heart tones S1 S2 present. Respiratory: Airway is patent Respiratory effort is even, unlabored, Respiratory pattern is regular, symmetrical, Breath sounds are clear bilaterally. GI: No signs and/or symptoms were reported involving the gastrointestinal system. : No signs and/or symptoms were reported regarding the genitourinary system. EENT: No signs and/or symptoms were reported regarding the EENT system. Derm: Skin is healthy with good turgor, Skin is dry, Skin is normal, Skin temperature is warm PICC line in place to right upper arm. Musculoskeletal: Circulation, motion, and sensation intact. Vital Signs: 00:45 BP 112 / 73; Pulse 76; Resp 19; Temp 97.2(TE); Pulse Ox 99% on R/A; Weight 122.47 kg; ed1 Height 6 ft. 1 in. (185.42 cm); Pain 0/10; 00:45 Body Mass Index 35.62 (122.47 kg, 185.42 cm) ed1 ED Course: 00:30 Patient arrived in ED. es 00:31 Lili Ferraro MD is Private Physician. es 00:37 Joaquin Sams MD is Attending Physician. magda 00:43 Audrey Sarah FNP-C is [facility]. snw 00:43 Triage completed. ed1 00:45 Arm band placed on. ed1 00:46 Lili Ferraro MD is Referral Physician. snw 00:46 Patient has correct armband on for positive identification. Adult w/ patient. ed1 00:46 No provider procedures requiring assistance completed. Flushed right PICC line 20 mL NS ed1 both ports Patient did not have IV access during this emergency room visit. Administered Medications: No medications were administered Outcome: 00:47 Discharge ordered by . snw 00:49 Discharged to home via wheelchair, with significant other. ed1 00:49 Condition: good 00:49 Discharge instructions given to patient, significant other, Instructed on discharge instructions, follow up and referral plans. Demonstrated understanding of instructions, follow-up care. 00:49 Patient left the ED. ed1 Signatures: Joaquin Sams MD MD cha Therrien, Shelly, FNP-C FNP-Csnw [place] Erika, RN RN ed1
[2019-03-13 02:36] VITALS: BP 112/73; TEMP 97.2; O2SAT 99
== END 2019-03-13 00:49 | disposition home or self-care (01) ==
LOC: ER 00:27
DX: Z13.9 Encounter for screening, unspecified (principal); I48.91 Unspecified atrial fibrillation; I50.9 Heart failure, unspecified; F43.10 Post-traumatic stress disorder, unspecified; Z79.01 Long term (current) use of anticoagulants
CPT/HCPCS: 99281

== ENCOUNTER 2019-03-25 13:09 | Observation (INO) | payer BC, OTHER ==
--- OUTSIDE RECORDS SUMMARY | 2019-03-25 15:12 | XMS REPORT | Clinical Summary ---
:1945 Author Organization [facility] Address [address] [place] [address] Care Team Providers Name Role Phone Bayron [...] Multiple and bilateral precerebral artery syndromes; 08/14/2018 Rusaln Campos MD Transient cerebral ischemia, unspecified type; Steve Hernandez Hypertension, unspecified type; MD Nelson Atrial fibrillation, unspecified type (HCC); Franny Carter MD Generalized abdominal pain; Leukocytosis, unspecified type; Chronic congestive heart failure, unspecified heart failure type (HCC); Acute CVA (cerebrovascular accident) (HCC); Stenosis of right carotid artery; TIA (transient ischemic attack) after 03/24/2018 Immunizations Name Dates Previously Given Next Due [...] of right Results for this BILATERAL AM PLATEMAN carotid artery procedure are in the results [...] 408 ms QTC Calculation(Bazett) 476 ms R Marcellus 44 degrees T Marcellus 49 degrees Atrial fibrillation Abnormal ECG When [...] (7) Routine 08/04/2018 1:39 AM CDT after 03/24/2018 Results EKG-SCANNED (03/11/2019 11:11 AM CDT) Narrative Performed At Carotid doppler bilateral (11/18/2018 9:45 AM PLATEMAN) [facility] Specimen Impressions Performed At Right Impression [facility] 1. Post stent placement, the internal [...] Performed At LAB - Carotid Duplex Study [facility] Demographics Patient Name ALEJO LIVINGSTON Date of Study11/18/2018 [id number] Visit Number [id number] Gender Male Accession Number [id number] Date of Birth1945 ReferringPeter KanRoom Number Physician [...] External Ris In - 11/18/2018 10:10 AM PLATEMAN PV LAB - Carotid Duplex Study Demographics Patient Name ALEJO LIVINGSTON Date of Study 11/18/2018 Age 73 Visit Number [id number] Gender Male Accession Number [id number] Date of 1945 Referring [facility] Room Number Physician Merchandise Marker Tuyet Zuñiga Interpreting Gillian Cai, RN, RVT [...] period is included. % Neutros 73 % [facility] % Lymphs 9 % [facility] % Monos 9 % [facility] % Eos 2 % [facility] % Metamyelo 1 (H) 0 - 0 % [facility] % Bands 5 0 - 10 % [facility] % Atypical Lymphs 1 (H) 0 - 0 % [facility] # Neutros 8.18 (H) 1.78 - 5.38 K/ul [facility] # Lymphs 1.01 (L) 1.32 - 3.57 K/ul [facility] # Monos 1.01 (H) 0.30 - 0.82 K/uL [facility] # Eos 0.22 0.04 - 0.54 K/uL [facility] # Metamyelo 0.11 (H) 0.00 - 0.00 K/uL [facility] # Bands 0.56 0.00 - 0.80 K/uL [facility] # Atypical Lymphs 0.11 (H) 0.00 - 0.00 K/uL [facility] Total Counted 100 [facility] Smudge Cells Present [facility] Giant Platelet Present [facility] Polychromasia 1+ few [facility] Anisocytosis 1+ few [facility] Poikilocytes 2+ moderate [facility] Hazard Cells 1+ few [facility] Platelet Conc Adequate [facility] Specimen Blood Narrative Performed At Received comment: [facility] User comments: Slide comments: Performing Organization Address City/State/Zipcode Phone Number [facility] [address] [place] [address] CENTER CBC with platelet count + automated diff (08/14/2018 4:24 AM CDT)Only the most recent of11 resultswithin the time period is included. WBC 11.2 (H) 3.5 - 10.5 K/L [facility] RBC 3.76 (L) 4.63 - 6.08 M/L [facility] Hemoglobin 12.2 (L) 13.7 - 17.5 GM/DL [facility] Hematocrit 38.3 (L) 40.1 - 51.0 % [facility] MCV 101.9 (H) 79.0 - 92.2 fL [facility] MCH 32.4 (H) 25.7 - 32.2 pg [facility] MCHC 31.9 (L) 32.3 - 36.5 GM/DL [facility] RDW 11.9 11.6 - 14.4 % [facility] Platelets 275 150 - 450 K/CU MM [facility] MPV 11.0 9.4 - 12.4 fL [facility] nRBC 0 0 - 0 /100 WBC [facility] Specimen Blood Performing Organization Address City/State/Zipcode Phone Number [facility] [address] [place] [address] [phone] CENTER Basic Metabolic Panel (08/14/2018 4:24 AM CDT)Only the most recent of11 resultswithin the time period is included. Sodium 133 (L) 136 - 145 meq/L [facility] Potassium 3.9 3.5 - 5.1 meq/L [facility] Chloride 100 98 - 107 meq/L [facility] CO2 26 22 - 29 meq/L [facility] BUN 17 7 - 21 mg/dL [facility] Creatinine 0.84 0.57 - 1.25 mg/dL [facility] Glucose 111 (H) 70 - 105 mg/dL [facility] Calcium 8.6 8.4 - 10.2 mg/dL [facility] EGFR 89Comment: ESTIMATED GFR IS mL/min/1.73 sq m [facility] NOT ACCURATE CREATININE [facility] CLEARANCE IN PREDICTING GLOMERULAR FILTRATION RATE. ESTIMATED GFR IS NOT APPLICABLE FOR DIALYSIS PATIENTS. Specimen Blood Performing Organization Address City/State/Zipcode Phone Number [facility] [address] [place] [address] CENTER XR chest 1 view portable / bedside (08/12/2018 2:54 PM CDT) Specimen Narrative Performed At FINAL REPORT [facility] Chest one view INDICATION: Shortness of breath [...] MD Report Verified Date/Time:08/12/2018 15:59:35 Reading Location: [address] Transitional Reading Room Procedure Note Interface, [...] Report Verified Date/Time: 08/12/2018 15:59:35 Reading Location: [facility] C013T Transitional Reading Room Performing Organization Address City/State/Zipcode Phone Number GE RIS ECG 12 lead (08/12/2018 8:50 AM CDT)Only the most recent of4 resultswithin the time period is included. Specimen Narrative Performed At Ventricular Rate 82 BPM GE MUSE Atrial Rate 357 BPM QRS Duration 84 ms Q-T Interval 408 ms QTC Calculation(Bazett) 476 ms R Marcellus 44 degrees T Marcellus 49 degrees Atrial fibrillation Nonspecific ST abnormality Abnormal ECG When compared with ECG of 08-AUG-2018 14:50, No significant change was found Confirmed by MD HOLDER JORGE ([id number]) on 08/12/2018 1:55:24 PM Procedure Note Interface, External Ris In - 08/12/2018 1:55 PM CDT Ventricular Rate 82 BPM Atrial Rate 357 BPM QRS Duration 84 ms Q-T Interval 408 ms QTC Calculation(Bazett) 476 ms R Marcellus 44 degrees T Marcellus 49 degrees Atrial fibrillation Nonspecific ST abnormality Abnormal ECG When compared with ECG of 08-AUG-2018 14:50, No significant change was found Confirmed by MD HOLDER JORGE ([id number]) on 08/12/2018 1:55:24 PM Performing Organization Address City/State/[facility] Phone Number [facility] Carotid Artery Stent Placement w/Protection (08/11/2018 4:51 PM CDT)Only the most recent of2 resultswithin the time period is included. Specimen Narrative Performed At FINAL REPORT [facility] DATE OF PROCEDURE: 08/11/18 SURGEON:Chaz France MD CROSSING WATCHMAN: Leta Barreto MD PREOPERATIVE DIAGNOSIS: Transient ischemic [...] puncture the right femoral artery. A 5 Cambodian short sheath was then passed over an angled glide catheter. Using coaxial technique, a 5 Camb[place]ian [place] 2 catheter was advanced into the [...] MD Report Verified Date/Time:08/12/2018 12:14:40 Reading Location: [facility] Procedure Note Interface, External Ris In - 08/12/2018 12:17 PM CDT FINAL REPORT DATE OF PROCEDURE: 08/11/18 SURGEON: Chaz France MD CROSSING WATCHMAN: Leta Barreto MD PREOPERATIVE DIAGNOSIS: Transient ischemic [...] puncture the right femoral artery. A 5 Cambodian short sheath was then passed over an angled glide catheter. Using coaxial technique, a 5 Cambodian SpaceList 2 catheter was advanced into the descending [...] Report Verified Date/Time: 08/12/2018 12:14:40 Reading Location: [place] [address] Neuro Angio Reading Room Performing Organization Address City/State/Zipcode Phone Number GE RIS POC ACTIVATED CLOTTING TIME (08/11/2018 3:47 PM CDT) Activated Clotting Time 241Comment: TESTED AT sec [facility] [address] [place] [id number] Specimen Blood Performing Organization Address City/[facility]/Zipcode Phone Number [address] [address] CENTER POCT-P2Y12 PLATELET AGGREGATION (08/11/2018 12:21 PM CDT)Only the most recent of2 resultswithin the time period is included. POC-P2Y12 Plt Agg 51 PRU [facility] Specimen Blood Narrative Performed At RANGE INFORMATION: PRU reference range is [facility] 194-418. Post Drug Results: Lower PRU levels are associated with expected antiplatelet effect. Values may be below the stated reference range above. The post-drug PRU values reported in the VerifyNow P2Y12 package insert are [id number]. Performing Organization Address [facility] Phone Number [address] [phone] CENTER PT/aPTT (08/11/2018 12:21 PM CDT) Protime 16.1 (H) 11.7 - 14.7 seconds [facility] INR 1.3 <=5.9 [facility] PTT 40.0 (H) 22.5 - 36.0 seconds [facility] Specimen Blood Narrative Performed At [facility] RECOMMENDED COUMADIN/WARFARIN INR THERAPY RANGES STANDARD DOSE: 2.0 - 3.0 Includes: PROPHYLAXIS for venous thrombosis, systemic embolization; TREATMENT for venous thrombosis and/or pulmonary embolus. HIGH RISK: Target INR is 2.5-3.5 for patients with mechanical heart valves. Performing Organization Address [facility] Phone Number [address] [phone] CENTER POCT-ASPIRIN PLATELET AGGREGATION (08/11/2018 6:24 AM CDT) POC-Aspirin Plt Agg 408 ARU [facility] Specimen Blood Narrative Performed At RANGE INFORMATION: 350-549 ARU Therapeutic [facility] range for platelet function. 550-700 ARU Non-Therapeutic range for platelet function. Performing Organization Address [facility] Phone Number [address] [address] [phone] CENTER CBC (hemogram only) (08/11/2018 6:24 AM CDT)Only the most recent of2 resultswithin the time period is included. WBC 12.4 (H) 3.5 - 10.5 K/L [facility] RBC 3.54 (L) 4.63 - 6.08 M/L [facility] Hemoglobin 11.4 (L) 13.7 - 17.5 GM/DL [facility] Hematocrit 35.6 (L) 40.1 - 51.0 % [facility] MCV 100.6 (H) 79.0 - 92.2 fL [facility] MCH 32.2 25.7 - 32.2 pg [facility] MCHC 32.0 (L) 32.3 - 36.5 GM/DL [facility] RDW 11.9 11.6 - 14.4 % [facility] Platelets 271 150 - 450 K/CU MM [facility] MPV 11.2 9.4 - 12.4 fL [facility] nRBC 0 0 - 0 /100 WBC [facility] Specimen Blood Performing Organization Address City/State/Zipcode Phone Number [facility] [address] [place] [address] CENTER [place] cerebral 4 vessel angiogram (08/10/2018 1:22 PM CDT) Specimen Narrative Performed At FINAL REPORT [facility] DATE OF PROCEDURE: 08/10/2018 SURGEON: Chaz France M.D. CROSSING WATCHMAN:Leta Barreto MD PREOPERATIVE DIAGNOSIS:carotid stenosis POST OPERATIVE [...] MD Report Verified Date/Time:08/12/2018 09:29:38 Reading Location: [facility] [id number] Neuro Angio Reading Room Procedure Note Interface, External Ris In - 08/12/2018 9:29 AM CDT FINAL REPORT DATE OF PROCEDURE: 08/10/2018 SURGEON: Chaz France M.D. CROSSING WATCHMAN: Leta Barreto MD PREOPERATIVE DIAGNOSIS: carotid stenosis [...] Report Verified Date/Time: 08/12/2018 09:29:38 Reading Location: [place] [address] Neuro Angio Reading Room Performing Organization Address City/State/Zipcode Phone Number GE RIS aPTT (08/10/2018 6:08 AM CDT)Only the most recent of5 resultswithin the time period is included. PTT 38.3 (H) 22.5 - 36.0 seconds [facility] Specimen Blood Performing Organization Address City/State/Zipcode Phone Number [facility] [address] [place] [address] CENTER Sodium, random urine (08/09/2018 12:35 PM CDT) Sodium Urine 74 meq/L [facility] Specimen Urine Narrative Performed At [facility] Reference Range: No Normals Performing Organization Address [facility] Phone Number [address] [address] [place] Protein, random urine (08/09/2018 12:35 PM CDT) Protein, Urine <7 0 - 14 mg/dL [facility] Specimen Urine Performing Organization Address [facility] Phone Number [address] [address] [phone] [place] Creatinine, random urine (08/09/2018 12:35 PM CDT) Creatinine, Ur 18.9 mg/dL [facility] Specimen Urine Narrative Performed At [facility] Reference Range: No Normals Performing Organization Address [facility] Phone Number [address] [address] [phone] [place] Urinalysis w/Microscopic (08/09/2018 12:35 PM CDT) Color, UA Light Yellow [facility] Clarity, UA Clear [facility] Specific [place], UA 1.003 1.001 - 1.035 [facility] pH, UA 6.5 5.0 - 8.0 [facility] Protein, UA Negative Negative [facility] Glucose, UA Negative Negative [facility] Ketones, UA Negative Negative [facility] Bilirubin, UA Negative Negative [facility] Blood, UA Small (A) Negative [facility] Nitrite, UA Negative Negative [facility] Leukocytes, UA Negative Negative [facility] Urobilinogen, UA 0.2 0.2 - 1.0 mg/dL [facility] RBC, UA 0 /HPF [facility] WBC, UA 0 /HPF [facility] Specimen Source Urine, Voided [facility] Specimen Urine Performing Organization Address City/[facility]/Zipcode Phone Number [address] [address] [place] Eosinophil smear (08/09/2018 12:35 PM CDT) Eosinophil Smear No EOS seen No EOS seen [facility] Specimen Urine Performing Organization Address [facility] Phone Number [address] [phone] [place] Protein electrophoresis, serum (08/09/2018 5:16 AM CDT) Albumin Fraction 2.6 (L) 3.5 - 5.5 g/dL [facility] Alpha 1 Fraction 0.4 0.2 - 0.4 g/dL [facility] Alpha 2 Fraction 1.0 (H) 0.5 - 0.9 g/dL [facility] Beta Fraction 1.0 0.6 - 1.1 g/dL [facility] Gamma Globulin Fraction 1.0 0.7 - 1.7 g/dL [facility] Interpretation Pattern consistent with acute inflammatory [facility] process. No monoclonal bands detected. Pathologist: Bette Cage MD (electronic signature) [facility] Protein, Total 6.1 6.0 - 8.3 gm/dL [facility] Specimen Blood Performing Organization Address City/[facility] Phone Number [address] [address] [phone] CENTER TSH/Free T4 If Indicated (08/09/2018 5:07 AM CDT) TSH 0.87 0.35 - 4.94 uIU/mL [facility] Specimen Blood Performing Organization Address City/[facility]/Zipcode Phone Number [address] [address] [phone] [place] BUN and Creatinine (08/09/2018 5:07 AM CDT) BUN 13 7 - 21 mg/dL [facility] Creatinine 0.77 0.57 - 1.25 mg/dL [facility] EGFR 99Comment: ESTIMATED GFR IS mL/min/1.73 sq m [facility] NOT ACCURATE CREATININE [facility] CENTER CLEARANCE IN PREDICTING GLOMERULAR FILTRATION RATE. ESTIMATED GFR IS NOT APPLICABLE FOR DIALYSIS PATIENTS. Specimen Blood Performing Organization Address [facility] Phone Number [address] [phone] [place] MANINDER Titer & Pattern (08/09/2018 5:07 AM CDT) MANINDER Titer 1:160 [facility] MANINDER Pattern Speckled [facility] Specimen Blood Performing Organization Address [facility] Phone Number [address] [address] [phone] [place] RPR (08/09/2018 5:07 AM CDT) RPR Nonreactive Nonreactive [facility] Specimen Blood Performing Organization Address City/[facility]/Zipcode Phone Number [address] [address] [place] Anti-Nuclear Antibody (MANINDER) (08/09/2018 5:07 AM CDT) MANINDER Positive (A) Negative [facility] Specimen Blood Narrative Performed At [facility] Test performed by IFA method. Performing Organization Address [facility] Phone Number [address] [address] CENTER Potassium (08/09/2018 5:07 AM CDT) Potassium 4.1 3.5 - 5.1 meq/L [facility] Specimen Blood Performing Organization Address [facility] Phone Number [address] [phone] [place] Platelet count (08/08/2018 4:29 PM CDT) Platelets 234 150 - 450 K/CU MM [facility] Specimen Blood Performing Organization Address [facility] Phone Number [address] [address] [phone] CENTER Magnesium (08/08/2018 6:43 AM CDT) Magnesium 2.2 1.6 - 2.6 mg/dL [facility] Specimen Blood Performing Organization Address [facility] Phone Number [address] [address] [place] TRANSFUSION SERVICE REPORT - SCAN (08/07/2018 6:01 PM CDT) Narrative Performed At CT abdomen/pelvis with IV contrast (08/07/2018 4:36 PM CDT) Specimen Narrative Performed At FINAL REPORT [facility] CT of the Chest, abdomen and [...] MD Report Verified Date/Time:08/07/2018 17:39:22 Reading Location: [facility] C013 Consult Reading Room Procedure Note [...] Report Verified Date/Time: 08/07/2018 17:39:22 Reading Location: [facility] C013W Consult Reading Room Performing Organization Address City/State/Zipcode Phone Number [facility] chest with IV contrast (08/07/2018 4:36 PM CDT) Specimen Narrative Performed At FINAL REPORT [facility] CT of the Chest, abdomen and pelvis [...] MD Report Verified Date/Time:08/07/2018 17:39:22 Reading Location: [facility] C013W Consult Reading Room Procedure Note [...] Report Verified Date/Time: 08/07/2018 17:39:22 Reading Location: [address] Consult Reading Room Performing Organization Address City/State/Zipcode Phone Number GE RIS XR chest 2 views (08/06/2018 9:27 PM CDT) Specimen Narrative Performed At FINAL REPORT [facility] PA and Lateral views of the chest dated 08/06/2018 Clinical information: Shortness of breath, and concern for pneumonia. Comment:Heart is in upper limits of normal in size. Pulmonary vasculature is unremarkable. Lungs are clear. No pulmonary infiltrate or pleural effusion is present. Pleural thickening is noted bilaterally. Impression:No active cardiopulmonary disease. Signed: Reagan Peck MD Report Verified Date/Time:08/06/2018 21:57:16 Reading Location: [facility] C013W Consult Reading Room Procedure Note [...] Report Verified Date/Time: 08/06/2018 21:57:16 Reading Location: [facility] B1 C013W Consult Reading Room Performing Organization Address City/[facility] Phone Number GE RIS Procalcitonin (08/06/2018 4:10 PM CDT) Procalcitonin 0.17 (H) <0.05 ng/mL [facility] Specimen Blood Narrative Performed At [facility] SEPSIS RISK (ng/mL) Low:0.05-0.50 Intermediate: 0.51-2.00 High: >=2.01 Performing Organization Address [facility] Phone Number [address] [address] CENTER Type and screen, automated (08/06/2018 4:10 PM CDT) ABO/RH AUTOMATED (BEAKER) A POSITIVE [facility] Ab Scrn NEGATIVE [facility] Specimen Blood Performing Organization Address [facility] Phone Number [address] [address] Prothrombin time/INR (08/06/2018 4:10 PM CDT) Protime 21.4 (H) 11.7 - 14.7 seconds [facility] INR 1.9 <=5.9 [facility] Specimen Blood Narrative Performed At [facility] RECOMMENDED COUMADIN/WARFARIN INR THERAPY RANGES STANDARD DOSE: 2.0 - 3.0 Includes: PROPHYLAXIS for venous thrombosis, systemic embolization; TREATMENT for venous thrombosis and/or pulmonary embolus. HIGH RISK: Target INR is 2.5-3.5 for patients with mechanical heart valves. Performing Organization Address City/[facility] Phone Number [address] [address] [phone] [place] Vitamin B12 and Folate (08/06/2018 3:43 PM CDT) Vitamin B12 541 213 - 816 pg/mL [facility] Folate 14.3 >=7.0 ng/mL [facility] Specimen Blood Performing Organization Address City/[facility] Phone Number [address] [address] [place] Lactic acid, venous, whole blood (08/06/2018 3:43 PM CDT) Lactate, Venous 1.8Comment: Specimen 0.5 - 2.2 mmol/L [facility] slightly hemolyzed [facility] Specimen Blood Narrative Performed At [facility] Effective 03/13/2016: Units/Reference Range Change New: 0.5-2.2 mmol/LPrevious: 5-20 mg/dL Performing Organization Address City/[facility] Phone Number [address] [phone] [place] Blood culture (08/06/2018 3:43 PM CDT)Only the most recent of2 resultswithin the time period is included. Result No growth in 5 days [facility] Specimen Blood Performing Organization Address [facility] Phone Number [address] [phone] [place] MR brain without IV contrast (08/06/2018 11:40 AM CDT) Specimen Narrative Performed At FINAL REPORT [facility] MRI brain Comparison: None Reason for exam: Stroke Ischemic Stroke Evaluation Discussion: Multiplanar MR imaging the brain was performed using T1, T2, FLAIR, FFE, diffusion, and ADC map imaging. There are no intracranial hematomas, mass effect, hydrocephalus, shift, or extra-axial collections. Moderate chronic microvascular changes are seen in both cerebral hemispheres and in the brainstem. Additionally, semiconfluent patchy VULCANIZING PRESS OPERATOR territory diffusion restricted recent infarctions are [...] surrounding soft tissues are unremarkable.. Impressions: Right-sided VULCANIZING PRESS OPERATOR and right-sided frontal diffusion restricted recent infarctions as discussed. No hematoma or mass effect. Signed: Marci Sanchez MD Report Verified Date/Time:08/06/2018 12:15:05 Reading Location: [address] Neuro Reading Room Procedure Note Interface, [...] and in the brainstem. Additionally, semiconfluent patchy VULCANIZING PRESS OPERATOR territory diffusion restricted recent infarctions are [...] soft tissues are unremarkable. . Impressions: Right-sided VULCANIZING PRESS OPERATOR and right-sided frontal diffusion restricted recent infarctions as discussed. No hematoma or mass effect. Signed: Marci Sanchez MD Report Verified Date/Time: 08/06/2018 12:15:05 Reading Location: [facility] C0[facility] Neuro Reading Room Performing Organization Address City/State/Zipcode Phone Number [facility] MRA neck without IV contrast (08/06/2018 11:33 AM CDT) Specimen Narrative Performed At FINAL REPORT [facility] MRA brain and neck without contrast 08/06/2018 1:51 PM CLINICAL HISTORY: Stroke Ischemic Stroke Evaluation COMPARISON: None available TECHNIQUE: Two- and three-dimensional [id number] MRA images of the intra- and extracranial [...] COMPARISON: None available TECHNIQUE: Two- and three-dimensional [id number] MRA images of the intra- and extracranial [...] Report Verified Date/Time: 08/06/2018 13:54:13 Reading Location: [facility] Radiology Reading Room Performing Organization Address City/State/Zipcode Phone Number [facility] MRA head without IV contrast (08/06/2018 11:33 AM CDT) Specimen Narrative Performed At FINAL REPORT [facility] MRA brain and neck without contrast 08/06/2018 1:51 PM CLINICAL HISTORY: Stroke Ischemic Stroke Evaluation COMPARISON: None available TECHNIQUE: Two- and three-dimensional [id number] MRA images of the intra- and extracranial [...] Clinic Reading Room Procedure Note Interface, External [facility] In - 08/06/2018 1:56 PM CDT FINAL REPORT MRA brain and neck without contrast 08/06/2018 1:51 PM CLINICAL HISTORY: Stroke Ischemic Stroke Evaluation COMPARISON: None available TECHNIQUE: Two- and three-dimensional [id number] MRA images of the intra- and extracranial [...] Report Verified Date/Time: 08/06/2018 13:54:44 Reading Location: [facility] Radiology Reading Room Performing Organization Address City/State/Zipcode Phone Number [email or web address] ECHOCARDIOGRAM REPORT - SCAN (08/05/2018 5:30 PM CDT) Narrative Performed At Transthoracic 2D echo w/ doppler (cw/pw/color) (08/05/2018 11:12 AM CDT) Ejection Fraction [facility] Specimen Narrative Performed At Transthoracic Echocardiography Report (TTE) [facility] Demographics Patient Name MIKI, EDDIEDate of Study 08/05/2018 [id number] GenderMale Visit Number [id number] Unknown [id number] Room Number [id number] Number Date of Birth4Referring Physician TEDDY PUENTE Age73 year(s)Merchandise Marker Clarence Sanon InterpretingStOswaldo Plaza MD Procedure Type [...] of Study 08/05/2018 Gender Male Visit Number [id number] Race Unknown Room Number [id number] Number Date of 1945 Referring Physician TEDDY PUENTE Age 73 year(s) Merchandise Marker Clarence Moore Gift Basket Packer Emory Sanon Interpreting Oswaldo Junior Physician Procedure [...] (08/05/2018 5:30 AM CDT) Color, UA Yellow [facility] Clarity, UA Hazy [facility] Specific [place], UA 1.022 1.001 - 1.035 [facility] pH, UA 5.5 5.0 - 8.0 [facility] Protein, UA 100 mg/dL (A) Negative [facility] Glucose, UA Negative Negative [facility] Ketones, UA Negative Negative [facility] Bilirubin, UA Negative Negative [facility] Blood, UA Trace (A) Negative [facility] Nitrite, UA Negative Negative [facility] Leukocytes, UA Negative Negative [facility] Urobilinogen, UA 2.0 (H) 0.2 - 1.0 mg/dL [facility] RBC, UA 11 /HPF [facility] WBC, UA 3 /HPF [facility] Mucus Many [facility] Squam Epithel, UA <1 /HPF [facility] Hyaline Casts, UA 5 /LPF [facility] Specimen Source [facility] Specimen Urine Performing Organization Address City/State/Zipcode Phone Number [facility] [address] [place] [address] [phone] CENTER US testicular (scrotum) (08/05/2018 4:09 AM CDT) Specimen Narrative Performed At FINAL REPORT [facility] [employer] U/S, TESTICULAR (SCROTUM) CLINICAL INDICATION: scrotal swelling [...] MD Report Verified Date/Time:08/05/2018 04:28:36 Reading Location: [facility] B1 C013Y CT Body Reading Room Procedure [...] Report Verified Date/Time: 08/05/2018 04:28:36 Reading Location: [facility] B1 C013Y CT Body Reading Room Performing Organization Address City/State/Zipcode Phone Number [facility] Troponin I (08/04/2018 1:35 PM CDT)Only the most recent of2 resultswithin the time period is included. Troponin I <0.01 0.00 - 0.03 ng/mL [facility] Specimen Blood Narrative Performed At [facility] Troponin I (TnI) levels must be interpreted [...] tachyarrhythmia. Performing Organization Address City/State/Zipcode Phone Number [place] [phone] [place] [address] CENTER XR abdomen / KUB 1 view (08/04/2018 11:39 AM CDT) Specimen Narrative Performed At FINAL REPORT [facility] CLINICAL HISTORY: abdominal pain TECHNIQUE: Supine abdomen COMPARISON: None IMPRESSION: There is a large amount of stool throughout the colon. There are no focally distended loops of bowel. Free air and air-fluid levels are not seen but cannot be definitively excluded on the supine view. Signed: Colton Marquis MD Report Verified Date/Time:08/04/2018 12:40:36 Reading Location: [facility] Radiology Reading Room Procedure Note Interface, External [...] Report Verified Date/Time: 08/04/2018 12:40:36 Reading Location: [facility] Radiology Reading Room Performing Organization Address City/State/Zipcode Phone Number [facility] [employer] [facility] Homocysteine (08/04/2018 1:39 AM CDT) Homocysteine 6.5 5.1 - 15.4 umol/L [facility] Specimen Blood Performing Organization Address City/[facility]/Zipcode Phone Number [facility] [address] [place] [address] [phone] [place] Hemoglobin A1c - Fasting (08/04/2018 1:39 AM CDT) Hemoglobin A1C 5.6 4.3 - 6.1 % [facility] Specimen Blood Narrative Performed At Fasting [facility] Performing Organization Address City/[facility]/Zipcode Phone Number [facility] [address] [place] [address] [place] Fasting lipid panel (08/04/2018 1:39 AM CDT) Triglycerides 111 mg/dL [facility] Cholesterol 113 mg/dL [facility] HDL 26 mg/dL [facility] LDL Calculated 65 mg/dL [facility] Specimen Blood Narrative Performed At [facility] Triglyceride Reference Range: Low Risk <150 [id number] High Risk 200-499 Very High Risk>=500 Cholesterol Reference Range: Low Risk <200 [id number] High Risk>240 HDL Cholesterol Reference Range: Low Risk >=60 High Risk <40 LDL Cholesterol Reference Range: Optimal<100 Near [id number] Very High >=190 Fasting Performing Organization Address City/[facility]/Zipcode Phone Number [facility] [address] [place] [address] CENTER after 03/24/2018 Insurance Payer Benefit Plan / Subscriber ID Type Phone Address Group BLUE CROSS/BLUE [employer] HMO xxxxxxxxxxxx HMO/POS [phone] [address] [employer] [address] Advance Directives For more information, please contact:[address] [phone] Code Status Date Activated Date Inactivated Comments Full Code 08/03/2018 11:33 PM 08/14/2018 4:40 PM This code status was determined by: Patient
--- OUTSIDE RECORDS SUMMARY | 2019-03-25 15:13 | XMS REPORT ---
:1945 [facility] Address [address] [place] [id number] Care Team Providers Name Role Phone OKSANA [...] Comments WHITE BLOOD CELL COUNT (BEAKER) (test vrwo=201) 11.2 K/ L 3.5-10.5 RED BLOOD CELL COUNT (BEAKER) (test peez=768) 3.76 M/ L 4.63-6.08 HEMOGLOBIN (BEAKER) (test hfrf=178) 12.2 GM/DL 13.7-17.5 HEMATOCRIT (BEAKER) (test mnnn=234) 38.3 % 40.1-51.0 MEAN CORPUSCULAR VOLUME (BEAKER) (test efjx=621) 101.9 fL 79.0-92.2 MEAN CORPUSCULAR HEMOGLOBIN (BEAKER) (test tjqz=735) 32.4 pg 25.7-32.2 MEAN CORPUSCULAR HEMOGLOBIN CONC (BEAKER) (test mlwo=730) 31.9 GM/DL 32.3- 36.5 RED CELL DISTRIBUTION WIDTH (BEAKER) (test ljce=181) 11.9 % 11.6-14.4 PLATELET COUNT (BEAKER) (test snnp=966) 275 K/CU MM 150-450 MEAN PLATELET VOLUME (BEAKER) (test gqmt=966) 11.0 fL 9.4-12.4 NUCLEATED RED BLOOD CELLS (BEAKER) (test zrzn=245) 0 /100 WBC 0-0 (CELLAVISION MANUAL DIFF)2018-08-14 11:36:00 Test Item Value Reference Range Comments NEUTROPHILS - REL (CELLAVISION)(BEAKER) (test 73 % ewoo=6368) LYMPHOCYTES - REL (CELLAVISION)(BEAKER) (test 9 % rayx=5573) MONOCYTES - REL (CELLAVISION)(BEAKER) (test 9 % hmfs=3167) EOSINOPHILS - REL (CELLAVISION)(BEAKER) (test 2 % vtpk=2097) METAMYELOCYTES - REL (CELLAVISION)(BEAKER) (test 1 % 0-0 nwwh=5059) BANDS - REL (CELLAVISION)(BEAKER) (test 5 % 0-10 elry=5386) ATYPICAL LYMPHOCYTES - REL (CELLAVISION)(BEAKER) 1 % 0-0 (test goeo=8999) NEUTROPHILS - ABS (CELLAVISION)(BEAKER) (test 8.18 K/ul 1.78-5.38 cpww=1120) LYMPHOCYTES - ABS (CELLAVISION)(BEAKER) (test 1.01 K/ul 1.32-3.57 oscd=8236) MONOCYTES - ABS (CELLAVISION)(BEAKER) (test 1.01 K/uL 0.30-0.82 mtqr=1842) EOSINOPHILS - ABS (CELLAVISION)(BEAKER) (test 0.22 K/uL 0.04-0.54 ciof=0993) METAMYELOCYTES - ABS (CELLAVISION)(BEAKER) (test 0.11 K/uL 0.00-0.00 dnim=4876) BANDS - ABS (CELLAVISION)(BEAKER) (test 0.56 K/uL 0.00-0.80 clln=8794) ATYPICAL LYMPHOCYTES - ABS (CELLAVISION)(BEAKER) 0.11 K/uL 0.00-0.00 (test teef=8451) TOTAL COUNTED (BEAKER) (test bvig=8240) 100 SMUDGE CELLS (BEAKER) (test tldx=1949) Present GIANT PLATELETS (BEAKER) (test evff=908) Present POLYCHROMATOPHILLIC RBCS(BEAKER) (test tzda=488) 1+ few ANISOCYTOSIS (BEAKER) (test dpat=468) 1+ few POIKILOCYTES (BEAKER) (test hdrd=918) 2+ moderate CARLOS CELLS (BEAKER) (test jpvm=567) 1+ few PLATELET CONCENTRATION (CELLAVISION)(BEAKER) Adequate (test zofa=0463) Received comment: User comments: Slide comments:BASIC METABOLIC [id number] 06:11:00 Test Item Value Reference Range Comments SODIUM (BEAKER) (test 133 meq/L 136-145 azin=568) POTASSIUM (BEAKER) (test 3.9 meq/L 3.5-5.1 qdnm=479) CHLORIDE (BEAKER) (test 100 meq/L 98-107 fxti=149) CO2 (BEAKER) (test 26 meq/L 22-29 zzrp=713) BLOOD UREA NITROGEN 17 mg/dL 7-21 (BEAKER) (test etsl=289) CREATININE (BEAKER) (test 0.84 mg/dL 0.57-1.25 lpbk=097) GLUCOSE RANDOM (BEAKER) 111 mg/dL 70-105 (test iqri=007) CALCIUM (BEAKER) (test 8.6 mg/dL 8.4-10.2 dyok=497) EGFR (BEAKER) (test 89 mL/min/1.73 sq m ESTIMATED GFR IS NOT fkvd=8409) ACCURATE CREATININE CLEARANCE IN PREDICTING GLOMERULAR FILTRATION RATE. ESTIMATED GFR IS NOT APPLICABLE FOR DIALYSIS PATIENTS. BASIC METABOLIC [id number] 05:32:00 Test Item Value Reference Range Comments SODIUM (BEAKER) (test 136 meq/L 136-145 pjxa=384) POTASSIUM (BEAKER) (test 4.1 meq/L 3.5-5.1 gqvy=058) CHLORIDE (BEAKER) (test 104 meq/L 98-107 tqqy=747) CO2 (BEAKER) (test 22 meq/L 22-29 bgvk=763) BLOOD UREA NITROGEN 15 mg/dL 7-21 (BEAKER) (test ihkx=417) CREATININE (BEAKER) (test 0.84 mg/dL 0.57-1.25 xjer=638) GLUCOSE RANDOM (BEAKER) 108 mg/dL 70-105 (test zica=810) CALCIUM (BEAKER) (test 8.8 mg/dL 8.4-10.2 fkzw=028) EGFR (BEAKER) (test 89 mL/min/1.73 sq m ESTIMATED GFR IS NOT jttl=7705) ACCURATE CREATININE CLEARANCE IN PREDICTING GLOMERULAR FILTRATION RATE. ESTIMATED GFR IS NOT APPLICABLE FOR DIALYSIS PATIENTS. CBC W/PLT COUNT & AUTO [id number] 05:12:00 Test Item Value Reference Range Comments WHITE BLOOD CELL COUNT (BEAKER) (test poyq=109) 12.0 K/ L 3.5-10.5 RED BLOOD CELL COUNT (BEAKER) (test fggi=386) 3.66 M/ L 4.63-6.08 HEMOGLOBIN (BEAKER) (test ymwf=322) 11.8 GM/DL 13.7-17.5 HEMATOCRIT (BEAKER) (test cmtz=796) 37.3 % 40.1-51.0 MEAN CORPUSCULAR VOLUME (BEAKER) (test bghj=430) 101.9 fL 79.0-92.2 MEAN CORPUSCULAR HEMOGLOBIN (BEAKER) (test 32.2 pg 25.7-32.2 qpdd=626) MEAN CORPUSCULAR HEMOGLOBIN CONC (BEAKER) (test 31.6 GM/DL 32.3-36.5 posr=537) RED CELL DISTRIBUTION WIDTH (BEAKER) (test 11.8 % 11.6-14.4 frvj=761) PLATELET COUNT (BEAKER) (test awvx=645) 254 K/CU MM 150-450 MEAN PLATELET VOLUME (BEAKER) (test kxig=312) 11.6 fL 9.4-12.4 NUCLEATED RED BLOOD CELLS (BEAKER) (test 0 /100 WBC 0-0 hluf=908) NEUTROPHILS RELATIVE PERCENT (BEAKER) (test 69 % eegd=286) LYMPHOCYTES RELATIVE PERCENT (BEAKER) (test 14 % qeyd=373) MONOCYTES RELATIVE PERCENT (BEAKER) (test 10 % wnig=214) EOSINOPHILS RELATIVE PERCENT (BEAKER) (test 1 % aeih=399) BASOPHILS RELATIVE PERCENT (BEAKER) (test 1 % bgfy=379) NEUTROPHILS ABSOLUTE COUNT (BEAKER) (test 8.32 K/ L 1.78-5.38 yuca=637) LYMPHOCYTES ABSOLUTE COUNT (BEAKER) (test 1.68 K/ L 1.32-3.57 ezvm=201) MONOCYTES ABSOLUTE COUNT (BEAKER) (test 1.21 K/ L 0.30-0.82 ucim=660) EOSINOPHILS ABSOLUTE COUNT (BEAKER) (test 0.16 K/ L 0.04-0.54 hdly=077) BASOPHILS ABSOLUTE COUNT (BEAKER) (test 0.15 K/ L 0.01-0.08 spki=884) IMMATURE GRANULOCYTES-RELATIVE PERCENT (BEAKER) 4 % 0-1 (test ewai=8450) RAD, CHEST, 1 VIEW, NON [id number] 15:59:00Reason for exam:->SOBShould this be performed at [...] Verified Date/Time: 08/12/2018 15: 59:35 Reading Location: [facility] C0[facility] Reading Room PROTEIN ELECTROPHORESIS, [id number] 13:04:00 Test Item Value Reference Range Comments ALBUMIN FRACTION (BEAKER) 2.6 g/dL 3.5-5.5 (test nplm=092) ALPHA 1 FRACTION (BEAKER) 0.4 g/dL 0.2-0.4 (test jjhh=464) ALPHA 2 FRACTION (BEAKER) 1.0 g/dL 0.5-0.9 (test eqqd=016) BETA FRACTION (BEAKER) (test 1.0 g/dL 0.6-1.1 qujo=324) GAMMA GLOBULIN FRACTION 1.0 g/dL 0.7-1.7 (BEAKER) (test wtpw=869) INTERPRETATION-119 (BEAKER) Pattern consistent with acute (test zqtm=2307) inflammatory process. No monoclonal bands detected. [id number] Bette Cage MD (BEAKER) (test thnh=1778) (electronic signature) PROTEIN TOTAL SERUM, SPEP 6.1 gm/dL 6.0-8.3 (BEAKER) (test hisq=9082) THANG, CAROTID STENT W [id number] 12:14:00Reason for exam:->right carotid stenosisFINAL REPORT DATE OF PROCEDURE: 08/11/18 SURGEON: Chaz France MD VEHICLE OPERATOR TECHNICIAN: Leta Barreto MD PREOPERATIVE DIAGNOSIS: Transient ischemic [...] puncture the right femoral artery. A 5 [place] short sheath was then passed over an angled glide catheter. Using coaxial technique, a 5 [place] 2 catheter was advanced into the descending [...] exchanged in the descendingaorta for a 6F [employer] shuttle sheath. At this point, the patient [...] [place] Verified Date/Time: 08/12/2018 12:14:40 Reading Location: [facility] B1 Y026 Neuro Angio Reading Room [place], ANGIOGRAM, [id number] 09:29:00Reason for exam:-& gt;carotid stenosisFINAL REPORT DATE OF PROCEDURE: 2017 SURGEON: Chaz France M.D. VEHICLE OPERATOR TECHNICIAN: Leta Barreto MD PREOPERATIVE DIAGNOSIS: carotid stenosis [...] [place] Verified Date/Time: 08/12/2018 09:29:38 Reading Location: [facility] Y026 Neuro Angio Reading Room [id number] 07:30:00 Test Item Value Reference Range Comments ACTIVATED CLOTTING TIME 241 sec TESTED AT [facility] [address] (BEAKER) (test nyoc=218) [facility] [address] BASIC METABOLIC [id number] 04:36:00 Test Item Value Reference Range Comments SODIUM (BEAKER) (test 134 meq/L 136-145 ntxw=131) POTASSIUM (BEAKER) (test 4.0 meq/L 3.5-5.1 upan=655) CHLORIDE (BEAKER) (test 102 meq/L 98-107 bxhy=647) CO2 (BEAKER) (test 24 meq/L 22-29 bcrb=003) BLOOD UREA NITROGEN 18 mg/dL 7-21 (BEAKER) (test qsfk=048) CREATININE (BEAKER) (test 0.84 mg/dL 0.57-1.25 inar=403) GLUCOSE RANDOM (BEAKER) 108 mg/dL 70-105 (test wvsy=599) CALCIUM (BEAKER) (test 9.0 mg/dL 8.4-10.2 ylfw=794) EGFR (BEAKER) (test 89 mL/min/1.73 sq m ESTIMATED GFR IS NOT wskf=9811) ACCURATE CREATININE CLEARANCE IN PREDICTING GLOMERULAR FILTRATION RATE. ESTIMATED GFR IS NOT APPLICABLE FOR DIALYSIS PATIENTS. CBC W/PLT COUNT & AUTO [id number] 04:14:00 Test Item Value Reference Range Comments WHITE BLOOD CELL COUNT (BEAKER) (test nncw=483) 11.1 K/ L 3.5-10.5 RED BLOOD CELL COUNT (BEAKER) (test iiec=272) 3.69 M/ L 4.63-6.08 HEMOGLOBIN (BEAKER) (test btpo=882) 11.9 GM/DL 13.7-17.5 HEMATOCRIT (BEAKER) (test efyq=850) 36.8 % 40.1-51.0 MEAN CORPUSCULAR VOLUME (BEAKER) (test lmkx=658) 99.7 fL 79.0-92.2 MEAN CORPUSCULAR HEMOGLOBIN (BEAKER) (test 32.2 pg 25.7-32.2 lvan=752) MEAN CORPUSCULAR HEMOGLOBIN CONC (BEAKER) (test 32.3 GM/DL 32.3-36.5 zpqv=106) RED CELL DISTRIBUTION WIDTH (BEAKER) (test 11.9 % 11.6-14.4 wkjm=973) PLATELET COUNT (BEAKER) (test uppc=066) 279 K/CU MM 150-450 MEAN PLATELET VOLUME (BEAKER) (test yyvr=557) 11.4 fL 9.4-12.4 NUCLEATED RED BLOOD CELLS (BEAKER) (test 0 /100 WBC 0-0 yadp=924) NEUTROPHILS RELATIVE PERCENT (BEAKER) (test 74 % szdg=106) LYMPHOCYTES RELATIVE PERCENT (BEAKER) (test 12 % xjxn=352) MONOCYTES RELATIVE PERCENT (BEAKER) (test 9 % dhbr=780) EOSINOPHILS RELATIVE PERCENT (BEAKER) (test 1 % ocqb=121) BASOPHILS RELATIVE PERCENT (BEAKER) (test 1 % tnyk=221) NEUTROPHILS ABSOLUTE COUNT (BEAKER) (test 8.23 K/ L 1.78-5.38 mzmg=314) LYMPHOCYTES ABSOLUTE COUNT (BEAKER) (test 1.33 K/ L 1.32-3.57 vkzx=063) MONOCYTES ABSOLUTE COUNT (BEAKER) (test 1.05 K/ L 0.30-0.82 wket=903) EOSINOPHILS ABSOLUTE COUNT (BEAKER) (test 0.12 K/ L 0.04-0.54 ktgm=610) BASOPHILS ABSOLUTE COUNT (BEAKER) (test 0.09 K/ L 0.01-0.08 dfef=481) IMMATURE GRANULOCYTES-RELATIVE PERCENT (BEAKER) 3 % 0-1 (test jlgk=2045) BLOOD [id number] 18:00:00 Test Item Value Reference Range Comments CULTURE (BEAKER) (test nkuv=3525) No growth in 5 days BLOOD [id number] 18:00:00 Test Item Value Reference Range Comments CULTURE (BEAKER) (test pliu=9057) No growth in 5 days POCT-P2Y12 PLATELET [id number] 13:28:00 Test Item Value Reference Range Comments POC-P2Y12 PLATELET AGG (BEAKER) (test vhxu=7455) 51 PRU RANGE INFORMATION: PRU reference range is 194-418. Post Drug Results: Lower PRU levels are associated with expected antiplatelet effect. Values may be below the stated reference range above. The post-drug PRU values reported in the [employer] P2Y12 package insert are [id number] 13:21:00 Test Item Value Reference Range Comments PROTIME (BEAKER) (test dupl=524) 16.1 seconds 11.7-14.7 INR (BEAKER) (test imco=008) 1.3 <=5.9 PARTIAL THROMBOPLASTIN TIME (BEAKER) (test 40.0 seconds 22.5-36.0 auvs=648) RECOMMENDED COUMADIN/WARFARIN INR THERAPY RANGESSTANDARD DOSE: 2.0 - 3.0 Includes: PROPHYLAXIS forvenous thrombosis, systemic embolization; TREATMENT for venous thrombosis and/or pulmonary embolus.HIGH RISK: Target INR is 2.5-3.5 for patients with mechanical heart valves.POCT-P2Y12 PLATELET [id number] 07:23:00 Test Item Value Reference Range Comments POC-P2Y12 PLATELET AGG (BEAKER) (test vswp=4561) 216 PRU RANGE INFORMATION: PRU reference range is 194-418. Post Drug Results: Lower PRU levels are associated with expected antiplatelet effect. Values may be below the stated reference range above. The post-drug PRU values reported in the [employer] P2Y12 package insert are [id number].POCT-ASPIRIN PLATELET [id number] 07:23:00 Test Item Value Reference Range Comments POC-ASPIRIN PLATELET AGG (BEAKER) (test spkm=2405) 408 ARU RANGE INFORMATION: 350-549 ARU Therapeutic range for platelet function. 550-700 ARU Non-Therapeutic range for platelet function.BASIC METABOLIC [id number] 07:15:00 Test Item Value Reference Range Comments SODIUM (BEAKER) (test 136 meq/L 136-145 lgig=606) POTASSIUM (BEAKER) (test 4.6 meq/L 3.5-5.1 cust=700) CHLORIDE (BEAKER) (test 101 meq/L 98-107 afcs=474) CO2 (BEAKER) (test 27 meq/L 22-29 jagn=261) BLOOD UREA NITROGEN 15 mg/dL 7-21 (BEAKER) (test qaou=715) CREATININE (BEAKER) (test 0.82 mg/dL 0.57-1.25 sqwf=617) GLUCOSE RANDOM (BEAKER) 106 mg/dL 70-105 (test xwif=953) CALCIUM (BEAKER) (test 8.8 mg/dL 8.4-10.2 apsf=656) EGFR (BEAKER) (test 92 mL/min/1.73 sq m ESTIMATED GFR IS NOT lvzn=9589) ACCURATE CREATININE CLEARANCE IN PREDICTING GLOMERULAR FILTRATION RATE. ESTIMATED GFR IS NOT APPLICABLE FOR DIALYSIS PATIENTS. CBC W/PLT COUNT & AUTO [id number] 06:54:00 Test Item Value Reference Range Comments WHITE BLOOD CELL COUNT (BEAKER) (test pgaq=823) 12.4 K/ L 3.5-10.5 RED BLOOD CELL COUNT (BEAKER) (test hxpk=578) 3.54 M/ L 4.63-6.08 HEMOGLOBIN (BEAKER) (test autf=241) 11.4 GM/DL 13.7-17.5 HEMATOCRIT (BEAKER) (test ebqs=210) 35.6 % 40.1-51.0 MEAN CORPUSCULAR VOLUME (BEAKER) (test zxcs=981) 100.6 fL 79.0-92.2 MEAN CORPUSCULAR HEMOGLOBIN (BEAKER) (test 32.2 pg 25.7-32.2 hybr=865) MEAN CORPUSCULAR HEMOGLOBIN CONC (BEAKER) (test 32.0 GM/DL 32.3-36.5 earf=515) RED CELL DISTRIBUTION WIDTH (BEAKER) (test 11.9 % 11.6-14.4 kwgq=114) PLATELET COUNT (BEAKER) (test sbhx=297) 271 K/CU MM 150-450 MEAN PLATELET VOLUME (BEAKER) (test xaee=750) 11.2 fL 9.4-12.4 NUCLEATED RED BLOOD CELLS (BEAKER) (test 0 /100 WBC 0-0 jeft=452) NEUTROPHILS RELATIVE PERCENT (BEAKER) (test 79 % cvar=109) LYMPHOCYTES RELATIVE PERCENT (BEAKER) (test 10 % gceo=791) MONOCYTES RELATIVE PERCENT (BEAKER) (test 8 % cchc=286) EOSINOPHILS RELATIVE PERCENT (BEAKER) (test 1 % mclp=579) BASOPHILS RELATIVE PERCENT (BEAKER) (test 1 % njwf=733) NEUTROPHILS ABSOLUTE COUNT (BEAKER) (test 9.79 K/ L 1.78-5.38 muwe=344) LYMPHOCYTES ABSOLUTE COUNT (BEAKER) (test 1.23 K/ L 1.32-3.57 htcr=838) MONOCYTES ABSOLUTE COUNT (BEAKER) (test 0.99 K/ L 0.30-0.82 ehfo=803) EOSINOPHILS ABSOLUTE COUNT (BEAKER) (test 0.10 K/ L 0.04-0.54 ydll=697) BASOPHILS ABSOLUTE COUNT (BEAKER) (test 0.06 K/ L 0.01-0.08 wvlq=536) IMMATURE GRANULOCYTES-RELATIVE PERCENT (BEAKER) 2 % 0-1 (test rrth=8362) CBC (HEMOGRAM ONLY)2018-08-11 06:52:00 Test Item Value Reference Range Comments WHITE BLOOD CELL COUNT (BEAKER) (test cyne=957) 12.4 K/ L 3.5-10.5 RED BLOOD CELL COUNT (BEAKER) (test rkbc=577) 3.54 M/ L 4.63-6.08 HEMOGLOBIN (BEAKER) (test ebou=283) 11.4 GM/DL 13.7-17.5 HEMATOCRIT (BEAKER) (test okyz=182) 35.6 % 40.1-51.0 MEAN CORPUSCULAR VOLUME (BEAKER) (test qsjf=116) 100.6 fL 79.0-92.2 MEAN CORPUSCULAR HEMOGLOBIN (BEAKER) (test 32.2 pg 25.7-32.2 yikn=413) MEAN CORPUSCULAR HEMOGLOBIN CONC (BEAKER) (test 32.0 GM/DL 32.3-36.5 ocrg=439) RED CELL DISTRIBUTION WIDTH (BEAKER) (test 11.9 % 11.6-14.4 gzwm=487) PLATELET COUNT (BEAKER) (test zxvd=183) 271 K/CU MM 150-450 MEAN PLATELET VOLUME (BEAKER) (test hbfo=122) 11.2 fL 9.4-12.4 NUCLEATED RED BLOOD CELLS (BEAKER) (test 0 /100 WBC 0-0 hamm=610) THANG, CAROTID STENT W [id number] 14:30:00Reason for exam:->carotid stenosis, rightKanFINAL REPORT DATE OF PROCEDURE: 2017 SURGEON: Chaz [place] M.D. VEHICLE OPERATOR TECHNICIAN: Leta Barreto MD PREOPERATIVE DIAGNOSIS: carotid stenosis [...] [place] Verified Date/Time: 08/10/2018 14:30:38 Reading [facility] ANTI-NUCLEAR ANTIBODY (MANINDER)2018-08-10 10:29:00 Test Item Value Reference Range Comments ANTI-NUCLEAR ANTIBODY (MANINDER) (BEAKER) (test Positive Negative stpz=273) Test performed by IFA method.MANINDER TITER AND [id number] 10:29:00 Test Item Value Reference Range Comments MANINDER TITER (BEAKER) (test esqm=0480) :160 MANINDER PATTERN (BEAKER) (test phzv=1964) Speckled BASIC METABOLIC [id number] 07:36:00 Test Item Value Reference Range Comments SODIUM (BEAKER) (test 137 meq/L 136-145 iler=064) POTASSIUM (BEAKER) (test 4.4 meq/L 3.5-5.1 nizz=044) CHLORIDE (BEAKER) (test 102 meq/L 98-107 oodl=265) CO2 (BEAKER) (test 31 meq/L 22-29 chig=317) BLOOD UREA NITROGEN 11 mg/dL 7-21 (BEAKER) (test klac=788) CREATININE (BEAKER) (test 0.82 mg/dL 0.57-1.25 vjzl=501) GLUCOSE RANDOM (BEAKER) 109 mg/dL 70-105 (test ooxi=510) CALCIUM (BEAKER) (test 9.0 mg/dL 8.4-10.2 dyyz=194) EGFR (BEAKER) (test 92 mL/min/1.73 sq m ESTIMATED GFR IS NOT tkrl=1272) ACCURATE CREATININE CLEARANCE IN PREDICTING GLOMERULAR FILTRATION RATE. ESTIMATED GFR IS NOT APPLICABLE FOR DIALYSIS PATIENTS. [id number] 06:53:00 Test Item Value Reference Range Comments PARTIAL THROMBOPLASTIN TIME (BEAKER) (test 38.3 seconds 22.5-36.0 gapz=323) CBC W/PLT COUNT & AUTO [id number] 06:42:00 Test Item Value Reference Range Comments WHITE BLOOD CELL COUNT (BEAKER) (test hbwc=150) 12.8 K/ L 3.5-10.5 RED BLOOD CELL COUNT (BEAKER) (test bmus=232) 3.63 M/ L 4.63-6.08 HEMOGLOBIN (BEAKER) (test cvwr=557) 11.9 GM/DL 13.7-17.5 HEMATOCRIT (BEAKER) (test ttcg=916) 36.3 % 40.1-51.0 MEAN CORPUSCULAR VOLUME (BEAKER) (test bnmv=949) 100.0 fL 79.0-92.2 MEAN CORPUSCULAR HEMOGLOBIN (BEAKER) (test 32.8 pg 25.7-32.2 nvrf=926) MEAN CORPUSCULAR HEMOGLOBIN CONC (BEAKER) (test 32.8 GM/DL 32.3-36.5 ifrc=016) RED CELL DISTRIBUTION WIDTH (BEAKER) (test 11.9 % 11.6-14.4 ybnk=212) PLATELET COUNT (BEAKER) (test iebe=627) 282 K/CU MM 150-450 MEAN PLATELET VOLUME (BEAKER) (test uzfe=193) 12.0 fL 9.4-12.4 NUCLEATED RED BLOOD CELLS (BEAKER) (test 0 /100 WBC 0-0 axoo=148) NEUTROPHILS RELATIVE PERCENT (BEAKER) (test 79 % wand=507) LYMPHOCYTES RELATIVE PERCENT (BEAKER) (test 11 % uzbn=080) MONOCYTES RELATIVE PERCENT (BEAKER) (test 8 % ewgv=581) EOSINOPHILS RELATIVE PERCENT (BEAKER) (test 1 % gqav=823) BASOPHILS RELATIVE PERCENT (BEAKER) (test 1 % bkqs=586) NEUTROPHILS ABSOLUTE COUNT (BEAKER) (test 10.06 K/ L 1.78-5.38 owxz=201) LYMPHOCYTES ABSOLUTE COUNT (BEAKER) (test 1.39 K/ L 1.32-3.57 egml=354) MONOCYTES ABSOLUTE COUNT (BEAKER) (test 0.99 K/ L 0.30-0.82 lsrs=213) EOSINOPHILS ABSOLUTE COUNT (BEAKER) (test 0.09 K/ L 0.04-0.54 rkzh=614) BASOPHILS ABSOLUTE COUNT (BEAKER) (test 0.08 K/ L 0.01-0.08 jqte=539) IMMATURE GRANULOCYTES-RELATIVE PERCENT (BEAKER) 1 % 0-1 (test yzok=8134) [id number] 04:26:00 Test Item Value Reference Range Comments RPR SCREEN (BEAKER) (test gwei=707) Nonreactive Nonreactive [id number] 22:40:00 Test Item Value Reference Range Comments PARTIAL THROMBOPLASTIN TIME (BEAKER) (test 48.7 seconds 22.5-36.0 iixt=905) EOSINOPHIL SMEAR, [id number] 14:32:00 Test Item Value Reference Range Comments EOSINOPHIL SMEAR, URINE (BEAKER) (test No EOS seen No EOS seen fpuz=3824) PROTEIN, RANDOM [id number] 13:14:00 Test Item Value Reference Range Comments PROTEIN, URINE (BEAKER) (test qceb=7783) < mg/dL 0-14 CREATININE, RANDOM [id number] 13:12:00 Test Item Value Reference Range Comments CREATININE URINE (BEAKER) (test sqnp=866) 18.9 mg/dL Reference Range: No NormalsSODIUM, RANDOM [id number] 13:12:00 Test Item Value Reference Range Comments SODIUM URINE (BEAKER) (test amso=328) 74 meq/L Reference Range: No NormalsURINALYSIS W/ [id number] 13:00:00 Test Item Value Reference Range Comments COLOR (BEAKER) (test lhmi=638) Light Yellow CLARITY (BEAKER) (test wxut=713) Clear SPECIFIC GRAVITY UA (BEAKER) (test sahd=641) 1.003 1.001-1.035 PH UA (BEAKER) (test wfns=572) 6.5 5.0-8.0 PROTEIN UA (BEAKER) (test bkjv=210) Negative Negative GLUCOSE UA (BEAKER) (test abrd=068) Negative Negative KETONES UA (BEAKER) (test jpki=386) Negative Negative BILIRUBIN UA (BEAKER) (test xcfk=780) Negative Negative BLOOD UA (BEAKER) (test tado=841) Small Negative NITRITE UA (BEAKER) (test liri=482) Negative Negative LEUKOCYTE ESTERASE UA (BEAKER) (test ytsb=536) Negative Negative UROBILINOGEN UA (BEAKER) (test xzyt=915) 0.2 mg/dL 0.2-1.0 RBC UA (BEAKER) (test wgqw=998) 0 /HPF WBC UA (BEAKER) (test move=722) 0 /HPF SOURCE(BEAKER) (test nqqe=0245) Urine, Voided [id number] 12:33:00 Test Item Value Reference Range Comments PARTIAL THROMBOPLASTIN TIME (BEAKER) (test 47.0 seconds 22.5-36.0 radq=453) TSH/FREE T4 IF [id number] 06:11:00 Test Item Value Reference Range Comments THYROID STIMULATING HORMONE (BEAKER) (test 0.87 uIU/mL 0.35-4.94 uxga=016) [id number] 05:36:00 Test Item Value Reference Range Comments POTASSIUM (BEAKER) (test jpxt=551) 4.1 meq/L 3.5-5.1 BUN AND [id number] 05:36:00 Test Item Value Reference Range Comments BLOOD UREA NITROGEN 13 mg/dL 7-21 (BEAKER) (test ydnr=347) CREATININE (BEAKER) (test 0.77 mg/dL 0.57-1.25 gbmf=105) EGFR (BEAKER) (test 99 mL/min/1.73 sq m ESTIMATED GFR IS NOT tfpl=1758) ACCURATE CREATININE CLEARANCE IN PREDICTING GLOMERULAR FILTRATION RATE. ESTIMATED GFR IS NOT APPLICABLE FOR DIALYSIS PATIENTS. BASIC METABOLIC [id number] 05:36:00 Test Item Value Reference Range Comments SODIUM (BEAKER) (test 139 meq/L 136-145 ktbq=113) POTASSIUM (BEAKER) (test 4.1 meq/L 3.5-5.1 ortc=387) CHLORIDE (BEAKER) (test 104 meq/L 98-107 odyj=173) CO2 (BEAKER) (test 28 meq/L 22-29 vsvj=999) BLOOD UREA NITROGEN 13 mg/dL 7-21 (BEAKER) (test zebv=261) CREATININE (BEAKER) (test 0.77 mg/dL 0.57-1.25 ltze=926) GLUCOSE RANDOM (BEAKER) 96 mg/dL 70-105 (test xect=802) CALCIUM (BEAKER) (test 9.0 mg/dL 8.4-10.2 cfsl=074) EGFR (BEAKER) (test 99 mL/min/1.73 sq m ESTIMATED GFR IS NOT odym=3304) ACCURATE CREATININE CLEARANCE IN PREDICTING GLOMERULAR FILTRATION RATE. ESTIMATED GFR IS NOT APPLICABLE FOR DIALYSIS PATIENTS. [id number] 04:35:00 Test Item Value Reference Range Comments PARTIAL THROMBOPLASTIN TIME (BEAKER) (test 37.5 seconds 22.5-36.0 kqnt=773) CBC W/PLT COUNT & AUTO [id number] 04:17:00 Test Item Value Reference Range Comments WHITE BLOOD CELL COUNT (BEAKER) (test dugh=060) 11.0 K/ L 3.5-10.5 RED BLOOD CELL COUNT (BEAKER) (test lzvg=415) 3.45 M/ L 4.63-6.08 HEMOGLOBIN (BEAKER) (test xqyf=733) 11.0 GM/DL 13.7-17.5 HEMATOCRIT (BEAKER) (test harp=591) 34.7 % 40.1-51.0 MEAN CORPUSCULAR VOLUME (BEAKER) (test faaw=838) 100.6 fL 79.0-92.2 MEAN CORPUSCULAR HEMOGLOBIN (BEAKER) (test 31.9 pg 25.7-32.2 cwqk=123) MEAN CORPUSCULAR HEMOGLOBIN CONC (BEAKER) (test 31.7 GM/DL 32.3-36.5 fuir=026) RED CELL DISTRIBUTION WIDTH (BEAKER) (test 12.0 % 11.6-14.4 imdp=636) PLATELET COUNT (BEAKER) (test ugxv=529) 236 K/CU MM 150-450 MEAN PLATELET VOLUME (BEAKER) (test gowd=763) 12.0 fL 9.4-12.4 NUCLEATED RED BLOOD CELLS (BEAKER) (test 0 /100 WBC 0-0 fkol=209) NEUTROPHILS RELATIVE PERCENT (BEAKER) (test 77 % siza=621) LYMPHOCYTES RELATIVE PERCENT (BEAKER) (test 12 % iewv=437) MONOCYTES RELATIVE PERCENT (BEAKER) (test 9 % bmtu=544) EOSINOPHILS RELATIVE PERCENT (BEAKER) (test 1 % wndk=430) BASOPHILS RELATIVE PERCENT (BEAKER) (test 1 % cuso=413) NEUTROPHILS ABSOLUTE COUNT (BEAKER) (test 8.44 K/ L 1.78-5.38 ukod=612) LYMPHOCYTES ABSOLUTE COUNT (BEAKER) (test 1.35 K/ L 1.32-3.57 cvoy=053) MONOCYTES ABSOLUTE COUNT (BEAKER) (test 0.96 K/ L 0.30-0.82 xjqr=512) EOSINOPHILS ABSOLUTE COUNT (BEAKER) (test 0.05 K/ L 0.04-0.54 abdk=311) BASOPHILS ABSOLUTE COUNT (BEAKER) (test 0.06 K/ L 0.01-0.08 mpvi=944) IMMATURE GRANULOCYTES-RELATIVE PERCENT (BEAKER) 1 % 0-1 (test vldx=7299) CBC (HEMOGRAM ONLY)[id number] 04:13:00 Test Item Value Reference Range Comments WHITE BLOOD CELL COUNT (BEAKER) (test rvrh=199) 11.0 K/ L 3.5-10.5 RED BLOOD CELL COUNT (BEAKER) (test mjzg=120) 3.45 M/ L 4.63-6.08 HEMOGLOBIN (BEAKER) (test fpqi=721) 11.0 GM/DL 13.7-17.5 HEMATOCRIT (BEAKER) (test bnev=482) 34.7 % 40.1-51.0 MEAN CORPUSCULAR VOLUME (BEAKER) (test xdgy=721) 100.6 fL 79.0-92.2 MEAN CORPUSCULAR HEMOGLOBIN (BEAKER) (test 31.9 pg 25.7-32.2 dsdx=447) MEAN CORPUSCULAR HEMOGLOBIN CONC (BEAKER) (test 31.7 GM/DL 32.3-36.5 kekq=535) RED CELL DISTRIBUTION WIDTH (BEAKER) (test 12.0 % 11.6-14.4 moad=940) PLATELET COUNT (BEAKER) (test grwk=674) 236 K/CU MM 150-450 MEAN PLATELET VOLUME (BEAKER) (test dtmr=449) 12.0 fL 9.4-12.4 NUCLEATED RED BLOOD CELLS (BEAKER) (test 0 /100 WBC 0-0 fkqp=495) [id number] 17:06:00 Test Item Value Reference Range Comments PARTIAL THROMBOPLASTIN TIME (BEAKER) (test 41.3 seconds 22.5-36.0 gfbc=777) Prior to initiating heparinPLATELET [id number] 16:40:00 Test Item Value Reference Range Comments PLATELET COUNT (BEAKER) (test mlti=501) 234 K/CU MM 150-450 [id number] 14:14:00 Test Item Value Reference Range Comments MAGNESIUM (BEAKER) (test bbnl=850) 2.2 mg/dL 1.6-2.6 BASIC METABOLIC [id number] 07:16:00 Test Item Value Reference Range Comments SODIUM (BEAKER) (test 134 meq/L 136-145 cell=693) POTASSIUM (BEAKER) (test 4.4 meq/L 3.5-5.1 zyjy=586) CHLORIDE (BEAKER) (test 101 meq/L 98-107 dbus=558) CO2 (BEAKER) (test 28 meq/L 22-29 rwoi=424) BLOOD UREA NITROGEN 18 mg/dL 7-21 (BEAKER) (test ajiz=225) CREATININE (BEAKER) (test 0.77 mg/dL 0.57-1.25 zakv=709) GLUCOSE RANDOM (BEAKER) 110 mg/dL 70-105 (test nyof=681) CALCIUM (BEAKER) (test 8.9 mg/dL 8.4-10.2 swys=089) EGFR (BEAKER) (test 99 mL/min/1.73 sq m ESTIMATED GFR IS NOT ovbl=6542) ACCURATE CREATININE CLEARANCE IN PREDICTING GLOMERULAR FILTRATION RATE. ESTIMATED GFR IS NOT APPLICABLE FOR DIALYSIS PATIENTS. CBC W/PLT COUNT & AUTO [id number] 07:07:00 Test Item Value Reference Range Comments WHITE BLOOD CELL COUNT (BEAKER) (test enfp=946) 11.8 K/ L 3.5-10.5 RED BLOOD CELL COUNT (BEAKER) (test ezbm=855) 3.51 M/ L 4.63-6.08 HEMOGLOBIN (BEAKER) (test japy=438) 11.5 GM/DL 13.7-17.5 HEMATOCRIT (BEAKER) (test zaxi=980) 35.0 % 40.1-51.0 MEAN CORPUSCULAR VOLUME (BEAKER) (test yksj=788) 99.7 fL 79.0-92.2 MEAN CORPUSCULAR HEMOGLOBIN (BEAKER) (test 32.8 pg 25.7-32.2 unzv=229) MEAN CORPUSCULAR HEMOGLOBIN CONC (BEAKER) (test 32.9 GM/DL 32.3-36.5 fydf=431) RED CELL DISTRIBUTION WIDTH (BEAKER) (test 12.0 % 11.6-14.4 xfsq=611) PLATELET COUNT (BEAKER) (test aadq=274) 224 K/CU MM 150-450 MEAN PLATELET VOLUME (BEAKER) (test ewgs=534) 11.4 fL 9.4-12.4 NUCLEATED RED BLOOD CELLS (BEAKER) (test 0 /100 WBC 0-0 zvlv=140) NEUTROPHILS RELATIVE PERCENT (BEAKER) (test 82 % ejok=305) LYMPHOCYTES RELATIVE PERCENT (BEAKER) (test 9 % plxc=745) MONOCYTES RELATIVE PERCENT (BEAKER) (test 8 % sjsz=890) EOSINOPHILS RELATIVE PERCENT (BEAKER) (test 0 % susu=128) BASOPHILS RELATIVE PERCENT (BEAKER) (test 0 % ogwz=302) NEUTROPHILS ABSOLUTE COUNT (BEAKER) (test 9.69 K/ L 1.78-5.38 pzcz=748) LYMPHOCYTES ABSOLUTE COUNT (BEAKER) (test 1.01 K/ L 1.32-3.57 rdkq=125) MONOCYTES ABSOLUTE COUNT (BEAKER) (test 0.96 K/ L 0.30-0.82 dirc=921) EOSINOPHILS ABSOLUTE COUNT (BEAKER) (test 0.04 K/ L 0.04-0.54 dwle=729) BASOPHILS ABSOLUTE COUNT (BEAKER) (test 0.04 K/ L 0.01-0.08 ihiz=911) IMMATURE GRANULOCYTES-RELATIVE PERCENT (BEAKER) 1 % 0-1 (test zxzy=1264) CT, CHEST, WITH [id number] 17:39:00FINAL REPORT CT of the Chest, abdomen [...] MDReport Verified Date/Time: 08/07/2018 17:39:22 Reading Location: [facility] C013W Consult Reading Room Electronically signed by: REAGAN PECK M.D. on08/07/2018 05:39 PMCT, [id number] 17:39:00FINAL REPORT CT of the Chest, abdomen [...] Verified Date/Time: 08/07/2018 17 :39:22 Reading Location: [facility] Electronically signed by: REAGAN PECK M.D. on08/07/2018 05:39 [facility] METABOL[facility] [id number] 06:53:00 Test Item Value Reference Range Comments SODIUM (BEAKER) (test 135 meq/L 136-145 csay=627) POTASSIUM (BEAKER) (test 4.3 meq/L 3.5-5.1 srlp=998) CHLORIDE (BEAKER) (test 97 meq/L 98-107 tizs=328) CO2 (BEAKER) (test 31 meq/L 22-29 deps=653) BLOOD UREA NITROGEN 24 mg/dL 7-21 (BEAKER) (test phth=403) CREATININE (BEAKER) (test 1.00 mg/dL 0.57-1.25 bdei=352) GLUCOSE RANDOM (BEAKER) 118 mg/dL 70-105 (test hehf=106) CALCIUM (BEAKER) (test 9.1 mg/dL 8.4-10.2 kevw=910) EGFR (BEAKER) (test 73 mL/min/1.73 sq m ESTIMATED GFR IS NOT hlzj=6291) ACCURATE CREATININE CLEARANCE IN PREDICTING GLOMERULAR FILTRATION RATE. ESTIMATED GFR IS NOT APPLICABLE FOR DIALYSIS PATIENTS. CBC W/PLT COUNT & AUTO [id number] 06:22:00 Test Item Value Reference Range Comments WHITE BLOOD CELL COUNT (BEAKER) (test dqba=910) 16.2 K/ L 3.5-10.5 RED BLOOD CELL COUNT (BEAKER) (test wsem=519) 3.59 M/ L 4.63-6.08 HEMOGLOBIN (BEAKER) (test nmnw=099) 11.6 GM/DL 13.7-17.5 HEMATOCRIT (BEAKER) (test wkkj=613) 35.7 % 40.1-51.0 MEAN CORPUSCULAR VOLUME (BEAKER) (test obpq=405) 99.4 fL 79.0-92.2 MEAN CORPUSCULAR HEMOGLOBIN (BEAKER) (test 32.3 pg 25.7-32.2 mxxd=985) MEAN CORPUSCULAR HEMOGLOBIN CONC (BEAKER) (test 32.5 GM/DL 32.3-36.5 boba=018) RED CELL DISTRIBUTION WIDTH (BEAKER) (test 12.0 % 11.6-14.4 ozoh=017) PLATELET COUNT (BEAKER) (test opyd=524) 187 K/CU MM 150-450 MEAN PLATELET VOLUME (BEAKER) (test jccd=337) 11.6 fL 9.4-12.4 NUCLEATED RED BLOOD CELLS (BEAKER) (test 0 /100 WBC 0-0 mmsa=933) NEUTROPHILS RELATIVE PERCENT (BEAKER) (test 82 % tnza=800) LYMPHOCYTES RELATIVE PERCENT (BEAKER) (test 8 % hlgj=095) MONOCYTES RELATIVE PERCENT (BEAKER) (test 9 % gvey=673) EOSINOPHILS RELATIVE PERCENT (BEAKER) (test 0 % styd=677) BASOPHILS RELATIVE PERCENT (BEAKER) (test 0 % pynz=196) NEUTROPHILS ABSOLUTE COUNT (BEAKER) (test 13.30 K/ L 1.78-5.38 awht=881) LYMPHOCYTES ABSOLUTE COUNT (BEAKER) (test 1.27 K/ L 1.32-3.57 bkar=197) MONOCYTES ABSOLUTE COUNT (BEAKER) (test 1.44 K/ L 0.30-0.82 sthb=831) EOSINOPHILS ABSOLUTE COUNT (BEAKER) (test 0.01 K/ L 0.04-0.54 tcbu=242) BASOPHILS ABSOLUTE COUNT (BEAKER) (test 0.05 K/ L 0.01-0.08 kgzp=286) IMMATURE GRANULOCYTES-RELATIVE PERCENT (BEAKER) 1 % 0-1 (test kbrm=3182) RAD, CHEST, 2 [id number] 21:57:00Reason for exam:->Shortness of breath, and concern [...] [place] Verified Date/Time: 08/06/2018 21:57:16 Reading Location: [address] Consult Reading Room 09: 57 [id number] 17:55:00 Test Item Value Reference Range Comments PROCALCITONIN (BEAKER) (test fldt=6208) 0.17 ng/mL <0.05 SEPSIS RISK (ng/mL)Low: 0.05-0.50Intermediate: 0.51-2.00High: & gt;=2.01PROTHROMBIN TIME/[id number] 17:16:00 Test Item Value Reference Range Comments PROTIME (BEAKER) (test bozf=391) 21.4 seconds 11.7-14.7 INR (BEAKER) (test peqw=345) 1.9 <=5.9 RECOMMENDED COUMADIN/WARFARIN INR THERAPY RANGESSTANDARD DOSE: 2.0 - 3.0 Includes: PROPHYLAXIS forvenous thrombosis, systemic embolization; TREATMENT for venous thrombosis and/or pulmonary embolus.HIGH RISK: Target INR is 2.5-3.5 for patients with mechanical heart valves.VITAMIN B12 AND [id number] 17:02 :00 Test Item Value Reference Range Comments VITAMIN B12 (BEAKER) (test mxtf=779) 541 pg/mL 213-816 FOLATE (BEAKER) (test dgox=000) 14.3 ng/mL >=7.0 LACTIC ACID, VENOUS, WHOLE [id number] 16:28:00 Test Item Value Reference Range Comments LACTATE BLOOD VENOUS (2) 1.8 mmol/L 0.5-2.2 Specimen slightly hemolyzed (BEAKER) (test kjzv=2851) Effective 03/13/2016: Units/Reference Range ChangeNew: 0.5-2.2 mmol/L Previous: 5 -20 mg/dLMR, MRA, NECK, WITHOUT IV [id number] 13:54:00Reason for exam:-& gt;Ischemic Stroke EvaluationFINAL REPORT [...] [place] Verified Date/Time: 08/06/2018 13:54:13 Reading Location: [facility] Reading Room Electronically signed by: ARISTIDES LESTER M.D. on 01:54 PMMR, MRA, BRAIN, WITHOUT [id number] 13:54:00Reason for exam:->Ischemic Stroke EvaluationFINAL REPORT MRA brain and neck without contrast 08/06/2018 1:51 PM CLINICAL HISTORY: StrokeIschemic Stroke Evaluation COMPARISON: None available TECHNIQUE: Two- and three-dimensional appm-ql-nslyji MRA images of the intra- and extracranial [...] [place]ester Verified Date/Time: 08/06/2018 13:54:44 Reading Location: [facility] Reading Room MR, BRAIN, WITHOUT [id number] 12:15:00Reason for exam:->Ischemic Stroke EvaluationFINAL REPORT [...] and in the brainstem. Additionally, semiconfluent patchy BUFFING MACHINE OPERATOR SEMIAUTOMATIC territory diffusion restricted recent infarctions are seen [...] soft tissues are unremarkable. . Impressions: Right-sided BUFFING MACHINE OPERATOR SEMIAUTOMATIC and right-sided frontal diffusion restricted recent infarctions as discussed. No hematoma or mass effect. Signed: Marci Sanchez Verified Date/Time: 08/06/2018 12:15:05 Reading Location: [address] Neuro Reading Room CBC W/PLT COUNT & AUTO [id number] 11:56:00 Test Item Value Reference Range Comments WHITE BLOOD CELL COUNT (BEAKER) (test utxl=442) 20.6 K/ L 3.5-10.5 RED BLOOD CELL COUNT (BEAKER) (test xfyf=848) 3.85 M/ L 4.63-6.08 HEMOGLOBIN (BEAKER) (test iuqs=368) 12.4 GM/DL 13.7-17.5 HEMATOCRIT (BEAKER) (test vtkw=029) 38.3 % 40.1-51.0 MEAN CORPUSCULAR VOLUME (BEAKER) (test cbwa=020) 99.5 fL 79.0-92.2 MEAN CORPUSCULAR HEMOGLOBIN (BEAKER) (test 32.2 pg 25.7-32.2 rrna=832) MEAN CORPUSCULAR HEMOGLOBIN CONC (BEAKER) (test 32.4 GM/DL 32.3-36.5 wypu=995) RED CELL DISTRIBUTION WIDTH (BEAKER) (test 12.2 % 11.6-14.4 rgvb=375) PLATELET COUNT (BEAKER) (test seof=394) 180 K/CU MM 150-450 MEAN PLATELET VOLUME (BEAKER) (test fqbu=378) 11.3 fL 9.4-12.4 NUCLEATED RED BLOOD CELLS (BEAKER) (test 0 /100 WBC 0-0 hxwm=833) (CELLAVISION MANUAL DIFF)2018-08-06 11:56:00 Test Item Value Reference Range Comments NEUTROPHILS - REL (CELLAVISION)(BEAKER) (test 87 % tpyf=7064) LYMPHOCYTES - REL (CELLAVISION)(BEAKER) (test 7 % mlrd=0368) MONOCYTES - REL (CELLAVISION)(BEAKER) (test 6 % ooif=4349) NEUTROPHILS - ABS (CELLAVISION)(BEAKER) (test 17.92 K/ul 1.78-5.38 msde=9972) LYMPHOCYTES - ABS (CELLAVISION)(BEAKER) (test 1.44 K/ul 1.32-3.57 qwpm=5535) MONOCYTES - ABS (CELLAVISION)(BEAKER) (test 1.24 K/uL 0.30-0.82 bbik=2711) TOTAL COUNTED (BEAKER) (test fwkb=1106) 100 WBC MORPHOLOGY (BEAKER) (test ifis=983) Normal LARGE PLT(BEAKER) (test swrd=0288) Present POLYCHROMATOPHILLIC RBCS(BEAKER) (test ehey=858) 1+ few CARLOS CELLS (BEAKER) (test svzx=316) 1+ few ARTIFACT (CELLAVISION)(BEAKER) (test nrqq=3767) Present PLATELET CONCENTRATION (CELLAVISION)(BEAKER) Adequate (test lywc=2739) Received comment: User comments: Slide comments:BASIC METABOLIC [id number] 06:50:00 Test Item Value Reference Range Comments SODIUM (BEAKER) (test 134 meq/L 136-145 ninu=413) POTASSIUM (BEAKER) (test 3.7 meq/L 3.5-5.1 nrww=148) CHLORIDE (BEAKER) (test 96 meq/L 98-107 nkst=813) CO2 (BEAKER) (test 28 meq/L 22-29 qzla=766) BLOOD UREA NITROGEN 30 mg/dL 7-21 (BEAKER) (test cskh=882) CREATININE (BEAKER) (test 1.18 mg/dL 0.57-1.25 xcjv=891) GLUCOSE RANDOM (BEAKER) 115 mg/dL 70-105 (test zfsx=072) CALCIUM (BEAKER) (test 8.9 mg/dL 8.4-10.2 ottw=251) EGFR (BEAKER) (test 60 mL/min/1.73 sq m ESTIMATED GFR IS NOT jwja=0615) ACCURATE CREATININE CLEARANCE IN PREDICTING GLOMERULAR FILTRATION RATE. ESTIMATED GFR IS NOT APPLICABLE FOR DIALYSIS PATIENTS. CBC W/PLT COUNT & AUTO [id number] 07:59:00 Test Item Value Reference Range Comments WHITE BLOOD CELL COUNT (BEAKER) (test nkjm=553) 26.0 K/ L 3.5-10.5 RED BLOOD CELL COUNT (BEAKER) (test qktp=422) 4.04 M/ L 4.63-6.08 HEMOGLOBIN (BEAKER) (test yfvp=430) 13.4 GM/DL 13.7-17.5 HEMATOCRIT (BEAKER) (test votd=855) 39.5 % 40.1-51.0 MEAN CORPUSCULAR VOLUME (BEAKER) (test okcd=696) 97.8 fL 79.0-92.2 MEAN CORPUSCULAR HEMOGLOBIN (BEAKER) (test 33.2 pg 25.7-32.2 ejdp=789) MEAN CORPUSCULAR HEMOGLOBIN CONC (BEAKER) (test 33.9 GM/DL 32.3-36.5 xapy=220) RED CELL DISTRIBUTION WIDTH (BEAKER) (test 12.1 % 11.6-14.4 vema=092) PLATELET COUNT (BEAKER) (test tyww=187) 195 K/CU MM 150-450 MEAN PLATELET VOLUME (BEAKER) (test kvxv=216) 11.6 fL 9.4-12.4 NUCLEATED RED BLOOD CELLS (BEAKER) (test 0 /100 WBC 0-0 tcqf=792) (CELLAVISION MANUAL DIFF)2018-08-05 07:59:00 Test Item Value Reference Range Comments NEUTROPHILS - REL (CELLAVISION)(BEAKER) (test 86 % wtca=8559) LYMPHOCYTES - REL (CELLAVISION)(BEAKER) (test 6 % ecep=9211) MONOCYTES - REL (CELLAVISION)(BEAKER) (test 4 % tdth=0343) BANDS - REL (CELLAVISION)(BEAKER) (test 4 % 0-10 ungx=9651) NEUTROPHILS - ABS (CELLAVISION)(BEAKER) (test 22.36 K/ul 1.78-5.38 yimf=8130) LYMPHOCYTES - ABS (CELLAVISION)(BEAKER) (test 1.56 K/ul 1.32-3.57 nxpt=8408) MONOCYTES - ABS (CELLAVISION)(BEAKER) (test 1.04 K/uL 0.30-0.82 seon=4551) BANDS - ABS (CELLAVISION)(BEAKER) (test 1.04 K/uL 0.00-0.80 crch=9411) TOTAL COUNTED (BEAKER) (test nfre=2012) 100 PLT MORPHOLOGY (BEAKER) (test jsuh=591) Normal SMUDGE CELLS (BEAKER) (test ncba=4866) Present POIKILOCYTES (BEAKER) (test pvgf=155) 1+ few PLATELET CONCENTRATION (CELLAVISION)(BEAKER) Adequate (test qebk=5870) Received comment: User comments: Slide comments:URINALYSIS W/ REFLEX URINE [id number] 05:52:00 Test Item Value Reference Range Comments COLOR (BEAKER) (test qidd=508) Yellow CLARITY (BEAKER) (test akur=903) Hazy SPECIFIC GRAVITY UA (BEAKER) (test riuq=849) 1.022 1.001-1.035 PH UA (BEAKER) (test atnm=125) 5.5 5.0-8.0 PROTEIN UA (BEAKER) (test optj=588) 100 mg/dL Negative GLUCOSE UA (BEAKER) (test rwwr=532) Negative Negative KETONES UA (BEAKER) (test cdni=379) Negative Negative BILIRUBIN UA (BEAKER) (test urrb=286) Negative Negative BLOOD UA (BEAKER) (test mvpw=264) Trace Negative NITRITE UA (BEAKER) (test xduv=615) Negative Negative LEUKOCYTE ESTERASE UA (BEAKER) (test iiiq=301) Negative Negative UROBILINOGEN UA (BEAKER) (test cezp=488) 2.0 mg/dL 0.2-1.0 RBC UA (BEAKER) (test eulg=120) 11 /HPF WBC UA (BEAKER) (test xzob=787) 3 /HPF MUCUS (BEAKER) (test jyql=3501) Many SQUAMOUS EPITHELIAL (BEAKER) (test wlgr=310) < /HPF HYALINE CASTS (BEAKER) (test tiov=031) 5 /LPF SOURCE(BEAKER) (test wgwe=4995) BASIC METABOLIC [id number] 05:45:00 Test Item Value Reference Range Comments SODIUM (BEAKER) (test 135 meq/L 136-145 mrtw=867) POTASSIUM (BEAKER) (test 3.9 meq/L 3.5-5.1 aggr=451) CHLORIDE (BEAKER) (test 99 meq/L 98-107 wgky=910) CO2 (BEAKER) (test 26 meq/L 22-29 xxjy=135) BLOOD UREA NITROGEN 21 mg/dL 7-21 (BEAKER) (test femf=001) CREATININE (BEAKER) (test 1.09 mg/dL 0.57-1.25 vjql=518) GLUCOSE RANDOM (BEAKER) 127 mg/dL 70-105 (test guxe=151) CALCIUM (BEAKER) (test 9.0 mg/dL 8.4-10.2 yuwr=669) EGFR (BEAKER) (test 66 mL/min/1.73 sq m ESTIMATED GFR IS NOT qjlc=7548) ACCURATE CREATININE CLEARANCE IN PREDICTING GLOMERULAR FILTRATION [...] MDReport Verified Date/Time: 2017 04:28:36 Reading Location: [facility] C013Y CT Body Reading Room TROPONIN [id number] 14:22:00 Test Item Value Reference Range Comments TROPONIN I (BEAKER) (test wyma=727) < ng/mL 0.00-0.03 Troponin I (TnI) levels [...] disease, and persistent tachyarrhythmia.RAD, ABDOMEN/KUB, 1 VIEW [id number] 12 :40:00Reason for exam:->abdominal painFINAL REPORT CLINICAL HISTORY: abdominal pain TECHNIQUE: Supine abdomen COMPARISON: None IMPRESSION: There is a large amount of stool throughout the colon. There are no focally distended loops of bowel. Free air and air-fluid levels are not seen but cannot be definitively excluded on the supine view. Signed: Colton Marquis Verified Date/Time: 08/04/2018 12:40:36 Reading Location: [facility] Radiology Reading Room HEMOGLOBIN [id number] 05:30:00 Test Item Value Reference Range Comments HEMOGLOBIN A1C (BEAKER) (test kvyo=486) 5.6 % 4.3-6.1 [id number] 02:50:00 Test Item Value Reference Range Comments HOMOCYSTEINE (BEAKER) (test yrsz=942) 6.5 umol/L 5.1-15.4 TROPONIN [id number] 02:25:00 Test Item Value Reference Range Comments TROPONIN I (BEAKER) (test pnsa=350) < ng/mL 0.00-0.03 Troponin I (TnI) levels [...] acidosis, acute neurological disease, and persistent tachyarrhythmia.FastingLIPID [id number] 02:19:00 Test Item Value Reference Range Comments TRIGLYCERIDES (BEAKER) (test kfht=127) 111 mg/dL CHOLESTEROL (BEAKER) (test teqv=656) 113 mg/dL HDL CHOLESTEROL (BEAKER) (test jeep=408) 26 mg/dL LDL CHOLESTEROL CALCULATED (BEAKER) (test 65 mg/dL gksm=064) Triglyceride Reference Range: Low Risk <150 Borderline 150- 199 High Risk 200-499 Very High Risk >=500Cholesterol Reference Range: Low Risk <200 Borderline 200-239 High Risk > 240HDL Cholesterol Reference Range: Low Risk >=60 High Risk <40LDL Cholesterol Reference Range: Optimal <100 Near Optimal 100-129 Borderline 130-159 High 160-189 Very High >=190 FastingBASIC METABOLIC [id number] 02:19:00 Test Item Value Reference Range Comments SODIUM (BEAKER) (test 140 meq/L 136-145 ougd=059) POTASSIUM (BEAKER) (test 3.6 meq/L 3.5-5.1 ywud=260) CHLORIDE (BEAKER) (test 109 meq/L 98-107 igjb=691) CO2 (BEAKER) (test 23 meq/L 22-29 hosn=175) BLOOD UREA NITROGEN 15 mg/dL 7-21 (BEAKER) (test lsko=825) CREATININE (BEAKER) (test 0.85 mg/dL 0.57-1.25 cqlp=438) GLUCOSE RANDOM (BEAKER) 135 mg/dL 70-105 (test vghj=512) CALCIUM (BEAKER) (test 8.2 mg/dL 8.4-10.2 nhck=171) EGFR (BEAKER) (test 88 mL/min/1.73 sq m ESTIMATED GFR IS NOT dglm=3158) ACCURATE CREATININE CLEARANCE IN PREDICTING GLOMERULAR FILTRATION RATE. ESTIMATED GFR IS NOT APPLICABLE FOR DIALYSIS PATIENTS. FastingCBC W/PLT COUNT & AUTO [id number] 01:57:00 Test Item Value Reference Range Comments WHITE BLOOD CELL COUNT (BEAKER) (test bddh=450) 14.2 K/ L 3.5-10.5 RED BLOOD CELL COUNT (BEAKER) (test pfxr=019) 3.86 M/ L 4.63-6.08 HEMOGLOBIN (BEAKER) (test qdfc=965) 12.7 GM/DL 13.7-17.5 HEMATOCRIT (BEAKER) (test ilgc=270) 37.7 % 40.1-51.0 MEAN CORPUSCULAR VOLUME (BEAKER) (test meej=416) 97.7 fL 79.0-92.2 MEAN CORPUSCULAR HEMOGLOBIN (BEAKER) (test 32.9 pg 25.7-32.2 tfze=334) MEAN CORPUSCULAR HEMOGLOBIN CONC (BEAKER) (test 33.7 GM/DL 32.3-36.5 xies=277) RED CELL DISTRIBUTION WIDTH (BEAKER) (test 12.0 % 11.6-14.4 kgnb=597) PLATELET COUNT (BEAKER) (test pfoy=862) 183 K/CU MM 150-450 MEAN PLATELET VOLUME (BEAKER) (test dzsf=259) 11.1 fL 9.4-12.4 NUCLEATED RED BLOOD CELLS (BEAKER) (test 0 /100 WBC 0-0 stki=193) NEUTROPHILS RELATIVE PERCENT (BEAKER) (test 83 % fics=114) LYMPHOCYTES RELATIVE PERCENT (BEAKER) (test 9 % hbvc=115) MONOCYTES RELATIVE PERCENT (BEAKER) (test 7 % hvyg=313) EOSINOPHILS RELATIVE PERCENT (BEAKER) (test 0 % vsvh=970) BASOPHILS RELATIVE PERCENT (BEAKER) (test 0 % tlvf=115) NEUTROPHILS ABSOLUTE COUNT (BEAKER) (test 11.72 K/ L 1.78-5.38 uxaj=888) LYMPHOCYTES ABSOLUTE COUNT (BEAKER) (test 1.28 K/ L 1.32-3.57 xrcz=795) MONOCYTES ABSOLUTE COUNT (BEAKER) (test 0.98 K/ L 0.30-0.82 dzzk=128) EOSINOPHILS ABSOLUTE COUNT (BEAKER) (test 0.02 K/ L 0.04-0.54 yffc=502) BASOPHILS ABSOLUTE COUNT (BEAKER) (test 0.05 K/ L 0.01-0.08 pwym=809) IMMATURE GRANULOCYTES-RELATIVE PERCENT (BEAKER) 1 % 0-1 (test vllu=3683)
[2019-03-25 15:35] VITALS: BMI 38.5
[2019-03-25 15:56] LABS: Absolute Lymphocytes (CBC) 1.1 K/uL (0.7-4.9); Absolute Monocytes 0.6 K/uL (0.1-1.3); Absolute Neutrophil 6.5 K/uL (1.8-8.0); Basophils % 0.7 % (0-1.3); Eosinophils % 2.9 % (0-4.4); Lymphocytes % 13.2 % (15.3-44.8); MPV 9.7 fL (7.6-11.3); Monocytes % 7.2 % (3.3-12.3); RBC Red Blood Cell Count 3.71 M/uL (4.33-5.43)
[2019-03-25 16:12] LABS: Albumin 3.6 g/dL (3.4-5.0); Bilirubin Total 0.3 mg/dL (0.2-1.0); Magnesium 2.2 mg/dL (1.8-2.4); Protein, Total 7.5 g/dL (6.4-8.2)
[2019-03-25] MEDS: CEFTRIAXONE/SWI 1gm 1 GM/10 ML SYR IVP SCH (16:46)
[2019-03-25] MEDS: VANCOMYCIN 1.75 GM in NA CHLORIDE 0.9% 500 ML IVPB SCH (16:57)
[2019-03-25] MEDS ORDERED: D50W 25 GM/50 ML SYRINGE IV PRN (22:01)
[2019-03-25] MEDS ORDERED: GLUCAGON 1 MG/VIAL IM PRN (22:01)
[2019-03-25 22:08] VITALS: O2SAT 98
[2019-03-25 22:32] LABS: Urine Appearance CLEAR; Urine Bilirubin NEGATIVE (NEG); Urine Blood NEGATIVE (NEG); Urine Color YELLOW; Urine Glucose NEGATIVE (NEG); Urine Protein NEGATIVE (NEG); Urine Urobilinogen 0.2 mg/dL (0.2-1.0); Urine pH 5.5 (5.0-7.0)
[2019-03-25 22:39] LABS: Urine Microscopic Reflex NO UMIC
[2019-03-26] MEDS: VANCOMYCIN 1.75 GM in NA CHLORIDE 0.9% 500 ML IVPB SCH (05:12)
--- NOTE | 2019-03-26 05:33 | HP ---
Date of Admission: 03/25/2019 Chief Complaint: Right foot osteomyelitis and problem with PICC line. History Of Present Illness: This is a 73-year-old very pleasant male patient who has right foot oste omyelitis problem and is on home IV antibiotics. The patient has home health care and nurse to leidy t the patient with IV antibiotic and the patient's also administers the antibiotic at home. He is on IV ceftriaxone 1 g every 12 hours and vancomycin 1.75 g IV every 12 hours. The patient was dis charged from hospital week before last, and last week he saw [facility], and he saw me last week at my office for followup visit on . When I saw him at the office, his vancomycin infusion was going on; that was started by at 11 a.m. and by the time I s aw him at office, it was probably 4 p.m. to 5 p.m., so he had his vancomycin going on for 5-6 hours a nd it was still not infused completely. The patient's told me that this is how normally he take s 5-6 hours of time to finish the vancomycin dose, which is unusual. The patient's who is not m y patient, but she was noted to have yellow discoloration of her skin and she informed me that she wa s undergoing some further testing for jaundice problem which was recently diagnosed within 24-48 hour s or so. The patient unfortunately is not able to take care of his healthcare needs and helps h im with that. His memory is not that great, so I was concerned about what might happen to his health care considering 's own health problems that we worry about and, in anticipation of that, I did communicate with both of them and informed them that it would be best for him to get into skilled [facility] facility where he can get his IV antibiotic and wound care management treatment done while is undergoing her own evaluation and treatment for her own health problems. Other option that he had was to live with his son who lives in [facility] and his son is a physician and he will assist with his healthcare needs. The patient declined to go to [facility] and he wanted to stay here locally and he was agreeable after I talked to him on Friday to go to jail facility. So, I did co mmunicate with home health nurse on [place] and also communicated with [facility] as the pa zarina expressed desire to go there if it is approved by insurance [employer] and staff from [facility], they tried over the weekend and by Friday they informed us that insurance company does not authorize that particular correction as it is not in the network. So, the patient's family was to ld that one of the correction in [place] was within network, so his home healthcare started to ass ist the patient to go to that facility and we were informed yesterday that the patient could not go t o that facility either. Today, home health nurse came to my office and informed me that the patient' s is going through her appointments to find out what is wrong with her. Meanwhile, they are con cerned about PICC line which is not working well and the patient's had trouble infusing antibiot ic this morning which was 5 a.m. dose. When the patient was sent home from hospital, he was on vanco mycin 1.75 g every 12 hours, but last week we changed the dose to every 18 hours because the trough l evel was higher than normal range. had trouble computing this 18 hours interval, so I did commu nicate with the health nurse and informed the nurse to assist with timings of every 18 hours van comycin dosing. Today, after talking to patient's home health nurse and also finding out that the pa zarina had problem with PICC line, a decision was made to go ahead and admit him to the hospital [facility] for further evaluation and management of this problem. Meanwhile, we were notified that [facility] has been approved by insurance [employer] for patient to go there, but the patient was a dmitted to the hospital because home health nurse and the patient's reported that his PICC line was not working. After the patient was admitted to hospital, nurse at the hospital was able to make this PICC line work and when I saw him he was getting IV antibiotics through the PICC line. The sunil ent denies any fever, chills, nausea, vomiting, diarrhea. Medications: List reviewed. Allergies: NO KNOWN ALLERGIES. Review of Systems: Musculoskeletal: Has right foot wound. [employer]: Has tingling and numbness of his feet due to neuropath y. Past Medical History: Significant for chronic atrial fibrillation, peripheral neuropathy, hypertensi on, diabetes mellitus, chronic gastritis, PTSD, hyperlipidemia, lung cancer, chronic anticoagulation therapy, bilateral carotid artery stenosis. Past Surgical History: Carotid artery stent placement for right carotid artery stenosis in 2018, her steven repair x3 in 2002, arthroscopic knee surgery in 1982, and tonsillectomy in 1949. He also had keith ctrical cardioversion and ablation for atrial fibrillation. Family History: Significant for Parkinson disease. Social History: Prior history of smoking, not at present time. Use of alcohol negative. Physical Examination: Vital Signs: Temperature 97.2, pulse 59, respiratory rate 19, blood pressure 131/76, oxygen saturati on 95%, height 6 feet 1 inch, weight 292 pounds. General: Awake, alert, oriented, not in distress. HEENT: Head atraumatic, normocephalic. Conjunctivae nonerythematous. Sclerae white. Mouth, no thr ush or edema noted. Ears/Nose, no mass, lesion, discharge noted. Neck: Supple. No JVD, lymph nodes, bruit, thyromegaly noted. Lungs: Bilateral good equal air entry. Clear to auscultation. No rhonchi. No rales. Heart: Normal heart sounds, no murmur or gallop. Abdomen: Soft, bowel sounds normal. No guarding, rigidity, tenderness, mass, hepatosplenomegaly, dis tention, or bruit noted. Extremities: Trace leg edema, mostly on the dorsum of feet. Right foot great toe has dressing prese nt. Skin: No rash, ulcer, cellulitis. Lymphatics: No lymph node enlargement in neck, supraclavicular, infraclavicular region. Neuro: No focal neurological deficit. Chest: Unremarkable. External Genitalia: Deferred. Rectal: Deferred. Laboratory Data: White count 8.5, hemoglobin 11.5, platelets 196. Sodium 142, potassium 4, chloride 107, bicarb 31, BUN 11, creatinine 0.94, glucose 117. Liver function tests unremarkable. Vancomyci n trough level 16.8. Impression: 1.Right foot osteomyelitis. 2.Malfunction of PICC line. 3.Chronic atrial fibrillation. 4.Hypertension. 5.Type 2 diabetes mellitus. 6.Hyperlipidemia. 7.Peripheral neuropathy. 8.Lung cancer. 9.Chronic anticoagulation therapy. 10.Bilateral carotid artery stenosis. 11.Chronic gastritis. 12.Posttraumatic stress disorder. Plan: 1.Admit patient to hospital for further evaluation and management of this problem. The patient is a ppropriate for inpatient and is expected to spend two midnights in hospital. 2.Home medications will be continued per order. 3.We will consult Social Service to assist with correction placement and as we [facility] [employer] has already approved [facility] as a jail facility, s o once we have Social Service confirm this we will be able to discharge him to go to this facility pr ovided we take care of his malfunctioning of the PICC line problem and we will have our PICC line samm se evaluate this tonight. 4.Details on plan of treatment discussed with the patient. The patient needs total 6 weeks of IV ce ftriaxone and IV vancomycin therapy, and these both antibiotics were started on 03/02/2019, so he nee ds total 6 weeks of this antibiotic therapy from that point on. So far, he has received 3 weeks and he has 3 more weeks to go on IV antibiotic therapy starting today. ADELITA/MODL Voice ID: [id number]
[2019-03-26] MEDS ORDERED: ALTEPLASE 2 MG/VIAL IV SCH ×3 (07:00→08:00)
[2019-03-26] MEDS: INSULIN -REGULAR HUMAN 50 UNIT/0.5 ML ML SQ SCH ×2 (07:30→11:27)
[2019-03-26] MEDS: CEFTRIAXONE/SWI 1gm 1 GM/10 ML SYR IVP SCH (08:48)
[2019-03-26] MEDS ORDERED: DOFETILIDE 500 MG PO SCH (09:00)
[2019-03-26] MEDS ORDERED: HOME MED 1 EA UNK (Gabapentin [Gabapentin] 300 MG) PO SCH (09:00)
[2019-03-26] MEDS ORDERED: HOME MED 1 EA UNK (Amlodipine [Norvasc*] 5 MG) PO SCH (09:00)
[2019-03-26] MEDS ORDERED: HOME MED 1 EA UNK (Metoprolol Succinate [Toprol Xl] 200 MG) PO SCH (09:00)
[2019-03-26] MEDS ORDERED: HOME MED 1 EA UNK (Omeprazole [Omeprazole] 20 MG) PO SCH (09:00)
[2019-03-26] MEDS ORDERED: METFORMIN HCL 500 MG PO SCH (09:00)
[2019-03-26] MEDS ORDERED: HOME MED 1 EA UNK (Furosemide [Lasix*] 40 MG) PO SCH (09:00)
[2019-03-26] MEDS ORDERED: HOME MED 1 EA UNK (Lisinopril [Zestril] 2.5 MG) PO SCH (09:00)
[2019-03-26] MEDS ORDERED: HOME MED 1 EA UNK (Apixaban [Eliquis] 5 MG) PO SCH (09:00)
[2019-03-26 14:40] VITALS: BP 123/68; TEMP 98
[2019-03-26] MEDS ORDERED: HOME MED 1 EA UNK (Atorvastatin Calcium [Lipitor] 80 MG) PO SCH (21:00)
--- NOTE | 2019-03-27 03:32 | DS ---
Date of Discharge: 03/26/2019 The patient was seen this morning for followup. Physical Examination: Vital Signs: Reviewed. HEENT: Unremarkable. Lungs: Clear to auscultation. Heart: Sounds normal. Abdomen: Soft. Bowel sounds normal. No guarding, rigidity, tenderness, distention. Extremities: Trace edema of lower leg and feet. Laboratory Data: White count 8.5 yesterday with hemoglobin 11.5, platelets 196. Sodium 142, potassi um 4, chloride 107, bicarb 31, BUN 11, creatinine 0.94, glucose 117. Liver function tests unremarkab le. Vancomycin trough level 16.8. Hospital Course: This is a 73-year-old male patient, was admitted to the hospital yesterday with pro blem with PICC line functioning. The patient's and home health nurse both had trouble giving IV medication through the PICC line as it was not functioning well and the patient was admitted to [facility]. After he was admitted to the hospital, we had a PICC line nurse evaluate this line last night and I was informed that one of the ports was clogged and suggested Cathflo, which was ordered. The o ther port nurse was able to administer IV antibiotics through the other port during this hospitalizat ion without any problem. Social Service was consulted and as I understand that Social Service has co nfirmed about the patient's insurance company's approval for [facility] and after the Cathflo will be given, I will have confirmation from nursing staff re garding functional status of the PICC line and then we will discharge him to go to detention. He has 3 more weeks of IV antibiotic therapy that he needs to finish and he has already completed 3 week s of such IV antibiotic therapy. Final Diagnoses: 1.Right foot osteomyelitis. 2.Malfunction of PICC. 3.Chronic atrial fibrillation. 4.Hypertension. 5.Type 2 diabetes mellitus. 6.Hyperlipidemia. 7.Peripheral neuropathy. 8.Lung cancer. 9.Chronic anticoagulation therapy. 10.Chronic gastritis. 11.Bilateral carotid artery stenosis. 12.Posttraumatic stress disorder. Discharge Medications And Instructions: 1.Continue all prior home medication. 2.Ceftriaxone 1 g IV piggyback every 12 hours for 3 weeks. 3.Vancomycin 1.75 g IV piggyback every 12 hours for 3 weeks. 4.Vancomycin trough level, CBC, and Chem-7 to be done with every third dose and detention physici an to adjust antibiotic depending on the blood test results. 5.retirement nurse to flush PICC line per protocol, change PICC line dressing per protocol, and re move PICC line after 3 weeks of IV antibiotic therapy completed. 6.The patient to follow up at the [facility] with Dr. Ogden next week on Friday, and ound care dressing changes to be done on a daily basis per instruction from Dr. Ogden. ADELITA/MODL Voice ID: [id number] Report ID: [id number]
--- NOTE | 2019-03-29 15:02 | RAD REPORT ---
EXAM DESCRIPTION: XR Chest Single View CLINICAL HISTORY: 73 years Male picc placement TECHNIQUE: One view of the chest. COMPARISON: Comparison is made to the prior examination dated 03/05/2019. FINDINGS: Again seen is a right-sided PICC line with its tip projecting over the distal SVC. Increased bronchovascular markings and cardiac size may be related to low lung volumes. There is no d efinite focal consolidation or pneumothorax. Stable blunting of the right costophrenic angle. No acut e osseous abnormalities. IMPRESSION: Stable right-sided PICC line in good position. Otherwise stable exam. Blunting of the right costophrenic angle could reflect scarring or trace fluid . Electronically signed by: Natalya Diaz MD 03/25/2019 11:16 PM CDT Due to temporary technical issues with the PACS/Fluency reporting system, reports are being signed by the in house radiologist as a courtesy to ensure prompt reporting. The interpreting radiologist is f ully responsible for the content of the report.
== END 2019-03-26 16:17 ==
LOC: 2ND 14:57 → INTOOBSV 14:57
PROVIDERS: ADMIT Internal Medicine; ATTEND Internal Medicine
DX: E11.69 Type 2 diabetes mellitus with other specified complication (principal); M86.8X7 Other osteomyelitis, ankle and foot; T82.898A Other specified complication of vascular prosthetic devices, implants and grafts, initial encounter; I48.2 Chronic atrial fibrillation; I10 Essential (primary) hypertension; E78.5 Hyperlipidemia, unspecified; E11.40 Type 2 diabetes mellitus with diabetic neuropathy, unspecified; C34.90 Malignant neoplasm of unspecified part of unspecified bronchus or lung; I65.23 Occlusion and stenosis of bilateral carotid arteries; K29.70 Gastritis, unspecified, without bleeding; F43.10 Post-traumatic stress disorder, unspecified; Z79.01 Long term (current) use of anticoagulants; Z79.899 Other long term (current) drug therapy
CPT/HCPCS: 36415; 71045; 80053; 80202; 81003; 82962; 83735; 85025; 96365; 96367; G0378; J0696; J2997

== ENCOUNTER 2019-03-29 07:50 | Emergency (ER) | payer BC, OTHER ==
--- OUTSIDE RECORDS SUMMARY | 2019-03-29 07:59 | XMS REPORT | Clinical Summary ---
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 Post stent placement, the internal carotid [...] Performed At LAB - Carotid Duplex Study [facility] Demographics Patient Name ALEJO LIVINGSTON Date of Study11/18/2018 [id number] Visit Number [id number] Gender Male Accession Number [id number] Date of Birth1945 ReferringPeter KanRoom Number Physician [...] External Ris In - 11/18/2018 10:10 AM MOTORCYCLE DELIVERER PV LAB - Carotid Duplex Study Demographics Patient Name ALEJO LIVINGSTON Date of Study 11/18/2018 Age 73 Visit Number [id number] Gender Male Accession Number [id number] Date of 1945 Referring [facility] Room Number Physician Nurses Medical Assistants Phlebotomists Tuyet Zuñiga Interpreting Gillian Cai, RN, RVT [...] period is included. % Neutros 73 % [facility] % Lymphs 9 % [facility] % Monos 9 % [facility] % Eos 2 % [facility] % Metamyelo 1 (H) 0 - 0 % [facility] % Bands 5 0 - 10 % [facility] % Atypical Lymphs 1 (H) 0 - 0 % [facility] # Neutros 8.18 (H) 1.78 - 5.38 K/ul [facility] # Lymphs 1.01 (L) 1.32 - 3.57 K/ul [facility] # Monos 1.01 (H) 0.30 - 0.82 K/uL [facility] # Eos 0.22 0.04 - 0.54 K/uL [facility] # Metamyelo 0.11 (H) 0.00 - 0.00 K/uL [facility] # Bands 0.56 0.00 - 0.80 K/uL [facility] # Atypical Lymphs 0.11 (H) 0.00 - 0.00 K/uL [facility] Total Counted 100 [facility] Smudge Cells Present [facility] Giant Platelet Present [facility] Polychromasia 1+ few [facility] Anisocytosis 1+ few [facility] Poikilocytes 2+ moderate [facility] [place] Cells 1+ few [facility] Platelet Conc Adequate [facility] Specimen Blood Narrative Performed At Received comment: [facility] User comments: Slide comments: Performing Organization Address City/State/Zipcode Phone Number [facility] [address] [place] [address] [phone] CENTER CBC with platelet count + automated diff (08/14/2018 4:24 AM CDT)Only the most recent of11 resultswithin the time period is included. WBC 11.2 (H) 3.5 - 10.5 K/L [facility] RBC 3.76 (L) 4.63 - 6.08 M/L [facility] Hemoglobin 12.2 (L) 13.7 - 17.5 GM/DL [facility] Hematocrit 38.3 (L) 40.1 - 51.0 % [facility] MCV 101.9 (H) 79.0 - 92.2 fL [facility] MCH 32.4 (H) 25.7 - 32.2 pg [facility] MCHC 31.9 (L) 32.3 - 36.5 GM/DL [facility] RDW 11.9 11.6 - 14.4 % [facility] Platelets 275 150 - 450 K/CU MM [facility] MPV 11.0 9.4 - 12.4 fL [facility] nRBC 0 0 - 0 /100 WBC [facility] Specimen Blood Performing Organization Address City/State/Zipcode Phone Number [facility] [address] [place] [address] [phone] CENTER Basic Metabolic Panel (08/14/2018 4:24 AM CDT)Only the most recent of11 resultswithin the time period is included. Sodium 133 (L) 136 - 145 meq/L [facility] Potassium 3.9 3.5 - 5.1 meq/L [facility] Chloride 100 98 - 107 meq/L [facility] CO2 26 22 - 29 meq/L [facility] BUN 17 7 - 21 mg/dL [facility] Creatinine 0.84 0.57 - 1.25 mg/dL [facility] Glucose 111 (H) 70 - 105 mg/dL [facility] Calcium 8.6 8.4 - 10.2 mg/dL [facility] EGFR 89Comment: ESTIMATED GFR IS mL/min/1.73 sq m [facility] NOT ACCURATE CREATININE [facility] CLEARANCE IN PREDICTING GLOMERULAR FILTRATION RATE. ESTIMATED GFR IS NOT APPLICABLE FOR DIALYSIS PATIENTS. Specimen Blood Performing Organization Address City/State/Zipcode Phone Number [facility] [address] [place] [address] CENTER XR chest 1 view portable / bedside (08/12/2018 2:54 PM CDT) Specimen Narrative Performed At FINAL REPORT [email or web address] Chest one view INDICATION: Shortness of breath [...] MD Report Verified Date/Time:08/12/2018 15:59:35 Reading Location: [address] Transitional Reading Room Procedure Note Interface, [...] Report Verified Date/Time: 08/12/2018 15:59:35 Reading Location: [facility] C013T Transitional Reading Room Performing Organization Address City/State/Zipcode Phone Number GE RIS ECG 12 lead (08/12/2018 8:50 AM CDT)Only the most recent of4 resultswithin the time period is included. Specimen Narrative Performed At Ventricular Rate 82 BPM GE MUSE Atrial Rate 357 BPM QRS Duration 84 ms Q-T Interval 408 ms QTC Calculation(Bazett) 476 ms R [place] 44 degrees T [place] 49 degrees Atrial fibrillation Nonspecific ST abnormality Abnormal ECG When compared with ECG of 08-AUG-2018 14:50, No significant change was found Confirmed by MD HOLDER JORGE ([id number]) on 08/12/2018 1:55:24 PM Procedure Note Interface, External Ris In - 08/12/2018 1:55 PM CDT Ventricular Rate 82 BPM Atrial Rate 357 BPM QRS Duration 84 ms Q-T Interval 408 ms QTC Calculation(Bazett) 476 ms R [place] 44 degrees T [place] 49 degrees Atrial fibrillation Nonspecific ST abnormality Abnormal ECG When compared with ECG of 08-AUG-2018 14:50, No significant change was found Confirmed by MD HOLDER JORGE ([id number]) on 08/12/2018 1:55:24 PM Performing Organization Address City/State/[facility] Phone Number [facility] Carotid Artery Stent Placement w/Protection (08/11/2018 4:51 PM CDT)Only the most recent of2 resultswithin the time period is included. Specimen Narrative Performed At FINAL REPORT [email or web address] DATE OF PROCEDURE: 08/11/18 SURGEON:Chaz France MD SUPPLIER MANAGER: Leta Barreto MD PREOPERATIVE DIAGNOSIS: Transient ischemic [...] puncture the right femoral artery. A 5 [place] short sheath was then passed over an angled glide catheter. Using coaxial technique, a 5 [place] 2 catheter was advanced into the [...] MD Report Verified Date/Time:08/12/2018 12:14:40 Reading Location: [facility] Reading Room Procedure Note Interface, External Ris In - 08/12/2018 12:17 PM CDT FINAL REPORT DATE OF PROCEDURE: 08/11/18 SURGEON: Chaz France MD SUPPLIER MANAGER: Leta Barreto MD PREOPERATIVE DIAGNOSIS: Transient ischemic [...] puncture the right femoral artery. A 5 [place] short sheath was then passed over an angled glide catheter. Using coaxial technique, a 5 [place] 2 catheter was advanced into the descending [...] Report Verified Date/Time: 08/12/2018 12:14:40 Reading Location: [place] [address] Neuro Angio Reading Room Performing Organization Address City/State/Zipcode Phone Number GE RIS POC ACTIVATED CLOTTING TIME (08/11/2018 3:47 PM CDT) Activated Clotting Time 241Comment: TESTED AT sec [facility] [address] [place] [id number] Specimen Blood Performing Organization Address City/[facility]/Zipcode Phone Number [address] [address] CENTER POCT-P2Y12 PLATELET AGGREGATION (08/11/2018 12:21 PM CDT)Only the most recent of2 resultswithin the time period is included. POC-P2Y12 Plt Agg 51 PRU [facility] Specimen Blood Narrative Performed At RANGE INFORMATION: PRU reference range is [facility] 194-418. Post Drug Results: Lower PRU levels are associated with expected antiplatelet effect. Values may be below the stated reference range above. The post-drug PRU values reported in the [employer]Now P2Y12 package insert are [id number]. Performing Organization Address [facility] Phone Number [address] [phone] CENTER PT/aPTT (08/11/2018 12:21 PM CDT) Protime 16.1 (H) 11.7 - 14.7 seconds [facility] INR 1.3 <=5.9 [facility] PTT 40.0 (H) 22.5 - 36.0 seconds [facility] Specimen Blood Narrative Performed At [facility] RECOMMENDED COUMADIN/WARFARIN INR THERAPY RANGES STANDARD DOSE: 2.0 - 3.0 Includes: PROPHYLAXIS for venous thrombosis, systemic embolization; TREATMENT for venous thrombosis and/or pulmonary embolus. HIGH RISK: Target INR is 2.5-3.5 for patients with mechanical heart valves. Performing Organization Address [facility] Phone Number [address] [phone] CENTER POCT-ASPIRIN PLATELET AGGREGATION (08/11/2018 6:24 AM CDT) POC-Aspirin Plt Agg 408 ARU [facility] Specimen Blood Narrative Performed At RANGE INFORMATION: 350-549 ARU Therapeutic [facility] range for platelet function. 550-700 ARU Non-Therapeutic range for platelet function. Performing Organization Address [facility] Phone Number [address] [address] CENTER CBC (hemogram only) (08/11/2018 6:24 AM CDT)Only the most recent of2 resultswithin the time period is included. WBC 12.4 (H) 3.5 - 10.5 K/L [facility] RBC 3.54 (L) 4.63 - 6.08 M/L [facility] Hemoglobin 11.4 (L) 13.7 - 17.5 GM/DL [facility] Hematocrit 35.6 (L) 40.1 - 51.0 % [facility] MCV 100.6 (H) 79.0 - 92.2 fL [facility] MCH 32.2 25.7 - 32.2 pg [facility] MCHC 32.0 (L) 32.3 - 36.5 GM/DL [facility] RDW 11.9 11.6 - 14.4 % [facility] Platelets 271 150 - 450 K/CU MM [facility] MPV 11.2 9.4 - 12.4 fL [facility] nRBC 0 0 - 0 /100 WBC [facility] Specimen Blood Performing Organization Address City/State/Zipcode Phone Number [facility] [address] [place] [address] CENTER [place] cerebral 4 vessel angiogram (08/10/2018 1:22 PM CDT) Specimen Narrative Performed At FINAL REPORT [facility] DATE OF PROCEDURE: 08/10/2018 SURGEON: Chaz France M.D. SUPPLIER MANAGER:Leta Barreto MD PREOPERATIVE DIAGNOSIS:carotid stenosis POST OPERATIVE [...] MD Report Verified Date/Time:08/12/2018 09:29:38 Reading Location: [facility] Y026 Neuro Angio Reading Room Procedure Note Interface, External Ris In - 08/12/2018 9:29 AM CDT FINAL REPORT DATE OF PROCEDURE: 08/10/2018 SURGEON: Chaz France M.D. SUPPLIER MANAGER: Leta Barreto MD PREOPERATIVE DIAGNOSIS: carotid stenosis [...] Report Verified Date/Time: 08/12/2018 09:29:38 Reading Location: [place] [address] Neuro Angio Reading Room Performing Organization Address City/State/Zipcode Phone Number GE RIS aPTT (08/10/2018 6:08 AM CDT)Only the most recent of5 resultswithin the time period is included. PTT 38.3 (H) 22.5 - 36.0 seconds [facility] Specimen Blood Performing Organization Address City/State/Zipcode Phone Number [facility] [address] [place] [address] CENTER Sodium, random urine (08/09/2018 12:35 PM CDT) Sodium Urine 74 meq/L [facility] Specimen Urine Narrative Performed At [facility] Reference Range: No Normals Performing Organization Address [facility] Phone Number [address] [address] [phone] [place] Protein, random urine (08/09/2018 12:35 PM CDT) Protein, Urine <7 0 - 14 mg/dL [facility] Specimen Urine Performing Organization Address [facility] Phone Number [address] [address] [place] Creatinine, random urine (08/09/2018 12:35 PM CDT) Creatinine, Ur 18.9 mg/dL [facility] Specimen Urine Narrative Performed At [facility] Reference Range: No Normals Performing Organization Address [facility] Phone Number [address] [address] [phone] [place] Urinalysis w/Microscopic (08/09/2018 12:35 PM CDT) Color, UA Light Yellow [facility] Clarity, UA Clear [facility] Specific [place], UA 1.003 1.001 - 1.035 [facility] pH, UA 6.5 5.0 - 8.0 [facility] Protein, UA Negative Negative [facility] Glucose, UA Negative Negative [facility] Ketones, UA Negative Negative [facility] Bilirubin, UA Negative Negative [facility] Blood, UA Small (A) Negative [facility] Nitrite, UA Negative Negative [facility] Leukocytes, UA Negative Negative [facility] Urobilinogen, UA 0.2 0.2 - 1.0 mg/dL [facility] RBC, UA 0 /HPF [facility] WBC, UA 0 /HPF [facility] Specimen Source Urine, Voided [facility] Specimen Urine Performing Organization Address City/[facility]/Zipcode Phone Number [address] [address] [phone] [place] Eosinophil smear (08/09/2018 12:35 PM CDT) Eosinophil Smear No EOS seen No EOS seen [facility] Specimen Urine Performing Organization Address [facility] Phone Number [address] [phone] [place] Protein electrophoresis, serum (08/09/2018 5:16 AM CDT) Albumin Fraction 2.6 (L) 3.5 - 5.5 g/dL [facility] Alpha 1 Fraction 0.4 0.2 - 0.4 g/dL [facility] Alpha 2 Fraction 1.0 (H) 0.5 - 0.9 g/dL [facility] Beta Fraction 1.0 0.6 - 1.1 g/dL [facility] Gamma Globulin Fraction 1.0 0.7 - 1.7 g/dL [facility] Interpretation Pattern consistent with [facility] acute inflammatory [facility] process. No monoclonal bands detected. Pathologist: Bette Cage MD [facility] (electronic signature) [facility] Protein, Total 6.1 6.0 - 8.3 gm/dL [facility] Specimen Blood Performing Organization Address City/[facility] Phone Number [address] [address] [phone] CENTER TSH/Free T4 If Indicated (08/09/2018 5:07 AM CDT) TSH 0.87 0.35 - 4.94 uIU/mL [facility] Specimen Blood Performing Organization Address City/[facility]/Zipcode Phone Number [address] [address] [place] BUN and Creatinine (08/09/2018 5:07 AM CDT) BUN 13 7 - 21 mg/dL [facility] Creatinine 0.77 0.57 - 1.25 mg/dL [facility] EGFR 99Comment: ESTIMATED GFR IS mL/min/1.73 sq m [facility] NOT ACCURATE CREATININE [facility] CENTER CLEARANCE IN PREDICTING GLOMERULAR FILTRATION RATE. ESTIMATED GFR IS NOT APPLICABLE FOR DIALYSIS PATIENTS. Specimen Blood Performing Organization Address [facility] Phone Number [address] [address] [phone] [place] MANINDER Titer & Pattern (08/09/2018 5:07 AM CDT) MANINDER Titer 1:160 [facility] MANINDER Pattern Speckled [facility] Specimen Blood Performing Organization Address [facility] Phone Number [address] [address] [phone] [place] RPR (08/09/2018 5:07 AM CDT) RPR Nonreactive Nonreactive [facility] Specimen Blood Performing Organization Address City/[facility]/Zipcode Phone Number [address] [address] [phone] [place] Anti-Nuclear Antibody (MANINDER) (08/09/2018 5:07 AM CDT) MANINDER Positive (A) Negative [facility] Specimen Blood Narrative Performed At [facility] Test performed by IFA method. Performing Organization Address [facility] Phone Number [address] [address] CENTER Potassium (08/09/2018 5:07 AM CDT) Potassium 4.1 3.5 - 5.1 meq/L [facility] Specimen Blood Performing Organization Address [facility] Phone Number [address] [phone] [place] Platelet count (08/08/2018 4:29 PM CDT) Platelets 234 150 - 450 K/CU MM [facility] Specimen Blood Performing Organization Address [facility] Phone Number [address] [address] CENTER Magnesium (08/08/2018 6:43 AM CDT) Magnesium 2.2 1.6 - 2.6 mg/dL [facility] Specimen Blood Performing Organization Address [facility] Phone Number [address] [address] [place] TRANSFUSION SERVICE REPORT - SCAN (08/07/2018 6:01 PM CDT) Narrative Performed At CT abdomen/pelvis with IV contrast (08/07/2018 4:36 PM CDT) Specimen Narrative Performed At FINAL REPORT [facility] CT of the Chest, abdomen and pelvis [...] MD Report Verified Date/Time:08/07/2018 17:39:22 Reading Location: [facility] C013 Consult Reading Room Procedure [...] Report Verified Date/Time: 08/07/2018 17:39:22 Reading Location: [facility] C013W Consult Reading Room Performing Organization Address City/State/Zipcode Phone Number [email or web address] CT chest with IV contrast (08/07/2018 4:36 PM CDT) Specimen Narrative Performed At FINAL REPORT [email or web address] CT of the Chest, abdomen and pelvis [...] MD Report Verified Date/Time:08/07/2018 17:39:22 Reading Location: [facility] C013W Consult Reading Room Procedure [...] Report Verified Date/Time: 08/07/2018 17:39:22 Reading Location: [address] Consult Reading Room Performing Organization Address City/State/Zipcode Phone Number GE RIS XR chest 2 views (08/06/2018 9:27 PM CDT) Specimen Narrative Performed At FINAL REPORT [email or web address] PA and Lateral views of the chest dated 08/06/2018 Clinical information: Shortness of breath, and concern for pneumonia. Comment:Heart is in upper limits of normal in size. Pulmonary vasculature is unremarkable. Lungs are clear. No pulmonary infiltrate or pleural effusion is present. Pleural thickening is noted bilaterally. Impression:No active cardiopulmonary disease. Signed: Reagan Peck MD Report Verified Date/Time:08/06/2018 21:57:16 Reading Location: [facility] C013W Consult Reading Room Procedure [...] Report Verified Date/Time: 08/06/2018 21:57:16 Reading Location: [facility] B[facility] C013W Consult Reading Room Performing Organization Address City/[facility] Phone Number GE [facility]IS Procalcitonin (08/06/2018 4:10 PM CDT) Procalcitonin 0.17 (H) <0.05 ng/mL [facility] Specimen Blood Narrative Performed At [facility] SEPSIS RISK (ng/mL) Low:0.05-0.50 Intermediate: 0.51-2.00 High: >=2.01 Performing Organization Address [facility] Phone Number [address] [address] CENTER Type and screen, automated (08/06/2018 4:10 PM CDT) ABO/RH AUTOMATED (BEAKER) A POSITIVE [facility] Ab Scrn NEGATIVE [facility] Specimen Blood Performing Organization Address [facility] Phone Number [address] [address] Prothrombin time/INR (08/06/2018 4:10 PM CDT) Protime 21.4 (H) 11.7 - 14.7 seconds [facility] INR 1.9 <=5.9 [facility] Specimen Blood Narrative Performed At [facility] RECOMMENDED COUMADIN/WARFARIN INR THERAPY RANGES STANDARD DOSE: 2.0 - 3.0 Includes: PROPHYLAXIS for venous thrombosis, systemic embolization; TREATMENT for venous thrombosis and/or pulmonary embolus. HIGH RISK: Target INR is 2.5-3.5 for patients with mechanical heart valves. Performing Organization Address City/[facility] Phone Number [address] [address] [phone] [place] Vitamin B12 and Folate (08/06/2018 3:43 PM CDT) Vitamin B12 541 213 - 816 pg/mL [facility] Folate 14.3 >=7.0 ng/mL [facility] Specimen Blood Performing Organization Address City/[facility] Phone Number [address] [address] [phone] [place] Lactic acid, venous, whole blood (08/06/2018 3:43 PM CDT) Lactate, Venous 1.8Comment: Specimen 0.5 - 2.2 mmol/L [facility] slightly hemolyzed [facility] Specimen Blood Narrative Performed At [facility] Effective 03/13/2016: Units/Reference Range Change New: 0.5-2.2 mmol/LPrevious: 5-20 mg/dL Performing Organization Address City/[facility] Phone Number [address] [phone] [place] Blood culture (08/06/2018 3:43 PM CDT)Only the most recent of2 resultswithin the time period is included. Result No growth in 5 days [facility] Specimen Blood Performing Organization Address [facility] Phone Number [address] [phone] [place] MR brain without IV contrast (08/06/2018 11:40 AM CDT) Specimen Narrative Performed At FINAL REPORT [facility] MRI brain Comparison: None Reason for exam: Stroke Ischemic Stroke Evaluation Discussion: Multiplanar MR imaging the brain was performed using T1, T2, FLAIR, FFE, diffusion, and ADC map imaging. There are no intracranial hematomas, mass effect, hydrocephalus, shift, or extra-axial collections. Moderate chronic microvascular changes are seen in both cerebral hemispheres and in the brainstem. Additionally, semiconfluent patchy [place] territory diffusion restricted recent infarctions are seen [...] surrounding soft tissues are unremarkable.. 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 No hematoma or mass effect. Signed: Marci Sanchez MD Report Verified Date/Time:08/06/2018 12:15:05 Reading Location: [address] Neuro Reading Room Procedure Note Interface, [...] and in the brainstem. Additionally, semiconfluent patchy [place] territory diffusion restricted recent infarctions are seen [...] soft tissues are unremarkable. . 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 No hematoma or mass effect. Signed: Marci Sanchez MD Report Verified Date/Time: 08/06/2018 12:15:05 Reading Location: [facility] C0[facility] Neuro Reading Room Performing Organization Address City/State/Zipcode Phone Number [facility] MRA neck without IV contrast (08/06/2018 11:33 AM CDT) Specimen Narrative Performed At FINAL REPORT [facility] MRA brain and neck without contrast 08/06/2018 1:51 PM CLINICAL HISTORY: Stroke Ischemic Stroke Evaluation COMPARISON: None available TECHNIQUE: Two- and three-dimensional [id number] MRA images of the intra- and extracranial [...] COMPARISON: None available TECHNIQUE: Two- and three-dimensional [id number]-[id number] MRA images of the intra- and extracranial [...] Report Verified Date/Time: 08/06/2018 13:54:13 Reading Location: [facility] Radiology Reading Room Performing Organization Address City/State/Zipcode Phone Number [facility] MRA head without IV contrast (08/06/2018 11:33 AM CDT) Specimen Narrative Performed At FINAL REPORT [facility] MRA brain and neck without contrast 08/06/2018 1:51 PM CLINICAL HISTORY: Stroke Ischemic Stroke Evaluation COMPARISON: None available TECHNIQUE: Two- and three-dimensional [id number]-mt-[id number] MRA images of the intra- and extracranial [...] Clinic Reading Room Procedure Note Interface, External [facility] In - 08/06/2018 1:56 PM CDT FINAL REPORT MRA brain and neck without contrast 08/06/2018 1:51 PM CLINICAL HISTORY: Stroke Ischemic Stroke Evaluation COMPARISON: None available TECHNIQUE: Two- and three-dimensional bdxu-bx-[id number] MRA images of the intra- and extracranial [...] Report Verified Date/Time: 08/06/2018 13:54:44 Reading Location: [facility] Radiology Reading Room Performing Organization Address City/State/Zipcode Phone Number [facility] RIS ECHOCARDIOGRAM REPORT - SCAN (08/05/2018 5:30 PM CDT) Narrative Performed At Transthoracic 2D echo w/ doppler (cw/pw/color) (08/05/2018 11:12 AM CDT) Ejection Fraction [facility] Specimen Narrative Performed At Transthoracic Echocardiography Report (TTE) [facility] Demographics Patient Name MIKI, EDDIEDate of Study 08/05/2018 [id number] GenderMale Visit Number [id number] Unknown [id number] Room Number [id number] Number Date of Birth4Referring Physician TEDDY PUENTE Age73 year(s)[facility]urses [facility] Assistants Phlebotomists Clarence Sanon InterpretingStOswaldo Plaza MD Procedure Type [...] of Study 08/05/2018 Gender Male Visit Number [id number] Race Unknown Room Number [id number] Number Date of 1945 Referring Physician TEDDY PUENTE Age 73 year(s) Nurses Medical Assist[facility] Phlebotomists Clarence Moore Hall Manager [facility] Sanon Interpreting Oswaldo Junior Physician Procedure [...] (08/05/2018 5:30 AM CDT) Color, UA Yellow [facility] Clarity, UA Hazy [facility] Specific [place], UA 1.022 1.001 - 1.035 [facility] pH, UA 5.5 5.0 - 8.0 [facility] Protein, UA 100 mg/dL (A) Negative [facility] Glucose, UA Negative Negative [facility] Ketones, UA Negative Negative [facility] Bilirubin, UA Negative Negative [facility] Blood, UA Trace (A) Negative [facility] Nitrite, UA Negative Negative [facility] Leukocytes, UA Negative Negative [facility] Urobilinogen, UA 2.0 (H) 0.2 - 1.0 mg/dL [facility] RBC, UA 11 /HPF [facility] WBC, UA 3 /HPF [facility] Mucus Many [facility] Squam Epithel, UA <1 /HPF [facility] Hyaline Casts, UA 5 /LPF [facility] Specimen Source [facility] Specimen Urine Performing Organization Address City/State/Zipcode Phone Number [facility] [address] [place] [address] CENTER US testicular (scrotum) (08/05/2018 4:09 AM CDT) Specimen Narrative Performed At FINAL REPORT [employer] [facility] U/S, TESTICULAR (SCROTUM) CLINICAL INDICATION: scrotal swelling [...] MD Report Verified Date/Time:08/05/2018 04:28:36 Reading Location: [facility] B1 C013Y CT Body Reading Room Procedure [...] Report Verified Date/Time: 08/05/2018 04:28:36 Reading Location: [facility] B1 C013Y CT Body Reading Room Performing Organization Address City/State/Zipcode Phone Number [facility] Troponin I (08/04/2018 1:35 PM CDT)Only the most recent of2 resultswithin the time period is included. Troponin I <0.01 0.00 - 0.03 ng/mL [facility] Specimen Blood Narrative Performed At [facility] Troponin I (TnI) levels must [...] tachyarrhythmia. Performing Organization Address City/State/Zipcode Phone Number [place] [phone] [place] [address] CENTER XR abdomen / KUB 1 view (08/04/2018 11:39 AM CDT) Specimen Narrative Performed At FINAL REPORT [email or web address] CLINICAL HISTORY: abdominal pain TECHNIQUE: Supine abdomen COMPARISON: None IMPRESSION: There is a large amount of stool throughout the colon. There are no focally distended loops of bowel. Free air and air-fluid levels are not seen but cannot be definitively excluded on the supine view. Signed: Colton Marquis MD Report Verified Date/Time:08/04/2018 12:40:36 Reading Location: [facility] Radiology Reading Room Procedure Note Interface, External [...] Report Verified Date/Time: 08/04/2018 12:40:36 Reading Location: [facility] Radiology Reading Room Performing Organization Address City/State/Zipcode Phone Number [employer] Homocysteine (08/04/2018 1:39 AM CDT) Homocysteine 6.5 5.1 - 15.4 umol/L [facility] Specimen Blood Performing Organization Address City/[facility]/Zipcode Phone Number [facility] [address] [place] [address] [place] Hemoglobin A1c - Fasting (08/04/2018 1:39 AM CDT) Hemoglobin A1C 5.6 4.3 - 6.1 % [facility] Specimen Blood Narrative Performed At Fasting [facility] Performing Organization Address City/[facility]/Zipcode Phone Number [facility] [address] [place] [address] [place] Fasting lipid panel (08/04/2018 1:39 AM CDT) Triglycerides 111 mg/dL [facility] Cholesterol 113 mg/dL [facility] HDL 26 mg/dL [facility] LDL Calculated 65 mg/dL [facility] Specimen Blood Narrative Performed At [facility] Triglyceride Reference Range: Low Risk <150 [id number] High Risk 200-499 Very High Risk>=500 Cholesterol Reference Range: Low Risk <200 [id number] High Risk>240 HDL Cholesterol Reference Range: Low Risk >=60 High Risk <40 LDL Cholesterol Reference Range: Optimal<100 Near [id number] Very High >=190 Fasting Performing Organization Address City/[facility]/Zipcode Phone Number [facility] [address] [place] [address] CENTER after 03/28/2018 Insurance Payer Benefit Plan / Subscriber ID Type Phone Address Group BLUE [employer]OSS/[employer]UE [employer] HMO xxxxxxxxxxxx HMO/POS [phone] [address] [employer] [place] [address] Advance Directives For more information, please contact:[address] [phone] Code Status Date Activated Date Inactivated Comments Full Code 08/03/2018 11:33 PM 08/14/2018 4:40 PM This code status was determined by: Patient
--- OUTSIDE RECORDS SUMMARY | 2019-03-29 08:01 | XMS REPORT ---
:1945 [facility] Organization [facility] Address [address] [place] [id number] Care Team Providers Name Role Phone OKSANA [...] Comments WHITE BLOOD CELL COUNT (BEAKER) (test ligt=288) 11.2 K/ L 3.5-10.5 RED BLOOD CELL COUNT (BEAKER) (test fqbf=541) 3.76 M/ L 4.63-6.08 HEMOGLOBIN (BEAKER) (test vbgn=263) 12.2 GM/DL 13.7-17.5 HEMATOCRIT (BEAKER) (test rjos=578) 38.3 % 40.1-51.0 MEAN CORPUSCULAR VOLUME (BEAKER) (test hwjy=498) 101.9 fL 79.0-92.2 MEAN CORPUSCULAR HEMOGLOBIN (BEAKER) (test fzln=767) 32.4 pg 25.7-32.2 MEAN CORPUSCULAR HEMOGLOBIN CONC (BEAKER) (test ejim=496) 31.9 GM/DL 32.3- 36.5 RED CELL DISTRIBUTION WIDTH (BEAKER) (test lasq=480) 11.9 % 11.6-14.4 PLATELET COUNT (BEAKER) (test jrpd=480) 275 K/CU MM 150-450 MEAN PLATELET VOLUME (BEAKER) (test ninw=071) 11.0 fL 9.4-12.4 NUCLEATED RED BLOOD CELLS (BEAKER) (test tlgr=830) 0 /100 WBC 0-0 (CELLAVISION MANUAL DIFF)2018-08-14 11:36:00 Test Item Value Reference Range Comments NEUTROPHILS - REL (CELLAVISION)(BEAKER) (test 73 % ytla=4419) LYMPHOCYTES - REL (CELLAVISION)(BEAKER) (test 9 % nafm=4472) MONOCYTES - REL (CELLAVISION)(BEAKER) (test 9 % xacc=6743) EOSINOPHILS - REL (CELLAVISION)(BEAKER) (test 2 % fmgm=0400) METAMYELOCYTES - REL (CELLAVISION)(BEAKER) (test 1 % 0-0 xqvu=1590) BANDS - REL (CELLAVISION)(BEAKER) (test 5 % 0-10 texm=2795) ATYPICAL LYMPHOCYTES - REL (CELLAVISION)(BEAKER) 1 % 0-0 (test fptb=2801) NEUTROPHILS - ABS (CELLAVISION)(BEAKER) (test 8.18 K/ul 1.78-5.38 smrg=3624) LYMPHOCYTES - ABS (CELLAVISION)(BEAKER) (test 1.01 K/ul 1.32-3.57 ewux=9941) MONOCYTES - ABS (CELLAVISION)(BEAKER) (test 1.01 K/uL 0.30-0.82 dwnh=1913) EOSINOPHILS - ABS (CELLAVISION)(BEAKER) (test 0.22 K/uL 0.04-0.54 pjwu=6336) METAMYELOCYTES - ABS (CELLAVISION)(BEAKER) (test 0.11 K/uL 0.00-0.00 pqww=9453) BANDS - ABS (CELLAVISION)(BEAKER) (test 0.56 K/uL 0.00-0.80 hzvo=4631) ATYPICAL LYMPHOCYTES - ABS (CELLAVISION)(BEAKER) 0.11 K/uL 0.00-0.00 (test susa=4460) TOTAL COUNTED (BEAKER) (test vfgd=2605) 100 SMUDGE CELLS (BEAKER) (test apec=0785) Present GIANT PLATELETS (BEAKER) (test sgfp=608) Present POLYCHROMATOPHILLIC RBCS(BEAKER) (test blwt=859) 1+ few ANISOCYTOSIS (BEAKER) (test oirf=675) 1+ few POIKILOCYTES (BEAKER) (test hpvb=486) 2+ moderate CARLOS CELLS (BEAKER) (test qjpp=973) 1+ few PLATELET CONCENTRATION (CELLAVISION)(BEAKER) Adequate (test ibar=4680) Received comment: User comments: Slide comments:BASIC METABOLIC [id number] 06:11:00 Test Item Value Reference Range Comments SODIUM (BEAKER) (test 133 meq/L 136-145 evfr=650) POTASSIUM (BEAKER) (test 3.9 meq/L 3.5-5.1 njzr=363) CHLORIDE (BEAKER) (test 100 meq/L 98-107 vukm=941) CO2 (BEAKER) (test 26 meq/L 22-29 vrnx=098) BLOOD UREA NITROGEN 17 mg/dL 7-21 (BEAKER) (test gsqf=805) CREATININE (BEAKER) (test 0.84 mg/dL 0.57-1.25 guvk=790) GLUCOSE RANDOM (BEAKER) 111 mg/dL 70-105 (test axfw=019) CALCIUM (BEAKER) (test 8.6 mg/dL 8.4-10.2 hngo=413) EGFR (BEAKER) (test 89 mL/min/1.73 sq m ESTIMATED GFR IS NOT zyiz=1054) ACCURATE CREATININE CLEARANCE IN PREDICTING GLOMERULAR FILTRATION RATE. ESTIMATED GFR IS NOT APPLICABLE FOR DIALYSIS PATIENTS. BASIC METABOLIC [id number] 05:32:00 Test Item Value Reference Range Comments SODIUM (BEAKER) (test 136 meq/L 136-145 xwuw=007) POTASSIUM (BEAKER) (test 4.1 meq/L 3.5-5.1 wmix=051) CHLORIDE (BEAKER) (test 104 meq/L 98-107 ubwi=981) CO2 (BEAKER) (test 22 meq/L 22-29 dylo=365) BLOOD UREA NITROGEN 15 mg/dL 7-21 (BEAKER) (test ckhf=646) CREATININE (BEAKER) (test 0.84 mg/dL 0.57-1.25 zscx=372) GLUCOSE RANDOM (BEAKER) 108 mg/dL 70-105 (test ftza=887) CALCIUM (BEAKER) (test 8.8 mg/dL 8.4-10.2 cxnj=280) EGFR (BEAKER) (test 89 mL/min/1.73 sq m ESTIMATED GFR IS NOT dxrf=7583) ACCURATE CREATININE CLEARANCE IN PREDICTING GLOMERULAR FILTRATION RATE. ESTIMATED GFR IS NOT APPLICABLE FOR DIALYSIS PATIENTS. CBC W/PLT COUNT & AUTO [id number] 05:12:00 Test Item Value Reference Range Comments WHITE BLOOD CELL COUNT (BEAKER) (test beqm=089) 12.0 K/ L 3.5-10.5 RED BLOOD CELL COUNT (BEAKER) (test vkra=354) 3.66 M/ L 4.63-6.08 HEMOGLOBIN (BEAKER) (test asyz=520) 11.8 GM/DL 13.7-17.5 HEMATOCRIT (BEAKER) (test oukn=685) 37.3 % 40.1-51.0 MEAN CORPUSCULAR VOLUME (BEAKER) (test zxuz=352) 101.9 fL 79.0-92.2 MEAN CORPUSCULAR HEMOGLOBIN (BEAKER) (test 32.2 pg 25.7-32.2 woqv=391) MEAN CORPUSCULAR HEMOGLOBIN CONC (BEAKER) (test 31.6 GM/DL 32.3-36.5 kyfa=109) RED CELL DISTRIBUTION WIDTH (BEAKER) (test 11.8 % 11.6-14.4 iiln=562) PLATELET COUNT (BEAKER) (test kjxw=167) 254 K/CU MM 150-450 MEAN PLATELET VOLUME (BEAKER) (test daah=054) 11.6 fL 9.4-12.4 NUCLEATED RED BLOOD CELLS (BEAKER) (test 0 /100 WBC 0-0 fhyz=472) NEUTROPHILS RELATIVE PERCENT (BEAKER) (test 69 % eshn=077) LYMPHOCYTES RELATIVE PERCENT (BEAKER) (test 14 % ddqx=451) MONOCYTES RELATIVE PERCENT (BEAKER) (test 10 % vvci=843) EOSINOPHILS RELATIVE PERCENT (BEAKER) (test 1 % qvac=867) BASOPHILS RELATIVE PERCENT (BEAKER) (test 1 % kjst=930) NEUTROPHILS ABSOLUTE COUNT (BEAKER) (test 8.32 K/ L 1.78-5.38 yfwl=101) LYMPHOCYTES ABSOLUTE COUNT (BEAKER) (test 1.68 K/ L 1.32-3.57 guzc=429) MONOCYTES ABSOLUTE COUNT (BEAKER) (test 1.21 K/ L 0.30-0.82 whlt=102) EOSINOPHILS ABSOLUTE COUNT (BEAKER) (test 0.16 K/ L 0.04-0.54 czon=288) BASOPHILS ABSOLUTE COUNT (BEAKER) (test 0.15 K/ L 0.01-0.08 ztle=753) IMMATURE GRANULOCYTES-RELATIVE PERCENT (BEAKER) 4 % 0-1 (test kbtg=5243) RAD, CHEST, 1 VIEW, NON [id number] 15:59:00Reason for exam:->SOBShould this be performed at [...] Verified Date/Time: 08/12/2018 15: 59:35 Reading Location: [facility] Transitional Reading Room PROTEIN ELECTROPHORESIS, [id number] 13:04:00 Test Item Value Reference Range Comments ALBUMIN FRACTION (BEAKER) 2.6 g/dL 3.5-5.5 (test xciw=442) ALPHA 1 FRACTION (BEAKER) 0.4 g/dL 0.2-0.4 (test vhrk=183) ALPHA 2 FRACTION (BEAKER) 1.0 g/dL 0.5-0.9 (test ymjo=417) BETA FRACTION (BEAKER) (test 1.0 g/dL 0.6-1.1 myxz=610) GAMMA GLOBULIN FRACTION 1.0 g/dL 0.7-1.7 (BEAKER) (test erqe=859) INTERPRETATION-119 (BEAKER) Pattern consistent with acute (test izuo=0906) inflammatory process. No monoclonal bands detected. STAX-GOOUNHBFMBI-439 Bette Cage MD (BEAKER) (test mxvd=7549) (electronic signature) PROTEIN TOTAL SERUM, SPEP 6.1 gm/dL 6.0-8.3 (BEAKER) (test hsmv=7083) THANG, CAROTID STENT W [id number] 12:14:00Reason for exam:->right carotid stenosisFINAL REPORT DATE OF PROCEDURE: 08/11/18 SURGEON: Chaz France MD ABRASIVE BAND WINDER: Leta Barreto MD PREOPERATIVE DIAGNOSIS: Transient ischemic [...] puncture the right femoral artery. A 5 [place]ian short sheath was then passed over an angled glide catheter. Using coaxial technique, a 5 [place] 2 catheter was advanced into the [...] exchanged in the descendingaorta for a 6F Ventrix shuttle sheath. At this point, the patient [...] [place] Verified Date/Time: 08/12/2018 12:14:40 Reading Location: [facility] B1 Y026 Neuro Angio Reading Room NV, ANGIOGRAM, [id number] 09:29:00Reason for exam:-& gt;carotid stenosisFINAL REPORT DATE OF PROCEDURE: 2017 SURGEON: Chaz France M.D. ABRASIVE BAND WINDER: Leta Barreto MD PREOPERATIVE DIAGNOSIS: carotid stenosis [...] [place] Verified Date/Time: 08/12/2018 09:29:38 Reading Location: [facility] Y026 Neuro Angio Reading Room [id number] 07:30:00 Test Item Value Reference Range Comments ACTIVATED CLOTTING TIME [address] [facility] [address] (BEAKER) (test tyad=802) [facility] [address] BASIC METABOLIC [id number] 04:36:00 Test Item Value Reference Range Comments SODIUM (BEAKER) (test 134 meq/L 136-145 aimg=419) POTASSIUM (BEAKER) (test 4.0 meq/L 3.5-5.1 ldxm=722) CHLORIDE (BEAKER) (test 102 meq/L 98-107 pkoi=467) CO2 (BEAKER) (test 24 meq/L 22-29 ejoq=502) BLOOD UREA NITROGEN 18 mg/dL 7-21 (BEAKER) (test xhhh=790) CREATININE (BEAKER) (test 0.84 mg/dL 0.57-1.25 ilgg=179) GLUCOSE RANDOM (BEAKER) 108 mg/dL 70-105 (test ipot=282) CALCIUM (BEAKER) (test 9.0 mg/dL 8.4-10.2 ztey=637) EGFR (BEAKER) (test 89 mL/min/1.73 sq m ESTIMATED GFR IS NOT aijn=4774) ACCURATE CREATININE CLEARANCE IN PREDICTING GLOMERULAR FILTRATION RATE. ESTIMATED GFR IS NOT APPLICABLE FOR DIALYSIS PATIENTS. CBC W/PLT COUNT & AUTO [id number] 04:14:00 Test Item Value Reference Range Comments WHITE BLOOD CELL COUNT (BEAKER) (test xunh=165) 11.1 K/ L 3.5-10.5 RED BLOOD CELL COUNT (BEAKER) (test bcce=350) 3.69 M/ L 4.63-6.08 HEMOGLOBIN (BEAKER) (test dzqx=924) 11.9 GM/DL 13.7-17.5 HEMATOCRIT (BEAKER) (test iyvi=676) 36.8 % 40.1-51.0 MEAN CORPUSCULAR VOLUME (BEAKER) (test chdl=282) 99.7 fL 79.0-92.2 MEAN CORPUSCULAR HEMOGLOBIN (BEAKER) (test 32.2 pg 25.7-32.2 gizl=589) MEAN CORPUSCULAR HEMOGLOBIN CONC (BEAKER) (test 32.3 GM/DL 32.3-36.5 rnqz=550) RED CELL DISTRIBUTION WIDTH (BEAKER) (test 11.9 % 11.6-14.4 axwu=324) PLATELET COUNT (BEAKER) (test oubp=895) 279 K/CU MM 150-450 MEAN PLATELET VOLUME (BEAKER) (test cfep=008) 11.4 fL 9.4-12.4 NUCLEATED RED BLOOD CELLS (BEAKER) (test 0 /100 WBC 0-0 indb=196) NEUTROPHILS RELATIVE PERCENT (BEAKER) (test 74 % kvdw=590) LYMPHOCYTES RELATIVE PERCENT (BEAKER) (test 12 % gmgi=836) MONOCYTES RELATIVE PERCENT (BEAKER) (test 9 % yjzm=036) EOSINOPHILS RELATIVE PERCENT (BEAKER) (test 1 % nlhd=355) BASOPHILS RELATIVE PERCENT (BEAKER) (test 1 % irdd=581) NEUTROPHILS ABSOLUTE COUNT (BEAKER) (test 8.23 K/ L 1.78-5.38 qnkw=460) LYMPHOCYTES ABSOLUTE COUNT (BEAKER) (test 1.33 K/ L 1.32-3.57 gwne=002) MONOCYTES ABSOLUTE COUNT (BEAKER) (test 1.05 K/ L 0.30-0.82 gdpa=403) EOSINOPHILS ABSOLUTE COUNT (BEAKER) (test 0.12 K/ L 0.04-0.54 jkaw=225) BASOPHILS ABSOLUTE COUNT (BEAKER) (test 0.09 K/ L 0.01-0.08 yiel=263) IMMATURE GRANULOCYTES-RELATIVE PERCENT (BEAKER) 3 % 0-1 (test oame=5445) BLOOD [id number] 18:00:00 Test Item Value Reference Range Comments CULTURE (BEAKER) (test oebz=3218) No growth in 5 days BLOOD [id number] 18:00:00 Test Item Value Reference Range Comments CULTURE (BEAKER) (test mhqx=2478) No growth in 5 days POCT-P2Y12 PLATELET [id number] 13:28:00 Test Item Value Reference Range Comments POC-P2Y12 PLATELET AGG (BEAKER) (test jpdr=7648) 51 PRU RANGE INFORMATION: PRU reference range is 194-418. Post Drug Results: Lower PRU levels are associated with expected antiplatelet effect. Values may be below the stated reference range above. The post-drug PRU values reported in the [employer] P2Y12 package insert are [id number] 13:21:00 Test Item Value Reference Range Comments PROTIME (BEAKER) (test kpte=366) 16.1 seconds 11.7-14.7 INR (BEAKER) (test yfbo=694) 1.3 <=5.9 PARTIAL THROMBOPLASTIN TIME (BEAKER) (test 40.0 seconds 22.5-36.0 bvae=386) RECOMMENDED COUMADIN/WARFARIN INR THERAPY RANGESSTANDARD DOSE: 2.0 - 3.0 Includes: PROPHYLAXIS forvenous thrombosis, systemic embolization; TREATMENT for venous thrombosis and/or pulmonary embolus.HIGH RISK: Target INR is 2.5-3.5 for patients with mechanical heart valves.POCT-P2Y12 PLATELET [id number] 07:23:00 Test Item Value Reference Range Comments POC-P2Y12 PLATELET AGG (BEAKER) (test pwfz=3490) 216 PRU RANGE INFORMATION: PRU reference range is 194-418. Post Drug Results: Lower PRU levels are associated with expected antiplatelet effect. Values may be below the stated reference range above. The post-drug PRU values reported in the [employer] P2Y12 package insert are [id number].POCT-ASPIRIN PLATELET [id number] 07:23:00 Test Item Value Reference Range Comments POC-ASPIRIN PLATELET AGG (BEAKER) (test fngs=8592) 408 ARU RANGE INFORMATION: 350-549 ARU Therapeutic range for platelet function. 550-700 ARU Non-Therapeutic range for platelet function.BASIC METABOLIC [id number] 07:15:00 Test Item Value Reference Range Comments SODIUM (BEAKER) (test 136 meq/L 136-145 pabm=187) POTASSIUM (BEAKER) (test 4.6 meq/L 3.5-5.1 xjns=925) CHLORIDE (BEAKER) (test 101 meq/L 98-107 ydoz=255) CO2 (BEAKER) (test 27 meq/L 22-29 uyhv=738) BLOOD UREA NITROGEN 15 mg/dL 7-21 (BEAKER) (test zubz=487) CREATININE (BEAKER) (test 0.82 mg/dL 0.57-1.25 txln=876) GLUCOSE RANDOM (BEAKER) 106 mg/dL 70-105 (test qahy=941) CALCIUM (BEAKER) (test 8.8 mg/dL 8.4-10.2 rkqp=556) EGFR (BEAKER) (test 92 mL/min/1.73 sq m ESTIMATED GFR IS NOT iuft=1089) ACCURATE CREATININE CLEARANCE IN PREDICTING GLOMERULAR FILTRATION RATE. ESTIMATED GFR IS NOT APPLICABLE FOR DIALYSIS PATIENTS. CBC W/PLT COUNT & AUTO [id number] 06:54:00 Test Item Value Reference Range Comments WHITE BLOOD CELL COUNT (BEAKER) (test hmww=413) 12.4 K/ L 3.5-10.5 RED BLOOD CELL COUNT (BEAKER) (test ozyk=723) 3.54 M/ L 4.63-6.08 HEMOGLOBIN (BEAKER) (test xdjb=060) 11.4 GM/DL 13.7-17.5 HEMATOCRIT (BEAKER) (test djks=706) 35.6 % 40.1-51.0 MEAN CORPUSCULAR VOLUME (BEAKER) (test cvkh=303) 100.6 fL 79.0-92.2 MEAN CORPUSCULAR HEMOGLOBIN (BEAKER) (test 32.2 pg 25.7-32.2 emjy=520) MEAN CORPUSCULAR HEMOGLOBIN CONC (BEAKER) (test 32.0 GM/DL 32.3-36.5 ptfm=267) RED CELL DISTRIBUTION WIDTH (BEAKER) (test 11.9 % 11.6-14.4 qzoi=210) PLATELET COUNT (BEAKER) (test xffp=945) 271 K/CU MM 150-450 MEAN PLATELET VOLUME (BEAKER) (test rpwy=394) 11.2 fL 9.4-12.4 NUCLEATED RED BLOOD CELLS (BEAKER) (test 0 /100 WBC 0-0 nocc=804) NEUTROPHILS RELATIVE PERCENT (BEAKER) (test 79 % uqxu=019) LYMPHOCYTES RELATIVE PERCENT (BEAKER) (test 10 % rlie=010) MONOCYTES RELATIVE PERCENT (BEAKER) (test 8 % uuas=057) EOSINOPHILS RELATIVE PERCENT (BEAKER) (test 1 % zcut=145) BASOPHILS RELATIVE PERCENT (BEAKER) (test 1 % hckc=615) NEUTROPHILS ABSOLUTE COUNT (BEAKER) (test 9.79 K/ L 1.78-5.38 mvwc=400) LYMPHOCYTES ABSOLUTE COUNT (BEAKER) (test 1.23 K/ L 1.32-3.57 vizn=577) MONOCYTES ABSOLUTE COUNT (BEAKER) (test 0.99 K/ L 0.30-0.82 egej=450) EOSINOPHILS ABSOLUTE COUNT (BEAKER) (test 0.10 K/ L 0.04-0.54 tgno=879) BASOPHILS ABSOLUTE COUNT (BEAKER) (test 0.06 K/ L 0.01-0.08 hrkx=798) IMMATURE GRANULOCYTES-RELATIVE PERCENT (BEAKER) 2 % 0-1 (test bumj=5977) CBC (HEMOGRAM ONLY)2018-08-11 06:52:00 Test Item Value Reference Range Comments WHITE BLOOD CELL COUNT (BEAKER) (test cvil=970) 12.4 K/ L 3.5-10.5 RED BLOOD CELL COUNT (BEAKER) (test wduf=011) 3.54 M/ L 4.63-6.08 HEMOGLOBIN (BEAKER) (test cpdd=801) 11.4 GM/DL 13.7-17.5 HEMATOCRIT (BEAKER) (test kyff=338) 35.6 % 40.1-51.0 MEAN CORPUSCULAR VOLUME (BEAKER) (test kkzf=222) 100.6 fL 79.0-92.2 MEAN CORPUSCULAR HEMOGLOBIN (BEAKER) (test 32.2 pg 25.7-32.2 kxzo=203) MEAN CORPUSCULAR HEMOGLOBIN CONC (BEAKER) (test 32.0 GM/DL 32.3-36.5 liwb=510) RED CELL DISTRIBUTION WIDTH (BEAKER) (test 11.9 % 11.6-14.4 ywkx=507) PLATELET COUNT (BEAKER) (test ljad=510) 271 K/CU MM 150-450 MEAN PLATELET VOLUME (BEAKER) (test airh=218) 11.2 fL 9.4-12.4 NUCLEATED RED BLOOD CELLS (BEAKER) (test 0 /100 WBC 0-0 iwco=314) THANG, CAROTID STENT W [id number] 14:30:00Reason for exam:->carotid stenosis, rightKanFINAL REPORT DATE OF PROCEDURE: 2017 SURGEON: Chaz France M.D. ABRASIVE BAND WINDER: Leta Barreto MD PREOPERATIVE DIAGNOSIS: carotid stenosis [...] [place] Verified Date/Time: 08/10/2018 14:30:38 Reading Location[facility] ANTI-NUCLEAR ANTIBODY (MANINDER)2018-08-10 10:29:00 Test Item Value Reference Range Comments ANTI-NUCLEAR ANTIBODY (MANINDER) (BEAKER) (test Positive Negative vjxe=731) Test performed by IFA method.MANINDER TITER AND [id number] 10:29:00 Test Item Value Reference Range Comments MANINDER TITER (BEAKER) (test njgm=0465) :160 MANINDER PATTERN (BEAKER) (test ljoz=6608) Speckled BASIC METABOLIC [id number] 07:36:00 Test Item Value Reference Range Comments SODIUM (BEAKER) (test 137 meq/L 136-145 fwjx=258) POTASSIUM (BEAKER) (test 4.4 meq/L 3.5-5.1 tkur=484) CHLORIDE (BEAKER) (test 102 meq/L 98-107 ebna=919) CO2 (BEAKER) (test 31 meq/L 22-29 yoli=757) BLOOD UREA NITROGEN 11 mg/dL 7-21 (BEAKER) (test jpbk=056) CREATININE (BEAKER) (test 0.82 mg/dL 0.57-1.25 qied=159) GLUCOSE RANDOM (BEAKER) 109 mg/dL 70-105 (test sfrj=319) CALCIUM (BEAKER) (test 9.0 mg/dL 8.4-10.2 haof=163) EGFR (BEAKER) (test 92 mL/min/1.73 sq m ESTIMATED GFR IS NOT cpwx=4747) ACCURATE CREATININE CLEARANCE IN PREDICTING GLOMERULAR FILTRATION RATE. ESTIMATED GFR IS NOT APPLICABLE FOR DIALYSIS PATIENTS. [id number] 06:53:00 Test Item Value Reference Range Comments PARTIAL THROMBOPLASTIN TIME (BEAKER) (test 38.3 seconds 22.5-36.0 nkfn=747) CBC W/PLT COUNT & AUTO [id number] 06:42:00 Test Item Value Reference Range Comments WHITE BLOOD CELL COUNT (BEAKER) (test cjnj=149) 12.8 K/ L 3.5-10.5 RED BLOOD CELL COUNT (BEAKER) (test vfsh=488) 3.63 M/ L 4.63-6.08 HEMOGLOBIN (BEAKER) (test lijp=499) 11.9 GM/DL 13.7-17.5 HEMATOCRIT (BEAKER) (test tbca=602) 36.3 % 40.1-51.0 MEAN CORPUSCULAR VOLUME (BEAKER) (test vevw=604) 100.0 fL 79.0-92.2 MEAN CORPUSCULAR HEMOGLOBIN (BEAKER) (test 32.8 pg 25.7-32.2 pbhj=136) MEAN CORPUSCULAR HEMOGLOBIN CONC (BEAKER) (test 32.8 GM/DL 32.3-36.5 npxz=609) RED CELL DISTRIBUTION WIDTH (BEAKER) (test 11.9 % 11.6-14.4 dtbj=843) PLATELET COUNT (BEAKER) (test hccq=174) 282 K/CU MM 150-450 MEAN PLATELET VOLUME (BEAKER) (test tsha=994) 12.0 fL 9.4-12.4 NUCLEATED RED BLOOD CELLS (BEAKER) (test 0 /100 WBC 0-0 jkhu=869) NEUTROPHILS RELATIVE PERCENT (BEAKER) (test 79 % wfhx=341) LYMPHOCYTES RELATIVE PERCENT (BEAKER) (test 11 % qtpq=955) MONOCYTES RELATIVE PERCENT (BEAKER) (test 8 % szmo=394) EOSINOPHILS RELATIVE PERCENT (BEAKER) (test 1 % vlcb=837) BASOPHILS RELATIVE PERCENT (BEAKER) (test 1 % ssil=185) NEUTROPHILS ABSOLUTE COUNT (BEAKER) (test 10.06 K/ L 1.78-5.38 nsbo=657) LYMPHOCYTES ABSOLUTE COUNT (BEAKER) (test 1.39 K/ L 1.32-3.57 nsng=953) MONOCYTES ABSOLUTE COUNT (BEAKER) (test 0.99 K/ L 0.30-0.82 obpi=598) EOSINOPHILS ABSOLUTE COUNT (BEAKER) (test 0.09 K/ L 0.04-0.54 bupb=377) BASOPHILS ABSOLUTE COUNT (BEAKER) (test 0.08 K/ L 0.01-0.08 ajtx=476) IMMATURE GRANULOCYTES-RELATIVE PERCENT (BEAKER) 1 % 0-1 (test tdvo=8812) [id number] 04:26:00 Test Item Value Reference Range Comments RPR SCREEN (BEAKER) (test fliu=614) Nonreactive Nonreactive [id number] 22:40:00 Test Item Value Reference Range Comments PARTIAL THROMBOPLASTIN TIME (BEAKER) (test 48.7 seconds 22.5-36.0 lcdu=990) EOSINOPHIL SMEAR, [id number] 14:32:00 Test Item Value Reference Range Comments EOSINOPHIL SMEAR, URINE (BEAKER) (test No EOS seen No EOS seen vxhd=2188) PROTEIN, RANDOM [id number] 13:14:00 Test Item Value Reference Range Comments PROTEIN, URINE (BEAKER) (test sacf=8869) < mg/dL 0-14 CREATININE, RANDOM [id number] 13:12:00 Test Item Value Reference Range Comments CREATININE URINE (BEAKER) (test ptcs=136) 18.9 mg/dL Reference Range: No NormalsSODIUM, RANDOM [id number] 13:12:00 Test Item Value Reference Range Comments SODIUM URINE (BEAKER) (test vwmk=154) 74 meq/L Reference Range: No NormalsURINALYSIS W/ [id number] 13:00:00 Test Item Value Reference Range Comments COLOR (BEAKER) (test erbi=807) Light Yellow CLARITY (BEAKER) (test ysej=468) Clear SPECIFIC GRAVITY UA (BEAKER) (test yecl=141) 1.003 1.001-1.035 PH UA (BEAKER) (test axkl=297) 6.5 5.0-8.0 PROTEIN UA (BEAKER) (test racu=556) Negative Negative GLUCOSE UA (BEAKER) (test qxcc=967) Negative Negative KETONES UA (BEAKER) (test kcxg=018) Negative Negative BILIRUBIN UA (BEAKER) (test nzyt=334) Negative Negative BLOOD UA (BEAKER) (test axeh=581) Small Negative NITRITE UA (BEAKER) (test roew=498) Negative Negative LEUKOCYTE ESTERASE UA (BEAKER) (test theh=194) Negative Negative UROBILINOGEN UA (BEAKER) (test rbye=763) 0.2 mg/dL 0.2-1.0 RBC UA (BEAKER) (test ysow=325) 0 /HPF WBC UA (BEAKER) (test sxyl=312) 0 /HPF SOURCE(BEAKER) (test mivf=5558) Urine, Voided [id number] 12:33:00 Test Item Value Reference Range Comments PARTIAL THROMBOPLASTIN TIME (BEAKER) (test 47.0 seconds 22.5-36.0 rpxp=223) TSH/FREE T4 IF [id number] 06:11:00 Test Item Value Reference Range Comments THYROID STIMULATING HORMONE (BEAKER) (test 0.87 uIU/mL 0.35-4.94 zchi=406) [id number] 05:36:00 Test Item Value Reference Range Comments POTASSIUM (BEAKER) (test otfj=681) 4.1 meq/L 3.5-5.1 BUN AND [id number] 05:36:00 Test Item Value Reference Range Comments BLOOD UREA NITROGEN 13 mg/dL 7-21 (BEAKER) (test izwk=903) CREATININE (BEAKER) (test 0.77 mg/dL 0.57-1.25 tcxq=785) EGFR (BEAKER) (test 99 mL/min/1.73 sq m ESTIMATED GFR IS NOT rodo=1510) ACCURATE CREATININE CLEARANCE IN PREDICTING GLOMERULAR FILTRATION RATE. ESTIMATED GFR IS NOT APPLICABLE FOR DIALYSIS PATIENTS. BASIC METABOLIC [id number] 05:36:00 Test Item Value Reference Range Comments SODIUM (BEAKER) (test 139 meq/L 136-145 shxi=766) POTASSIUM (BEAKER) (test 4.1 meq/L 3.5-5.1 tdfo=286) CHLORIDE (BEAKER) (test 104 meq/L 98-107 qhro=818) CO2 (BEAKER) (test 28 meq/L 22-29 iqau=547) BLOOD UREA NITROGEN 13 mg/dL 7-21 (BEAKER) (test xxza=861) CREATININE (BEAKER) (test 0.77 mg/dL 0.57-1.25 azmr=656) GLUCOSE RANDOM (BEAKER) 96 mg/dL 70-105 (test eooa=643) CALCIUM (BEAKER) (test 9.0 mg/dL 8.4-10.2 amra=631) EGFR (BEAKER) (test 99 mL/min/1.73 sq m ESTIMATED GFR IS NOT istk=3492) ACCURATE CREATININE CLEARANCE IN PREDICTING GLOMERULAR FILTRATION RATE. ESTIMATED GFR IS NOT APPLICABLE FOR DIALYSIS PATIENTS. [id number] 04:35:00 Test Item Value Reference Range Comments PARTIAL THROMBOPLASTIN TIME (BEAKER) (test 37.5 seconds 22.5-36.0 lnrs=701) CBC W/PLT COUNT & AUTO [id number] 04:17:00 Test Item Value Reference Range Comments WHITE BLOOD CELL COUNT (BEAKER) (test lnmf=149) 11.0 K/ L 3.5-10.5 RED BLOOD CELL COUNT (BEAKER) (test fkdo=984) 3.45 M/ L 4.63-6.08 HEMOGLOBIN (BEAKER) (test wpvo=933) 11.0 GM/DL 13.7-17.5 HEMATOCRIT (BEAKER) (test fmrr=059) 34.7 % 40.1-51.0 MEAN CORPUSCULAR VOLUME (BEAKER) (test spnx=030) 100.6 fL 79.0-92.2 MEAN CORPUSCULAR HEMOGLOBIN (BEAKER) (test 31.9 pg 25.7-32.2 rtwn=423) MEAN CORPUSCULAR HEMOGLOBIN CONC (BEAKER) (test 31.7 GM/DL 32.3-36.5 sgqw=744) RED CELL DISTRIBUTION WIDTH (BEAKER) (test 12.0 % 11.6-14.4 cdok=343) PLATELET COUNT (BEAKER) (test dgzl=861) 236 K/CU MM 150-450 MEAN PLATELET VOLUME (BEAKER) (test tmag=331) 12.0 fL 9.4-12.4 NUCLEATED RED BLOOD CELLS (BEAKER) (test 0 /100 WBC 0-0 ovky=617) NEUTROPHILS RELATIVE PERCENT (BEAKER) (test 77 % bhom=639) LYMPHOCYTES RELATIVE PERCENT (BEAKER) (test 12 % xnjf=443) MONOCYTES RELATIVE PERCENT (BEAKER) (test 9 % byos=452) EOSINOPHILS RELATIVE PERCENT (BEAKER) (test 1 % ayvd=830) BASOPHILS RELATIVE PERCENT (BEAKER) (test 1 % imrr=501) NEUTROPHILS ABSOLUTE COUNT (BEAKER) (test 8.44 K/ L 1.78-5.38 mucl=982) LYMPHOCYTES ABSOLUTE COUNT (BEAKER) (test 1.35 K/ L 1.32-3.57 qsdv=327) MONOCYTES ABSOLUTE COUNT (BEAKER) (test 0.96 K/ L 0.30-0.82 zang=363) EOSINOPHILS ABSOLUTE COUNT (BEAKER) (test 0.05 K/ L 0.04-0.54 osbo=781) BASOPHILS ABSOLUTE COUNT (BEAKER) (test 0.06 K/ L 0.01-0.08 ldsk=084) IMMATURE GRANULOCYTES-RELATIVE PERCENT (BEAKER) 1 % 0-1 (test vefj=4747) CBC (HEMOGRAM ONLY)2018-08-09 04:13:00 Test Item Value Reference Range Comments WHITE BLOOD CELL COUNT (BEAKER) (test xuky=378) 11.0 K/ L 3.5-10.5 RED BLOOD CELL COUNT (BEAKER) (test jwop=162) 3.45 M/ L 4.63-6.08 HEMOGLOBIN (BEAKER) (test vzce=401) 11.0 GM/DL 13.7-17.5 HEMATOCRIT (BEAKER) (test opwb=807) 34.7 % 40.1-51.0 MEAN CORPUSCULAR VOLUME (BEAKER) (test cqxt=353) 100.6 fL 79.0-92.2 MEAN CORPUSCULAR HEMOGLOBIN (BEAKER) (test 31.9 pg 25.7-32.2 egci=948) MEAN CORPUSCULAR HEMOGLOBIN CONC (BEAKER) (test 31.7 GM/DL 32.3-36.5 qpbp=781) RED CELL DISTRIBUTION WIDTH (BEAKER) (test 12.0 % 11.6-14.4 qkvd=844) PLATELET COUNT (BEAKER) (test oakz=728) 236 K/CU MM 150-450 MEAN PLATELET VOLUME (BEAKER) (test woqf=208) 12.0 fL 9.4-12.4 NUCLEATED RED BLOOD CELLS (BEAKER) (test 0 /100 WBC 0-0 jgyw=634) [id number] 17:06:00 Test Item Value Reference Range Comments PARTIAL THROMBOPLASTIN TIME (BEAKER) (test 41.3 seconds 22.5-36.0 vyst=173) Prior to initiating heparinPLATELET [id number] 16:40:00 Test Item Value Reference Range Comments PLATELET COUNT (BEAKER) (test esqp=356) 234 K/CU MM 150-450 [id number] 14:14:00 Test Item Value Reference Range Comments MAGNESIUM (BEAKER) (test uqce=749) 2.2 mg/dL 1.6-2.6 BASIC METABOLIC [id number] 07:16:00 Test Item Value Reference Range Comments SODIUM (BEAKER) (test 134 meq/L 136-145 jcuc=525) POTASSIUM (BEAKER) (test 4.4 meq/L 3.5-5.1 crzj=164) CHLORIDE (BEAKER) (test 101 meq/L 98-107 szux=747) CO2 (BEAKER) (test 28 meq/L 22-29 lpum=390) BLOOD UREA NITROGEN 18 mg/dL 7-21 (BEAKER) (test elgr=519) CREATININE (BEAKER) (test 0.77 mg/dL 0.57-1.25 euiz=526) GLUCOSE RANDOM (BEAKER) 110 mg/dL 70-105 (test wflm=648) CALCIUM (BEAKER) (test 8.9 mg/dL 8.4-10.2 sdbx=222) EGFR (BEAKER) (test 99 mL/min/1.73 sq m ESTIMATED GFR IS NOT wzff=9120) ACCURATE CREATININE CLEARANCE IN PREDICTING GLOMERULAR FILTRATION RATE. ESTIMATED GFR IS NOT APPLICABLE FOR DIALYSIS PATIENTS. CBC W/PLT COUNT & AUTO [id number] 07:07:00 Test Item Value Reference Range Comments WHITE BLOOD CELL COUNT (BEAKER) (test repz=804) 11.8 K/ L 3.5-10.5 RED BLOOD CELL COUNT (BEAKER) (test qzmc=440) 3.51 M/ L 4.63-6.08 HEMOGLOBIN (BEAKER) (test udga=525) 11.5 GM/DL 13.7-17.5 HEMATOCRIT (BEAKER) (test hovo=971) 35.0 % 40.1-51.0 MEAN CORPUSCULAR VOLUME (BEAKER) (test usga=418) 99.7 fL 79.0-92.2 MEAN CORPUSCULAR HEMOGLOBIN (BEAKER) (test 32.8 pg 25.7-32.2 ivnq=487) MEAN CORPUSCULAR HEMOGLOBIN CONC (BEAKER) (test 32.9 GM/DL 32.3-36.5 uyrg=334) RED CELL DISTRIBUTION WIDTH (BEAKER) (test 12.0 % 11.6-14.4 gsho=449) PLATELET COUNT (BEAKER) (test xzuq=752) 224 K/CU MM 150-450 MEAN PLATELET VOLUME (BEAKER) (test dqbf=606) 11.4 fL 9.4-12.4 NUCLEATED RED BLOOD CELLS (BEAKER) (test 0 /100 WBC 0-0 zdot=065) NEUTROPHILS RELATIVE PERCENT (BEAKER) (test 82 % xcpp=478) LYMPHOCYTES RELATIVE PERCENT (BEAKER) (test 9 % eczc=282) MONOCYTES RELATIVE PERCENT (BEAKER) (test 8 % zwru=893) EOSINOPHILS RELATIVE PERCENT (BEAKER) (test 0 % moth=065) BASOPHILS RELATIVE PERCENT (BEAKER) (test 0 % fipi=095) NEUTROPHILS ABSOLUTE COUNT (BEAKER) (test 9.69 K/ L 1.78-5.38 jpvc=600) LYMPHOCYTES ABSOLUTE COUNT (BEAKER) (test 1.01 K/ L 1.32-3.57 gpeo=003) MONOCYTES ABSOLUTE COUNT (BEAKER) (test 0.96 K/ L 0.30-0.82 anyf=222) EOSINOPHILS ABSOLUTE COUNT (BEAKER) (test 0.04 K/ L 0.04-0.54 gvli=121) BASOPHILS ABSOLUTE COUNT (BEAKER) (test 0.04 K/ L 0.01-0.08 cpyp=144) IMMATURE GRANULOCYTES-RELATIVE PERCENT (BEAKER) 1 % 0-1 (test rukq=9493) CT, CHEST, WITH [id number] 17:39:00FINAL REPORT CT of the Chest, abdomen [...] MDReport Verified Date/Time: 08/07/2018 17:39:22 Reading Location: [facility] C013W Consult Reading Room Electronically signed by: REAGAN PECK M.D. on08/07/2018 05:39 PMCT, [id number] 17:39:00FINAL REPORT CT of the Chest, abdomen [...] Verified Date/Time: 08/07/2018 17 :39:22 Reading Location: [facility] C0[facility] Consult Reading Room Electronically signed by: REAGAN PECK M.D. on08/07/2018 05:39 [facility] MET[facility] [id number] 06:53:00 Test Item Value Reference Range Comments SODIUM (BEAKER) (test 135 meq/L 136-145 kxir=730) POTASSIUM (BEAKER) (test 4.3 meq/L 3.5-5.1 ygtr=716) CHLORIDE (BEAKER) (test 97 meq/L 98-107 viaw=414) CO2 (BEAKER) (test 31 meq/L 22-29 wbvz=492) BLOOD UREA NITROGEN 24 mg/dL 7-21 (BEAKER) (test rsol=334) CREATININE (BEAKER) (test 1.00 mg/dL 0.57-1.25 xshm=920) GLUCOSE RANDOM (BEAKER) 118 mg/dL 70-105 (test xqot=540) CALCIUM (BEAKER) (test 9.1 mg/dL 8.4-10.2 rxfj=805) EGFR (BEAKER) (test 73 mL/min/1.73 sq m ESTIMATED GFR IS NOT cfmc=5875) ACCURATE CREATININE CLEARANCE IN PREDICTING GLOMERULAR FILTRATION RATE. ESTIMATED GFR IS NOT APPLICABLE FOR DIALYSIS PATIENTS. CBC W/PLT COUNT & AUTO [id number] 06:22:00 Test Item Value Reference Range Comments WHITE BLOOD CELL COUNT (BEAKER) (test znsm=914) 16.2 K/ L 3.5-10.5 RED BLOOD CELL COUNT (BEAKER) (test ncam=582) 3.59 M/ L 4.63-6.08 HEMOGLOBIN (BEAKER) (test utwx=042) 11.6 GM/DL 13.7-17.5 HEMATOCRIT (BEAKER) (test qeny=195) 35.7 % 40.1-51.0 MEAN CORPUSCULAR VOLUME (BEAKER) (test crmc=651) 99.4 fL 79.0-92.2 MEAN CORPUSCULAR HEMOGLOBIN (BEAKER) (test 32.3 pg 25.7-32.2 efey=616) MEAN CORPUSCULAR HEMOGLOBIN CONC (BEAKER) (test 32.5 GM/DL 32.3-36.5 esto=879) RED CELL DISTRIBUTION WIDTH (BEAKER) (test 12.0 % 11.6-14.4 gtfg=642) PLATELET COUNT (BEAKER) (test lytg=454) 187 K/CU MM 150-450 MEAN PLATELET VOLUME (BEAKER) (test cpta=302) 11.6 fL 9.4-12.4 NUCLEATED RED BLOOD CELLS (BEAKER) (test 0 /100 WBC 0-0 kxav=751) NEUTROPHILS RELATIVE PERCENT (BEAKER) (test 82 % dxfd=229) LYMPHOCYTES RELATIVE PERCENT (BEAKER) (test 8 % mdym=006) MONOCYTES RELATIVE PERCENT (BEAKER) (test 9 % gjvv=955) EOSINOPHILS RELATIVE PERCENT (BEAKER) (test 0 % iesm=197) BASOPHILS RELATIVE PERCENT (BEAKER) (test 0 % sjhg=336) NEUTROPHILS ABSOLUTE COUNT (BEAKER) (test 13.30 K/ L 1.78-5.38 izkg=935) LYMPHOCYTES ABSOLUTE COUNT (BEAKER) (test 1.27 K/ L 1.32-3.57 uwmd=771) MONOCYTES ABSOLUTE COUNT (BEAKER) (test 1.44 K/ L 0.30-0.82 qswp=454) EOSINOPHILS ABSOLUTE COUNT (BEAKER) (test 0.01 K/ L 0.04-0.54 dfjf=537) BASOPHILS ABSOLUTE COUNT (BEAKER) (test 0.05 K/ L 0.01-0.08 xaew=412) IMMATURE GRANULOCYTES-RELATIVE PERCENT (BEAKER) 1 % 0-1 (test htdr=5064) RAD, CHEST, 2 [id number] 21:57:00Reason for exam:->Shortness of breath, and concern [...] [place] Verified Date/Time: 08/06/2018 21:57:16 Reading Location: [address] Consult Reading Room 09: 57 [id number] 17:55:00 Test Item Value Reference Range Comments PROCALCITONIN (BEAKER) (test lqjg=4118) 0.17 ng/mL <0.05 SEPSIS RISK (ng/mL)Low: 0.05-0.50Intermediate: 0.51-2.00High: & gt;=2.01PROTHROMBIN TIME/[id number] 17:16:00 Test Item Value Reference Range Comments PROTIME (BEAKER) (test tgcx=446) 21.4 seconds 11.7-14.7 INR (BEAKER) (test ewzw=106) 1.9 <=5.9 RECOMMENDED COUMADIN/WARFARIN INR THERAPY RANGESSTANDARD DOSE: 2.0 - 3.0 Includes: PROPHYLAXIS forvenous thrombosis, systemic embolization; TREATMENT for venous thrombosis and/or pulmonary embolus.HIGH RISK: Target INR is 2.5-3.5 for patients with mechanical heart valves.VITAMIN B12 AND [id number] 17:02 :00 Test Item Value Reference Range Comments VITAMIN B12 (BEAKER) (test mksn=953) 541 pg/mL 213-816 FOLATE (BEAKER) (test qzmm=678) 14.3 ng/mL >=7.0 LACTIC ACID, VENOUS, WHOLE [id number] 16:28:00 Test Item Value Reference Range Comments LACTATE BLOOD VENOUS (2) 1.8 mmol/L 0.5-2.2 Specimen slightly hemolyzed (BEAKER) (test wyff=9645) Effective 03/13/2016: Units/Reference Range ChangeNew: 0.5-2.2 mmol/L Previous: 5 -20 mg/dLMR, MRA, NECK, WITHOUT IV [id number] 13:54:00Reason for exam:-& gt;Ischemic Stroke EvaluationFINAL REPORT [...] [place] Verified Date/Time: 08/06/2018 13:54:13 Reading Location: [facility] Reading Room Electronically signed by: ARISTIDES LESTER M.D. on 01:54 PMMR, MRA, BRAIN, WITHOUT [id number] 13:54:00Reason for exam:->Ischemic Stroke EvaluationFINAL REPORT MRA brain and neck without contrast 08/06/2018 1:51 PM CLINICAL HISTORY: StrokeIschemic Stroke Evaluation COMPARISON: None available TECHNIQUE: Two- and three-dimensional dwbt-gr-[id number] MRA images of the intra- and extracranial [...] [place]ester Verified Date/Time: 08/06/2018 13:54:44 Reading Location: [facility] Reading Room MR, BRAIN, WITHOUT [id number] 12:15:00Reason for exam:->Ischemic Stroke EvaluationFINAL REPORT [...] and in the brainstem. Additionally, semiconfluent patchy VALVE TECHNICIAN territory diffusion restricted recent infarctions are seen [...] soft tissues are unremarkable. . Impressions: Right-sided VALVE TECHNICIAN and right-sided frontal diffusion restricted recent infarctions as discussed. No hematoma or mass effect. Signed: Marci Sanchez Verified Date/Time: 08/06/2018 12:15:05 Reading Location: [address] Neuro Reading Room CBC W/PLT COUNT & AUTO [id number] 11:56:00 Test Item Value Reference Range Comments WHITE BLOOD CELL COUNT (BEAKER) (test rant=506) 20.6 K/ L 3.5-10.5 RED BLOOD CELL COUNT (BEAKER) (test maly=214) 3.85 M/ L 4.63-6.08 HEMOGLOBIN (BEAKER) (test mtvv=657) 12.4 GM/DL 13.7-17.5 HEMATOCRIT (BEAKER) (test amyt=264) 38.3 % 40.1-51.0 MEAN CORPUSCULAR VOLUME (BEAKER) (test hdaa=023) 99.5 fL 79.0-92.2 MEAN CORPUSCULAR HEMOGLOBIN (BEAKER) (test 32.2 pg 25.7-32.2 bjfw=682) MEAN CORPUSCULAR HEMOGLOBIN CONC (BEAKER) (test 32.4 GM/DL 32.3-36.5 npez=523) RED CELL DISTRIBUTION WIDTH (BEAKER) (test 12.2 % 11.6-14.4 dvhf=379) PLATELET COUNT (BEAKER) (test wdha=821) 180 K/CU MM 150-450 MEAN PLATELET VOLUME (BEAKER) (test kczd=447) 11.3 fL 9.4-12.4 NUCLEATED RED BLOOD CELLS (BEAKER) (test 0 /100 WBC 0-0 mpqx=017) (CELLAVISION MANUAL DIFF)2018-08-06 11:56:00 Test Item Value Reference Range Comments NEUTROPHILS - REL (CELLAVISION)(BEAKER) (test 87 % luat=8032) LYMPHOCYTES - REL (CELLAVISION)(BEAKER) (test 7 % ztcl=9576) MONOCYTES - REL (CELLAVISION)(BEAKER) (test 6 % etgb=2847) NEUTROPHILS - ABS (CELLAVISION)(BEAKER) (test 17.92 K/ul 1.78-5.38 jrcy=0724) LYMPHOCYTES - ABS (CELLAVISION)(BEAKER) (test 1.44 K/ul 1.32-3.57 wpws=2157) MONOCYTES - ABS (CELLAVISION)(BEAKER) (test 1.24 K/uL 0.30-0.82 eeoi=9232) TOTAL COUNTED (BEAKER) (test ybbg=6369) 100 WBC MORPHOLOGY (BEAKER) (test vcpl=332) Normal LARGE PLT(BEAKER) (test ooqc=6665) Present POLYCHROMATOPHILLIC RBCS(BEAKER) (test npqv=530) 1+ few CARLOS CELLS (BEAKER) (test iazc=919) 1+ few ARTIFACT (CELLAVISION)(BEAKER) (test bzbf=5928) Present PLATELET CONCENTRATION (CELLAVISION)(BEAKER) Adequate (test pjoi=0124) Received comment: User comments: Slide comments:BASIC METABOLIC [id number] 06:50:00 Test Item Value Reference Range Comments SODIUM (BEAKER) (test 134 meq/L 136-145 lqtn=776) POTASSIUM (BEAKER) (test 3.7 meq/L 3.5-5.1 ecyb=498) CHLORIDE (BEAKER) (test 96 meq/L 98-107 vmhz=483) CO2 (BEAKER) (test 28 meq/L 22-29 wdel=867) BLOOD UREA NITROGEN 30 mg/dL 7-21 (BEAKER) (test obnd=046) CREATININE (BEAKER) (test 1.18 mg/dL 0.57-1.25 ensa=673) GLUCOSE RANDOM (BEAKER) 115 mg/dL 70-105 (test aplx=080) CALCIUM (BEAKER) (test 8.9 mg/dL 8.4-10.2 ugbl=395) EGFR (BEAKER) (test 60 mL/min/1.73 sq m ESTIMATED GFR IS NOT uudn=9818) ACCURATE CREATININE CLEARANCE IN PREDICTING GLOMERULAR FILTRATION RATE. ESTIMATED GFR IS NOT APPLICABLE FOR DIALYSIS PATIENTS. CBC W/PLT COUNT & AUTO [id number] 07:59:00 Test Item Value Reference Range Comments WHITE BLOOD CELL COUNT (BEAKER) (test hhbu=237) 26.0 K/ L 3.5-10.5 RED BLOOD CELL COUNT (BEAKER) (test kfig=260) 4.04 M/ L 4.63-6.08 HEMOGLOBIN (BEAKER) (test fpvq=333) 13.4 GM/DL 13.7-17.5 HEMATOCRIT (BEAKER) (test olcf=944) 39.5 % 40.1-51.0 MEAN CORPUSCULAR VOLUME (BEAKER) (test khex=023) 97.8 fL 79.0-92.2 MEAN CORPUSCULAR HEMOGLOBIN (BEAKER) (test 33.2 pg 25.7-32.2 vhfz=316) MEAN CORPUSCULAR HEMOGLOBIN CONC (BEAKER) (test 33.9 GM/DL 32.3-36.5 fsuf=840) RED CELL DISTRIBUTION WIDTH (BEAKER) (test 12.1 % 11.6-14.4 nlau=372) PLATELET COUNT (BEAKER) (test imxq=912) 195 K/CU MM 150-450 MEAN PLATELET VOLUME (BEAKER) (test gcbb=174) 11.6 fL 9.4-12.4 NUCLEATED RED BLOOD CELLS (BEAKER) (test 0 /100 WBC 0-0 twwm=522) (CELLAVISION MANUAL DIFF)2018-08-05 07:59:00 Test Item Value Reference Range Comments NEUTROPHILS - REL (CELLAVISION)(BEAKER) (test 86 % ydig=9077) LYMPHOCYTES - REL (CELLAVISION)(BEAKER) (test 6 % wzxd=4575) MONOCYTES - REL (CELLAVISION)(BEAKER) (test 4 % ltef=6197) BANDS - REL (CELLAVISION)(BEAKER) (test 4 % 0-10 lppx=8684) NEUTROPHILS - ABS (CELLAVISION)(BEAKER) (test 22.36 K/ul 1.78-5.38 efcv=2330) LYMPHOCYTES - ABS (CELLAVISION)(BEAKER) (test 1.56 K/ul 1.32-3.57 bgpw=1917) MONOCYTES - ABS (CELLAVISION)(BEAKER) (test 1.04 K/uL 0.30-0.82 aela=8884) BANDS - ABS (CELLAVISION)(BEAKER) (test 1.04 K/uL 0.00-0.80 xddl=9412) TOTAL COUNTED (BEAKER) (test nqfv=3398) 100 PLT MORPHOLOGY (BEAKER) (test jvon=374) Normal SMUDGE CELLS (BEAKER) (test qwqj=7576) Present POIKILOCYTES (BEAKER) (test tyov=715) 1+ few PLATELET CONCENTRATION (CELLAVISION)(BEAKER) Adequate (test gwjc=3869) Received comment: User comments: Slide comments:URINALYSIS W/ REFLEX URINE [id number] 05:52:00 Test Item Value Reference Range Comments COLOR (BEAKER) (test ycad=949) Yellow CLARITY (BEAKER) (test ujxq=161) Hazy SPECIFIC GRAVITY UA (BEAKER) (test pyzy=158) 1.022 1.001-1.035 PH UA (BEAKER) (test hudw=059) 5.5 5.0-8.0 PROTEIN UA (BEAKER) (test vxua=037) 100 mg/dL Negative GLUCOSE UA (BEAKER) (test nnpr=530) Negative Negative KETONES UA (BEAKER) (test peqf=605) Negative Negative BILIRUBIN UA (BEAKER) (test ykuy=238) Negative Negative BLOOD UA (BEAKER) (test cckp=098) Trace Negative NITRITE UA (BEAKER) (test rgco=277) Negative Negative LEUKOCYTE ESTERASE UA (BEAKER) (test bzrq=726) Negative Negative UROBILINOGEN UA (BEAKER) (test obis=488) 2.0 mg/dL 0.2-1.0 RBC UA (BEAKER) (test qioh=680) 11 /HPF WBC UA (BEAKER) (test eogg=001) 3 /HPF MUCUS (BEAKER) (test ezxt=4572) Many SQUAMOUS EPITHELIAL (BEAKER) (test usjf=893) < /HPF HYALINE CASTS (BEAKER) (test mfob=277) 5 /LPF SOURCE(BEAKER) (test qbzx=6566) BASIC METABOLIC [id number] 05:45:00 Test Item Value Reference Range Comments SODIUM (BEAKER) (test 135 meq/L 136-145 qzcf=962) POTASSIUM (BEAKER) (test 3.9 meq/L 3.5-5.1 vcmw=639) CHLORIDE (BEAKER) (test 99 meq/L 98-107 xhai=839) CO2 (BEAKER) (test 26 meq/L 22-29 foma=262) BLOOD UREA NITROGEN 21 mg/dL 7-21 (BEAKER) (test uooy=068) CREATININE (BEAKER) (test 1.09 mg/dL 0.57-1.25 hdtc=180) GLUCOSE RANDOM (BEAKER) 127 mg/dL 70-105 (test uemw=394) CALCIUM (BEAKER) (test 9.0 mg/dL 8.4-10.2 icvp=749) EGFR (BEAKER) (test 66 mL/min/1.73 sq m ESTIMATED GFR IS NOT zadl=8375) ACCURATE CREATININE CLEARANCE IN PREDICTING GLOMERULAR FILTRATION [...] MDRep[place] Verified Date/Time: 2017 04:28:36 Reading Location: [facility] C013Y CT Body Reading Room TROPONIN [id number] 14:22:00 Test Item Value Reference Range Comments TROPONIN I (BEAKER) (test jnuu=942) < ng/mL 0.00-0.03 Troponin I (TnI) levels [...] disease, and persistent tachyarrhythmia.RAD, ABDOMEN/KUB, 1 VIEW [id number] 12 :40:00Reason for exam:->abdominal painFINAL REPORT CLINICAL HISTORY: abdominal pain TECHNIQUE: Supine abdomen COMPARISON: None IMPRESSION: There is a large amount of stool throughout the colon. There are no focally distended loops of bowel. Free air and air-fluid levels are not seen but cannot be definitively excluded on the supine view. Signed: Colton Marquis Verified Date/Time: 08/04/2018 12:40:36 Reading Location: [facility] Reading Room HEMOGLOBIN [id number] 05:30:00 Test Item Value Reference Range Comments HEMOGLOBIN A1C (BEAKER) (test wxyt=855) 5.6 % 4.3-6.1 [id number] 02:50:00 Test Item Value Reference Range Comments HOMOCYSTEINE (BEAKER) (test zrne=321) 6.5 umol/L 5.1-15.4 TROPONIN [id number] 02:25:00 Test Item Value Reference Range Comments TROPONIN I (BEAKER) (test jeau=624) < ng/mL 0.00-0.03 Troponin I (TnI) levels [...] acidosis, acute neurological disease, and persistent tachyarrhythmia.FastingLIPID [id number] 02:19:00 Test Item Value Reference Range Comments TRIGLYCERIDES (BEAKER) (test lihu=336) 111 mg/dL CHOLESTEROL (BEAKER) (test hdwn=614) 113 mg/dL HDL CHOLESTEROL (BEAKER) (test emgg=177) 26 mg/dL LDL CHOLESTEROL CALCULATED (BEAKER) (test 65 mg/dL xlry=779) Triglyceride Reference Range: Low Risk <150 Borderline 150- 199 High Risk 200-499 Very High Risk >=500Cholesterol Reference Range: Low Risk <200 Borderline 200-239 High Risk > 240HDL Cholesterol Reference Range: Low Risk >=60 High Risk <40LDL Cholesterol Reference Range: Optimal <100 Near Optimal 100-129 Borderline 130-159 High 160-189 Very High >=190 FastingBASIC METABOLIC [id number] 02:19:00 Test Item Value Reference Range Comments SODIUM (BEAKER) (test 140 meq/L 136-145 geok=745) POTASSIUM (BEAKER) (test 3.6 meq/L 3.5-5.1 arxm=355) CHLORIDE (BEAKER) (test 109 meq/L 98-107 bhet=587) CO2 (BEAKER) (test 23 meq/L 22-29 leer=315) BLOOD UREA NITROGEN 15 mg/dL 7-21 (BEAKER) (test gqpb=238) CREATININE (BEAKER) (test 0.85 mg/dL 0.57-1.25 xolf=988) GLUCOSE RANDOM (BEAKER) 135 mg/dL 70-105 (test szng=457) CALCIUM (BEAKER) (test 8.2 mg/dL 8.4-10.2 saot=860) EGFR (BEAKER) (test 88 mL/min/1.73 sq m ESTIMATED GFR IS NOT lybe=0994) ACCURATE CREATININE CLEARANCE IN PREDICTING GLOMERULAR FILTRATION RATE. ESTIMATED GFR IS NOT APPLICABLE FOR DIALYSIS PATIENTS. FastingCBC W/PLT COUNT & AUTO [id number] 01:57:00 Test Item Value Reference Range Comments WHITE BLOOD CELL COUNT (BEAKER) (test hecn=766) 14.2 K/ L 3.5-10.5 RED BLOOD CELL COUNT (BEAKER) (test mjhc=224) 3.86 M/ L 4.63-6.08 HEMOGLOBIN (BEAKER) (test oidf=116) 12.7 GM/DL 13.7-17.5 HEMATOCRIT (BEAKER) (test tscr=376) 37.7 % 40.1-51.0 MEAN CORPUSCULAR VOLUME (BEAKER) (test novn=731) 97.7 fL 79.0-92.2 MEAN CORPUSCULAR HEMOGLOBIN (BEAKER) (test 32.9 pg 25.7-32.2 sibl=355) MEAN CORPUSCULAR HEMOGLOBIN CONC (BEAKER) (test 33.7 GM/DL 32.3-36.5 ypot=726) RED CELL DISTRIBUTION WIDTH (BEAKER) (test 12.0 % 11.6-14.4 udgv=513) PLATELET COUNT (BEAKER) (test qcsj=259) 183 K/CU MM 150-450 MEAN PLATELET VOLUME (BEAKER) (test vvur=296) 11.1 fL 9.4-12.4 NUCLEATED RED BLOOD CELLS (BEAKER) (test 0 /100 WBC 0-0 ujgx=738) NEUTROPHILS RELATIVE PERCENT (BEAKER) (test 83 % gieg=058) LYMPHOCYTES RELATIVE PERCENT (BEAKER) (test 9 % ltuv=743) MONOCYTES RELATIVE PERCENT (BEAKER) (test 7 % elzu=716) EOSINOPHILS RELATIVE PERCENT (BEAKER) (test 0 % ojjn=240) BASOPHILS RELATIVE PERCENT (BEAKER) (test 0 % tbyf=313) NEUTROPHILS ABSOLUTE COUNT (BEAKER) (test 11.72 K/ L 1.78-5.38 xglk=035) LYMPHOCYTES ABSOLUTE COUNT (BEAKER) (test 1.28 K/ L 1.32-3.57 xywk=097) MONOCYTES ABSOLUTE COUNT (BEAKER) (test 0.98 K/ L 0.30-0.82 tqwp=259) EOSINOPHILS ABSOLUTE COUNT (BEAKER) (test 0.02 K/ L 0.04-0.54 nckp=969) BASOPHILS ABSOLUTE COUNT (BEAKER) (test 0.05 K/ L 0.01-0.08 matl=459) IMMATURE GRANULOCYTES-RELATIVE PERCENT (BEAKER) 1 % 0-1 (test yvli=9232)
[2019-03-29] MEDS ORDERED: WATER FOR INJ,STERILE 10 ML IV ONE ×2 (08:30→10:00)
[2019-03-29] MEDS ORDERED: ALTEPLASE 2 MG/VIAL IV SCH ×2 (08:30→10:00)
--- NOTE | 2019-03-29 08:42 | ER ---
Nurse's Notes [facility] Name: Alejo Rae Age: 73 yrs Sex: Male : 1945 Arrival Date: 03/29/2019 Time: 07:52 Bed 12 Private MD: Lili Ferraro C Diagnosis: Encounter for PICC line malfunction Presentation: 03/29 08:03 Presenting complaint: RUE PICC clogged. Transition of care: patient was not received hb from another setting of care. Onset of symptoms was March 29, 2019. Risk Assessment: Do you want to hurt yourself or someone else? Patient reports no desire to harm self or others. Initial Sepsis Screen: Does the patient meet any 2 criteria? No. Patient's initial sepsis screen is negative. Does the patient have a suspected source of infection? No. Patient's initial sepsis screen is negative. Care prior to arrival: None. 08:03 Method Of Arrival: Ambulatory hb 08:03 Acuity: ANNA 4 hb Triage Assessment: 08:05 General: Appears in no apparent distress. Behavior is calm, cooperative. Pain: Denies hb pain. EENT: No signs and/or symptoms were reported regarding the EENT system. Neuro: Level of Consciousness is awake, alert, obeys commands, Oriented to person, place, time, situation. Cardiovascular: Capillary refill < 3 seconds Patient's skin is warm and dry. Respiratory: Airway is patent Respiratory effort is even, unlabored, Respiratory pattern is regular, symmetrical. GI: No signs and/or symptoms were reported involving the gastrointestinal system. : No signs and/or symptoms were reported regarding the genitourinary system. Derm: Skin is intact, is healthy with good turgor, Skin is pink, warm \T\ dry. Musculoskeletal: No signs and/or symptoms reported regarding the musculoskeletal system. Historical: - Allergies: 08:04 No Known Allergies; hb - Home Meds: 08:04 amlodipine 5 mg tab 1 tab once daily [Active]; atorvastatin 80 mg Oral tab 1 tab once hb daily [Active]; dofetilide 500mcg Oral 1 cap 2 times per day [Active]; furosemide 40 mg Oral tab 1 tab 2 times per day [Active]; gabapentin 300 mg Oral cap 1 cap 3 times per day [Active]; lisinopril 2.5 mg Oral tab 1 tab once daily [Active]; metoprolol succinate 200 mg Oral Tb24 1 tab once daily [Active]; omeprazole 20 mg Oral cpDR 1 cap once daily [Active]; sertraline 100 mg Oral tab 1 tab once daily [Active]; warfarin 5 mg Oral tab 2 tabs once daily [Active]; Xarelto Oral [Active]; - PMHx: 08:04 Atrial Fib; CHF; PTSD; hb - PSHx: 08:04 Hernia repair; C1-3 Surgery; hb - Immunization history:: Adult Immunizations up to date. - Social history:: Smoking status: Patient/guardian denies using tobacco. - Ebola Screening: : No symptoms or risks identified at this time. - Family history:: not pertinent. - Hospitalizations: : No recent hospitalization is reported. Screenin:06 Abuse screen: Denies threats or abuse. Denies injuries from another. Nutritional hb screening: No deficits noted. Tuberculosis screening: No symptoms or risk factors identified. Fall Risk None identified. Assessment: 08:05 General: see triage assessment. hb 08:06 Reassessment: Both ports flushed with 20 ml NS, sluggish with no blood return. hb 09:00 Reassessment: Patient appears in no apparent distress at this time. Patient and/or hb family updated on plan of care and expected duration. Pain level reassessed. Patient is alert, oriented x 3, equal unlabored respirations, skin warm/dry/pink. 09:45 Reassessment: Withdrew Cathflow, both ports flushed with 20 mls NS. Both ports remain hb sluggish, slow blood return. Second dose of CathFlow requested from pharmacy. Dr. Huff aware. 10:30 Reassessment: Patient appears in no apparent distress at this time. Patient and/or hb family updated on plan of care and expected duration. Pain level reassessed. Patient is alert, oriented x 3, equal unlabored respirations, skin warm/dry/pink. Cathflow remains in place. 10:59 Reassessment: Cathflo removed, both ports flushed with 20ml NS, flushes easlily with hb good blood return. Both end caps replaced. Dressing clean, dry, and intact. 11:00 Reassessment: Discharge ordered, awaiting transportation at this time. hb Vital Signs: 08:04 BP 127 / 82; Pulse 68; Resp 16; Temp 97.8; Pulse Ox 100% on R/A; Pain 0/10; hb 11:00 BP 138 / 82; Pulse 68; Resp 16; Pulse Ox 100% on R/A; Pain 0/10; hb ED Course: 07:52 Patient arrived in ED. as 07:52 Lili Ferraro MD is Private Physician. as 07:56 Azam Huff MD is Attending Physician. rn 08:03 Luisana White RN is Primary Nurse. hb 08:03 Triage completed. hb 08:04 Arm band placed on. hb 08:06 Patient has correct armband on for positive identification. Call light in reach. hb 08:06 Accessed PICC line. Clean \T\ dry. No blood return. Difficult to flush. hb 11:01 No provider procedures requiring assistance completed. RUE PICC remains in place. hb Administered Medications: 08:37 Drug: Cathflo Activase 2 mg Route: IV Thrombolytics; hb 09:54 Follow up: Repeat x 1 hb 10:57 Follow up: Response: No adverse reaction; flushes easily, good blood return hb Intake: Outcome: 08:41 Discharge ordered by . rn 11:01 Discharged to senior care. Report called to Annabella RATLIFF hb 11:01 Condition: stable 11:01 Discharge instructions given to patient, Instructed on discharge instructions, follow up and referral plans. Demonstrated understanding of instructions, follow-up care. 11:58 Patient left the ED. hb Signatures: Janeen Ogden as Azam Huff MD MD rn Baxter, Heather, RN RN hb Corrections: (The following items were deleted from the chart) 11:01 10:59 Reassessment: Cathrlow removed, both ports flushed with 20ml NS, flushes easlily hb with good blood return. Both end caps replaced. Dressing clean, dry, and intact. hb
--- NOTE | 2019-03-29 08:42 | EDPHYS ---
Physician Documentation [facility] Name: Alejo Rae Age: 73 yrs Sex: Male : 1945 Arrival Date: 03/29/2019 Time: 07:52 Bed 12 Private MD: Lili Ferraro C ED Physician Azam Huff HPI: 03/29 08:07 This 73 yrs old Male presents to ER via Ambulatory with complaints of PICC rn line clogged. 08:07 Reports unable to receive Am abx today, second time his PICC line has clogged, happened rn last week, steats xray showed proper placement. Denies arm swelling or pain, no fever, no neck pain/sob/chest pain. . Onset: The symptoms/episode began/occurred this morning. Severity of symptoms: At their worst the symptoms were moderate in the emergency department the symptoms are unchanged. The patient has experienced a previous episode. The patient has been recently seen by a physician: The patient has been recently seen at the [facility] Emergency Department. Historical: - Allergies: 08:04 No Known Allergies; hb - Home Meds: 08:04 amlodipine 5 mg tab 1 tab once daily [Active]; atorvastatin 80 mg Oral tab 1 tab once hb daily [Active]; dofetilide 500mcg Oral 1 cap 2 times per day [Active]; furosemide 40 mg Oral tab 1 tab 2 times per day [Active]; gabapentin 300 mg Oral cap 1 cap 3 times per day [Active]; lisinopril 2.5 mg Oral tab 1 tab once daily [Active]; metoprolol succinate 200 mg Oral Tb24 1 tab once daily [Active]; omeprazole 20 mg Oral cpDR 1 cap once daily [Active]; sertraline 100 mg Oral tab 1 tab once daily [Active]; warfarin 5 mg Oral tab 2 tabs once daily [Active]; Xarelto Oral [Active]; - PMHx: 08:04 Atrial Fib; CHF; PTSD; hb - PSHx: 08:04 Hernia repair; C1-3 Surgery; hb - Immunization history:: Adult Immunizations up to date. - Social history:: Smoking status: Patient/guardian denies using tobacco. - Ebola Screening: : No symptoms or risks identified at this time. - Family history:: not pertinent. - Hospitalizations: : No recent hospitalization is reported. ROS: 08:07 Constitutional: Negative for fever, chills, and weight loss, Neck: Negative for injury, rn pain, and swelling, Cardiovascular: Negative for chest pain, palpitations, and edema, Respiratory: Negative for shortness of breath, cough, wheezing, and pleuritic chest pain, MS/Extremity: Negative for injury and deformity, Neuro: Negative for headache, weakness, numbness, tingling, and seizure. Exam: 08:07 Constitutional: This is a well developed, well nourished patient who is awake, alert, rn and in no acute distress. Skin: Warm, dry with normal turgor. Normal color with no rashes, no lesions, and no evidence of cellulitis. MS/ Extremity: Pulses equal, no cyanosis. Neurovascular intact. Full, normal range of motion. Equal circumference. RUE PICC line in place, has not been pulled out, is properly secured, non-tender. Nurse able to slowly flush line, not completely clogged. Vital Signs: 08:04 BP 127 / 82; Pulse 68; Resp 16; Temp 97.8; Pulse Ox 100% on R/A; Pain 0/10; hb 11:00 BP 138 / 82; Pulse 68; Resp 16; Pulse Ox 100% on R/A; Pain 0/10; hb MDM: 07:56 Patient medically screened. rn 08:40 Differential Diagnosis PICC line obstruction. Data reviewed: vital signs, nurses notes, rn and as a result, I will discharge patient. Counseling: I had a detailed discussion with the patient and/or guardian regarding: the historical points, exam findings, and any diagnostic results supporting the discharge/admit diagnosis, the need for outpatient follow up, to return to the emergency department if symptoms worsen or persist or if there are any questions or concerns that arise at home. Response to treatment: the patient's symptoms have resolved after treatment, and as a result, I will discharge patient. Special discussion: I discussed with the patient/guardian in detail that at this point there is no indication for admission to the hospital. It is understood, however, that if the symptoms persist or worsen the patient needs to return immediately for re-evaluation. Administered Medications: 08:37 Drug: Cathflo Activase 2 mg Route: IV Thrombolytics; hb 09:54 Follow up: Repeat x 1 hb 10:57 Follow up: Response: No adverse reaction; flushes easily, good blood return hb Disposition: 03/29/19 08:41 Discharged to Home. Impression: Encounter for PICC line malfunction. - Condition is Stable. - Discharge Instructions: PICC Home Guide, PICC Insertion, Care After. - Medication Reconciliation Form, Thank You Letter, Antibiotic Education, Prescription Opioid Use form. - Follow up: Private Physician; When: As needed; Reason: Recheck today's complaints, Re-evaluation by your physician. - Problem is new. - Symptoms have improved. Signatures: Azam Huff MD MD rn Luisana White RN RN hb Corrections: (The following items were deleted from the chart) 11:58 08:41 03/29/2019 08:41 Discharged to Home. Impression: Encounter for PICC line hb malfunction. Condition is Stable. Forms are Medication Reconciliation Form, Thank You Letter, Antibiotic Education, Prescription Opioid Use. Follow up: Private Physician; When: As needed; Reason: Recheck today's complaints, Re-evaluation by your physician. Problem is new. Symptoms have improved. rn
[2019-03-29 12:03] VITALS: TEMP 97.8; O2SAT 100
[2019-03-29 12:04] VITALS: BP 138/82
== END 2019-03-29 11:58 | disposition home or self-care (01) ==
LOC: ER 07:50
DX: T82.9XXA Unspecified complication of cardiac and vascular prosthetic device, implant and graft, initial encounter (principal)
CPT/HCPCS: 92977; 99284; J2997

== ENCOUNTER 2021-11-14 15:54 | Emergency (ER) | payer BC, OTHER ==
--- OUTSIDE RECORDS SUMMARY | 2021-11-14 15:58 | XMS REPORT | Continuity of Care Document ---
:1945 Author Organization [facility] Address [address] [place] [address] Care Team Providers Name Role Phone SABI Attending Clinician Unavailable Sabi VILLEDA Attending Clinician 3 Attending Clinician Unavailable Beth RIVER Attending Clinician Unavailable Beth RIVER Admitting Clinician Unavailable Payers Payer Name Policy Type Policy Number Effective Date Expiration Date S erwin [facility] MEDICARE [id number] [facility] MEDICARE [id number] ADVANTAGE PPO MEDICARE PART A [id number] \T\ B - MEDICARE OUT OF STATE BCBS [id number] 2019 00:00 :00 - PPO - BCBS Problems Condition Condition Condition Status Onset Resolution Last Treating Co mments Source Name Details Category Date Date Treatment Clinician Date 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 [place] of Medicin e Carotid Carotid Disease [facility] stenosis stenosis Colleg e of Medicin e DVT (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[facility] venous venous [place] thrombosis thrombosis of ) ([facility] ) ([facility] Me dicin e Stroke Stroke Disease [facility] ([facility]) ([facility]) Colleg e of Medicin e GERD GERD Disease [facility] (gastroeso (gastroeso Co llege phageal phageal of reflux reflux Medicin disease) disease) e Lung Lung Disease [facility] cancer cancer [place] ([facility]) ([facility]) of Medicin e Allergies, Adverse Reactions, Alerts This patient has no known allergies or adverse reactions. Social History Social Habit Start Date Stop Date Quantity Comments Source Sex [facility]igned [facility] Alcohol intake 2020-02-15 2020-02-15 Current drinker [facility] 00:00:00 00:00:00 of alcohol of Medicine (finding) Smoking Status Start Date Stop Date Source Former smoker 2020-02-15 00:00:00 2020-02-15 00:00:00 [facility] mona Medicine Medications Ordered Filled Start Stop Current Ordering Indication Dosage Frequency Signature Comments Components Source Medication Medication Date Date Medication? Clinician (SIG) Name Name aspirin 81 2018-11 Yes 81mg Take 81 mg [facility] MG tablet 1-12 by mouth Colleg e 20:51: daily. of 46 Medicin e dofetilide 2018-11 Yes 125ug Take 125 [facility] (TIKOSYN) 1-12 mcg by College 125 MCG 20:51: mouth two of capsule 46 times Medicin daily. e Metoprolol- 2018-11 Yes Take by Candido yoon Hydrochloro 1-12 mouth. Colleg e thiazide 20:51: of 100-12.5 MG 46 Medicin TB24 e lisinopril 2018-11 Yes 10mg Take 10 mg [facility] (PRINIVIL, 1-12 by mouth Colle ge ZESTRIL) 10 20:51: daily. of MG tablet 46 Medicin e BucAlfAspKG 2018-11 Yes Take by Candido yoon lucCouchPar 1-12 mouth. Colleg e sUvaUrJu 20:51: of (WATER 46 Medicin PILLS OR) e furosemide 2018-11 Yes 20mg Take 20 mg [facility] (LASIX) 20 1-12 by mouth Colle ge MG tablet 20:51: daily. of 46 Medicin e prednisoLON 2018-11 Yes 1[drp] Place 1 [facility] E acetate 1-12 Drop into Colle ge (PRED 00:00: the right of FORTE) 1 % 00 eye two Medici n ophthalmic times e suspension daily. Shake well before instillati on prednisoLON Yes 1[drp] Place 1 [facility] E acetate 9-24 Drop into Colle ge (PRED 00:00: the right of FORTE) 1 % 00 eye four Medic in ophthalmic times e suspension daily. Shake well before each use tobramycin Yes 1[drp] Place 1 [facility] (TOBREX) 9-24 Drop into Colleg e 0.3 % 00:00: the right of ophthalmic 00 eye four Medic in solution times e daily. prednisoLON Yes 1[drp] Place 1 [facility] E acetate 9-24 Drop into Colle ge (PRED 00:00: the right of FORTE) 1 % 00 eye four Medic in ophthalmic times e suspension daily. Shake well before each use tobramycin 2019-0 Yes 1[drp] Place 1 [facility] (TOBREX) 9-24 Drop into Colleg e 0.3 % 00:00: the right of ophthalmic 00 eye four Medic in solution times e daily. prednisoLON 2019-0 Yes 1[drp] Place 1 [facility] E acetate 9-24 Drop into Colle ge (PRED 00:00: the right of FORTE) 1 % 00 eye four Medic in ophthalmic times e suspension daily. Shake well before each use aspirin 81 2019- Yes 81mg Take 81 mg [facility] MG tablet 9-05 by mouth Colleg e 19:13: daily. of 54 Medicin e dofetilide Yes 125ug Take 125 [facility] (TIKOSYN) 9-05 mcg by [place] 125 MCG 19:13: mouth two of capsule 54 times Medicin daily. e Metoprolol- Yes Take by [facility] Hydrochloro 9-05 mouth. [facility]okes thiazide 19:13: of 100-12.5 MG 54 Medicin TB24 e lisinopril Yes 10mg Take 10 mg [facility] (PRINIVIL, 9-05 by mouth Colle ge ZESTRIL) 10 19:13: daily. of MG tablet 54 Medicin e BucAlfAspKG Yes Take by [facility] lucCouchPar 9-05 mouth. [facility] sUvaUrJu 19:13: of (WATER 54 Medicin PILLS OR) e furosemide Yes 20mg Take 20 mg [facility] (LASIX) 20 9-05 by mouth Colle ge MG tablet 19:13: daily. of 54 Medicin e aspirin 81 2018- Yes 81mg Take 81 mg [facility] MG tablet 9-05 by mouth Colleg e 19:13: daily. of 54 Medicin e dofetilide 0 Yes 125ug Take 125 [facility] (TIKOSYN) 9-05 mcg by [place] 125 MCG 19:13: mouth two of capsule 54 times Medicin daily. e Metoprolol- 0 Yes Take by [facility] Hydrochloro 9-05 mouth. [facility] stokes thiazide 19:13: of 100-12.5 MG 54 Medicin TB24 e lisinopril Yes 10mg Take 10 mg [facility] (PRINIVIL, 905 by mouth Colle ge ZESTRIL) 10 19:13: daily. of MG tablet 54 Medicin e BucAlfAspKG 0 Yes Take by [facility] lucCouchPar 05 mouth. Colleg e sUvaUrJu 19:13: of (WATER 54 Medicin PILLS OR) e furosemide Yes 20mg Take 20 mg [facility] (LASIX) 20 05 by mouth Colle ge MG tablet 19:13: daily. of 54 Medicin e aspirin 81 Yes 81mg Take 81 mg [facility] MG tablet 05 by mouth Colleg e 19:13: daily. of 54 Medicin e dofetilide Yes 125ug Take 125 [facility] (TIKOSYN) 07-15 mcg by [place] 125 MCG 19:13: mouth two of capsule 54 times Medicin daily. e Metoprolol- Yes Take by [facility] Hydrochloro 05 mouth. Crystal e thiazide 19:13: of 100-12.5 MG 54 Medicin TB24 e lisinopril Yes 10mg Take 10 mg [facility] (PRINIVIL, 905 by mouth Colle ge ZESTRIL) 10 19:13: daily. of MG tablet 54 Medicin e BucAlfAspKG Yes Take by [facility] lucCouchPar 05 mouth. Colleronna e sUvaUrJu 19:13: of (WATER 54 Medicin PILLS OR) e furosemide Yes 20mg Take 20 mg [facility] (LASIX) 20 05 by mouth Colle ge MG tablet 19:13: daily. of 54 Medicin e Procedures Procedure Date / Time Performed Performing Clinician [facility] e Aug,2019-07-15 19:57:38 Beth Celestin [facility] of BOTH EYES Medicine Plan of Care Planned Activity Planned Date Details Comments Source Future Scheduled Test COLON CANCER SCREENING: [facility] COLONOSCOPY [code = Medicine COLON CANCER SCREENING: COLONOSCOPY] Future Scheduled Test TETANUS SHOT (ADULT) [facility] [code = TETANUS SHOT Medicin e (ADULT)] Future Scheduled Test BMI FOLLOW UP PLAN [facility] [code = BMI FOLLOW UP Medici ne PLAN] Future Scheduled Test AAA Screen [code = AAA [facility] Screen] Medicine Future Scheduled Test FALL SCREEN [code = [facility] FALL SCREEN] Medicine Future Scheduled Test PNEUMOVAX >=65 (PPSV23) [facility] [code = PNEUMOVAX >=65 Medic ine (PPSV23)] Future Scheduled Test PREVNAR >= 65 (PCV13) [facility] [code = PREVNAR >= 65 Medici ne (PCV13)] Future Scheduled Test FLU VACCINE > 6 MONTHS [facility] [code = FLU VACCINE > 6 Medi cine MONTHS] Future Scheduled Test COLON CANCER SCREENING: [facility] COLONOSCOPY [code = Medicine COLON CANCER SCREENING: COLONOSCOPY] Future Scheduled Test MEDICARE AWV [code = [employer] [facility] MEDICARE AWV] Medicine Future Scheduled Test TETANUS SHOT (ADULT) [facility] [code = TETANUS SHOT Medicin e (ADULT)] Future Scheduled Test BMI FOLLOW UP PLAN [facility] [code = BMI FOLLOW UP Medici ne PLAN] Future Scheduled Test AAA Screen [code = AAA [facility] of Screen] Medicine Future Scheduled Test FALL SCREEN [code = [facility] of FALL SCREEN] Medicine Future Scheduled Test PNEUMOVAX >=65 (PPSV23) [facility] [code = PNEUMOVAX >=65 Medic ine (PPSV23)] Future Scheduled Test PREVNAR >= 65 (PCV13) [facility] [code = PREVNAR >= 65 Medici ne (PCV13)] Future Scheduled Test FLU VACCINE > 6 MONTHS [facility] [code = FLU VACCINE > 6 Medi cine MONTHS] Future Scheduled Test COLON CANCER SCREENING: [facility] COLONOSCOPY [code = Medicine COLON CANCER SCREENING: COLONOSCOPY] Future Scheduled Test MEDICARE AWV [code = [facility] of MEDICARE AWV] Medicine Future Scheduled Test TETANUS SHOT (ADULT) [facility] [code = TETANUS SHOT Medicin e (ADULT)] Future Scheduled Test BMI FOLLOW UP PLAN [facility] [code = BMI FOLLOW UP Medici ne PLAN] Future Scheduled Test AAA Screen [code = AAA [facility] Screen] Medicine Future Scheduled Test FALL SCREEN [code = [facility] of FALL SCREEN] Medicine Future Scheduled Test PNEUMOVAX >=65 (PPSV23) [facility] [code = PNEUMOVAX >=65 Medic ine (PPSV23)] Future Scheduled Test PREVNAR >= 65 (PCV13) [facility] [code = PREVNAR >= 65 Medici ne (PCV13)] Future Scheduled Test FLU VACCINE > 6 MONTHS [facility] [code = FLU VACCINE > 6 Medi cine MONTHS] Future Scheduled Test COLON CANCER SCREENING: [facility] COLONOSCOPY [code = Medicine COLON CANCER SCREENING: COLONOSCOPY] Future Scheduled Test TETANUS SHOT (ADULT) [facility] [code = TETANUS SHOT Medicin e (ADULT)] Future Scheduled Test BMI FOLLOW UP PLAN [facility] [code = BMI FOLLOW UP Medici ne PLAN] Future Scheduled Test AAA Screen [code = AAA [facility] Screen] Medicine Future Scheduled Test FALL SCREEN [code = [facility] FALL SCREEN] Medicine Future Scheduled Test PNEUMOVAX >=65 (PPSV23) [facility] [code = PNEUMOVAX >=65 Medic ine (PPSV23)] Future Scheduled Test PREVNAR >= 65 (PCV13) [facility] [code = PREVNAR >= 65 Medici ne (PCV13)] Future Scheduled Test MEDICARE IPPE (WELCOME [facility] TO MEDICARE) [code = Medicin e MEDICARE IPPE (WELCOME TO MEDICARE)] Future Scheduled Test FLU VACCINE > 6 MONTHS [facility] [code = FLU VACCINE > 6 Medi cine MONTHS] Encounters Start End Encounter Admission Attending Care Care Encounter Source Date/Time Date/Time Type Type Clinicians Facility Department ID 2021-07-10 2021-07-10 Outpatient OBED CELESTIN [id number] 12:46:06 13:57:30 BETH [facility] ege of Medicin e 2020-02-15 2020-02-15 Office OBED Celestin [id number] [facility] 13:57:12 14:37:34 Visit Beth AMBULATOR [id number] College Y 0.2.7.2.686 of [id number] Medi ashvin 300 e 2019-08-10 2019-08-10 Office OBED Celestin [id number] [facility] 09:09:21 09:24:21 Visit Beth AMBULATOR [id number] College Y 0.2.7.2.686 of [id number] Medi ashvin 300 e 2019-08-03 2019-08-03 Office OBED Celestin [id number] 35 [facility] 07:51:40 08:06:40 Visit Beth AMBULATOR [id number] College Y 0.2.7.2.686 of [id number] Medi ashvin 300 e 2019-07-15 2019-07-15 Office Beth Celestin [id number] [facility] 14:05:30 14:55:30 Visit 3, Ods AMBULATOR [id number] College Y 0.2.7.2.686 of [id number] [facility] ashvin 300 e Results Test Description Test Time Test Comments Results Result [facility] e Comments OCT, RETINA - OU 2019-07-15 [place] OCTOS: Sharif lakhani - BOTH EYES 20:14:22 274, wnl B-scan College OD: hyperechoic Medicine material in cavity, retina appears attached CBC W/PLT COUNT & AUTO DIFFERENTIAL 2018-08-14 11:36:00 Test Item Value Reference Range Interpretation Comme nts WHITE BLOOD CELL COUNT (BEAKER) (test code = 775) 11.2 K/ L 3.5- 10.5 H RED BLOOD CELL COUNT (BEAKER) (test code = 761) 3.76 M/ L 4.63-6 .08 L HEMOGLOBIN (BEAKER) (test code = 410) 12.2 GM/DL 13.7-17.5 L HEMATOCRIT (BEAKER) (test code = 411) 38.3 % 40.1-51.0 L MEAN CORPUSCULAR VOLUME (BEAKER) (test code = 753) 101.9 fL 79. 0-92.2 H MEAN CORPUSCULAR HEMOGLOBIN (BEAKER) (test code = 751) 32.4 pg 25.7-32.2 H MEAN CORPUSCULAR HEMOGLOBIN CONC (BEAKER) (test code = 752) 31.9 GM/DL 32.3-36.5 L RED CELL DISTRIBUTION WIDTH (BEAKER) (test code = 412) 11.9 % 11.6-14.4 PLATELET COUNT (BEAKER) (test code = 756) 275 K/CU MM 150-450 MEAN PLATELET VOLUME (BEAKER) (test code = 754) 11.0 fL 9.4-12 .4 NUCLEATED RED BLOOD CELLS (BEAKER) (test code = 413) 0 /100 WBC 0 -0 (CELLAVISION MANUAL DIFF)2018-08-14 11:36:00 Test Item Value Reference Range Interpretation Comments NEUTROPHILS - REL 73 % (CELLAVISION)(BEAKER) (test code = 2816) LYMPHOCYTES - REL 9 % (CELLAVISION)(BEAKER) (test code = 2817) MONOCYTES - REL 9 % (CELLAVISION)(BEAKER) (test code = 2818) EOSINOPHILS - REL 2 % (CELLAVISION)(BEAKER) (test code = 2819) METAMYELOCYTES - REL 1 % 0-0 H (CELLAVISION)(BEAKER) (test code = 2821) BANDS - REL (CELLAVISION)(BEAKER) 5 % 0-10 (test code = 2826) ATYPICAL LYMPHOCYTES - REL 1 % 0-0 H (CELLAVISION)(BEAKER) (test code = 2829) NEUTROPHILS - ABS 8.18 K/ul 1.78-5.38 H (CELLAVISION)(BEAKER) (test code = 2830) LYMPHOCYTES - ABS 1.01 K/ul 1.32-3.57 L (CELLAVISION)(BEAKER) (test code = 2831) MONOCYTES - ABS 1.01 K/uL 0.30-0.82 H (CELLAVISION)(BEAKER) (test code = 2832) EOSINOPHILS - ABS 0.22 K/uL 0.04-0.54 (CELLAVISION)(BEAKER) (test code = 2834) METAMYELOCYTES - ABS 0.11 K/uL 0.00-0.00 H (CELLAVISION)(BEAKER) (test code = 2836) BANDS - ABS (CELLAVISION)(BEAKER) 0.56 K/uL 0.00-0.80 (test code = 2840) ATYPICAL LYMPHOCYTES - ABS 0.11 K/uL 0.00-0.00 H (CELLAVISION)(BEAKER) (test code = 2858) TOTAL COUNTED (BEAKER) (test code 100 = 1351) SMUDGE CELLS (BEAKER) (test code Present = 1371) GIANT PLATELETS (BEAKER) (test Present code = 313) POLYCHROMATOPHILLIC RBCS(BEAKER) 1+ few (test code = 478) ANISOCYTOSIS (BEAKER) (test code 1+ few = 961) POIKILOCYTES (BEAKER) (test code 2+ moderate = 966) CARLOS CELLS (BEAKER) (test code = 1+ few 474) PLATELET CONCENTRATION Adequate (CELLAVISION)(BEAKER) (test code = 3438) Received comment: User comments: Slide comments:BASIC METABOLIC [id number] 06:11:00 Test Item Value Reference Range Interpretation Comments SODIUM (BEAKER) 133 meq/L 136-145 L (test code = 381) POTASSIUM (BEAKER) 3.9 meq/L 3.5-5.1 (test code = 379) CHLORIDE (BEAKER) 100 meq/L 98-107 (test code = 382) CO2 (BEAKER) (test 26 meq/L 22-29 code = 355) BLOOD UREA NITROGEN 17 mg/dL 7-21 (BEAKER) (test code = 354) CREATININE (BEAKER) 0.84 mg/dL 0.57-1.25 (test code = 358) GLUCOSE RANDOM 111 mg/dL 70-105 H (BEAKER) (test code = 652) CALCIUM (BEAKER) 8.6 mg/dL 8.4-10.2 (test code = 697) EGFR (BEAKER) (test 89 mL/min/1.73 ESTIMA LEE GFR IS code = 1092) sq m NOT ACCURATE CREATININE CLEARANCE IN PREDICTING GLOMERULAR FILTRATION RATE . ESTIMATED GFR I S NOT APPLICABLE FOR DIALYSIS PATIEN TS. BASIC METABOLIC [id number] 05:32:00 Test Item Value Reference Range Interpretation Comments SODIUM (BEAKER) 136 meq/L 136-145 (test code = 381) POTASSIUM (BEAKER) 4.1 meq/L 3.5-5.1 (test code = 379) CHLORIDE (BEAKER) 104 meq/L 98-107 (test code = 382) CO2 (BEAKER) (test 22 meq/L 22-29 code = 355) BLOOD UREA NITROGEN 15 mg/dL 7-21 (BEAKER) (test code = 354) CREATININE (BEAKER) 0.84 mg/dL 0.57-1.25 (test code = 358) GLUCOSE RANDOM 108 mg/dL 70-105 H (BEAKER) (test code = 652) CALCIUM (BEAKER) 8.8 mg/dL 8.4-10.2 (test code = 697) EGFR (BEAKER) (test 89 mL/min/1.73 ESTIMA LEE GFR IS code = 1092) sq m NOT ACCURATE CREATININE CLEARANCE IN PREDICTING GLOMERULAR FILTRATION RATE . ESTIMATED GFR I S NOT APPLICABLE FOR DIALYSIS PATIEN TS. CBC W/PLT COUNT & AUTO [id number] 05:12:00 Test Item Value Reference Range Interpretation Comments WHITE BLOOD CELL COUNT (BEAKER) 12.0 K/ L 3.5-10.5 H (test code = 775) RED BLOOD CELL COUNT (BEAKER) 3.66 M/ L 4.63-6.08 L (test code = 761) HEMOGLOBIN (BEAKER) (test code = 11.8 GM/DL 13.7-17.5 L 410) HEMATOCRIT (BEAKER) (test code = 37.3 % 40.1-51.0 L 411) MEAN CORPUSCULAR VOLUME (BEAKER) 101.9 fL 79.0-92.2 H (test code = 753) MEAN CORPUSCULAR HEMOGLOBIN 32.2 pg 25.7-32.2 (BEAKER) (test code = 751) MEAN CORPUSCULAR HEMOGLOBIN CONC 31.6 GM/DL 32.3-36.5 L (BEAKER) (test code = 752) RED CELL DISTRIBUTION WIDTH 11.8 % 11.6-14.4 (BEAKER) (test code = 412) PLATELET COUNT (BEAKER) (test 254 K/CU MM 150-450 code = 756) MEAN PLATELET VOLUME (BEAKER) 11.6 fL 9.4-12.4 (test code = 754) NUCLEATED RED BLOOD CELLS 0 /100 WBC 0-0 (BEAKER) (test code = 413) NEUTROPHILS RELATIVE PERCENT 69 % (BEAKER) (test code = 429) LYMPHOCYTES RELATIVE PERCENT 14 % (BEAKER) (test code = 430) MONOCYTES RELATIVE PERCENT 10 % (BEAKER) (test code = 431) EOSINOPHILS RELATIVE PERCENT 1 % (BEAKER) (test code = 432) BASOPHILS RELATIVE PERCENT 1 % (BEAKER) (test code = 437) NEUTROPHILS ABSOLUTE COUNT 8.32 K/ L 1.78-5.38 H (BEAKER) (test code = 670) LYMPHOCYTES ABSOLUTE COUNT 1.68 K/ L 1.32-3.57 (BEAKER) (test code = 414) MONOCYTES ABSOLUTE COUNT (BEAKER) 1.21 K/ L 0.30-0.82 H (test code = 415) EOSINOPHILS ABSOLUTE COUNT 0.16 K/ L 0.04-0.54 (BEAKER) (test code = 416) BASOPHILS ABSOLUTE COUNT (BEAKER) 0.15 K/ L 0.01-0.08 H (test code = 417) IMMATURE GRANULOCYTES-RELATIVE 4 % 0-1 H PERCENT (BEAKER) (test code = 2801) RAD, CHEST, 1 VIEW, NON [id number] 15:59:00Reason for exam:->SOBShould this be performed at [...] Signed: Chantale Hernandez MDReport Verified Date/Time: 08/12/2018 15:59:35 Reading Location: [address] Transitional Reading Room EIN ELECTROPHORESIS, [id number] 13:04:00 Test Item Value Reference Range Interpretation Comments ALBUMIN FRACTION 2.6 g/dL 3.5-5.5 L (BEAKER) (test code = 405) ALPHA 1 FRACTION 0.4 g/dL 0.2-0.4 (BEAKER) (test code = 389) ALPHA 2 FRACTION 1.0 g/dL 0.5-0.9 H (BEAKER) (test code = 390) BETA FRACTION 1.0 g/dL 0.6-1.1 (BEAKER) (test code = 392) GAMMA GLOBULIN 1.0 g/dL 0.7-1.7 FRACTION (BEAKER) (test code = 391) INTERPRETATION-119 Pattern consistent with (BEAKER) (test code = acute inflammatory 6816) process. No monoclonal bands detected. [id number] Bette Cage MD (BEAKER) (test code = (electronic signature) 5982) PROTEIN TOTAL SERUM, 6.1 gm/dL 6.0-8.3 SPEP (ADRIEL) (test code = 2660) THANG, CAROTID STENT W [id number] 12:14:00Reason for exam:->right carotid stenosisFINAL REPORT DATE OF PROCEDURE: 08/11/18 SURGEON: Chaz France MD FISCAL TECHNICIAN: Leta Barreto MD PREOPERATIVE DIAGNOSIS: Transient [...] Stroke work up revealed carotid stenosis for w hunterh he underwent a diagnostic cerebral angiogram demonstrating [...] needle was used to puncture the right f emoral artery. A 5 Romansh short sheath was then passed over an angled glide catheter. Using coaxial technique, a 5 Romansh Tru[place] 2 catheter was advanced into the [...] bifurcation. RIGHT COMMON CAROTID ARTERY (DSA - PA,LATERAL - CERVICAL) The origin of the right [...] exchanged in the descendingaorta for a 6F Cook shuttle sheath. At [...] Signed: Chaz France MDReport Verified Date/Time: 08/12/2018 12:14:40 Reading Location: [facility] Y026 Neuro Angio Reading Room NV, ANGIOGRAM, [id number] 09:29:00Reason for exam:- >carotid stenosisFINAL REPORT DATE OF PROCEDURE: 08/10/2018 SURGEON: Chaz France M.D. FISCAL TECHNICIAN: Leta Barreto MD PREOPERATIVE DIAGNOSIS: carotid [...] - PA, LATERAL - ILIAC) The sheath ent ers above the femoral bifurcation. The femoral artery [...] Verified Date/Time: 08/12/2018 09:29:38 Reading [facility] [id number] 07:30:00 Test Item Value Reference Range Interpretation Comments ACTIVATED CLOTTING TIME 241 sec TEST ED AT [facility] 6720 (BEAKER) (test code = [place] [address]) [address] BASIC METABOLIC [id number] 04:36:00 Test Item Value Reference Range Interpretation Comments SODIUM (BEAKER) 134 meq/L 136-145 L (test code = 381) POTASSIUM (BEAKER) 4.0 meq/L 3.5-5.1 (test code = 379) CHLORIDE (BEAKER) 102 meq/L 98-107 (test code = 382) CO2 (BEAKER) (test 24 meq/L 22-29 code = 355) BLOOD UREA NITROGEN 18 mg/dL 7-21 (BEAKER) (test code = 354) CREATININE (BEAKER) 0.84 mg/dL 0.57-1.25 (test code = 358) GLUCOSE RANDOM 108 mg/dL 70-105 H (BEAKER) (test code = 652) CALCIUM (BEAKER) 9.0 mg/dL 8.4-10.2 (test code = 697) EGFR (BEAKER) (test 89 mL/min/1.73 ESTIMA LEE GFR IS code = 1092) sq m NOT ACCURATE CREATININE CLEARANCE IN PREDICTING GLOMERULAR FILTRATION RATE . ESTIMATED GFR I S NOT APPLICABLE FOR DIALYSIS PATIEN TS. CBC W/PLT COUNT & AUTO [id number] 04:14:00 Test Item Value Reference Range Interpretation Comments WHITE BLOOD CELL COUNT (BEAKER) 11.1 K/ L 3.5-10.5 H (test code = 775) RED BLOOD CELL COUNT (BEAKER) 3.69 M/ L 4.63-6.08 L (test code = 761) HEMOGLOBIN (BEAKER) (test code = 11.9 GM/DL 13.7-17.5 L 410) HEMATOCRIT (BEAKER) (test code = 36.8 % 40.1-51.0 L 411) MEAN CORPUSCULAR VOLUME (BEAKER) 99.7 fL 79.0-92.2 H (test code = 753) MEAN CORPUSCULAR HEMOGLOBIN 32.2 pg 25.7-32.2 (BEAKER) (test code = 751) MEAN CORPUSCULAR HEMOGLOBIN CONC 32.3 GM/DL 32.3-36.5 (BEAKER) (test code = 752) RED CELL DISTRIBUTION WIDTH 11.9 % 11.6-14.4 (BEAKER) (test code = 412) PLATELET COUNT (BEAKER) (test 279 K/CU MM 150-450 code = 756) MEAN PLATELET VOLUME (BEAKER) 11.4 fL 9.4-12.4 (test code = 754) NUCLEATED RED BLOOD CELLS 0 /100 WBC 0-0 (BEAKER) (test code = 413) NEUTROPHILS RELATIVE PERCENT 74 % (BEAKER) (test code = 429) LYMPHOCYTES RELATIVE PERCENT 12 % (BEAKER) (test code = 430) MONOCYTES RELATIVE PERCENT 9 % (BEAKER) (test code = 431) EOSINOPHILS RELATIVE PERCENT 1 % (BEAKER) (test code = 432) BASOPHILS RELATIVE PERCENT 1 % (BEAKER) (test code = 437) NEUTROPHILS ABSOLUTE COUNT 8.23 K/ L 1.78-5.38 H (BEAKER) (test code = 670) LYMPHOCYTES ABSOLUTE COUNT 1.33 K/ L 1.32-3.57 (BEAKER) (test code = 414) MONOCYTES ABSOLUTE COUNT (BEAKER) 1.05 K/ L 0.30-0.82 H (test code = 415) EOSINOPHILS ABSOLUTE COUNT 0.12 K/ L 0.04-0.54 (BEAKER) (test code = 416) BASOPHILS ABSOLUTE COUNT (BEAKER) 0.09 K/ L 0.01-0.08 H (test code = 417) IMMATURE GRANULOCYTES-RELATIVE 3 % 0-1 H PERCENT (BEAKER) (test code = 2801) BLOOD [id number] 18:00:00 Test Item Value Reference Range Interpretation Comments CULTURE (BEAKER) (test No growth in 5 days code = 1095) BLOOD [id number] 18:00:00 Test Item Value Reference Range Interpretation Comments CULTURE (BEAKER) (test No growth in 5 days code = 1095) POCT-P2Y12 PLATELET [id number] 13:28:00 Test Item Value Reference Range Interpretation Comments POC-P2Y12 PLATELET AGG (BEAKER) (test 51 PRU code = 2303) RANGE INFORMATION: PRU reference range is 194-418. Post Drug Results: Lower PRU levels are associated with expected antiplatelet effect. Values may be below the stated reference range above. The post-drug PRU values reported in the [employer] P2Y12 package insert are [id number] 13:21:00 Test Item Value Reference Range Interpretation Comments PROTIME (BEAKER) (test code = 16.1 seconds 11.7-14.7 H 759) INR (BEAKER) (test code = 370) 1.3 <=5.9 PARTIAL THROMBOPLASTIN TIME 40.0 seconds 22.5-36.0 H (BEAKER) (test code = 760) RECOMMENDED COUMADIN/WARFARIN INR THERAPY RANGESSTANDARD DOSE: 2.0 - 3.0 Includes: PROPHYLAXIS forvenous thrombosis, systemic embolization; TREATMENT for venous thrombosis and/or pulmonary embolus.HIGH RISK: Target INR is 2.5-3.5 for patients with mechanical heart valves.POCT-P2Y12 PLATELET [id number] 07:23:00 Test Item Value Reference Range Interpretation Comments POC-P2Y12 PLATELET AGG (BEAKER) (test 216 PRU code = 2303) RANGE INFORMATION: PRU reference range is 194-418. Post Drug Results: Lower PRU levels are associated with expected antiplatelet effect. Values may be below the stated reference range above. The post-drug PRU values reported in the [employer] P2Y12 package insert are [id number].POCT-ASPIRIN PLATELET [id number] 07:23:00 Test Item Value Reference Range Interpretation Comments POC-ASPIRIN PLATELET AGG (BEAKER) 408 ARU (test code = 2302) RANGE INFORMATION: 350-549 ARU Therapeutic range for platelet function. 550-700 ARU Non-Therapeutic range for platelet function.BASIC METABOLIC [id number] 07:15:00 Test Item Value Reference Range Interpretation Comments SODIUM (BEAKER) 136 meq/L 136-145 (test code = 381) POTASSIUM (BEAKER) 4.6 meq/L 3.5-5.1 (test code = 379) CHLORIDE (BEAKER) 101 meq/L 98-107 (test code = 382) CO2 (BEAKER) (test 27 meq/L 22-29 code = 355) BLOOD UREA NITROGEN 15 mg/dL 7-21 (BEAKER) (test code = 354) CREATININE (BEAKER) 0.82 mg/dL 0.57-1.25 (test code = 358) GLUCOSE RANDOM 106 mg/dL 70-105 H (BEAKER) (test code = 652) CALCIUM (BEAKER) 8.8 mg/dL 8.4-10.2 (test code = 697) EGFR (BEAKER) (test 92 mL/min/1.73 ESTIMA LEE GFR IS code = 1092) sq m NOT ACCURATE CREATININE CLEARANCE IN PREDICTING GLOMERULAR FILTRATION RATE . ESTIMATED GFR I S NOT APPLICABLE FOR DIALYSIS PATIEN TS. CBC W/PLT COUNT & AUTO [id number] 06:54:00 Test Item Value Reference Range Interpretation Comments WHITE BLOOD CELL COUNT (BEAKER) 12.4 K/ L 3.5-10.5 H (test code = 775) RED BLOOD CELL COUNT (BEAKER) 3.54 M/ L 4.63-6.08 L (test code = 761) HEMOGLOBIN (BEAKER) (test code = 11.4 GM/DL 13.7-17.5 L 410) HEMATOCRIT (BEAKER) (test code = 35.6 % 40.1-51.0 L 411) MEAN CORPUSCULAR VOLUME (BEAKER) 100.6 fL 79.0-92.2 H (test code = 753) MEAN CORPUSCULAR HEMOGLOBIN 32.2 pg 25.7-32.2 (BEAKER) (test code = 751) MEAN CORPUSCULAR HEMOGLOBIN CONC 32.0 GM/DL 32.3-36.5 L (BEAKER) (test code = 752) RED CELL DISTRIBUTION WIDTH 11.9 % 11.6-14.4 (BEAKER) (test code = 412) PLATELET COUNT (BEAKER) (test 271 K/CU MM 150-450 code = 756) MEAN PLATELET VOLUME (BEAKER) 11.2 fL 9.4-12.4 (test code = 754) NUCLEATED RED BLOOD CELLS 0 /100 WBC 0-0 (BEAKER) (test code = 413) NEUTROPHILS RELATIVE PERCENT 79 % (BEAKER) (test code = 429) LYMPHOCYTES RELATIVE PERCENT 10 % (BEAKER) (test code = 430) MONOCYTES RELATIVE PERCENT 8 % (BEAKER) (test code = 431) EOSINOPHILS RELATIVE PERCENT 1 % (BEAKER) (test code = 432) BASOPHILS RELATIVE PERCENT 1 % (BEAKER) (test code = 437) NEUTROPHILS ABSOLUTE COUNT 9.79 K/ L 1.78-5.38 H (BEAKER) (test code = 670) LYMPHOCYTES ABSOLUTE COUNT 1.23 K/ L 1.32-3.57 L (BEAKER) (test code = 414) MONOCYTES ABSOLUTE COUNT (BEAKER) 0.99 K/ L 0.30-0.82 H (test code = 415) EOSINOPHILS ABSOLUTE COUNT 0.10 K/ L 0.04-0.54 (BEAKER) (test code = 416) BASOPHILS ABSOLUTE COUNT (BEAKER) 0.06 K/ L 0.01-0.08 (test code = 417) IMMATURE GRANULOCYTES-RELATIVE 2 % 0-1 H PERCENT (BEAKER) (test code = 2801) CBC (HEMOGRAM ONLY)2018-08-11 06:52:00 Test Item Value Reference Range Interpretation Comments WHITE BLOOD CELL COUNT (BEAKER) 12.4 K/ L 3.5-10.5 H (test code = 775) RED BLOOD CELL COUNT (BEAKER) 3.54 M/ L 4.63-6.08 L (test code = 761) HEMOGLOBIN (BEAKER) (test code = 11.4 GM/DL 13.7-17.5 L 410) HEMATOCRIT (BEAKER) (test code = 35.6 % 40.1-51.0 L 411) MEAN CORPUSCULAR VOLUME (BEAKER) 100.6 fL 79.0-92.2 H (test code = 753) MEAN CORPUSCULAR HEMOGLOBIN 32.2 pg 25.7-32.2 (BEAKER) (test code = 751) MEAN CORPUSCULAR HEMOGLOBIN CONC 32.0 GM/DL 32.3-36.5 L (BEAKER) (test code = 752) RED CELL DISTRIBUTION WIDTH 11.9 % 11.6-14.4 (BEAKER) (test code = 412) PLATELET COUNT (BEAKER) (test 271 K/CU MM 150-450 code = 756) MEAN PLATELET VOLUME (BEAKER) 11.2 fL 9.4-12.4 (test code = 754) NUCLEATED RED BLOOD CELLS 0 /100 WBC 0-0 (BEAKER) (test code = 413) THANG, CAROTID STENT W [id number] 14:30:00Reason for exam:->carotid stenosis, rightKanFINAL REPORT DATE OF PROCEDURE: 08/10/2018 SURGEON: Chaz France M.D. FISCAL TECHNICIAN: Leta Barreto MD PREOPERATIVE DIAGNOSIS: carotid [...] - PA, LATERAL - ILIAC) The sheath ent ers above the femoral bifurcation. The femoral artery [...] Verified Date/Time: 08/10/2018 14:30:38 Reading Location: [facility] Y026 Neuro Angio Reading Room ANTI-NUCLEAR ANTIBODY (MANINDER)2018-08-10 10:29:00 Test Item Value Reference Range Interpretation Comments ANTI-NUCLEAR ANTIBODY (MANINDER) (BEAKER) Positive Negative A (test code = 418) Test performed by IFA method.MANINDER TITER AND [id number] 10:29:00 Test Item Value Reference Range Interpretation Comments MANINDER TITER (BEAKER) (test code = :160 1541) MANINDER PATTERN (BEAKER) (test code = Speckled 1781) BASIC METABOLIC [id number] 07:36:00 Test Item Value Reference Range Interpretation Comments SODIUM (BEAKER) 137 meq/L 136-145 (test code = 381) POTASSIUM (BEAKER) 4.4 meq/L 3.5-5.1 (test code = 379) CHLORIDE (BEAKER) 102 meq/L 98-107 (test code = 382) CO2 (BEAKER) (test 31 meq/L 22-29 H code = 355) BLOOD UREA NITROGEN 11 mg/dL 7-21 (BEAKER) (test code = 354) CREATININE (BEAKER) 0.82 mg/dL 0.57-1.25 (test code = 358) GLUCOSE RANDOM 109 mg/dL 70-105 H (BEAKER) (test code = 652) CALCIUM (BEAKER) 9.0 mg/dL 8.4-10.2 (test code = 697) EGFR (BEAKER) (test 92 mL/min/1.73 ESTIMA LEE GFR IS code = 1092) sq m NOT ACCURATE CREATININE CLEARANCE IN PREDICTING GLOMERULAR FILTRATION RATE . ESTIMATED GFR I S NOT APPLICABLE FOR DIALYSIS PATIEN TS. [id number] 06:53:00 Test Item Value Reference Range Interpretation Comments PARTIAL THROMBOPLASTIN TIME 38.3 seconds 22.5-36.0 H (BEAKER) (test code = 760) CBC W/PLT COUNT & AUTO [id number] 06:42:00 Test Item Value Reference Range Interpretation Comments WHITE BLOOD CELL COUNT (BEAKER) 12.8 K/ L 3.5-10.5 H (test code = 775) RED BLOOD CELL COUNT (BEAKER) 3.63 M/ L 4.63-6.08 L (test code = 761) HEMOGLOBIN (BEAKER) (test code = 11.9 GM/DL 13.7-17.5 L 410) HEMATOCRIT (BEAKER) (test code = 36.3 % 40.1-51.0 L 411) MEAN CORPUSCULAR VOLUME (BEAKER) 100.0 fL 79.0-92.2 H (test code = 753) MEAN CORPUSCULAR HEMOGLOBIN 32.8 pg 25.7-32.2 H (BEAKER) (test code = 751) MEAN CORPUSCULAR HEMOGLOBIN CONC 32.8 GM/DL 32.3-36.5 (BEAKER) (test code = 752) RED CELL DISTRIBUTION WIDTH 11.9 % 11.6-14.4 (BEAKER) (test code = 412) PLATELET COUNT (BEAKER) (test 282 K/CU MM 150-450 code = 756) MEAN PLATELET VOLUME (BEAKER) 12.0 fL 9.4-12.4 (test code = 754) NUCLEATED RED BLOOD CELLS 0 /100 WBC 0-0 (BEAKER) (test code = 413) NEUTROPHILS RELATIVE PERCENT 79 % (BEAKER) (test code = 429) LYMPHOCYTES RELATIVE PERCENT 11 % (BEAKER) (test code = 430) MONOCYTES RELATIVE PERCENT 8 % (BEAKER) (test code = 431) EOSINOPHILS RELATIVE PERCENT 1 % (BEAKER) (test code = 432) BASOPHILS RELATIVE PERCENT 1 % (BEAKER) (test code = 437) NEUTROPHILS ABSOLUTE COUNT 10.06 K/ L 1.78-5.38 H (BEAKER) (test code = 670) LYMPHOCYTES ABSOLUTE COUNT 1.39 K/ L 1.32-3.57 (BEAKER) (test code = 414) MONOCYTES ABSOLUTE COUNT (BEAKER) 0.99 K/ L 0.30-0.82 H (test code = 415) EOSINOPHILS ABSOLUTE COUNT 0.09 K/ L 0.04-0.54 (BEAKER) (test code = 416) BASOPHILS ABSOLUTE COUNT (BEAKER) 0.08 K/ L 0.01-0.08 (test code = 417) IMMATURE GRANULOCYTES-RELATIVE 1 % 0-1 PERCENT (BEAKER) (test code = 2801) [id number] 04:26:00 Test Item Value Reference Range Interpretation Comments RPR SCREEN (BEAKER) (test code = Nonreactive Nonreactive 420) [id number] 22:40:00 Test Item Value Reference Range Interpretation Comments PARTIAL THROMBOPLASTIN TIME 48.7 seconds 22.5-36.0 H (BEAKER) (test code = 760) EOSINOPHIL SMEAR, [id number] 14:32:00 Test Item Value Reference Range Interpretation Comments EOSINOPHIL SMEAR, URINE (BEAKER) No EOS seen No EOS seen (test code = 1851) PROTEIN, RANDOM [id number] 13:14:00 Test Item Value Reference Range Interpretation Comments PROTEIN, URINE (BEAKER) (test code = < mg/dL 0-14 1569) CREATININE, RANDOM [id number] 13:12:00 Test Item Value Reference Range Interpretation Comments CREATININE URINE (BEAKER) (test 18.9 mg/dL code = 375) Reference Range: No NormalsSODIUM, RANDOM [id number] 13:12:00 Test Item Value Reference Range Interpretation Comments SODIUM URINE (BEAKER) (test code = 74 meq/L 243) Reference Range: No NormalsURINALYSIS W/ [id number] 13:00:00 Test Item Value Reference Range Interpretation Comments COLOR (BEAKER) (test code = Light Yellow 470) CLARITY (BEAKER) (test code = Clear 469) SPECIFIC GRAVITY UA (BEAKER) 1.003 1.001-1.035 (test code = 468) PH UA (BEAKER) (test code = 6.5 5.0-8.0 467) PROTEIN UA (BEAKER) (test code Negative Negative = 464) GLUCOSE UA (BEAKER) (test code Negative Negative = 365) KETONES UA (BEAKER) (test code Negative Negative = 371) BILIRUBIN UA (BEAKER) (test Negative Negative code = 462) BLOOD UA (BEAKER) (test code = Small Negative A 461) NITRITE UA (BEAKER) (test code Negative Negative = 465) LEUKOCYTE ESTERASE UA (BEAKER) Negative Negative (test code = 466) UROBILINOGEN UA (BEAKER) (test 0.2 mg/dL 0.2-1.0 code = 463) RBC UA (BEAKER) (test code = 0 /HPF 519) WBC UA (BEAKER) (test code = 0 /HPF 520) SOURCE(BEAKER) (test code = Urine, Voided 4406) [id number] 12:33:00 Test Item Value Reference Range Interpretation Comments PARTIAL THROMBOPLASTIN TIME 47.0 seconds 22.5-36.0 H (BEAKER) (test code = 760) TSH/FREE T4 IF [id number] 06:11:00 Test Item Value Reference Range Interpretation Comments THYROID STIMULATING HORMONE 0.87 uIU/mL 0.35-4.94 (BEAKER) (test code = 772) [id number] 05:36:00 Test Item Value Reference Range Interpretation Comments POTASSIUM (BEAKER) (test code = 4.1 meq/L 3.5-5.1 379) BUN AND [id number] 05:36:00 Test Item Value Reference Range Interpretation Comments BLOOD UREA NITROGEN 13 mg/dL 7-21 (BEAKER) (test code = 354) CREATININE (BEAKER) 0.77 mg/dL 0.57-1.25 (test code = 358) EGFR (BEAKER) (test 99 mL/min/1.73 ESTIMA LEE GFR IS code = 1092) sq m NOT ACCURATE CREATININE CLEARANCE IN PREDICTING GLOMERULAR FILTRATION RATE . ESTIMATED GFR I S NOT APPLICABLE FOR DIALYSIS PATIEN TS. BASIC METABOLIC [id number] 05:36:00 Test Item Value Reference Range Interpretation Comments SODIUM (BEAKER) 139 meq/L 136-145 (test code = 381) POTASSIUM (BEAKER) 4.1 meq/L 3.5-5.1 (test code = 379) CHLORIDE (BEAKER) 104 meq/L 98-107 (test code = 382) CO2 (BEAKER) (test 28 meq/L 22-29 code = 355) BLOOD UREA NITROGEN 13 mg/dL 7-21 (BEAKER) (test code = 354) CREATININE (BEAKER) 0.77 mg/dL 0.57-1.25 (test code = 358) GLUCOSE RANDOM 96 mg/dL 70-105 (BEAKER) (test code = 652) CALCIUM (BEAKER) 9.0 mg/dL 8.4-10.2 (test code = 697) EGFR (BEAKER) (test 99 mL/min/1.73 ESTIMA LEE GFR IS code = 1092) sq m NOT ACCURATE CREATININE CLEARANCE IN PREDICTING GLOMERULAR FILTRATION RATE . ESTIMATED GFR I S NOT APPLICABLE FOR DIALYSIS PATIEN [id number] 04:35:00 Test Item Value Reference Range Interpretation Comments PARTIAL THROMBOPLASTIN TIME 37.5 seconds 22.5-36.0 H (BEAKER) (test code = 760) CBC W/PLT COUNT & AUTO [id number] 04:17:00 Test Item Value Reference Range Interpretation Comments WHITE BLOOD CELL COUNT (BEAKER) 11.0 K/ L 3.5-10.5 H (test code = 775) RED BLOOD CELL COUNT (BEAKER) 3.45 M/ L 4.63-6.08 L (test code = 761) HEMOGLOBIN (BEAKER) (test code = 11.0 GM/DL 13.7-17.5 L 410) HEMATOCRIT (BEAKER) (test code = 34.7 % 40.1-51.0 L 411) MEAN CORPUSCULAR VOLUME (BEAKER) 100.6 fL 79.0-92.2 H (test code = 753) MEAN CORPUSCULAR HEMOGLOBIN 31.9 pg 25.7-32.2 (BEAKER) (test code = 751) MEAN CORPUSCULAR HEMOGLOBIN CONC 31.7 GM/DL 32.3-36.5 L (BEAKER) (test code = 752) RED CELL DISTRIBUTION WIDTH 12.0 % 11.6-14.4 (BEAKER) (test code = 412) PLATELET COUNT (BEAKER) (test 236 K/CU MM 150-450 code = 756) MEAN PLATELET VOLUME (BEAKER) 12.0 fL 9.4-12.4 (test code = 754) NUCLEATED RED BLOOD CELLS 0 /100 WBC 0-0 (BEAKER) (test code = 413) NEUTROPHILS RELATIVE PERCENT 77 % (BEAKER) (test code = 429) LYMPHOCYTES RELATIVE PERCENT 12 % (BEAKER) (test code = 430) MONOCYTES RELATIVE PERCENT 9 % (BEAKER) (test code = 431) EOSINOPHILS RELATIVE PERCENT 1 % (BEAKER) (test code = 432) BASOPHILS RELATIVE PERCENT 1 % (BEAKER) (test code = 437) NEUTROPHILS ABSOLUTE COUNT 8.44 K/ L 1.78-5.38 H (BEAKER) (test code = 670) LYMPHOCYTES ABSOLUTE COUNT 1.35 K/ L 1.32-3.57 (BEAKER) (test code = 414) MONOCYTES ABSOLUTE COUNT (BEAKER) 0.96 K/ L 0.30-0.82 H (test code = 415) EOSINOPHILS ABSOLUTE COUNT 0.05 K/ L 0.04-0.54 (BEAKER) (test code = 416) BASOPHILS ABSOLUTE COUNT (BEAKER) 0.06 K/ L 0.01-0.08 (test code = 417) IMMATURE GRANULOCYTES-RELATIVE 1 % 0-1 PERCENT (BEAKER) (test code = 2801) CBC (HEMOGRAM ONLY)2018-08-09 04:13:00 Test Item Value Reference Range Interpretation Comments WHITE BLOOD CELL COUNT (BEAKER) 11.0 K/ L 3.5-10.5 H (test code = 775) RED BLOOD CELL COUNT (BEAKER) 3.45 M/ L 4.63-6.08 L (test code = 761) HEMOGLOBIN (BEAKER) (test code = 11.0 GM/DL 13.7-17.5 L 410) HEMATOCRIT (BEAKER) (test code = 34.7 % 40.1-51.0 L 411) MEAN CORPUSCULAR VOLUME (BEAKER) 100.6 fL 79.0-92.2 H (test code = 753) MEAN CORPUSCULAR HEMOGLOBIN 31.9 pg 25.7-32.2 (BEAKER) (test code = 751) MEAN CORPUSCULAR HEMOGLOBIN CONC 31.7 GM/DL 32.3-36.5 L (BEAKER) (test code = 752) RED CELL DISTRIBUTION WIDTH 12.0 % 11.6-14.4 (BEAKER) (test code = 412) PLATELET COUNT (BEAKER) (test 236 K/CU MM 150-450 code = 756) MEAN PLATELET VOLUME (BEAKER) 12.0 fL 9.4-12.4 (test code = 754) NUCLEATED RED BLOOD CELLS 0 /100 WBC 0-0 (BEAKER) (test code = 413) [id number] 17:06:00 Test Item Value Reference Range Interpretation Comments PARTIAL THROMBOPLASTIN TIME 41.3 seconds 22.5-36.0 H (BEAKER) (test code = 760) Prior to initiating heparinPLATELET [id number] 16:40:00 Test Item Value Reference Range Interpretation Comments PLATELET COUNT (BEAKER) (test 234 K/CU MM 150-450 code = 756) [id number] 14:14:00 Test Item Value Reference Range Interpretation Comments MAGNESIUM (BEAKER) (test code = 2.2 mg/dL 1.6-2.6 627) BASIC METABOLIC [id number] 07:16:00 Test Item Value Reference Range Interpretation Comments SODIUM (BEAKER) 134 meq/L 136-145 L (test code = 381) POTASSIUM (BEAKER) 4.4 meq/L 3.5-5.1 (test code = 379) CHLORIDE (BEAKER) 101 meq/L 98-107 (test code = 382) CO2 (BEAKER) (test 28 meq/L 22-29 code = 355) BLOOD UREA NITROGEN 18 mg/dL 7-21 (BEAKER) (test code = 354) CREATININE (BEAKER) 0.77 mg/dL 0.57-1.25 (test code = 358) GLUCOSE RANDOM 110 mg/dL 70-105 H (BEAKER) (test code = 652) CALCIUM (BEAKER) 8.9 mg/dL 8.4-10.2 (test code = 697) EGFR (BEAKER) (test 99 mL/min/1.73 ESTIMA LEE GFR IS code = 1092) sq m NOT ACCURATE CREATININE CLEARANCE IN PREDICTING GLOMERULAR FILTRATION RATE . ESTIMATED GFR I S NOT APPLICABLE FOR DIALYSIS PATIEN TS. CBC W/PLT COUNT & AUTO [id number] 07:07:00 Test Item Value Reference Range Interpretation Comments WHITE BLOOD CELL COUNT (BEAKER) 11.8 K/ L 3.5-10.5 H (test code = 775) RED BLOOD CELL COUNT (BEAKER) 3.51 M/ L 4.63-6.08 L (test code = 761) HEMOGLOBIN (BEAKER) (test code = 11.5 GM/DL 13.7-17.5 L 410) HEMATOCRIT (BEAKER) (test code = 35.0 % 40.1-51.0 L 411) MEAN CORPUSCULAR VOLUME (BEAKER) 99.7 fL 79.0-92.2 H (test code = 753) MEAN CORPUSCULAR HEMOGLOBIN 32.8 pg 25.7-32.2 H (BEAKER) (test code = 751) MEAN CORPUSCULAR HEMOGLOBIN CONC 32.9 GM/DL 32.3-36.5 (BEAKER) (test code = 752) RED CELL DISTRIBUTION WIDTH 12.0 % 11.6-14.4 (BEAKER) (test code = 412) PLATELET COUNT (BEAKER) (test 224 K/CU MM 150-450 code = 756) MEAN PLATELET VOLUME (BEAKER) 11.4 fL 9.4-12.4 (test code = 754) NUCLEATED RED BLOOD CELLS 0 /100 WBC 0-0 (BEAKER) (test code = 413) NEUTROPHILS RELATIVE PERCENT 82 % (BEAKER) (test code = 429) LYMPHOCYTES RELATIVE PERCENT 9 % (BEAKER) (test code = 430) MONOCYTES RELATIVE PERCENT 8 % (BEAKER) (test code = 431) EOSINOPHILS RELATIVE PERCENT 0 % (BEAKER) (test code = 432) BASOPHILS RELATIVE PERCENT 0 % (BEAKER) (test code = 437) NEUTROPHILS ABSOLUTE COUNT 9.69 K/ L 1.78-5.38 H (BEAKER) (test code = 670) LYMPHOCYTES ABSOLUTE COUNT 1.01 K/ L 1.32-3.57 L (BEAKER) (test code = 414) MONOCYTES ABSOLUTE COUNT (BEAKER) 0.96 K/ L 0.30-0.82 H (test code = 415) EOSINOPHILS ABSOLUTE COUNT 0.04 K/ L 0.04-0.54 (BEAKER) (test code = 416) BASOPHILS ABSOLUTE COUNT (BEAKER) 0.04 K/ L 0.01-0.08 (test code = 417) IMMATURE GRANULOCYTES-RELATIVE 1 % 0-1 PERCENT (BEAKER) (test code = 2801) CT, CHEST, WITH [id number] 17:39:00FINAL REPORT CT of the Chest, abdomen [...] pyelonephritis.3. Left renal cyst. Signed: Reagan Peck MDRort Verified Date/Time: 08/07/2018 17:39:22 Reading Location: [address] Consult Reading Room Electronically signed by: REAGAN PECK M.D. on08/07/2018 05:39 [facility], [id number] 17:39:00FINAL REPORT CT of the Chest, abdomen [...] left kidney suggestive of infarction or focal pyelonep hritis.3. Left renal cyst. Signed: Reagan Peck MDReport Verified Date/Time: 08/07/2018 17:39:22 Reading Location: [address] Consult Reading Room Electronically signed by: REAGAN PECK M.D. 08/07/2018 05:39 [facility] [id number] 06:53:00 Test Item Value Reference Range Interpretation Comments SODIUM (BEAKER) 135 meq/L 136-145 L (test code = 381) POTASSIUM (BEAKER) 4.3 meq/L 3.5-5.1 (test code = 379) CHLORIDE (BEAKER) 97 meq/L 98-107 L (test code = 382) CO2 (BEAKER) (test 31 meq/L 22-29 H code = 355) BLOOD UREA NITROGEN 24 mg/dL 7-21 H (BEAKER) (test code = 354) CREATININE (BEAKER) 1.00 mg/dL 0.57-1.25 (test code = 358) GLUCOSE RANDOM 118 mg/dL 70-105 H (BEAKER) (test code = 652) CALCIUM (BEAKER) 9.1 mg/dL 8.4-10.2 (test code = 697) EGFR (BEAKER) (test 73 mL/min/1.73 ESTIMA LEE GFR IS code = 1092) sq m NOT ACCURATE CREATININE CLEARANCE IN PREDICTING GLOMERULAR FILTRATION RATE . ESTIMATED GFR I S NOT APPLICABLE FOR DIALYSIS PATIEN TS. CBC W/PLT COUNT & AUTO [id number] 06:22:00 Test Item Value Reference Range Interpretation Comments WHITE BLOOD CELL COUNT (BEAKER) 16.2 K/ L 3.5-10.5 H (test code = 775) RED BLOOD CELL COUNT (BEAKER) 3.59 M/ L 4.63-6.08 L (test code = 761) HEMOGLOBIN (BEAKER) (test code = 11.6 GM/DL 13.7-17.5 L 410) HEMATOCRIT (BEAKER) (test code = 35.7 % 40.1-51.0 L 411) MEAN CORPUSCULAR VOLUME (BEAKER) 99.4 fL 79.0-92.2 H (test code = 753) MEAN CORPUSCULAR HEMOGLOBIN 32.3 pg 25.7-32.2 H (BEAKER) (test code = 751) MEAN CORPUSCULAR HEMOGLOBIN CONC 32.5 GM/DL 32.3-36.5 (BEAKER) (test code = 752) RED CELL DISTRIBUTION WIDTH 12.0 % 11.6-14.4 (BEAKER) (test code = 412) PLATELET COUNT (BEAKER) (test 187 K/CU MM 150-450 code = 756) MEAN PLATELET VOLUME (BEAKER) 11.6 fL 9.4-12.4 (test code = 754) NUCLEATED RED BLOOD CELLS 0 /100 WBC 0-0 (BEAKER) (test code = 413) NEUTROPHILS RELATIVE PERCENT 82 % (BEAKER) (test code = 429) LYMPHOCYTES RELATIVE PERCENT 8 % (BEAKER) (test code = 430) MONOCYTES RELATIVE PERCENT 9 % (BEAKER) (test code = 431) EOSINOPHILS RELATIVE PERCENT 0 % (BEAKER) (test code = 432) BASOPHILS RELATIVE PERCENT 0 % (BEAKER) (test code = 437) NEUTROPHILS ABSOLUTE COUNT 13.30 K/ L 1.78-5.38 H (BEAKER) (test code = 670) LYMPHOCYTES ABSOLUTE COUNT 1.27 K/ L 1.32-3.57 L (BEAKER) (test code = 414) MONOCYTES ABSOLUTE COUNT (BEAKER) 1.44 K/ L 0.30-0.82 H (test code = 415) EOSINOPHILS ABSOLUTE COUNT 0.01 K/ L 0.04-0.54 L (BEAKER) (test code = 416) BASOPHILS ABSOLUTE COUNT (BEAKER) 0.05 K/ L 0.01-0.08 (test code = 417) IMMATURE GRANULOCYTES-RELATIVE 1 % 0-1 PERCENT (BEAKER) (test code = 2801) RAD, CHEST, 2 [id number] 21:57:00Reason for exam:->Shortness of breath, and concern [...] No active cardiopulmonary disease. Signed: Reagan Peck MDReport Verified Date/Time: 08/06/2018 21:57:16 Reading Location: [address] Consult Reading Room [id number] 17:55:00 Test Item Value Reference Range Interpretation Comments PROCALCITONIN (BEAKER) (test code 0.17 ng/mL <0.05 H = 3036) SEPSIS RISK (ng/mL)Low: 0.05-0.50Intermediate: 0.51-2.00High: >=2.01PROTHROMBIN [id number] 17:16:00 Test Item Value Reference Range Interpretation Comments PROTIME (BEAKER) (test code = 21.4 seconds 11.7-14.7 H 759) INR (BEAKER) (test code = 370) 1.9 <=5.9 RECOMMENDED COUMADIN/WARFARIN INR THERAPY RANGESSTANDARD DOSE: 2.0 - 3.0 Includes: PROPHYLAXIS forvenous thrombosis, systemic embolization; TREATMENT for venous thrombosis and/or pulmonary embolus.HIGH RISK: Target INR is 2.5-3.5 for patients with mechanical heart valves.VITAMIN B12 AND [id number] 17:02:00 Test Item Value Reference Range Interpretation Comments VITAMIN B12 (BEAKER) (test code = 541 pg/mL 213-810 774) FOLATE (BEAKER) (test code = 362) 14.3 ng/mL >=7.0 LACTIC ACID, VENOUS, WHOLE [id number] 16:28:00 Test Item Value Reference Range Interpretation Comments LACTATE BLOOD VENOUS 1.8 mmol/L 0.5-2.2 Specime n slightly (2) (BEAKER) (test hemolyzed code = 2872) Effective 03/13/2016: Units/Reference Range ChangeNew: 0.5-2.2 mmol/L Previous: 5-20 mg/dLMR, MRA, NECK, WITHOUT IV [id number] 13:54:00Reason for exam:- >Ischemic Stroke EvaluationFINAL REPORT MRA brain and neck without contrast 08/06/2018 1:51 PM CLINICAL HISTORY: StrokeIschemic Stroke Evaluation COMPARISON: None available TECHNIQUE: Two- and three-dimensional isgl-py-[id number] MRA images of the intra- and extracranial [...] cervical internal carotid artery stenosis. Signed: Aristides Lesterort Veri haily Date/Time: 08/06/2018 13:54:13 Reading Location: [facility] Radiology Reading Room MR, MRA, BRAIN, WITHOUT [id number] 13:54:00Reason for exam:- >Ischemic Stroke EvaluationFINAL REPORT MRA brain and neck without contrast 08/06/2018 1:51 PM CLINICAL HISTORY: StrokeIschemic Stroke Evaluation COMPARISON: None available TECHNIQUE: Two- and three-dimensional hpkb-by-[id number] MRA images of the intra- and extracranial [...] internal carotid artery stenosis. Signed: Aristides Lester fied Date/Time: 08/06/2018 13:54:44 Reading Location: [facility] Radiology Reading Room MR, BRAIN, WITHOUT [id number] 12:15:00Reason for exam:- >Ischemic Stroke EvaluationFINAL REPORT MRI brain Comparison: None Reason for exam: StrokeIschemic Stroke Evaluation Discussion: Multiplanar MR imaging the brain was performed using T1, T2, FLAIR, FFE, diffusion, and ADC map imaging. There are no intracranial hematomas, mass effect, hydrocephalus, shift, or extra-axial collections. Moderate chronic microvascular changes are seen in both cerebral hemispheres and in the brainstem. Additionally, semiconfluent patchy DIRECTOR OF SURGERY territory diffusion restricted recent infarctions are seen [...] soft tissues are unremarkable. . Impressions: Right-sided DIRECTOR OF SURGERY and right-sided frontal diffusion restricted recent infarctions as discussed. No hematoma or mass effect. Signed: Marci Sanchez Verified Date/Time: 08/06/2018 12:15:05 Reading Location: [facility] C013 Neuro Reading Room CBC W/PLT COUNT & AUTO [id number] 11:56:00 Test Item Value Reference Range Interpretation Comments WHITE BLOOD CELL COUNT (BEAKER) 20.6 K/ L 3.5-10.5 H (test code = 775) RED BLOOD CELL COUNT (BEAKER) 3.85 M/ L 4.63-6.08 L (test code = 761) HEMOGLOBIN (BEAKER) (test code = 12.4 GM/DL 13.7-17.5 L 410) HEMATOCRIT (BEAKER) (test code = 38.3 % 40.1-51.0 L 411) MEAN CORPUSCULAR VOLUME (BEAKER) 99.5 fL 79.0-92.2 H (test code = 753) MEAN CORPUSCULAR HEMOGLOBIN 32.2 pg 25.7-32.2 (BEAKER) (test code = 751) MEAN CORPUSCULAR HEMOGLOBIN CONC 32.4 GM/DL 32.3-36.5 (BEAKER) (test code = 752) RED CELL DISTRIBUTION WIDTH 12.2 % 11.6-14.4 (BEAKER) (test code = 412) PLATELET COUNT (BEAKER) (test 180 K/CU MM 150-450 code = 756) MEAN PLATELET VOLUME (BEAKER) 11.3 fL 9.4-12.4 (test code = 754) NUCLEATED RED BLOOD CELLS 0 /100 WBC 0-0 (BEAKER) (test code = 413) (CELLAVISION MANUAL DIFF)2018-08-06 11:56:00 Test Item Value Reference Range Interpretation Comments NEUTROPHILS - REL 87 % (CELLAVISION)(BEAKER) (test code = 2816) LYMPHOCYTES - REL 7 % (CELLAVISION)(BEAKER) (test code = 2817) MONOCYTES - REL 6 % (CELLAVISION)(BEAKER) (test code = 2818) NEUTROPHILS - ABS 17.92 K/ul 1.78-5.38 H (CELLAVISION)(BEAKER) (test code = 2830) LYMPHOCYTES - ABS 1.44 K/ul 1.32-3.57 (CELLAVISION)(BEAKER) (test code = 2831) MONOCYTES - ABS 1.24 K/uL 0.30-0.82 H (CELLAVISION)(BEAKER) (test code = 2832) TOTAL COUNTED (BEAKER) (test code 100 = 1351) WBC MORPHOLOGY (BEAKER) (test code Normal = 487) LARGE PLT(BEAKER) (test code = Present 2156) POLYCHROMATOPHILLIC RBCS(BEAKER) 1+ few (test code = 478) CARLOS CELLS (BEAKER) (test code = 1+ few 474) ARTIFACT (CELLAVISION)(BEAKER) Present (test code = 3432) PLATELET CONCENTRATION Adequate (CELLAVISION)(BEAKER) (test code = 3438) Received comment: User comments: Slide comments:BASIC METABOLIC [id number] 06:50:00 Test Item Value Reference Range Interpretation Comments SODIUM (BEAKER) 134 meq/L 136-145 L (test code = 381) POTASSIUM (BEAKER) 3.7 meq/L 3.5-5.1 (test code = 379) CHLORIDE (BEAKER) 96 meq/L 98-107 L (test code = 382) CO2 (BEAKER) (test 28 meq/L 22-29 code = 355) BLOOD UREA NITROGEN 30 mg/dL 7-21 H (BEAKER) (test code = 354) CREATININE (BEAKER) 1.18 mg/dL 0.57-1.25 (test code = 358) GLUCOSE RANDOM 115 mg/dL 70-105 H (BEAKER) (test code = 652) CALCIUM (BEAKER) 8.9 mg/dL 8.4-10.2 (test code = 697) EGFR (BEAKER) (test 60 mL/min/1.73 ESTIMA LEE GFR IS code = 1092) sq m NOT ACCURATE CREATININE CLEARANCE IN PREDICTING GLOMERULAR FILTRATION RATE . ESTIMATED GFR I S NOT APPLICABLE FOR DIALYSIS PATIEN TS. CBC W/PLT COUNT & AUTO [id number] 07:59:00 Test Item Value Reference Range Interpretation Comments WHITE BLOOD CELL COUNT (BEAKER) 26.0 K/ L 3.5-10.5 H (test code = 775) RED BLOOD CELL COUNT (BEAKER) 4.04 M/ L 4.63-6.08 L (test code = 761) HEMOGLOBIN (BEAKER) (test code = 13.4 GM/DL 13.7-17.5 L 410) HEMATOCRIT (BEAKER) (test code = 39.5 % 40.1-51.0 L 411) MEAN CORPUSCULAR VOLUME (BEAKER) 97.8 fL 79.0-92.2 H (test code = 753) MEAN CORPUSCULAR HEMOGLOBIN 33.2 pg 25.7-32.2 H (BEAKER) (test code = 751) MEAN CORPUSCULAR HEMOGLOBIN CONC 33.9 GM/DL 32.3-36.5 (BEAKER) (test code = 752) RED CELL DISTRIBUTION WIDTH 12.1 % 11.6-14.4 (BEAKER) (test code = 412) PLATELET COUNT (BEAKER) (test 195 K/CU MM 150-450 code = 756) MEAN PLATELET VOLUME (BEAKER) 11.6 fL 9.4-12.4 (test code = 754) NUCLEATED RED BLOOD CELLS 0 /100 WBC 0-0 (BEAKER) (test code = 413) (CELLAVISION MANUAL DIFF)2018-08-05 07:59:00 Test Item Value Reference Range Interpretation Comments NEUTROPHILS - REL 86 % (CELLAVISION)(BEAKER) (test code = 2816) LYMPHOCYTES - REL 6 % (CELLAVISION)(BEAKER) (test code = 2817) MONOCYTES - REL 4 % (CELLAVISION)(BEAKER) (test code = 2818) BANDS - REL (CELLAVISION)(BEAKER) 4 % 0-10 (test code = 2826) NEUTROPHILS - ABS 22.36 K/ul 1.78-5.38 H (CELLAVISION)(BEAKER) (test code = 2830) LYMPHOCYTES - ABS 1.56 K/ul 1.32-3.57 (CELLAVISION)(BEAKER) (test code = 2831) MONOCYTES - ABS 1.04 K/uL 0.30-0.82 H (CELLAVISION)(BEAKER) (test code = 2832) BANDS - ABS (CELLAVISION)(BEAKER) 1.04 K/uL 0.00-0.80 H (test code = 2840) TOTAL COUNTED (BEAKER) (test code 100 = 1351) PLT MORPHOLOGY (BEAKER) (test code Normal = 486) SMUDGE CELLS (BEAKER) (test code = Present 1371) POIKILOCYTES (BEAKER) (test code = 1+ few 966) PLATELET CONCENTRATION Adequate (CELLAVISION)(BEAKER) (test code = 3728) Received comment: User comments: Slide comments:URINALYSIS W/ REFLEX URINE [id number] 05:52:00 Test Item Value Reference Range Interpretation Comments COLOR (BEAKER) (test code = 470) Yellow CLARITY (BEAKER) (test code = 469) Hazy SPECIFIC GRAVITY UA (BEAKER) (test 1.022 1.001-1.035 code = 468) PH UA (BEAKER) (test code = 467) 5.5 5.0-8.0 PROTEIN UA (BEAKER) (test code = 100 mg/dL Negative A 464) GLUCOSE UA (BEAKER) (test code = Negative Negative 365) KETONES UA (BEAKER) (test code = Negative Negative 371) BILIRUBIN UA (BEAKER) (test code = Negative Negative 462) BLOOD UA (BEAKER) (test code = 461) Trace Negative A NITRITE UA (BEAKER) (test code = Negative Negative 465) LEUKOCYTE ESTERASE UA (BEAKER) Negative Negative (test code = 466) UROBILINOGEN UA (BEAKER) (test code 2.0 mg/dL 0.2-1.0 H = 463) RBC UA (BEAKER) (test code = 519) 11 /HPF WBC UA (BEAKER) (test code = 520) 3 /HPF MUCUS (BEAKER) (test code = 1574) Many SQUAMOUS EPITHELIAL (BEAKER) (test < /HPF code = 516) HYALINE CASTS (BEAKER) (test code = 5 /LPF 514) SOURCE(BEAKER) (test code = 4475) BASIC METABOLIC [id number] 05:45:00 Test Item Value Reference Range Interpretation Comments SODIUM (BEAKER) 135 meq/L 136-145 L (test code = 381) POTASSIUM (BEAKER) 3.9 meq/L 3.5-5.1 (test code = 379) CHLORIDE (BEAKER) 99 meq/L 98-107 (test code = 382) CO2 (BEAKER) (test 26 meq/L 22-29 code = 355) BLOOD UREA NITROGEN 21 mg/dL 7-21 (BEAKER) (test code = 354) CREATININE (BEAKER) 1.09 mg/dL 0.57-1.25 (test code = 358) GLUCOSE RANDOM 127 mg/dL 70-105 H (BEAKER) (test code = 652) CALCIUM (BEAKER) 9.0 mg/dL 8.4-10.2 (test code = 697) EGFR (BEAKER) (test 66 mL/min/1.73 ESTIMA LEE GFR IS code = 1092) sq m NOT ACCURATE CREATININE CLEARANCE IN PREDICTING GLOMERULAR FILTRATION RATE . ESTIMATED GFR I S NOT APPLICABLE FOR DIALYSIS PATIEN TS. U/S, TESTICULAR (SCROTUM)2018-08-05 04:28:00Reason for exam:->scrotal swellingFINAL REPORT U/S, TESTICULAR (SCROTUM) CLINICAL INDICATION: scrotal swelling COMPARISON: None TECHNIQUE: The scrotum was evaluated using real-time barnett scale and color and spectral Doppler sonography. FINDINGS: Right testis: Size: 4.9 x 2.5 x 3.4 cm Echotexture: Normal ec hogenicity. Rare microcalcifications. Color Doppler: Preserved vascular flow. [...] De La O Robert MDReport Verified Date/Time: 08/05/2018 04:28:36 Reading Location: [facility] C013Y CT Body Reading Room [id number] 14:22:00 Test Item Value Reference Range Interpretation Comments TROPONIN I (BEAKER) (test code = 397) < ng/mL 0.00-0.03 Troponin I (TnI) levels [...] disease, and persistent tachyarrhythmia.RAD, ABDOMEN/KUB, 1 VIEW [id number] 12:40:00Reason for exam:->abdominal painFINAL REPORT CLINICAL HISTORY: abdominal pain TECHNIQUE: Supine abdomen COMPARISON: None IMPRESSION: There is a large amount of stool throughout the colon. There are no focally distended loops of bowel. Free air and air-fluid levels are not seen but cannot be definitively excluded on the supine view. Signed: Colton Marquis MDReport Verified Date/Time: 08/04/2018 12:40:36 Reading Location: [facility] Radiology Reading Room HEMOGLOBIN [id number] 05:30:00 Test Item Value Reference Range Interpretation Comments HEMOGLOBIN A1C (BEAKER) (test code = 5.6 % 4.3-6.1 368) [id number] 02:50:00 Test Item Value Reference Range Interpretation Comments HOMOCYSTEINE (BEAKER) (test code = 6.5 umol/L 5.1-15.4 642) TROPONIN [id number] 02:25:00 Test Item Value Reference Range Interpretation Comments TROPONIN I (BEAKER) (test code = 397) < ng/mL 0.00-0.03 Troponin I (TnI) levels [...] acidosis, acute neurological disease, and persistent tachyarrhythmia.FastingLIPID [id number] 02:19:00 Test Item Value Reference Range Interpretation Comments TRIGLYCERIDES (BEAKER) (test code = 111 mg/dL 540) CHOLESTEROL (BEAKER) (test code = 113 mg/dL 631) HDL CHOLESTEROL (BEAKER) (test code 26 mg/dL = 976) LDL CHOLESTEROL CALCULATED (BEAKER) 65 mg/dL (test code = 633) Triglyceride Reference Range: Low Risk <150 Borderline 150-199 High Risk 200-499 Very High Risk >=500Cholesterol Reference Range: Low Risk <200 Borderline 200-239 High Risk >240HDL Cholesterol Reference Range: Low Risk >=60 High Risk <40LDL Cholesterol Reference Range: Optimal <100 Near Optimal 100-129 Borderline 130-159 High 160-189 Very High >=190 FastingBASIC METABOLIC [id number] 02:19:00 Test Item Value Reference Range Interpretation Comments SODIUM (BEAKER) 140 meq/L 136-145 (test code = 381) POTASSIUM (BEAKER) 3.6 meq/L 3.5-5.1 (test code = 379) CHLORIDE (BEAKER) 109 meq/L 98-107 H (test code = 382) CO2 (BEAKER) (test 23 meq/L 22-29 code = 355) BLOOD UREA NITROGEN 15 mg/dL 7-21 (BEAKER) (test code = 354) CREATININE (BEAKER) 0.85 mg/dL 0.57-1.25 (test code = 358) GLUCOSE RANDOM 135 mg/dL 70-105 H (BEAKER) (test code = 652) CALCIUM (BEAKER) 8.2 mg/dL 8.4-10.2 L (test code = 697) EGFR (BEAKER) (test 88 mL/min/1.73 ESTIMA LEE GFR IS code = 1092) sq m NOT ACCURATE CREATININE CLEARANCE IN PREDICTING GLOMERULAR FILTRATION RATE . ESTIMATED GFR I S NOT APPLICABLE FOR DIALYSIS PATIEN TS. FastingCBC W/PLT COUNT & AUTO [id number] 01:57:00 Test Item Value Reference Range Interpretation Comments WHITE BLOOD CELL COUNT (BEAKER) 14.2 K/ L 3.5-10.5 H (test code = 775) RED BLOOD CELL COUNT (BEAKER) 3.86 M/ L 4.63-6.08 L (test code = 761) HEMOGLOBIN (BEAKER) (test code = 12.7 GM/DL 13.7-17.5 L 410) HEMATOCRIT (BEAKER) (test code = 37.7 % 40.1-51.0 L 411) MEAN CORPUSCULAR VOLUME (BEAKER) 97.7 fL 79.0-92.2 H (test code = 753) MEAN CORPUSCULAR HEMOGLOBIN 32.9 pg 25.7-32.2 H (BEAKER) (test code = 751) MEAN CORPUSCULAR HEMOGLOBIN CONC 33.7 GM/DL 32.3-36.5 (BEAKER) (test code = 752) RED CELL DISTRIBUTION WIDTH 12.0 % 11.6-14.4 (BEAKER) (test code = 412) PLATELET COUNT (BEAKER) (test 183 K/CU MM 150-450 code = 756) MEAN PLATELET VOLUME (BEAKER) 11.1 fL 9.4-12.4 (test code = 754) NUCLEATED RED BLOOD CELLS 0 /100 WBC 0-0 (BEAKER) (test code = 413) NEUTROPHILS RELATIVE PERCENT 83 % (BEAKER) (test code = 429) LYMPHOCYTES RELATIVE PERCENT 9 % (BEAKER) (test code = 430) MONOCYTES RELATIVE PERCENT 7 % (BEAKER) (test code = 431) EOSINOPHILS RELATIVE PERCENT 0 % (BEAKER) (test code = 432) BASOPHILS RELATIVE PERCENT 0 % (BEAKER) (test code = 437) NEUTROPHILS ABSOLUTE COUNT 11.72 K/ L 1.78-5.38 H (BEAKER) (test code = 670) LYMPHOCYTES ABSOLUTE COUNT 1.28 K/ L 1.32-3.57 L (BEAKER) (test code = 414) MONOCYTES ABSOLUTE COUNT (BEAKER) 0.98 K/ L 0.30-0.82 H (test code = 415) EOSINOPHILS ABSOLUTE COUNT 0.02 K/ L 0.04-0.54 L (BEAKER) (test code = 416) BASOPHILS ABSOLUTE COUNT (BEAKER) 0.05 K/ L 0.01-0.08 (test code = 417) IMMATURE GRANULOCYTES-RELATIVE 1 % 0-1 PERCENT (BEAKER) (test code = 2801)
--- NOTE | 2021-11-14 20:17 | RAD REPORT ---
EXAM DESCRIPTION: CT - Thorax Wo Con - 11/14/2021 7:35 pm CLINICAL HISTORY: Chest pain status fall COMPARISON: 2018 TECHNIQUE: Computed axial tomography of the chest was obtained. Contrast was not requested. All CT scans are performed using dose optimization technique as appropriate and may include automated exposure control or mA/KV adjustment according to patient size. FINDINGS: The evaluation of mediastinum, aftab and vessels is limited secondary to lack of IV contras t administration. Nondisplaced fracture posterior left fourth rib. Nondisplaced fracture posterior left fifth rib. Mild ly displaced fracture left lateral fifth rib. Nondisplaced fracture posterior left 6 rib. Mildly to m oderately displaced fracture left sixth lateral rib. Mildly to moderately displaced fracture posterio r left 6 rib. Mildly to moderately displaced fracture left posterior seventh rib. Minimally displaced fracture left seventh lateral rib. Mildly displaced fracture posterior left eighth rib. Mildly displ aced fracture posterior left lateral eighth rib. Additional old rib fractures. Nondisplaced fracture inferior left scapula. . A pneumothorax is not seen. No mediastinal hematoma. A pulmonary contusion is not noted A pleural effusion is not present. A pericardial effusion is not seen IMPRESSION: Multiple left rib fractures
[2021-11-14] MEDS ORDERED: HYDROCODONE/APAP 7.5/325 MG TAB ONE (20:50)
--- NOTE | 2021-11-14 20:53 | EDPHYS ---
Physician Documentation [facility] Name: Alejo Rae Age: 76 yrs Sex: Male : 1945 Arrival Date: 11/14/2021 Time: 15:55 Bed 13 Private MD: ED Physician Nacho Reyna HPI: 11/14 19:28 This 76 yrs old Male presents to ER via Ambulatory with complaints of Fall Injury. pkl 19:28 Details of fall: The patient fell from an upright position. Onset: The symptoms/episode pkl began/occurred 2 week(s) ago. Associated injuries: The patient sustained upper back injury, contusion, injury to the chest. Patient said he fell about 2 weeks ago and landed on his left side of chest. He fell again 3 days ago and complained increase pain in his left side of chest. He said the pain increased when he takes a deep breath. He said his knees buckle on him that is why he fell. He denies any pain or swelling in his knees. Also denies hitting his head or neck when he fell. He said he talked to his son who is a Trauma Surgeon and was advised to see a Neurologist regarding his knees buckling causing him to fall.. Historical: - Allergies: 16:15 No Known Allergies; ld1 - PMHx: 16:14 Atrial Fib; CHF; PTSD; Right lung cancer; CVA; ld1 - Immunization history:: Adult Immunizations up to date, Client reports receiving the 2nd dose of the Covid vaccine, Pfizer. - Social history:: Smoking status: Patient reports the use of cigarette tobacco products, denies chronic smoking, but will smoke occasionally, Patient uses alcohol, on a daily basis. ROS: 19:28 Eyes: Negative for injury, pain, redness, and discharge, ENT: Negative for injury, pkl pain, and discharge, Neck: Negative for injury, pain, and swelling, Cardiovascular: Negative for chest pain, palpitations, and edema. 19:28 Respiratory: Positive for pain in chest when he takes a deep breath. 19:28 Abdomen/GI: Negative for abdominal pain, nausea, vomiting, and diarrhea. 19:28 Back: Positive for of the pain upper back. 19:28 : Negative for urinary symptoms. 19:28 MS/extremity: Negative for acute changes. 19:28 Skin: Negative for rash. 19:28 Neuro: Negative for altered mental status, loss of consciousness. Exam: 19:28 Head/Face: Normocephalic, atraumatic. Eyes: Pupils equal round and reactive to light, pkl extra-ocular motions intact. Lids and lashes normal. Conjunctiva and sclera are non-icteric and not injected. Cornea within normal limits. Periorbital areas with no swelling, redness, or edema. ENT: Nares patent. No nasal discharge, no septal abnormalities noted. Tympanic membranes are normal and external auditory canals are clear. Oropharynx with no redness, swelling, or masses, exudates, or evidence of obstruction, uvula midline. Mucous membranes moist. Neck: Trachea midline, no thyromegaly or masses palpated, and no cervical lymphadenopathy. Supple, full range of motion without nuchal rigidity, or vertebral point tenderness. No Meningismus. 19:28 Chest/axilla: Palpation: tenderness, that is moderate, of the left rib cage. 19:28 Cardiovascular: Rate: normal, Rhythm: regular. 19:28 Respiratory: the patient does not display signs of respiratory distress, Respirations: normal, Breath sounds: rales, that are mild, are scattered. 19:28 Abdomen/GI: Bowel sounds: normal, Palpation: abdomen is soft and non-tender, in all quadrants. 19:28 Back: pain, that is mild, of the upper back. 19:28 : Exam negative for acute changes. 19:28 Musculoskeletal/extremity: Exam is negative for pain. 19:28 Skin: Exam negative for rash. 19:28 Neuro: Orientation: is normal, Mentation: is normal, Memory: is normal, Cranial nerves: grossly normal, Cerebellar function: is grossly normal, Motor: is normal, Sensation: is normal. Vital Signs: 16:12 BP 133 / 109; Pulse 62; Resp 18; Temp 97.7(O); Pulse Ox 97% on R/A; Weight 115.21 kg; ld1 Height 6 ft. 1 in. (185.42 cm); Pain 7/10; 20:50 BP 128 / 88; Pulse 66; Resp 17; Temp 98.4; Pulse Ox 98% on R/A; mr2 16:12 Body Mass Index 33.51 (115.21 kg, 185.42 cm) ld1 Karley Coma Score: 20:10 Eye Response: spontaneous(4). Verbal Response: oriented(5). Motor Response: obeys mr2 commands(6). Total: 15. Trauma Score (Adult): 20:00 Eye Response: spontaneous(1); Verbal Response: oriented(1); Motor Response: obeys mr2 commands(2); Systolic BP: > 89 mm Hg(4); Respiratory Rate: 10 to 29 per min(4); Karley Score: 15; Trauma Score: 12 MDM: 19:12 Patient medically screened. pkl 20:38 Data reviewed: vital signs, nurses notes, radiologic studies, CT scan. ED course: pkl Patient said he fell twice on X'm[employer] carlin and X'mas day and not [address] Scans results with patient. Advised admission or transfer to Trauma Center for further treatment and evaluations. Patient does not want to be admitted or transferred to Trauma Center. Patient want to go home. Will sign AMA. Advised to return if symptoms are worse. Patient understood instructions. 11/14 19:26 Order name: CT Chest Wo Con; Complete Time: 20:20 pkl Administered Medications: 21:05 Drug: [place] (HYDROcodone-acetaminophen) (7.5 mg-325 mg) 1 tabs Route: PO; mr2 Disposition Summary: 11/14/21 20:53 Left Against Medical Advice Location: Home pkl Problem: new pkl Symptoms: are unchanged pkl Condition: Stable pkl Diagnosis - Multiple fractures left ribs. Non displaced fracture left lower scapula. pkl No pneumothorax. No pulmonary contusion Followup: pkl - With: Private Physician - When: Tomorrow - Reason: Re-evaluation by your physician Signatures: Dispatcher [employer] EDNacho Emmanuel MD MD pkl Carolyn Lewis, RN RN ld1 Abelardo Dean RN RN mr2
--- NOTE | 2021-11-14 20:53 | ER ---
Nurse's Notes [facility] Name: Alejo Rae Age: 76 yrs Sex: Male : 1945 Arrival Date: 11/14/2021 Time: 15:55 Bed 13 Private MD: Diagnosis: Multiple fractures left ribs. Non displaced fracture left lower scapula. No pneumothorax. No pulmonary contusion Presentation: 11/14 16:12 Chief complaint: Patient states: I fell on [employer] carlin due to my knee's giving out, I ld1 have been feeling weak. Denies hitting head. Pt reports taking eliquis. Pt reporting left rib pain, left upper back pain, possible left chest pain (does not know if it is chest or rib). Coronavirus screen: At this time, the client does not indicate any symptoms associated with coronavirus-19. Ebola Screen: No symptoms or risks identified at this time. Initial Sepsis Screen: Does the patient meet any 2 criteria? No. Patient's initial sepsis screen is negative. Does the patient have a suspected source of infection? No. Patient's initial sepsis screen is negative. Risk Assessment: Do you want to hurt yourself or someone else? Patient reports no desire to harm self or others. Onset of symptoms was November 14, 2021. 16:12 Method Of Arrival: Ambulatory ld1 16:12 Acuity: ANNA 3 ld1 20:15 Care prior to arrival: None. mr2 Triage Assessment: 16:15 General: Appears in no apparent distress. comfortable, Behavior is cooperative, ld1 appropriate for age, anxious. Pain: Complains of pain in anterior aspect of left upper chest and left upper quadrant. Neuro: Level of Consciousness is awake, alert, obeys commands. Respiratory: Airway is patent Respiratory effort is even, unlabored. Historical: - Allergies: 16:15 No Known Allergies; ld1 - PMHx: 16:14 Atrial Fib; CHF; PTSD; Right lung cancer; CVA; ld1 - Immunization history:: Adult Immunizations up to date, Client reports receiving the 2nd dose of the Covid vaccine, Pfizer. - Social history:: Smoking status: Patient reports the use of cigarette tobacco products, denies chronic smoking, but will smoke occasionally, Patient uses alcohol, on a daily basis. Screenin:30 Abuse screen: Denies threats or abuse. Denies injuries from another. Nutritional mr2 screening: No deficits noted. Tuberculosis screening: No symptoms or risk factors identified. Fall Risk Fall in past 12 months (25 points). IV access (20 points). Ambulatory Aid- Crutches/Cane/Walker (15 pts). Gait- Weak (10 pts.). Primary Survey: 20:30 Reassessment Breathing/Chest Respiratory pattern Regular Respiratory effort Spontaneous mr2 Unlabored Breath sounds Clear Chest inspection Symmetrical. 20:30 Reassessment Disability Alert. Reassessment Circulation Heart rhythm Sinus rhythm Color mr2 Amasa Temperature Warm. 20:30 Exposure/Environment: All clothing and personal items were removed. Forensic evidence mr2 collection is not deemed to be indicated at this time. Items placed in patient belonging bag. There is no evidence of uncontrolled external bleeding. 20:50 NO uncontrolled hemorrhage observed. A: The patient is alert. Airway: patent, Oral mr2 cavity: clear, Trachea midline. Breathing/Chest: Respiratory pattern: regular. Circulation: Skin color: pink, Skin temperature: warm. Disability Alert. Vital Signs: 16:12 BP 133 / 109; Pulse 62; Resp 18; Temp 97.7(O); Pulse Ox 97% on R/A; Weight 115.21 kg; ld1 Height 6 ft. 1 in. (185.42 cm); Pain 7/10; 20:50 BP 128 / 88; Pulse 66; Resp 17; Temp 98.4; Pulse Ox 98% on R/A; mr2 16:12 Body Mass Index 33.51 (115.21 kg, 185.42 cm) ld1 Karley Coma Score: 20:10 Eye Response: spontaneous(4). Verbal Response: oriented(5). Motor Response: obeys mr2 commands(6). Total: 15. Trauma Score (Adult): 20:00 Eye Response: spontaneous(1); Verbal Response: oriented(1); Motor Response: obeys mr2 commands(2); Systolic BP: > 89 mm Hg(4); Respiratory Rate: 10 to 29 per min(4); Karley Score: 15; Trauma Score: 12 ED Course: 15:55 Patient arrived in ED. ds1 16:14 Triage completed. ld1 16:15 Arm band placed on right wrist. ld1 19:11 Nacho Reyna MD is Attending Physician. pkl 19:35 CT Chest Wo Con In Process Unspecified. EDMS 19:50 Abelardo Dean, RN is Primary Nurse. mr2 20:30 Patient has correct armband on for positive identification. Bed in low position. Call mr2 light in reach. Side rails up X2. 20:30 No provider procedures requiring assistance completed. Patient did not have IV access mr2 during this emergency room visit. Administered Medications: 21:05 Drug: [place] (HYDROcodone-acetaminophen) (7.5 mg-325 mg) 1 tabs Route: PO; mr2 Outcome: 21:40 AMA AMA form signed mr2 21:40 Condition: stable 21:40 Instructed on follow up and referral plans. the need for admit, Demonstrated understanding of follow-up care. 21:44 Patient left the ED. bb Signatures: Dispatcher [employer] EDMS Nacho Reyna MD MD pkMelonie Tello ds1 Cassandra Valenzuela RN RN bb Carolyn Lewis RN RN ld1 Abelardo Dean, EVY RN mr2 Corrections: (The following items were deleted from the chart) 22:09 22:08 Reassessment Circulation Heart rhythm Sinus rhythm Color Amasa Temperature Warm mr2mr2 22:09 22:09 Reassessment Disability Alert mr2 mr2
[2021-11-14 21:49] VITALS: BP 133/109; TEMP 97.7; O2SAT 97
== END 2021-11-14 21:44 | disposition left against medical advice (07) ==
LOC: ER 15:54
DX: S22.42XA Multiple fractures of ribs, left side, initial encounter for closed fracture (principal); S42.102A Fracture of unspecified part of scapula, left shoulder, initial encounter for closed fracture; W18.30XA Fall on same level, unspecified, initial encounter; Y93.9 Activity, unspecified; Y92.9 Unspecified place or not applicable; Z53.29 Procedure and treatment not carried out because of patient's decision for other reasons
CPT/HCPCS: 71250; 99283

== ENCOUNTER 2021-12-31 21:28 | Observation (INO) | payer OTHER ==
--- OUTSIDE RECORDS SUMMARY | 2021-12-31 21:32 | XMS REPORT | Continuity of Care Document ---
:1945 Author Organization [facility] t Address [address] [place] [address] Dr. Ramos [address] [place] [address] Care Team Providers Name Role Phone SABI Attending Clinician Unavailable Sabi VILLEDA Attending Clinician 3 Attending Clinician Unavailable Beth RIVER Attending Clinician Unavailable Beth RIVER Admitting Clinician Unavailable Payers Payer Name Policy Type Policy Number Effective Date Expiration Date S erwin [facility] MEDICARE [id number] ADVANTAGE [facility] [employer] MEDICARE [id number] ADVANTAGE [facility] MEDIC[facility] PART A [id number] \T\ [id number] - MEDICARE OUT OF STATE BCBS [id number] 2019 00:00 :00 - PPO - BCBS Problems Condition Condition Condition Status Onset Resolution Last Treating Co mments Source Name Details Category Date Date Treatment Clinician Date 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 [employer] Carotid Carotid Disease Active [facility] stenosis stenosis [employer]in [employer] 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 [place] thrombosis thrombosis of ) [facility] Me dicin e Stroke Stroke Disease Active [facility] ([facility]) [facility]in e GERD GERD Disease Active [facility] (gastroeso (gastroeso Co llege phageal phageal of reflux reflux Medicin disease) disease) e Lung Lung Disease Active [facility] cancer cancer [place] ([facility] of Medicin e Allergies, Adverse Reactions, Alerts This patient has no known allergies or adverse reactions. Social History Social Habit Start Date Stop Date Quantity Comments Source Sex Assigned At [facility] [employer] l[employer] of [employer] Alcohol intake 2020-02-15 2020-02-15 Current drinker [facility] 00:00:00 00:00:00 of alcohol of Medicine (finding) Smoking Status Start Date Stop Date Source Former smoker 2020-02-15 00:00:00 2020-02-15 00:00:00 [facility] Medications Ordered Filled Start Stop Current Ordering Indication Dosage Frequency Signature Comments Components Source Medication Medication Date Date Medication? Clinician (SIG) Name Name aspirin 81 2018-11 Yes 81mg Take 81 mg B aylor MG tablet 1-12 by mouth Colleg e 20:51: daily. of 46 Medicin e dofetilide 2018-11 Yes 125ug Take 125 Ba yllaila (TIKOSYN) 1-12 mcg by [place] 125 MCG 20:51: mouth two of capsule [...] 125 Ba ylor (TIKOSYN) 9-05 mcg by [place] 125 MCG 19:13: mouth two of capsule [...] 125 Ba ylor (TIKOSYN) 9-05 mcg by [place] 125 MCG 19:13: mouth two of capsule [...] Take by Ba ylor lucCouchPar 9-05 mouth. Colleg e sUvaUrJu 19:13: of (WATER [...] Yes 125ug Take 125 Ba ylor (TIKOSYN) 05 mcg by [place] 125 MCG 19:13: mouth two of capsule [...] Take by Ba ylor lucCouchPar 9-05 mouth. Colleg e sUvaUrJu 19:13: of (WATER 54 Medicin PILLS OR) e furosemide Yes 20mg Take 20 mg B aylor (LASIX) 20 9-05 by mouth Colle ge MG tablet 19:13: daily. of 54 Medicin e Procedures Procedure Date / Time Performed Performing Clinician [facility] e AUG, - OU - 2019-07-15 19:57:38 Beth Celestin [facility] Gt henry of BOTH EYES Medicine Plan of Care Planned Activity Planned Date Details Comments Source Future Scheduled Test COLON CANCER SCREENING: [facility] COLONOSCOPY [code = Medicine COLON CANCER SCREENING: COLONOSCOPY] Future Scheduled Test TETANUS SHOT (ADULT) [facility] [code = TETANUS SHOT Medicin e (ADULT)] Future Scheduled Test BMI FOLLOW UP PLAN [facility] [code = BMI FOLLOW UP Medici ne PLAN] Future Scheduled Test AAA Screen [code = AAA [facility] Screen] Medicine Future Scheduled Test FALL SCREEN [code = [facility] of FALL SCREEN] Medicine Future Scheduled Test PNEUMOVAX >=65 (PPSV23) [facility] [code = PNEUMOVAX >=65 Medic ine (PPSV23)] Future Scheduled Test PREVNAR >= 65 (PCV13) [facility] [code = PREVNAR >= 65 Medici ne (PCV13)] Future Scheduled Test FLU VACCINE > 6 MONTHS [facility] [code = FLU VACCINE > 6 Medi cine MONTHS] Future Scheduled Test COLON CANCER SCREENING: [facility] COLONOSCOPY [code = Medicine COLON CANCER SCREENING: COLONOSCOPY] Future Scheduled Test MEDICARE AWV [code = [employer] [facility] MEDICARE AWV] Medicine Future Scheduled Test TETANUS SHOT (ADULT) [facility] [code = TETANUS SHOT Medicin e (ADULT)] Future Scheduled Test BMI FOLLOW UP PLAN [facility] [code = BMI FOLLOW UP Medici ne PLAN] Future Scheduled Test AAA Screen [code = AAA [facility] Screen] Medicine Future Scheduled Test FALL SCREEN [code = [facility] FALL SCREEN] Medicine Future Scheduled Test PNEUMOVAX >=65 (PPSV23) [facility] [code = PNEUMOVAX >=65 Medic ine (PPSV23)] Future Scheduled Test PREVNAR >= 65 (PCV13) [facility] [code = PREVNAR >= 65 Medici ne (PCV13)] Future Scheduled Test FLU VACCINE > 6 MONTHS [facility] [code = FLU VACCINE > 6 Medi cine MONTHS] Future Scheduled Test COLON CANCER SCREENING: [facility] COLONOSCOPY [code = Medicine COLON CANCER SCREENING: COLONOSCOPY] Future Scheduled Test MEDICARE AWV [code = [facility] of MEDICARE AWV] Medicine Future Scheduled Test TETANUS SHOT (ADULT) [facility] [code = TETANUS SHOT Medicin e (ADULT)] Future Scheduled Test BMI FOLLOW UP PLAN [facility] [code = BMI FOLLOW UP Medici ne PLAN] Future Scheduled Test AAA Screen [code = AAA [facility] Screen] Medicine Future Scheduled Test FALL SCREEN [code = [facility] of FALL SCREEN] Medicine Future Scheduled Test PNEUMOVAX >=65 (PPSV23) [facility] [code = PNEUMOVAX >=65 Medic ine (PPSV23)] Future Scheduled Test PREVNAR >= 65 (PCV13) [facility] [code = PREVNAR >= 65 Medici ne (PCV13)] Future Scheduled Test FLU VACCINE > 6 MONTHS [facility] [code = FLU VACCINE > 6 Medi cine MONTHS] Future Scheduled Test COLON CANCER SCREENING: [facility] COLONOSCOPY [code = Medicine COLON CANCER SCREENING: COLONOSCOPY] Future Scheduled Test TETANUS SHOT (ADULT) [facility] [code = TETANUS SHOT Medicin e (ADULT)] Future Scheduled Test BMI FOLLOW UP PLAN [facility] [code = BMI FOLLOW UP Medici ne PLAN] Future Scheduled Test AAA Screen [code = AAA [facility] Screen] Medicine Future Scheduled Test FALL SCREEN [code = [facility] FALL SCREEN] Medicine Future Scheduled Test PNEUMOVAX >=65 (PPSV23) [facility] [code = PNEUMOVAX >=65 Medic ine (PPSV23)] Future Scheduled Test PREVNAR >= 65 (PCV13) [facility] [code = PREVNAR >= 65 Medici ne (PCV13)] Future Scheduled Test MEDICARE IPPE (WELCOME [facility] TO MEDICARE) [code = Medicin e MEDICARE IPPE (WELCOME TO MEDICARE)] Future Scheduled Test FLU VACCINE > 6 MONTHS [facility] [code = FLU VACCINE > 6 Medi cine MONTHS] Encounters Start End Encounter Admission Attending Care Care Encounter Source Date/Time Date/Time Type Type Clinicians Facility Department ID 2021-07-10 2021-07-10 Outpatient OBED CELESTIN [id number] [facility] 12:46:06 13:57:30 BETH Curtis ege of Medicin e 2020-02-15 2020-02-15 Office OBED Celestin [id number] [facility] 13:57:12 14:37:34 Visit Beth AMBULATOR [id number] College Y 0.2.7.2.686 of [id number] Medi ashvin 300 e 2019-08-10 2019-08-10 Office OBED Celestin [id number] [facility] 09:09:21 09:24:21 Visit Beth AMBULATOR 350.1.13.21 College Y 0.2.7.2.686 of [id number] Medi ashvin 300 e 2019-08-03 2019-08-03 Office OBED Celestin [id number] [facility] 07:51:40 08:06:40 Visit Beth AMBULATOR 350.1.13.21 College Y 0.2.7.2.686 of [id number] Medi ashvin 300 e 2019-07-15 2019-07-15 Office Beth Celestin [id number] [facility] 14:05:30 14:55:30 Visit 3, Ods AMBULATOR 350.1.13.21 College Y 0.2.7.2.686 of [id number] [facility] ashvin 300 e Results Test Description Test Time Test Comments Results Result [facility] e Comments OCT, RETINA - OU 2019-07-15 [place] OCTOS: B lesvia - BOTH EYES 20:14:22 274, wnl B-scan [facility] OD: hyperechoic Medicine material in cavity, retina [...] PLATELET CONCENTRATION Adequate (CELLAVISION)(BEAKER) (test code = 7978) Received comment: User comments: Slide comments:BASIC METABOLIC [id number] 06:11:00 Test Item Value Reference Range Interpretation [...] APPLICABLE FOR DIALYSIS PATIEN TS. BASIC METABOLIC [id number] 05:32:00 Test Item Value Reference Range Interpretation [...] PATIEN TS. CBC W/PLT COUNT & AUTO [id number] 05:12:00 Test Item Value Reference Range Interpretation [...] = 2801) RAD, CHEST, 1 VIEW, NON [id number] 15:59:00Reason for exam:->SOBShould this be performed at [...] spine changes are noted. Signed: Chantale Hernandez MDRort Verified Date/Time: 08/12/2018 15:59:35 Reading Location: [address] Transitional Reading Room EIN ELECTROPHORESIS, [id number] 13:04:00 Test Item Value Reference Range Interpretation [...] with (BEAKER) (test code = acute inflammatory 2615) process. No monoclonal bands detected. [id number] Bette Cage MD (BEAKER) (test code = (electronic signature) 2616) PROTEIN TOTAL SERUM, 6.1 gm/dL 6.0-8.3 SPEP (BEAKER) (test code = 2660) THANG, CAROTID STENT W [id number] 12:14:00Reason for exam:->right carotid stenosisFINAL REPORT DATE OF PROCEDURE: 08/11/18 SURGEON: Chaz France MD WAFER POLISHING LEAD WORKER: Leta Barreto MD PREOPERATIVE DIAGNOSIS: Transient ischemic [...] work up revealed carotid stenosis for w hich he underwent a diagnostic cerebral angiogram demonstrating [...] the right f emoral artery. A 5 Faroese short sheath was then passed over an angled glide catheter. Using coaxial technique, a 5 Faroese [place] 2 catheter was advanced into the [...] MDReport Verified Date/Time: 08/12/2018 12:14:40 Reading Location: [facility] Y026 Neuro Angio Reading Room NV, ANGIOGRAM, [id number] 09:29:00Reason for exam:- >carotid stenosisFINAL REPORT DATE OF PROCEDURE: 08/10/2018 SURGEON: Chaz France M.D. [employer] LEAD WORKER: Leta Barreto MD PREOPERATIVE DIAGNOSIS: carotid stenosis [...] MDReport Verified Date/Time: 08/12/2018 09:29:38 Reading Location: [facility] Y026 Neuro Angio Reading Room [id number] 07:30:00 Test Item Value Reference Range Interpretation Comments ACTIVATED CLOTTING TIME [address] [facility] 6720 (BEAKER) (test code = POLLO [place] [address]) [address] BASIC METABOLIC [id number] 04:36:00 Test Item Value Reference Range Interpretation [...] PATIEN TS. CBC W/PLT COUNT & AUTO [id number] 04:14:00 Test Item Value Reference Range Interpretation [...] PERCENT (BEAKER) (test code = 2801) BLOOD [id number] 18:00:00 Test Item Value Reference Range Interpretation Comments CULTURE (BEAKER) (test No growth in 5 days code = 1095) BLOOD [id number] 18:00:00 Test Item Value Reference Range Interpretation Comments CULTURE (BEAKER) (test No growth in 5 days code = 1095) POCT-P2Y12 PLATELET [id number] 13:28:00 Test Item Value Reference Range Interpretation Comments POC-P2Y12 PLATELET AGG (BEAKER) (test 51 PRU code = 2303) RANGE INFORMATION: PRU reference range is 194-418. Post Drug Results: Lower PRU levels are associated with expected antiplatelet effect. Values may be below the stated reference range above. The post-drug PRU values reported in the VerifyNow P2Y12 package insert are 18-435.PT/[id number] 13:21:00 Test Item Value Reference Range Interpretation [...] for patients with mechanical heart valves.POCT-P2Y12 PLATELET [id number] 07:23:00 Test Item Value Reference Range Interpretation Comments POC-P2Y12 PLATELET AGG (BEAKER) (test 216 PRU code = 2303) RANGE INFORMATION: PRU reference range is 194-418. Post Drug Results: Lower PRU levels are associated with expected antiplatelet effect. Values may be below the stated reference range above. The post-drug PRU values reported in the [employer]Now P2Y12 package insert are 18-435.POCT-ASPIRIN PLATELET [id number] 07:23:00 Test Item Value Reference Range Interpretation Comments POC-ASPIRIN PLATELET AGG (BEAKER) 408 ARU (test code = 2302) RANGE INFORMATION: 350-549 ARU Therapeutic range for platelet function. 550-700 ARU Non-Therapeutic range for platelet function.BASIC METABOLIC [id number] 07:15:00 Test Item Value Reference Range Interpretation [...] PATIEN TS. CBC W/PLT COUNT & AUTO [id number] 06:54:00 Test Item Value Reference Range Interpretation [...] code = 413) THANG, CAROTID STENT W [id number] 14:30:00Reason for exam:->carotid stenosis, rightKanFINAL REPORT DATE OF PROCEDURE: 08/10/2018 SURGEON: Chaz France M.D. [employer] LEAD WORKER: Leta Barreto MD PREOPERATIVE DIAGNOSIS: carotid stenosis [...] Franceeport Verified Date/Time: 08/10/2018 14:30:38 Reading Location: [facility] Y026 Neuro Angio Reading Room ANTI-NUCLEAR ANTIBODY (MANINDER)2018-08-10 10:29:00 Test Item Value Reference Range Interpretation Comments ANTI-NUCLEAR ANTIBODY (MANINDER) (BEAKER) Positive Negative A (test code = 418) Test performed by IFA method.MANINDER TITER AND [id number] 10:29:00 Test Item Value Reference Range Interpretation Comments MANINDER TITER (BEAKER) (test code = :160 1541) MANINDER PATTERN (BEAKER) (test code = Speckled 1781) BASIC METABOLIC [id number] 07:36:00 Test Item Value Reference Range Interpretation [...] S NOT APPLICABLE FOR DIALYSIS PATIEN TS. [id number] 06:53:00 Test Item Value Reference Range Interpretation Comments PARTIAL THROMBOPLASTIN TIME 38.3 seconds 22.5-36.0 H (BEAKER) (test code = 760) CBC W/PLT COUNT & AUTO [id number] 06:42:00 Test Item Value Reference Range Interpretation [...] 0-1 PERCENT (BEAKER) (test code = 2801) [id number] 04:26:00 Test Item Value Reference Range Interpretation Comments RPR SCREEN (BEAKER) (test code = Nonreactive Nonreactive 420) [id number] 22:40:00 Test Item Value Reference Range Interpretation Comments PARTIAL THROMBOPLASTIN TIME 48.7 seconds 22.5-36.0 H (BEAKER) (test code = 760) EOSINOPHIL SMEAR, [id number] 14:32:00 Test Item Value Reference Range Interpretation Comments EOSINOPHIL SMEAR, URINE (BEAKER) No EOS seen No EOS seen (test code = 1851) PROTEIN, RANDOM [id number] 13:14:00 Test Item Value Reference Range Interpretation Comments PROTEIN, URINE (BEAKER) (test code = < mg/dL 0-14 1569) CREATININE, RANDOM [id number] 13:12:00 Test Item Value Reference Range Interpretation Comments CREATININE URINE (BEAKER) (test 18.9 mg/dL code = 375) Reference Range: No NormalsSODIUM, RANDOM [id number] 13:12:00 Test Item Value Reference Range Interpretation Comments SODIUM URINE (BEAKER) (test code = 74 meq/L 243) Reference Range: No NormalsURINALYSIS W/ [id number] 13:00:00 Test Item Value Reference Range Interpretation [...] 520) SOURCE(BEAKER) (test code = Urine, Voided 4401) [id number] 12:33:00 Test Item Value Reference Range Interpretation Comments PARTIAL THROMBOPLASTIN TIME 47.0 seconds 22.5-36.0 H (BEAKER) (test code = 760) TSH/FREE T4 IF [id number] 06:11:00 Test Item Value Reference Range Interpretation Comments THYROID STIMULATING HORMONE 0.87 uIU/mL 0.35-4.94 (BEAKER) (test code = 772) [id number] 05:36:00 Test Item Value Reference Range Interpretation Comments POTASSIUM (BEAKER) (test code = 4.1 meq/L 3.5-5.1 379) BUN AND [id number] 05:36:00 Test Item Value Reference Range Interpretation [...] APPLICABLE FOR DIALYSIS PATIEN TS. BASIC METABOLIC [id number] 05:36:00 Test Item Value Reference Range Interpretation [...] I S NOT APPLICABLE FOR DIALYSIS PATIEN [id number] 04:35:00 Test Item Value Reference Range Interpretation Comments PARTIAL THROMBOPLASTIN TIME 37.5 seconds 22.5-36.0 H (BEAKER) (test code = 760) CBC W/PLT COUNT & AUTO [id number] 04:17:00 Test Item Value Reference Range Interpretation [...] WBC 0-0 (BEAKER) (test code = 413) [id number] 17:06:00 Test Item Value Reference Range Interpretation Comments PARTIAL THROMBOPLASTIN TIME 41.3 seconds 22.5-36.0 H (BEAKER) (test code = 760) Prior to initiating heparinPLATELET [id number] 16:40:00 Test Item Value Reference Range Interpretation Comments PLATELET COUNT (BEAKER) (test 234 K/CU MM 150-450 code = 756) [id number] 14:14:00 Test Item Value Reference Range Interpretation Comments MAGNESIUM (BEAKER) (test code = 2.2 mg/dL 1.6-2.6 627) BASIC METABOLIC [id number] 07:16:00 Test Item Value Reference Range Interpretation [...] PATIEN TS. CBC W/PLT COUNT & AUTO [id number] 07:07:00 Test Item Value Reference Range Interpretation [...] (test code = 2801) CT, CHEST, WITH [id number] 17:39:00FINAL REPORT CT of the Chest, abdomen [...] pyelonephritis.3. Left renal cyst. Signed: Reagan Peck [facility] Verified Date/Time: 08/07/2018 17:39:22 Reading Location: [address] Consult Reading Room Electronically signed by: REAGAN PECK M.D. on08/07/2018 05:39 [facility] [id number] 17:39:00FINAL REPORT CT of the Chest, abdomen [...] MDReport Verified Date/Time: 08/07/2018 17:39:22 Reading Location: [address] Consult Reading Room Electronically signed by: REAGAN PECK M.D. 08/07/2018 05:39 [facility] METABOLIC [id number] 06:53:00 Test Item Value Reference Range Interpretation [...] PATIEN TS. CBC W/PLT COUNT & AUTO [id number] 06:22:00 Test Item Value Reference Range Interpretation [...] (test code = 2801) RAD, CHEST, 2 [id number] 21:57:00Reason for exam:->Shortness of breath, and concern [...] MDReport Verified Date/Time: 08/06/2018 21:57:16 Reading Location: [address] Consult Reading Room [id number] 17:55:00 Test Item Value Reference Range Interpretation Comments PROCALCITONIN (BEAKER) (test code 0.17 ng/mL <0.05 H = 3036) SEPSIS RISK (ng/mL)Low: 0.05-0.50Intermediate: 0.51-2.00High: >=2.01PROTHROMBIN TIME/[id number] 17:16:00 Test Item Value Reference Range Interpretation Comments PROTIME (BEAKER) (test code = 21.4 seconds 11.7-14.7 H 759) INR (BEAKER) (test code = 370) 1.9 <=5.9 RECOMMENDED COUMADIN/WARFARIN INR THERAPY RANGESSTANDARD DOSE: 2.0 - 3.0 Includes: PROPHYLAXIS forvenous thrombosis, systemic embolization; TREATMENT for venous thrombosis and/or pulmonary embolus.HIGH RISK: Target INR is 2.5-3.5 for patients with mechanical heart valves.VITAMIN B12 AND [id number] 17:02:00 Test Item Value Reference Range Interpretation Comments VITAMIN B12 (BEAKER) (test code = 541 pg/mL 213-816 774) FOLATE (BEAKER) (test code = 362) 14.3 ng/mL >=7.0 LACTIC ACID, VENOUS, WHOLE [id number] 16:28:00 Test Item Value Reference Range Interpretation Comments LACTATE BLOOD VENOUS 1.8 mmol/L 0.5-2.2 Specime n slightly (2) (BEAKER) (test hemolyzed code = 2872) Effective 03/13/2016: Units/Reference Range ChangeNew: 0.5-2.2 mmol/L Previous: 5-20 mg/dLMR, MRA, NECK, WITHOUT IV [id number] 13:54:00Reason for exam:- >Ischemic Stroke EvaluationFINAL REPORT MRA brain and neck without contrast 08/06/2018 1:51 PM CLINICAL HISTORY: StrokeIschemic Stroke Evaluation COMPARISON: None available TECHNIQUE: Two- and three-dimensional gdss-py-dzabmc MRA images of the intra- and extracranial [...] internal carotid artery stenosis. Signed: Aristides Lester MDReport Veri fied Date/Time: 08/06/2018 13:54:13 Reading Location: [facility] Radiology Reading Room MR, MRA, BRAIN, WITHOUT [id number] 13:54:00Reason for exam:- >Ischemic Stroke EvaluationFINAL REPORT MRA brain and neck without contrast 08/06/2018 1:51 PM CLINICAL HISTORY: StrokeIschemic Stroke Evaluation COMPARISON: None available TECHNIQUE: Two- and three-dimensional nybp-ub-uaacyp MRA images of the intra- and extracranial [...] internal carotid artery stenosis. Signed: Aristides Lester Date/Time: 08/06/2018 13:54:44 Reading Location: [facility] Radiology Reading Room MR, BRAIN, WITHOUT [id number] 12:15:00Reason for exam:- >Ischemic Stroke EvaluationFINAL REPORT [...] and in the brainstem. Additionally, semiconfluent patchy [employer] territory diffusion restricted recent infarctions are seen [...] soft tissues are unremarkable. . Impressions: Right-sided [employer] ASS[employer]IATE and right-sided frontal diffusion restricted recent infarctions as discussed. No hematoma or mass effect. Signed: Marci Sanchez Verified Date/Time: 08/06/2018 12:15:05 Reading Location: [facility] C013V Neuro Reading Room CBC W/PLT COUNT & AUTO [id number] 11:56:00 Test Item Value Reference Range Interpretation [...] Received comment: User comments: Slide comments:BASIC METABOLIC [id number] 06:50:00 Test Item Value Reference Range Interpretation [...] PATIEN TS. CBC W/PLT COUNT & AUTO [id number] 07:59:00 Test Item Value Reference Range Interpretation [...] PLATELET CONCENTRATION Adequate (CELLAVISION)(BEAKER) (test code = 8778) Received comment: User comments: Slide comments:URINALYSIS W/ REFLEX URINE [id number] 05:52:00 Test Item Value Reference Range Interpretation [...] 5 /LPF 514) SOURCE(BEAKER) (test code = 2795) BASIC METABOLIC [id number] 05:45:00 Test Item Value Reference Range Interpretation [...] swelling. Indirect left inguinal hernia. Signed: JR Jaylyn,Amanda Mckee Verified Date/Time: 08/05/2018 04:28:36 Reading Location: [address] Body Reading Room [id number] 14:22:00 Test Item Value Reference Range Interpretation [...] disease, and persistent tachyarrhythmia.RAD, ABDOMEN/KUB, 1 VIEW [id number] 12:40:00Reason for exam:->abdominal painFINAL REPORT CLINICAL HISTORY: abdominal pain TECHNIQUE: Supine abdomen COMPARISON: None IMPRESSION: There is a large amount of stool throughout the colon. There are no focally distended loops of bowel. Free air and air-fluid levels are not seen but cannot be definitively excluded on the supine view. Signed: Colton Marquis MDReport Verified Date/Time: 08/04/2018 12:40:36 Reading Location: [facility] Radiology Reading Room HEMOGLOBIN [id number] 05:30:00 Test Item Value Reference Range Interpretation Comments HEMOGLOBIN A1C (BEAKER) (test code = 5.6 % 4.3-6.1 368) [id number] 02:50:00 Test Item Value Reference Range Interpretation Comments HOMOCYSTEINE (BEAKER) (test code = 6.5 umol/L 5.1-15.4 642) TROPONIN [id number] 02:25:00 Test Item Value Reference Range Interpretation [...] acidosis, acute neurological disease, and persistent tachyarrhythmia.FastingLIPID [id number] 02:19:00 Test Item Value Reference Range Interpretation [...] High 160-189 Very High >=190 FastingBASIC METABOLIC [id number] 02:19:00 Test Item Value Reference Range Interpretation [...] PATIEN TS. FastingCBC W/PLT COUNT & AUTO [id number] 01:57:00 Test Item Value Reference Range Interpretation [...] % 0-1 PERCENT (BEAKER) (test code = 7911)
[2021-12-31 22:25] LABS: Absolute Lymphocytes (CBC) 1.3 K/uL (0.7-4.9); Hematocrit 30.1 % (39.6-49.0); RBC Red Blood Cell Count 2.93 M/uL (4.33-5.43)
[2021-12-31] MEDS ORDERED: NA CHLORIDE 0.9% 1,000 ML ONE (22:25)
[2021-12-31 22:35] LABS: Protime INR 1.2
[2021-12-31 22:54] LABS: ALT/SGPT 22 U/L (12-78); AST/SGOT 11 U/L (15-37); Albumin 2.9 g/dL (3.4-5.0); Alkaline Phosphatase 120 U/L (45-117); BUN Blood Urea Nitrogen 10 mg/dL (7-18); Bicarbonate 20 mmol/L (21-32); Bilirubin Direct < 0.1 mg/dL (0-0.2); Bilirubin Total 0.3 mg/dL (0.2-1.0); Glucose Level 111 mg/dL (74-106); Magnesium 1.6 mg/dL (1.8-2.4); NT PRO-BNP 3918 pg/mL (<450); Potassium 3.8 mmol/L (3.5-5.1); Sodium Level 134 mmol/L (136-145)
--- NOTE | 2022-01-01 00:18 | ER ---
Nurse's Notes [facility] Name: Alejo Rae Age: 76 yrs Sex: Male : 1945 Arrival Date: 12/31/2021 Time: 21:28 Bed 20 Private MD: Diagnosis: Weakness;Chronic atrial fibrillation;Unspecified atrial fibrillation Presentation: 12/31 21:44 Chief complaint: EMS states: near syncopal episode, ems noted a-fib with rvr on arrival sf1 at 130bpm. Coronavirus screen: Vaccine status: Patient reports receiving the 2nd dose of the covid vaccine. Ebola Screen: Patient negative for fever greater than or equal to 101.5 degrees Fahrenheit, and additional compatible Ebola Virus Disease symptoms Patient denies exposure to infectious person. Patient denies travel to an Ebola-affected area in the 21 days before illness onset. Initial Sepsis Screen: Does the patient meet any 2 criteria? No. Patient's initial sepsis screen is negative. Does the patient have a suspected source of infection? No. Patient's initial sepsis screen is negative. Risk Assessment: Do you want to hurt yourself or someone else? Patient reports no desire to harm self or others. Onset of symptoms was December 31, 2021. 21:44 Method Of Arrival: EMS: [facility] sf1 21:44 Acuity: ANNA 3 sf1 Vital Signs: 21:44 BP 78 / 44; Pulse 57; Resp 18; Pulse Ox 96% on R/A; Pain 0/10; sf1 22:54 BP 91 / 55; Pulse 56; Resp 18; Pulse Ox 96% on R/A; sf1 ED Course: 21:28 Patient arrived in ED. wm 21:32 Dong Miller MD is Attending Physician. kdr 21:43 Theresa Padron RN is Primary Nurse. sf1 21:44 Maintain EMS IV. Dressing intact. Good blood return noted. Site clean \T\ dry. sf1 21:46 Triage completed. sf1 22:19 Basic Metabolic Panel Sent. sf1 22:19 Protime (+INR) Sent. sf1 22:20 Alcohol Serum/Plasma Sent. sf1 22:20 CBC with Automated Diff Sent. sf1 22:20 Liver (Hepatic) Function Sent. sf1 22:20 Troponin High Sensitivity Sent. sf1 22:20 NT PRO-BNP Sent. sf1 22:20 Magnesium Sent. sf1 22:46 XRAY Chest (1 view) In Process Unspecified. EDMS 01/01 00:17 Lili Ferraro MD is Hospitalizing Provider. kdr 07:04 Primary Nurse role handed off by Theresa Padron, RN bp 07:04 Jaime Nowak, RN is Primary Nurse. bp Administered Medications: 12/31 22:54 Drug: NS 0.9% 500 ml Route: IV; Rate: bolus; Site: right antecubital; sf1 23:33 Drug: NS 0.9% 1000 ml Route: IV; Rate: 125 ml/hr; Site: right antecubital; 1 01/01 02:49 Drug: Magnesium Sulfate 2 grams Route: IVPB; Infused Over: 2 hrs; Site: right sf1 antecubital; Outcome: 00:17 Decision to Hospitalize by Provider. kdr 11:02 Patient left the ED. bp Signatures: Dispatcher [employer] EDMS Dong Miller MD MD kdr Jaime Nowak RN RN Loli June Theresa Padron RN RN [facility] Corrections: (The following items were deleted from the chart) 12/31 22:33 22:19 Troponin High Sensitivity+C.LAB.BRZ drawn and sent. [facility] EDMS : 22:19 PROTIME (+INR)+COAG.LAB.BRZ drawn and sent. [facility] EDMS : 22:19 PROBNP+C.LAB.BRZ drawn and sent. [facility] EDMS : 22:19 MAGNESIUM+C.LAB.BRZ drawn and sent. [facility] EDMS : 22:19 HEPATIC FUNCTION+C.LAB.BRZ drawn and sent. [facility] EDMS : 22:19 CBC+H.LAB.BRZ drawn and sent. [facility] EDMS : 22:19 BASIC METABOLIC PANEL+C.LAB.BRZ drawn and sent. [facility] EDMS : 22:19 ETHANOL+C.LAB.BRZ drawn and sent. [facility] EDMS
--- NOTE | 2022-01-01 00:18 | EDPHYS ---
Physician Documentation [facility] Name: Alejo Rae Age: 76 yrs Sex: Male : 1945 Arrival Date: 12/31/2021 Time: 21:28 Bed 20 Private MD: ED Physician Dong Miller HPI: 12/31 22:42 This 76 yrs old Male presents to ER via EMS with complaints of General Weakness, kdr Dizziness. 22:44 Patient states that he was sitting in his library tonight and with the assistance of kdr his spouse, try to go to a different room. At that time he became weak his legs were shaky and his spouse assisted him to the ground. He was not able to get up at that time and EMS was called. He has no other specific complaints other than generally being weak and shaky. He states that he has not had anything to eat today he had a cup of coffee and 1 glass of wine. He denies any other symptoms. EMS reported that his A. fib was poorly controlled with rates in the 50s to 140s.. Onset: The symptoms/episode began/occurred just prior to arrival, today. Severity of symptoms: At their worst the symptoms were mild moderate just prior to arrival, incapacitating in the emergency department the symptoms are unchanged. The patient has not experienced similar symptoms in the past. The patient has not recently seen a physician. ROS: 22:44 Constitutional: Negative for fever, chills, and weight loss, Eyes: Negative for injury, kdr pain, redness, and discharge, ENT: Negative for injury, pain, and discharge, Neck: Negative for injury, pain, and swelling, Cardiovascular: Negative for chest pain, palpitations, and edema, Respiratory: Negative for shortness of breath, cough, wheezing, and pleuritic chest pain, Abdomen/GI: Negative for abdominal pain, nausea, vomiting, diarrhea, and constipation, Back: Negative for injury and pain, : Negative for injury, bleeding, discharge, and swelling, MS/Extremity: Negative for injury and deformity, Skin: Negative for injury, rash, and discoloration, Psych: Negative for depression, anxiety, suicide ideation, homicidal ideation, and hallucinations, Allergy/Immunology: Negative for hives, rash, and allergies, Endocrine: Negative for neck swelling, polydipsia, polyuria, polyphagia, and marked weight changes, Hematologic/Lymphatic: Negative for swollen nodes, abnormal bleeding, and unusual bruising. 22:44 Neuro: Positive for tremor, weakness. Exam: 21:44 ECG was reviewed by the Attending Physician. kdr 22:44 Constitutional: This is a well developed, well nourished patient who is awake, alert, kdr and in no acute distress. Head/Face: Normocephalic, atraumatic. Eyes: Pupils equal round and reactive to light, extra-ocular motions intact. Lids and lashes normal. Conjunctiva and sclera are non-icteric and not injected. Cornea within normal limits. Periorbital areas with no swelling, redness, or edema. Neck: Trachea midline, no thyromegaly or masses palpated, and no cervical lymphadenopathy. Supple, full range of motion without nuchal rigidity, or vertebral point tenderness. No Meningismus. Chest/axilla: Normal chest wall appearance and motion. Nontender with no deformity. No lesions are appreciated. Cardiovascular: Regular rate and rhythm with a normal S1 and S2. No gallops, murmurs, or rubs. Normal PMI, no JVD. No pulse deficits. Respiratory: Lungs have equal breath sounds bilaterally, clear to auscultation and percussion. No rales, rhonchi or wheezes noted. No increased work of breathing, no retractions or nasal flaring. Abdomen/GI: Soft, non-tender, with normal bowel sounds. No distension or tympany. No guarding or rebound. No evidence of tenderness throughout. Back: No spinal tenderness. No costovertebral tenderness. Full range of motion. Skin: Warm, dry with normal turgor. Normal color with no rashes, no lesions, and no evidence of cellulitis. MS/ Extremity: Pulses equal, no cyanosis. Neurovascular intact. Full, normal range of motion. Psych: Awake, alert, with orientation to person, place and time. Behavior, mood, and affect are within normal limits. 22:44 Neuro: Motor: moves all fours, Globally weak and tremulous. Vital Signs: 21:44 BP 78 / 44; Pulse 57; Resp 18; Pulse Ox 96% on R/A; Pain 0/10; sf1 22:54 BP 91 / 55; Pulse 56; Resp 18; Pulse Ox 96% on R/A; sf1 MDM: 01/01 00:17 Patient medically screened. kdr 00:17 Data reviewed: vital signs, nurses notes, lab test result(s), radiologic studies. kdr Counseling: I had a detailed discussion with the patient and/or guardian regarding: the historical points, exam findings, and any diagnostic results supporting the discharge/admit diagnosis, lab results, radiology results, the need for further work-up and treatment in the hospital. 12/31 22:18 Order name: Basic Metabolic Panel; Complete Time: 23:08 EDUT 12/31 22:18 Order name: Liver (Hepatic) Function; Complete Time: 23:08 EDMS 12/31 22:18 Order name: Troponin High Sensitivity; Complete Time: 23:08 EDMS 12/31 22:18 Order name: NT PRO-BNP; Complete Time: 23:08 EDUT 12/31 22:18 Order name: Magnesium; Complete Time: 23:08 EDMS 12/31 22:18 Order name: Alcohol Serum/Plasma; Complete Time: 23:08 EDUT 12/31 21:35 Order name: XRAY Chest (1 view) [facility] 12/31 21:35 Order name: EKG; Complete Time: 22:17 kdr 12/31 22:18 Order name: CBC with Automated Diff; Complete Time: 22:48 EDMS 12/31 22:18 Order name: Protime (+INR); Complete Time: 22:48 EDUT 01/01 00:42 Order name: CONS Physician Consult EDUT 01/01 00:42 Order name: Basic Metabolic Panel EDUT 01/01 00:42 Order name: Basic Metabolic Panel EDUT 01/01 00:43 Order name: CBC with Automated Diff EDUT 01/01 00:43 Order name: CBC with Automated Diff EDUT 01/01 00:49 Order name: CT Head Brain wo Cont kdr 01/01 00:49 Order name: CT Chest Wo Con kdr 01/01 02:31 Order name: COVID-19 SARS RT PCR (Document "Date of Onset" if Symptomatic) mw2 01/01 04:10 Order name: SARS-COV-2 RT PCR; Complete Time: 06:35 EDMS 12/31 21:35 Order name: Cardiac monitoring; Complete Time: 21:43 kdr 12/31 21:35 Order name: EKG - Nurse/Tech; Complete Time: 21:43 [facility] 12/31 21:35 Order name: IV Saline Lock; Complete Time: 21:43 kdr 02 21:35 Order name: Labs collected and sent; Complete Time: 21:43 kdr 12/31 21:35 Order name: O2 Per Protocol; Complete Time: 21:44 kdr 12/31 21:35 Order name: O2 Sat Monitoring; Complete Time: 21:44 kdr 01/01 00:43 Order name: Regular EDMS 01/01 00:43 Order name: EKG Electrocardiogram EDMS 01/01 00:43 Order name: EKG Electrocardiogram EDMS 01/01 00:43 Order name: EKG Electrocardiogram EDMS 01/01 00:43 Order name: EKG Electrocardiogram EDMS EC/21 21:44 Rate is 63 beats/min. Rhythm is irregularly irregular, A fib with No ectopy. QRS [place] kdr is Normal. VA interval is normal. QRS interval is normal. QT interval is normal. Clinical impression: Atrial Fibrillation. Administered Medications: 22:54 Drug: NS 0.9% 500 ml Route: IV; Rate: bolus; Site: right antecubital; [facility] 23:33 Drug: NS 0.9% 1000 ml Route: IV; Rate: 125 ml/hr; Site: right antecubital; [facility] 01/01 02:49 Drug: Magnesium Sulfate 2 grams Route: IVPB; Infused Over: 2 hrs; Site: right [facility] antecubital; Disposition Summary: 01/01/22 00:17 Hospitalization Ordered Hospitalization Status: Observation kdr Provider: Lili Ferraro Condition: Fair kdr Problem: an acute exacerbation kdr Symptoms: have improved kdr Bed/Room Type: Standard kdr Location: Telemetry/MedSurg (observation)(01/01/22 09:13) Room Assignment: 420(01/01/22 09:13) Diagnosis - Weakness kdr - Chronic atrial fibrillation kdr - Unspecified atrial fibrillation kdr Forms: - Medication Reconciliation Form kdr - SBAR form kdr Signatures: Dispatcher [employer] EDUT Rita Johnson Kevin, MD MD kdr Shakila Mayorga RN RN Theresa Padron RN RN sf1 Celia Bhatia PA PA sb3 Corrections: (The following items were deleted from the chart) 12/31 22:33 22:16 BASIC METABOLIC PANEL+C.LAB.BRZ ordered. EDMS EDMS 22:33 22:16 CBC+H.LAB.BRZ ordered. EDMS EDMS : 22:16 HEPATIC FUNCTION+C.LAB.BRZ ordered. EDMS EDMS : 22:16 MAGNESIUM+C.LAB.BRZ ordered. EDMS EDMS : 22:16 PROBNP+C.LAB.BRZ ordered. EDMS EDMS : 22:16 PROTIME (+INR)+COAG.LAB.BRZ ordered. EDMS EDMS : 22:16 Troponin High Sensitivity+C.LAB.BRZ ordered. EDMS EDMS : 22:18 ETHANOL+C.LAB.BRZ ordered. EDMS EDMS 01/01 01:43 00:17 Telemetry/MedSurg (observation) kdr cg 01:43 00:17 kdr cg 09:13 01:43 [facility] ER HOLD cg bd 09: 01:43 ERHOLD- cg bd
[2022-01-01] MEDS ORDERED: ACETAMINOPHEN 500 MG TAB PO PRN (00:38)
[2022-01-01] MEDS ORDERED: Magnesium Sulfate 2gm IVPB 2 G/50 ML BAG IV ONE (02:48)
[2022-01-01 06:41] VITALS: TEMP 98.7
[2022-01-01 06:59] VITALS: O2SAT 99
[2022-01-01 07:15] VITALS: BMI 30.3
--- NOTE | 2022-01-01 07:23 | EKG ---
Test Date: 2021-12-31 Test Time: 21:34:54 Landscaper: MEASUREMENT RESULTS: Intervals: Rate: 63 UT: QRSD: 84 QT: 478 QTc: 489 [place]: P: UT: QRS: 73 T: 56 INTERPRETIVE STATEMENTS: Atrial fibrillation Prolonged QT Abnormal ECG Compared to ECG 03/03/2019 07:41:51 Prolonged QT interval now present Ventricular premature complex(es) no longer present Electronically Signed On 01-01-22 07:22:30 WET PROCESS OPERATOR by Dante Little
--- NOTE | 2022-01-01 08:27 | RAD REPORT ---
EXAM DESCRIPTION: RAD - Chest Single View - 12/31/2021 10:46 pm CLINICAL HISTORY: Dizzy Chest pain. COMPARISON: Chest Single View dated 03/25/2019; Chest Single View dated 03/05/2019; Chest Single View dated 08/03/2018; Chest Single View dated 11/16/2017 FINDINGS: Portable technique limits examination quality. The lungs are emphysematous but grossly clear. The heart is normal in size. No displaced fractures. IMPRESSION: Mild to moderate COPD.
[2022-01-01 08:33] VITALS: BP 126/57
[2022-01-01] MEDS ORDERED: ASPIRIN EC 81 MG TAB PO SCH (09:00)
[2022-01-01] MEDS ORDERED: APIXABAN 5 MG TABLET PO SCH (10:00)
--- NOTE | 2022-01-01 11:47 | RAD REPORT ---
EXAM DESCRIPTION: CT of the head without contrast CLINICAL HISTORY: DIZZINESS COMPARISON: None available TECHNIQUE: Axial CT of the head obtained from the skull apex to the skull base without contrast. Thi s exam was performed according to our departmental dose-optimization program, which includes automate d exposure control, adjustment of the mA and/or kV according to patient size and/or use of iterative reconstruction technique. FINDINGS: No acute intracranial hemorrhage identified. No mass, mass effect, shift of the midline, a bnormal extra-axial fluid collection or CT evidence of acute ischemic change identified. The ventricu lar system and sulcal spaces are mildly enlarged compatible with mild cerebral atrophy. Confluent a reas of hypodensity throughout the supratentorial white matter are nonspecific and may be related to chronic small vessel ischemic change. Right occipital encephalomalacia likely related to remote infar ction. Remote right basal ganglia lacunar type infarctions. The visualized paranasal sinuses and mastoid air cells are well aerated. No skull fracture identifi ed. Visualized orbits and globes are unremarkable. Atherosclerotic calcification of the intracranial internal carotid and vertebral arteries. IMPRESSION: 1. No acute intracranial abnormality by CT criteria. Electronically signed by: Nelson Dallas 01/01/2022 2:01 AM FINANCIAL ECONOMIST Due to temporary technical issues with the PACS/Fluency reporting system, reports are being signed by the in house radiologists without review as a courtesy to insure prompt reporting. The interpreting radiologist is fully responsible for the content of the report.
--- NOTE | 2022-01-01 12:05 | RAD REPORT ---
EXAM DESCRIPTION: CT CHEST WITHOUT CONTRAST CLINICAL HISTORY: Weak COMPARISON: 11/14/2021 TECHNIQUE: Axial CT images of the chest without IV contrast obtained from the thoracic inlet through the diaphragm. Coronal and sagittal reformatted images available. This exam was performed according to our departmental dose-optimization program, which includes automated exposure control, adjustment of the mA and/or kV according to patient size and/or use of iterative reconstruction technique. FINDINGS: Chest: Thyroid: No abnormalities of the visualized thyroid. Great Vessels: Great vessels have normal anatomic configuration. Thoracic Aorta: Atherosclerotic calcification of the thoracic aorta. Pulmonary arteries: The main pulmonary artery is not dilated. Heart: Coronary artery atherosclerosis. No cardiomegaly. Lymph Nodes: No enlarged mediastinal lymph nodes identified. Esophagus: No abnormalities of the esophagus identified Other: No additional findings. Lungs: No airspace opacities identified. Pleura: No pleural effusion or pneumothorax. Trachea/Airways: No abnormalities of the visualized trachea or airways. Bones: Multilevel endplate spondylosis and facet arthropathy. Bridging anterior osteophytes. Stable c ompression deformities of the midthoracic spine. Degenerative change of the glenohumeral joints. Mult iple healed right rib fractures. Multiple subacute healing fractures of the left fourth through eight h ribs. Healing inferior left scapular fracture. Upper Abdomen: Limited images of the upper abdomen demonstrate no definite abnormalities of visualize d portions of the liver, pancreas, spleen, adrenal glands, or right kidney. Prior cholecystectomy. Le ft renal cyst. IMPRESSION: 1. No acute pulmonary process identified. 2. Redemonstrated healing fractures of the left fourth through eighth ribs and left scapula. No acute fractures identified. 3. Coronary artery atherosclerosis. Electronically signed by: Nelson Dallas 01/01/2022 2:08 AM RESOURCE SPECIALIST Due to temporary technical issues with the PACS/Fluency reporting system, reports are being signed by the in house radiologists without review as a courtesy to insure prompt reporting. The interpreting radiologist is fully responsible for the content of the report.
[2022-01-01 20:18] LABS: Magnesium 2.1 mg/dL (1.8-2.4)
[2022-01-01 21:00] LABS: Folic Acid, (Folate) > 20.0 ng/mL (3.1-17.5)
--- NOTE | 2022-01-02 07:52 | ECHO ---
HEIGHT: 6 ft 1 in WEIGHT: 230 lb 0 oz DATE OF STUDY: 01/01/[address]: Dillon Ferraro MD 2-DIMENSIONAL: YES M.MODE: YES DOPPLER: YES COLOR FLOW: YES TDS: NO PORTABLE: NO DEFINITY: NO BUBBLE STUDY: NO DIAGNOSIS: ATRIAL FIBRILLATION CARDIAC HISTORY: CATHERIZATION: SURGERY: PROSTHETIC VALVE: PACEMAKER: MEASUREMENTS (cm) DIASTOLIC (NORMALS) SYSTOLIC (NORMALS) IVSd 1.0 (0.6-1.2) LA Diam 4.0 (1.9-4.0) LVEF 70% LVIDd 4.2 (3.5-5.7) LVIDs 2.5 (2.0-3.5) %FS 40% LVPWd 1.2 (0.6-1.2) Ao Diam 3.5 (2.0-3.7) 2 DIMENSIONAL ASSESSMENT: RIGHT ATRIUM: NORMAL LEFT ATRIUM: NORMAL RIGHT VENTRICLE: NORMAL LEFT VENTRICLE: NORMAL TRICUSPID VALVE: NORMAL MITRAL VALVE: NORMAL PULMONIC VALVE: NORMAL AORTIC VALVE: NORMAL PERICARDIAL EFFUSION: NONE AORTIC ROOT: NORMAL LEFT VENTRICULAR WALL MOTION: NORMAL. DOPPLER/COLOR FLOW: NORMAL. COMMENTS: NORMAL 2D ECHO WITH DOPPLER. NORMAL LEFT ATRIAL SIZE. NO THROMBUS. TECHNOLOGIST: DIRK MILLER
--- NOTE | 2022-01-18 19:59 | SS ---
Date of Admission: 01/01/2022 Date of Discharge: 01/01/2022 Chief Complaint: Feeling weak and dizzy. History Of Present Illness: This is a 76-year-old pleasant male patient who lives at home with a caregiver, has longstanding history of significant alcohol use on a daily basis, comes into emergency room with complaints of feeling weak and dizzy. His initial blood pressure in the emergency room was 78/44 and subsequently his blood pressure did come back up. When I saw him this morning, he was feeling fine. Denied any complaints. Denies any chest pain, nausea, vomiting, diarrhea. No abdominal pain. No shortness of breath. Allergies: NO KNOWN ALLERGIES. Medications: List reviewed. Review of Systems: Constitutional: As mentioned above. CARE TECHNICIAN: As mentioned above. All other systems reviewed and negative. Past Medical History: Significant for chronic atrial fibrillation, peripheral neuropathy, hypertension, diabetes mellitus, gastroesophageal reflux disease, PTSD, hyperlipidemia, lung cancer, chronic anticoagulation therapy, bilateral carotid artery stenosis, and osteomyelitis of right foot. Past Surgical History: Carotid artery stent placement for carotid artery stenosis in 2017, hernia repair x3 in 2002, arthroscopic knee surgery in 1982, tonsillectomy in 1949, cardioversion and ablation for atrial fibrillation, and amputation of 1 toe for osteomyelitis. Family History: Significant for Parkinson disease. Social History: Significant for prior history of smoking, not at present time, but longstanding use of rather heavy alcohol use on a daily basis. Physical Examination: Vital Signs: Upon admission early this morning, temperature 98.7, pulse 60, respiratory rate 18, blood pressure 103/55, oxygen saturation 98% on room air. Height 6 feet 1 inch, weight 230 pounds. General: Awake, alert, oriented, not in distress. HEENT: Head atraumatic, normocephalic. Conjunctivae nonerythematous. Sclerae white. Mouth, no thrush or edema noted. Ears/Nose, no mass, lesion, discharge noted. Neck: Supple. No JVD, lymph nodes, bruit, thyromegaly noted. Lungs: Bilateral good equal air entry. Clear to auscultation. No rhonchi. No rales. Heart: Normal heart sounds, no murmur or gallop. Abdomen: Soft, bowel sounds normal. No guarding, rigidity, tenderness, mass, hepatosplenomegaly, distention, or bruit noted. Extremities: No leg edema. No calf tenderness. Skin: No rash, ulcer, cellulitis. Lymphatics: No lymph node enlargement in neck, supraclavicular, infraclavicular region. Neuro: No focal neurological deficit. Chest: Unremarkable. External Genitalia: Deferred. Rectal: Deferred. Laboratory Data: White count 8.7, hemoglobin 10.5, platelets 250. Sodium 134, potassium 3.8, chloride 99, bicarb 20, BUN 10, creatinine 1.05, glucose 111, magnesium 1.6, and after it was corrected, repeat magnesium 2.1. Liver function tests unremarkable. Troponin 13.8, which was normal. ProBNP 3918. Vitamin B12 level 656. Folic acid level more than 20. Serum alcohol level 49. COVID-19 test negative. Chest x-ray, [id number] COPD changes. CT scan of the chest without contrast shows no acute cardiopulmonary changes, evidence of coronary artery atherosclerosis and evidence of old rib fracture and left scapula fracture. CT scan of the head, no acute intracranial changes. Echocardiogram done today shows normal ejection fraction of 70% and it was unremarkable echocardiogram. Hospital Course: After patient was evaluated in the ER, workup was done and I did discuss with patient regarding importance of him to quit alcohol completely, but unfortunately that is very likely not going to happen. So at least, I have advised him that he should reduce his alcohol use significantly and he should not have more than 4 ounces of wine on a daily basis. I believe his weakness and dizziness is contributed by low blood pressure as well as alcohol use. Discharge Medications And Instructions: 1. Continue all prior home medications except stop amlodipine. 2. Follow up at my office on 01/07/2022 at 10 a.m. 3. Limit your alcohol intake to only 4 ounces of wine a day. Final Diagnoses: 1. Hypotension. 2. Alcohol dependence. 3. Anemia, chronic, unspecified. 4. Chronic atrial fibrillation. 5. Hypertension. 6. Peripheral neuropathy. 7. Type 2 diabetes mellitus. 8. Gastroesophageal reflux disease. 9. Hyperlipidemia. 10. Post-traumatic stress disorder. 11. Lung cancer. 12. Chronic obstructive pulmonary disease. 13. Carotid artery stenosis. ADELITA/MODL Voice ID: [id number] Report ID: [id number] RAUL
== END 2022-01-01 18:30 | disposition home or self-care (01) ==
LOC: ER 21:28 → ERHOLD 01-01 01:04 → INTOOBSV 01-01 01:04 → 4TH 01-01 09:48
PROVIDERS: ADMIT Internal Medicine; ATTEND Internal Medicine
DX: I95.9 Hypotension, unspecified (principal); F10.20 Alcohol dependence, uncomplicated; Y90.2 Blood alcohol level of 40-59 mg/100 ml; Z71.41 Alcohol abuse counseling and surveillance of alcoholic; D64.9 Anemia, unspecified; I48.20 Chronic atrial fibrillation, unspecified; I10 Essential (primary) hypertension; E11.40 Type 2 diabetes mellitus with diabetic neuropathy, unspecified; K21.9 Gastro-esophageal reflux disease without esophagitis; E78.5 Hyperlipidemia, unspecified; J44.9 Chronic obstructive pulmonary disease, unspecified; I65.23 Occlusion and stenosis of bilateral carotid arteries; F43.10 Post-traumatic stress disorder, unspecified; Z79.01 Long term (current) use of anticoagulants; Z87.891 Personal history of nicotine dependence; Z85.118 Personal history of other malignant neoplasm of bronchus and lung; Z95.820 Peripheral vascular angioplasty status with implants and grafts; Z89.421 Acquired absence of other right toe(s); Z20.822 Contact with and (suspected) exposure to COVID-19; Z82.0 Family history of epilepsy and other diseases of the nervous system
CPT/HCPCS: 93005; 93306; 85025; 80048; 36415; 80320; 83735 ×2; 85610; 80076; 84443; 84484; 82746; 82607; 83880; 70450; 71250; 71045; 96374; 99284; U0003; J3475; J7030

== ENCOUNTER 2023-04-13 19:30 | Observation (INO) | payer OTHER ==
[2023-04-13 20:08] LABS: Absolute Lymphocytes (CBC) 1.2 K/uL (0.7-4.9); Hematocrit 34.5 % (39.6-49.0); Lymphocytes % 14.3 % (15.3-44.8); MCV 101.5 fL (80-100)
[2023-04-13 20:25] LABS: Potassium 3.9 mEq/L (3.5-5.1); Troponin High Sensitivity 9.6 pg/mL (<58.9)
[2023-04-13] MEDS ORDERED: NA CHLORIDE 0.9% 500 ML ONE (20:41)
--- NOTE | 2023-04-13 20:52 | RAD REPORT ---
EXAM DESCRIPTION: RADChest Single View04/13/2023 8:45 pm CLINICAL HISTORY: syncope COMPARISON: Chest Single View dated 12/31/2021; Chest Single View dated 03/25/2019; Chest Single View dated 03/05/2019; Chest Single View dated 08/03/2018; Thorax Wo Con dated 01/01/2022 TECHNIQUE: Portable AP view of the chest. FINDINGS: Decreased inspiratory effort and elevation of the right hemidiaphragm limit evaluation. Po stsurgical changes to the right lung and seen. Poor delineation of the left hemidiaphragm, could be r elated to atelectasis or early airspace disease. No pneumothorax or effusion. The cardiomediastinal contours are unremarkable. IMPRESSION: Poor delineation of the left hemidiaphragm, could be related to atelectasis or early bas al airspace disease. Otherwise stable findings as above.
[2023-04-13] MEDS ORDERED: MULTIVITAMINS 10 ML VIAL (INJ) IV ONE (21:10)
[2023-04-13] MEDS ORDERED: NA CHLORIDE 0.9% 1,000 ML ONE (21:10)
[2023-04-13] MEDS ORDERED: THIAMINE 200 MG/2 ML INJ ONE (21:10)
[2023-04-13] MEDS ORDERED: FOLIC ACID 5 MG/ML VIAL ONE (21:11)
[2023-04-13] MEDS ORDERED: GABAPENTIN 300 MG CAP ONE ×2 (22:30→22:36)
--- NOTE | 2023-04-14 00:13 | P.HP ---
Certification for Inpatient Patient admitted to: Observation With expected LOS: <2 Midnights Patient will require the following post-hospital care: None Practitioner: I am a practitioner with admitting privileges, knowledge of patient current condition, hospital course, and medical plan of care. Services: Services provided to patient in accordance with Admission requirements found in Title 42 Section 412.3 of the Code of Federal Regulations <Celia Bhatia - Last Filed: 04/14/23 01:13> Patient History Date of Service: 04/14/23 Reason for admission: Syncope History of Present Illness: Mr. Rae is a 76-year-old male with past medical history of chronic atrial fibrillation on anticoagulation, peripheral neuropathy, hypertension, diabetes mellitus, gastroesophageal reflux disease, PTSD, hyperlipidemia, lung cancer, bilateral carotid artery stenosis, and alcohol abuse who presented to the emergency department after a syncopal episode. Patient's fiance witnessed the episode, states he passed out while he was sitting in a chair and she could not get him to respond to her for 2 minutes. Patient does complain of feeling weaker than usual today. He does admit to drinking wine this afternoon. He was initially hypotensive upon arrival- 89/59, but did improve with fluid resuscitation. Lab work was benign. Head CT negative. ED provider wishes to admit patient for observation. Home medications list reviewed: Yes - Past Medical/Surgical History Diabetic: Yes -: Atrial fibrillation -: Hypertension -: Dyslipidemia -: Lung cancer -: CVA -: hernia sx -: abd sx -: lobectomy of right middle lobe -: Carotid artery stents -: toe amputation Psychosocial/ Personal History: Patient lives at home with his fiance. - Family History Father -: Other (see notes) Notes: parkinson - Social History Smoking Status: Current some day smoker Alcohol use: Yes CD- Drugs: No Caffeine use: Yes Place of Residence: Home <Celia Bhatia - Last Filed: 04/14/23 01:13> Date of Service: 04/14/23 - Family History Father -: Other (see notes) Notes: parkinson Mother History Unknown: Yes <Timo Mathis - Last Filed: 04/14/23 18:53> Allergies No Known Allergies Allergy (Verified 03/17/16 03:30) Home Medications: RX: Apixaban [Eliquis] 5 mg PO BID 03/25/19 RX: Atorvastatin Calcium [Lipitor] 40 mg PO BEDTIME 03/25/19 RX: Dofetilide [Tikosyn] 500 mg PO BID 03/25/19 RX: Gabapentin 2 cap PO TID 03/25/19 RX: Metoprolol Succinate [Toprol Xl] 100 mg PO BID 03/25/19 RX: Omeprazole 20 mg PO BID 03/25/19 Calcium Carbonate/Vitamin D3 [Calcium 250-D Tablet] 1 tab PO DAILY 04/14/23 RX: Spironolactone 50 mg PO DAILY 04/14/23 Review of Systems Neurological: Weakness <Celia Bhatia - Last Filed: 04/14/23 01:13> Physical Examination - Vital Signs Temperature: 98.7 F Blood Pressure: 99/73 Pulse: 75 Respirations: 16 Pulse Ox (%): 98 - Physical Exam General: Alert, In no apparent distress HEENT: Atraumatic, EOMI, Sclerae nonicteric Neck: Supple, 2+ carotid pulse no bruit Respiratory: Clear to auscultation bilaterally, Normal air movement Cardiovascular: Regular rate/rhythm, Normal S1 S2 Gastrointestinal: Normal bowel sounds, No tenderness Musculoskeletal: No tenderness Integumentary: No rashes Neurological: Normal speech, Normal affect - Studies Laboratory Data (last 24 hrs) 04/13/23 19:57: WBC 8.30, Hgb 11.7 L, Hct 34.5 L, Plt Count 224 04/13/23 19:57: Sodium 142, Potassium 3.9, BUN 15, Creatinine 0.93, Glucose 124 H <Celia Bhatia - Last Filed: 04/14/23 01:13> - Studies Laboratory Data (last 24 hrs) 04/13/23 19:57: WBC 8.30, Hgb 11.7 L, Hct 34.5 L, Plt Count 224 04/13/23 19:57: Sodium 142, Potassium 3.9, BUN 15, Creatinine 0.93, Glucose 124 H <Timo Mathis - Last Filed: 04/14/23 18:53> Assessment and Plan - Problems (Diagnosis) (1) Syncope and collapse Current Visit: Yes Status: Acute (2) Atrial fibrillation Current Visit: Yes Status: Chronic Qualifiers: Atrial fibrillation type: paroxysmal Qualified Code(s): I48.0 - Paroxysmal atrial fibrillation (3) Hyperlipidemia Current Visit: Yes Status: Chronic Qualifiers: Hyperlipidemia type: unspecified Qualified Code(s): E78.5 - Hyperlipidemia, unspecified (4) Hypertension Current Visit: Yes Status: Chronic Qualifiers: Hypertension type: primary hypertension Qualified Code(s): I10 - Essential (primary) hypertension (5) Anemia Current Visit: Yes Status: Chronic Qualifiers: Anemia type: other cause Other causes of anemia: chronic disease, other Qualified Code(s): D63.8 - Anemia in other chronic diseases classified elsewhere - Plan Patient is admitted for observation following syncopal episode. Likely secondary to the alcohol he drank and lack of food he ate. Monitor on telemetry overnight. Obtain orthostatic vital signs, echocardiogram & carotid ultrasound. Physical therapy consulted for generalized weakness. Counseled on reduction of alcohol consumption and tobacco abuse. Reconcile and continue home medications. Monitor and replete electrolytes per protocol. Eliquis for VTE prophylaxis. Full code. Discharge Plan: Home Plan to discharge in: 24 Hours - Advance Directives Does patient have a Living Will: No Does patient have a Durable POA for Healthcare: No - Code Status/Comfort Care Code Status Assessed: Yes Code Status: Full Code Physician Review: Patient Assessed, Agree with Above Assessment and Plan Critical Care: No Time Spent Managing Pts Care (In Minutes): 50 <Celia Bhatia - Last Filed: 04/14/23 01:13> Physician Review: Patient Assessed, Agree with Above Assessment and Plan <Timo Mathis - Last Filed: 04/14/23 18:53>
--- NOTE | 2023-04-14 00:28 | ER ---
Nurse's Notes [facility] Name: Alejo Rae Age: 77 yrs Sex: Male : 1945 Arrival Date: 04/13/2023 Time: 19:30 Bed 19 Private MD: Diagnosis: Syncope Presentation: 04/13 19:38 Chief complaint: EMS states: Toned out for syncope, pt states pt passed while ll3 sitting in his chair, pt c/o feeling more weak than normal today, c/o constipation X2 days but states has been switching between diarrhea and constipation for weeks. Coronavirus screen: Vaccine status: Patient reports receiving the 2nd dose of the covid vaccine. At this time, the client does not indicate any symptoms associated with coronavirus-19. Ebola Screen: No symptoms or risks identified at this time. Initial Sepsis Screen: Does the patient meet any 2 criteria? No. Patient's initial sepsis screen is negative. Does the patient have a suspected source of infection? No. Patient's initial sepsis screen is negative. Risk Assessment: Do you want to hurt yourself or someone else? Patient reports no desire to harm self or others. Onset of symptoms was April 13, 2023. Care prior to arrival: Medication(s) given: Normal saline infusion, 300 ml IV initiated. 20 GA, in the left hand, Glucose check: 163. 19:38 Method Of Arrival: EMS: [facility] ll3 19:38 Acuity: ANNA 3 ll3 Triage Assessment: 19:45 General: Appears comfortable, Behavior is calm, cooperative. General: Reports fatigue ll3 for Generalized weakness. Pain: Denies pain. Neuro: Level of Consciousness is awake, alert, obeys commands, Oriented to person, place, time, situation. Cardiovascular: Patient's skin is warm and dry. Rhythm is atrial fibrillation. Respiratory: Respiratory effort is even, unlabored, Respiratory pattern is regular, symmetrical. GI: Abdomen is round non-distended, Reports constipation, since X2 days. Derm: Skin is pink, warm \T\ dry. Musculoskeletal: Circulation, motion, and sensation intact. Historical: - Allergies: 19:45 No Known Allergies; ll3 - Home Meds: 20:38 spironolactone 50 mg Oral tablet daily [Active]; omeprazole 20 mg Oral ll3 Tablet,disintegrating,delayed release daily [Active]; atorvastatin 40 mg oral tablet every day at bedtime [Active]; metoprolol succinate 100 mg oral Tablet, Extended Release 24 hr 2 times per day [Active]; dofetilide 500 mcg oral capsule once [Active]; Eliquis 5 mg oral tablet 2 times per day [Active]; - PMHx: 19:45 Atrial Fib; CHF; CVA; PTSD; Right lung cancer; ll3 - Immunization history:: Client reports receiving the 2nd dose of the Covid vaccine. - Social history:: Smoking status: Patient reports the use of cigarette tobacco products, denies chronic smoking, but will smoke occasionally. Screenin:47 [facility] ED Fall Risk Assessment (Adult) History of falling in the last 3 months, ll3 including since admission No falls in past 3 months (0 pts) Confusion or Disorientation No (0 pts) Intoxicated or Sedated No (0 pts) Impaired Gait No (0 pts) Mobility Assist Device Used Yes (1 pt) Altered Elimination No (0 pt) Score/Fall Risk Level 0 - 2 = Low Risk Oriented to surroundings, Maintained a safe environment, Educated pt \T\ family on fall prevention, incl call for assistance when getting out of bed, Assessed \T\ reinforced patient's understanding of fall precautions. Abuse screen: Denies threats or abuse. Denies injuries from another. Nutritional screening: No deficits noted. Tuberculosis screening: No symptoms or risk factors identified. Assessment: 19:45 General: See triage assessment. ll3 22:14 Reassessment: [phone] Dale Rae Son, Pam Goldsmith. kr3 Vital Signs: 19:38 BP 89 / 59; Pulse 59; Resp 17; Temp 98.7(O); Pulse Ox 96% on R/A; Weight 65.77 kg (R); ll3 Height 6 ft. 1 in. (R); Pain 0/10; 21:00 BP 108 / 58; Pulse 72; Resp 18; Pulse Ox 92% on R/A; ll3 22:00 BP 119 / 68; Pulse 77; Resp 20; Pulse Ox 100% on R/A; ll3 23:43 BP 99 / 73; Pulse 75; Resp 16; Pulse Ox 98% on R/A; ll3 0605 00:41 BP 99 / 73; Pulse 63; Resp 17; Pulse Ox 98% on R/A; ll3 04/13 19:38 Body Mass Index 19.13 (65.77 kg, 185.42 cm) ll3 04/13 19:38 Pain Scale: Adult ll3 ED Course: 04/13 19:38 Patient arrived in ED. ll3 19:45 Triage completed. ll3 19:45 Arm band placed on Patient placed in an exam room, on a stretcher, on cardiac/vascular sonographer, ll3 on pulse oximetry. 19:47 Patient has correct armband on for positive identification. Placed in gown. Bed in low ll3 position. Call light in reach. Side rails up X 1. Client placed on continuous cardiac and pulse oximetry monitoring. NIBP monitoring applied. 19:52 Dong Miller MD is Attending Physician. kdr 19:53 EKG done, by ED staff, reviewed by Dong Miller MD. jw7 20:02 Maintain EMS IV. Dressing intact. Good blood return noted. Site clean \T\ dry. Gauge \T\ ll 3 site: 20 L hand. 20:47 XRAY Chest (1 view) In Process Unspecified. EDMS 23:33 Head Brain Wo Cont CT In Process Unspecified. EDMS 04/14 00:26 Timo Mathis MD is Hospitalizing Provider. sb4 01:35 No provider procedures requiring assistance completed. Patient admitted, IV remains in ll3 place. Administered Medications: 04/13 20:36 Drug: NS 0.9% IV 500 ml Route: IV; Rate: bolus; Site: left hand; ll3 04/14 01:36 Follow up: Response: No adverse reaction; IV Status: Completed infusion; IV Intake: ll3 500ml 04/13 21:08 Drug: Banana Bag - (NS 0.9% IV 1000 ml, foLIC Acid IVPB 1 mg, Thiamine IV 100 mg, ll3 Multivitamin IV 1 amp) Route: IV; Rate: calculated rate; Site: left hand; 04/14 01:36 Follow up: Response: No adverse reaction; IV Status: Completed infusion; IV Intake: ll3 1000ml 04/13 22:26 Drug: Gabapentin PO 300 mg Route: PO; ll3 04/14 01:36 Follow up: Response: No adverse reaction ll3 04/13 22:29 Drug: Gabapentin PO 300 mg Route: PO; ll3 04/14 01:36 Follow up: Response: No adverse reaction ll3 Medication: 01:34 VIS not applicable for this client. ll3 Intake: 01:36 IV: 1000ml; Total: 1000ml. ll3 01:36 IV: 500ml; Total: 1500ml. ll3 Outcome: 00:27 Decision to Hospitalize by Provider. sb4 01:35 Admitted to Med/surg accompanied by tech, via stretcher, room 228, with chart, Report ll3 called to EVY Lo 01:35 Condition: stable 01:35 Instructed on the need for admit, Demonstrated understanding of instructions. 01:35 Patient left the ED. sb4 Signatures: Dispatcher [employer] EDMS Dong Miller MD MD kdr Loubet, Lynsea RN RN ll3 Norma Condon Kelley, RN RN meg3 Celia Bhatia, PAKd PA-C sb4
--- NOTE | 2023-04-14 00:28 | EDPHYS ---
Physician Documentation [facility] Name: Alejo Rae Age: 77 yrs Sex: Male : 1945 Arrival Date: 04/13/2023 Time: 19:30 Bed 19 Private MD: ED Physician Dong Miller Historical: - Allergies: 04/13 19:45 No Known Allergies; ll3 - Home Meds: 20:38 spironolactone 50 mg Oral tablet daily [Active]; omeprazole 20 mg Oral ll3 Tablet,disintegrating,delayed release daily [Active]; atorvastatin 40 mg oral tablet every day at bedtime [Active]; metoprolol succinate 100 mg oral Tablet, Extended Release 24 hr 2 times per day [Active]; dofetilide 500 mcg oral capsule once [Active]; Eliquis 5 mg oral tablet 2 times per day [Active]; - PMHx: 19:45 Atrial Fib; CHF; CVA; PTSD; Right lung cancer; ll3 - Immunization history:: Client reports receiving the 2nd dose of the Covid vaccine. - Social history:: Smoking status: Patient reports the use of cigarette tobacco products, denies chronic smoking, but will smoke occasionally. Vital Signs: 19:38 BP 89 / 59; Pulse 59; Resp 17; Temp 98.7(O); Pulse Ox 96% on R/A; Weight 65.77 kg (R); ll3 Height 6 ft. 1 in. (R); Pain 0/10; 21:00 BP 108 / 58; Pulse 72; Resp 18; Pulse Ox 92% on R/A; ll3 22:00 BP 119 / 68; Pulse 77; Resp 20; Pulse Ox 100% on R/A; ll3 23:43 BP 99 / 73; Pulse 75; Resp 16; Pulse Ox 98% on R/A; ll3 04/14 00:41 BP 99 / 73; Pulse 63; Resp 17; Pulse Ox 98% on R/A; ll3 04/13 19:38 Body Mass Index 19.13 (65.77 kg, 185.42 cm) ll3 04/13 19:38 Pain Scale: Adult ll3 MDM: 00:26 Patient medically screened. sb4 04/13 19:48 Order name: Basic Metabolic Panel; Complete Time: 22:27 ll3 04/13 19:48 Order name: CBC with Diff; Complete Time: 22:27 3 04/13 19:48 Order name: Troponin HS; Complete Time: 22:27 3 04/13 20:55 Order name: ETOH Level; Complete Time: 22:27 3 04/13 19:48 Order name: XRAY Chest (1 view); Complete Time: 22:27 3 04/13 22:56 Order name: Head Brain Wo Cont CT sb4 04/13 19:48 Order name: EKG; Complete Time: 19:49 3 04/13 19:48 Order name: Cardiac monitoring; Complete Time: 19:48 3 04/13 19:48 Order name: EKG - Nurse/Tech; Complete Time: 19:53 3 04/13 19:48 Order name: IV Saline Lock; Complete Time: 20:01 3 04/13 19:48 Order name: Labs collected and sent; Complete Time: 20:01 3 04/13 19:48 Order name: O2 Per Protocol; Complete Time: 19:48 3 04/13 19:48 Order name: O2 Sat Monitoring; Complete Time: 19:48 3 Administered Medications: 04/13 20:36 Drug: NS 0.9% IV 500 ml Route: IV; Rate: bolus; Site: left hand; 3 04/14 01:36 Follow up: Response: No adverse reaction; IV Status: Completed infusion; IV Intake: ll3 500ml 04/13 21:08 Drug: Banana Bag - (NS 0.9% IV 1000 ml, foLIC Acid IVPB 1 mg, Thiamine IV 100 mg, ll3 Multivitamin IV 1 amp) Route: IV; Rate: calculated rate; Site: left hand; 04/14 01:36 Follow up: Response: No adverse reaction; IV Status: Completed infusion; IV Intake: ll3 1000ml 04/13 22:26 Drug: Gabapentin PO 300 mg Route: PO; 3 04/14 01:36 Follow up: Response: No adverse reaction 3 04/13 22:29 Drug: Gabapentin PO 300 mg Route: PO; 3 04/14 01:36 Follow up: Response: No adverse reaction ll3 Disposition Summary: 04/14/23 00:27 Hospitalization Ordered Hospitalization Status: Observation sb4 Provider: Timo Mathis Location: Telemetry/MedSurg (observation) sb4 Condition: Stable sb4 Problem: new sb4 Symptoms: have improved sb4 Bed/Room Type: Standard sb4 Room Assignment: 228(04/14/23 00:36) mw Diagnosis - Syncope sb4 Forms: - Medication Reconciliation Form sb4 - SBAR form sb4 Signatures: Dispatcher [employer] Linette Leblanc RN RN mw Dong Miller MD MD kdr Loubet, Lynsea, RN RN ll3 Melyssa Jung RN RN kd3 Celia Bhatia, PA-C PA-C sb4 Corrections: (The following items were deleted from the chart) 00:36 00:27 sb4 mw
[2023-04-14] MEDS ORDERED: ONDANSETRON 4 MG/2 ML VIAL IV PRN (00:39)
[2023-04-14] MEDS ORDERED: ACETAMINOPHEN 500 MG TAB PO PRN (00:39)
[2023-04-14 01:53] VITALS: BMI 34.2
[2023-04-14 06:44] LABS: Urine Bacteria None Seen /HPF (<20); Urine Mucus Slight /HPF (None Seen); Urine RBC <5 /HPF (None Seen)
[2023-04-14 06:49] LABS: Specific Gravity 1.015 (1.005-1.030); Urine Bilirubin NEGATIVE (Negative); Urine Blood Negative (Negative); Urine Clarity Clear (Clear); Urine Color Yellow (Yellow); Urine Glucose Negative (Negative)
[2023-04-14 06:50] LABS: Urine Protein Negative (Negative); Urine Urobilinogen Normal (Normal); Urine pH 6.5 (5.0-7.0)
--- NOTE | 2023-04-14 07:22 | RAD REPORT ---
EXAM DESCRIPTION: USCarotid Artery Bilateral04/14/2023 1:37 am CLINICAL HISTORY: syncope COMPARISON: None FINDINGS: The velocity of the right internal carotid artery equals 78 cm/sec. The right ICA/CCA rati o 0.8 The velocity of the left internal carotid artery equals 118 cm/sec. The left ICA/CCA ratio 1.1 Mild plaque is present within the carotid arteries. A right carotid stent is patent The vertebral arteries demonstrate antegrade flow IMPRESSION: Mild plaque within the carotid arteries without evidence of a hemodynamically significan t stenosis NASCET criteria used. Mild 0-49% stenosis Moderate 50-69% stenosis Severe 70-99% stenosis
[2023-04-14] MEDS: THIAMINE HCL 100 MG TABLET PO SCH (08:28)
[2023-04-14] MEDS: FOLIC ACID 1 MG TABLET PO SCH (08:28)
[2023-04-14] MEDS: APIXABAN 5 MG TABLET PO SCH ×2 (08:31→21:38)
[2023-04-14] MEDS ORDERED: POTASSIUM CL SA 10 MEQ TAB PO ONE (09:00)
--- NOTE | 2023-04-14 10:15 | EKG ---
Test Date: 2023-04-13 Test Time: 19:48:41 Motorboat Mechanic: JOSELINE MEASUREMENT RESULTS: Intervals: Rate: 54 UT: QRSD: 94 QT: 468 QTc: 443 Davilla: P: UT: QRS: 71 T: 52 INTERPRETIVE STATEMENTS: Atrial fibrillation with slow ventricular response Abnormal ECG Compared to ECG 12/31/2021 21:34:54 Prolonged QT interval no longer present Electronically Signed On 04-14-23 10:13:34 CDT by Dante Little
[2023-04-14] MEDS: GABAPENTIN 300 MG CAP PO SCH ×3 (12:01→21:38)
[2023-04-14] MEDS: DOCUSATE NA 100 MG CAP PO PRN (12:45)
[2023-04-14] MEDS ORDERED: POLYETHYL GLY 3350 17 GM/DOSE PO ONE (14:35)
--- NOTE | 2023-04-14 15:51 | RAD REPORT ---
EXAM DESCRIPTION: CT - Head Brain Wo Cont - 04/14/2023 6:43 am CLINICAL HISTORY: The patient is 77 years old and is Male; SYNCOPE TECHNIQUE: Axial computed tomography images of the head/brain without intravenous contrast. Sagitt al and coronal reformatted images were created and reviewed. This CT exam was performed using one o r more of the following dose reduction techniques: automated exposure control, adjustment of the mA and/or kV according to patient size, and/or use of iterative reconstruction technique. COMPARISON: No relevant prior studies available. FINDINGS: Brain: Mild nonspecific white matter changes likely related to chronic microvascular isc hemic disease. Mild cerebral atrophy. Remote right occipital infarct. No hemorrhage. Ventricles: Unremarkable. No ventriculomegaly. Bones/joints: Unremarkable. No acute fracture. Soft tissues: Unremarkable. Sinuses: Unremarkable as visualized. Mastoid air cells: Unremarkable as visualized. No mastoid effusion. IMPRESSION: No acute intracranial abnormality. Electronically signed by: Feliberto Robledo MD 04/13/2023 11:54 PM CDT Due to temporary technical issues with the PACS/Fluency reporting system, reports are being signed by the in house radiologist without review as a courtesy to ensure prompt reporting. The interpreting r adiologist is fully responsible for the content of the report.
[2023-04-14] MEDS ORDERED: METOPROLOL XL 100 MG TAB PO SCH (23:05)
--- NOTE | 2023-04-15 07:32 | ECHO ---
HEIGHT: 6 ft 1 in WEIGHT: 145 lb 0 oz DATE OF STUDY: 04/14/[address]: Celia Bhatia 2-DIMENSIONAL: YES M.MODE: YES DOPPLER: YES COLOR FLOW: YES TDS: YES PORTABLE: YES DEFINITY: BUBBLE STUDY: DIAGNOSIS: SYNCOPE CARDIAC HISTORY: CATHERIZATION: NO SURGERY: NO PROSTHETIC VALVE: NO PACEMAKER: NO MEASUREMENTS (cm) DIASTOLIC (NORMALS) SYSTOLIC (NORMALS) IVSd 1.2 (0.6-1.2) LA Diam 4.3 (1.9-4.0) LVEF 52% LVIDd 3.5 (3.5-5.7) LVIDs 2.6 (2.0-3.5) %FS 26% LVPWd 1.3 (0.6-1.2) Ao Diam 3.5 (2.0-3.7) 2 DIMENSIONAL ASSESSMENT: RIGHT ATRIUM: NORMAL LEFT ATRIUM: DILATED RIGHT VENTRICLE: NORMAL LEFT VENTRICLE: NORMAL TRICUSPID VALVE: NORMAL MITRAL VALVE: NORMAL PULMONIC VALVE: NORMAL AORTIC VALVE: NORMAL PERICARDIAL EFFUSION: NONE AORTIC ROOT: NORMAL LEFT VENTRICULAR WALL MOTION: NORMAL DOPPLER/COLOR FLOW: MILD TRICUSPID REGURGITATION COMMENTS: 1. MILD TRICUSPID REGURGITATION 2. NORMAL LEFT VENTRICULAR SIZE AND FUNCTION 3. TECHNICALLY DIFFICULT STUDY 4. NO WALL MOTION ABNORMALITY 5. NO EFFUSION TECHNOLOGIST: DIRK PHELPS
[2023-04-15] MEDS: THIAMINE HCL 100 MG TABLET PO SCH (08:14)
[2023-04-15] MEDS: APIXABAN 5 MG TABLET PO SCH (08:14)
[2023-04-15] MEDS: FOLIC ACID 1 MG TABLET PO SCH (08:14)
[2023-04-15] MEDS: GABAPENTIN 300 MG CAP PO SCH (08:14)
[2023-04-15] MEDS: DOCUSATE NA 100 MG CAP PO PRN (08:15)
--- NOTE | 2023-04-15 08:39 | P.DS ---
Admission Date: 04/14/23 Discharge Date: 04/15/23 Disposition: ROUTINE DISCHARGE Discharge Condition: GOOD Reason for Admission: Syncope Hospital Course: DIAGNOSES: # Syncope suspect due to Medication-Induced Hypotension # Chronic Atrial Fibrillation on apixaban # Type II Diabetes Mellitus complicated by Diabetic Neuropathy # Bilateral Carotid Artery Stenosis s/p Stenting # Moderate Alcohol Use # Lung Cancer s/p Right Middle Lobectomy # History of Cerebrovascular Accident # Hypertension # Dyslipidemia HOSPITAL COURSE: Mr. Alejo Rae is a 77 year old male with a past medical history significant for chronic atrial fibrillation on apixaban, type II diabetes mellitus complicated by diabetic neuropathy, bilateral carotid artery stenosis s/p stenting, lung cancer s/p right middle lobectomy, prior cerebrovascular accident, hypertension, and dyslipidemia who was admitted to the [facility] on 04/14/2023 for syncope. He was admitted to the Medicine service. Upon further presentation, his blood pressure was 89/59. He denied any head trauma or fall. His chest x-ray revealed, "poor delineation of the left hemidiaphragm, could be related to atelectasis or early basal airspace disease. Otherwise stable findings as above." He did not display any evidence of pneumonia. He had no fevers, chills, shortness of breath, or cough. Chest x-ray findings were suspected due to atelectasis. His CT head revealed, "no acute intracranial abnormality." His carotid ultrasound revealed, "mild plaque within the carotid arteries without evidence of a hemodynamically significant stenosis." His transthoracic echocardiogram revealed, "1. mild tricuspid regurgitation 2. normal left ventricular size and function 3. technically difficult study 4. no wall motion abnormality 5. no effusion." His medications (dofetilide, metoprolol, and spironolactone) where held on admission and, over the course of the hospitalization, his blood pressure improved. His orthostatic vital signs were within normal limits. His symptoms improved significantly and this morning he requested to be discharged home. 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 He was advised to maintain a blood pressure and heart rate journal and to bring this to his Cardiology appointment. He verbalized understanding and agreed to make this appointment. On 04/15/2023, he was seen on morning rounds and deemed medically stable for discharge. He was discharged with instructions to schedule follow-up appointments with his PCP (Dr. Ferraro) and with Cardiology (Dr. Little). He was counseled extensively on the importance of healthy alcohol consumption. He and his were given the opportunity to ask questions and reported no further questions. Furthermore, all questions were answered to the best of my ability. A copy of this discharge summary will be sent to the above providers to facilitate continuity of care. Today, I personally spent 25 minutes on his case, of which greater than 50% of the time was spent in patient education, counseling, and coordination of care as described above. Vital Signs/Physical Exam: Temp Pulse Resp BP Pulse Ox 98.2 F 61 16 117/63 95 04/15/23 08:00 04/15/23 08:00 04/15/23 08:00 04/15/23 08:00 04/15/23 08:00 General: Alert, In no apparent distress, Oriented x3 HEENT: Atraumatic, Sclerae nonicteric Neck: JVD not distended Respiratory: Clear to auscultation bilaterally, Normal air movement Cardiovascular: No edema, Regular rate/rhythm, Normal S1 S2, No gallops, No rubs, No murmurs Gastrointestinal: Normal bowel sounds, Soft and benign, Non-distended, No tenderness, No rebound, No guarding Musculoskeletal: No clubbing Integumentary: No rashes Neurological: Normal speech, Normal affect Laboratory Data at Discharge: WBC 8.30 thou/uL (4.3-10.9) 04/13/23 19:57 Hgb 11.7 g/dL (13.6-17.9) L 04/13/23 19:57 Hct 34.5 % (39.6-49.0) L 04/13/23 19:57 Plt Count 224 thou/uL (152-406) 04/13/23 19:57 Sodium 142 mEq/L (136-145) 04/13/23 19:57 Potassium 3.9 mEq/L (3.5-5.1) 04/13/23 19:57 BUN 15 mg/dL (7-18) 04/13/23 19:57 Creatinine 0.93 mg/dL (0.70-1.30) 04/13/23 19:57 Glucose 124 mg/dL (74-106) H 04/13/23 19:57 Home Medications: Apixaban [Eliquis] 5 mg PO BID 03/25/19 Atorvastatin Calcium [Lipitor] 40 mg PO BEDTIME 03/25/19 Gabapentin 2 cap PO TID 03/25/19 Omeprazole 20 mg PO BID 03/25/19 Calcium Carbonate/Vitamin D3 [Calcium 250-D Tablet] 1 tab PO DAILY 04/14/23 Thiamine HCl [Vitamin B-1*] 100 mg PO DAILY 04/15/23 Physician Discharge Instructions: 1. Please call and schedule a follow-up appointment with your PCP (Dr. Ferraro) in 3-5 days 2. Please call and schedule a follow-up appointment with Cardiology (Dr. Little) in 3-5 days - Your blood pressure and heart rate have been on the lower side, without any medications - For this reason, please hold your home dofetilide, metoprolol, and spironolactone until you see Dr. Little - Please maintain a journal with your heart rate and blood pressure readings at home Diet: AHA Activity: Ad deidra Followup: Dillon Ferraro MD [ACTIVE - CAN ADMIT] - Dante Little MD [ACTIVE - CAN ADMIT] - Time spent managing pt's care (in minutes): 25
[2023-04-15 08:47] VITALS: BP 117/63; TEMP 98.2
[2023-04-15 09:00] VITALS: O2SAT 95
[2023-04-15] MEDS ORDERED: PANTOPRAZOLE 40MG TABLET PO SCH (09:00)
[2023-04-15] MEDS ORDERED: ATORVASTATIN 40 MG TAB PO SCH (21:00)
== END 2023-04-15 09:48 | disposition home or self-care (01) ==
LOC: ER 19:30 → ERHOLD 04-14 00:31 → 2ND 04-14 00:39
PROVIDERS: ADMIT Internal Medicine; ATTEND Internal Medicine
DX: R55 Syncope and collapse (principal); I48.11 Longstanding persistent atrial fibrillation; G62.9 Polyneuropathy, unspecified; I10 Essential (primary) hypertension; E11.9 Type 2 diabetes mellitus without complications; K21.9 Gastro-esophageal reflux disease without esophagitis; F43.10 Post-traumatic stress disorder, unspecified; E78.5 Hyperlipidemia, unspecified; I65.23 Occlusion and stenosis of bilateral carotid arteries; D63.8 Anemia in other chronic diseases classified elsewhere; Z79.01 Long term (current) use of anticoagulants; I95.9 Hypotension, unspecified; F10.90 Alcohol use, unspecified, uncomplicated; Z86.73 Personal history of transient ischemic attack (TIA), and cerebral infarction without residual deficits; Z85.118 Personal history of other malignant neoplasm of bronchus and lung
CPT/HCPCS: 96365; 96361; 93005; 93306; 85025; 81001; 80048; 36415; 84484; 70450; 71045; 93880; 97116; 97161; 97530; 99285; 96366; 82077; J3411; J7040; J7030; G0378 ×3

== ENCOUNTER → 2024-01-01 | Emergency (ER) | payer OTHER ==
[~2024-01-01] MED LIST: FENTANYL CITR 100 MCG/2 ML ONE; GABAPENTIN 300 MG CAP ONE; KETOROLAC 30 MG/ML INJ ONE; METHOCARBAMOL 1,000 MG/10 ML VIAL ONE; MORPHINE 4 MG/ML SYR ONE; NA CHLORIDE 0.9% 1,000 ML ONE; NA CHLORIDE 0.9% 100 ML ONE; ONDANSETRON 4 MG/2 ML VIAL ONE
[2024-01-01 16:23] LABS: Absolute Lymphocytes (CBC) 1.3 K/uL (0.7-4.9); Hematocrit 40.5 % (39.6-49.0); Lymphocytes % 9.2 % (15.3-44.8); MCV 97.4 fL (80-100); MPV 9.4 fL (7.6-11.3); Platelets 243 thou/uL (152-406); RBC Red Blood Cell Count 4.16 M/uL (4.33-5.43)
[2024-01-01 16:46] LABS: Albumin 3.5 g/dL (3.4-5.0); Bilirubin Direct 0.3 mg/dL (0-0.2); Bilirubin Indirect, Calculated 0.4 mg/dL (0.2-0.8); Bilirubin Total 0.7 mg/dL (0.2-1.0); Magnesium 2.1 mg/dL (1.6-2.4); Potassium 4.4 mEq/L (3.5-5.1); Protein, Total 7.3 g/dL (6.4-8.2); Troponin High Sensitivity 6.8 pg/mL (<58.9)
--- NOTE | 2024-01-01 16:53 | RAD REPORT ---
EXAM DESCRIPTION: [facility] Single View01/01/2024 4:43 pm CLINICAL HISTORY: fall COMPARISON: Chest Single View dated 04/13/2023; Chest Single View dated 12/31/2021; Chest Single View d ated 03/25/2019; Chest Single View dated 03/05/2019 TECHNIQUE: Portable AP view of the chest. FINDINGS: Patient rotation somewhat limits evaluation. Postsurgical changes in the right lung, with peripheral mid to lower lung pleural thickening or plaque formation, stable. No pneumothorax or effu ines. The cardiomediastinal contours are unremarkable. IMPRESSION: No acute cardiopulmonary process. Stable findings as above.
--- NOTE | 2024-01-01 16:58 | RAD REPORT ---
EXAM DESCRIPTION: RAD - Pelvis - 01/01/2024 4:44 pm CLINICAL HISTORY: fall COMPARISON: No comparisons TECHNIQUE: Single AP view of the pelvis. FINDINGS: The visualized pelvic ring is intact. No suspicious osseous lesions. Mild degenerative magda nges of the hip joints. Other pelvic joints are unremarkable. Visualized aspects of the abdomen and s oft tissues are unremarkable. IMPRESSION: No acute osseous abnormality of the bony pelvis. Mild bilateral hip joint degenerative c hanges.
[2024-01-01 17:05] LABS: Protime INR 1.43
--- NOTE | 2024-01-01 17:15 | ER ---
Nurse's Notes [facility] Name: Alejo Rae Age: 78 yrs Sex: Male : 1945 Arrival Date: 01/01/2024 Time: 15:27 Bed 7 Private MD: Diagnosis: Repeated falls;Wedge compression fracture of unspecified thoracic vertebra-multiple;Wedge compression fracture of unspecified lumbar vertebra-L2;Dorsalgia, unspecified-Intractable Presentation: 01/01 16:09 Chief complaint: EMS states: pt fell 4 days ago, now unable to bear weight on right iw hip, pt states he was in his garage smoking and his right leg gave out , landed on his right side, c/o pain to right hip and right flank area. 16:09 Acuity: ANNA 3 iw 19:00 Initial Sepsis Screen: Does the patient meet any 2 criteria? No. Patient's initial vc1 sepsis screen is negative. Does the patient have a suspected source of infection? No. Patient's initial sepsis screen is negative. 19:00 Method Of Arrival: EMS vc1 19:00 Coronavirus screen: At this time, the client does not indicate any symptoms associated vc1 with coronavirus-19. Ebola Screen: Patient negative for fever greater than or equal to 101.5 degrees Fahrenheit, and additional compatible Ebola Virus Disease symptoms Patient denies exposure to infectious person. Patient denies travel to an Ebola-affected area in the 21 days before illness onset. No symptoms or risks identified at this time. Risk Assessment: Do you want to hurt yourself or someone else? Patient reports no desire to harm self or others. Onset of symptoms is unknown. Historical: - Allergies: 16:25 No Known Allergies; iw - Home Meds: 16:11 dofetilide 500 mcg Oral capsule once [Active]; atorvastatin 40 mg Oral tablet every day iw at bedtime [Active]; Eliquis 5 mg Oral tablet 2 times per day [Active]; 16:54 gabapentin 300 mg oral capsule 2 caps 2 times per day [Active]; calcium-vitamin D daily iw [Active]; cyanocobalamin (vitamin B-12) oral daily [Active]; spironolactone 100 mg Oral tablet daily [Active]; metformin 500 mg Oral tablet daily [Active]; - PMHx: 16:25 Atrial Fib; CHF; CVA; PTSD; Right lung cancer; iw Screenin:58 [facility] ED Fall Risk Assessment (Adult) History of falling in the last 3 months, iw including since admission Yes- single mechanical fall (1 pt) Confusion or Disorientation No (0 pts) Intoxicated or Sedated No (0 pts) Impaired Gait Altered Elimination No (0 pt). 18:26 Abuse screen: Denies threats or abuse. Denies injuries from another. Nutritional ko1 screening: No deficits noted. Tuberculosis screening: No symptoms or risk factors identified. Assessment: 16:58 Reassessment: Patient appears in no apparent distress at this time. Patient and/or iw family updated on plan of care and expected duration. Pain level reassessed. 19:00 General: Appears distressed, uncomfortable, obese, Behavior is fussy. Pain: Complains vc1 of pain in right lower quadrant Pain radiates to lumbar area and low back area Pain currently is 10 out of 10 on a pain scale. Aggravated by increased activity, repositioning, Noted to be grimacing, resistant to movement. Neuro: Level of Consciousness is awake, alert, obeys commands, Oriented to person, place, time, situation, Appropriate for age Reports weakness. Cardiovascular: No deficits noted. Respiratory: Airway is patent Respiratory effort is even, unlabored, Respiratory pattern is regular, symmetrical. GI: No deficits noted. No signs and/or symptoms were reported involving the gastrointestinal system. : No deficits noted. No signs and/or symptoms were reported regarding the genitourinary system. EENT: No deficits noted. No signs and/or symptoms were reported regarding the EENT system. Derm: No deficits noted. No signs and/or symptoms reported regarding the dermatologic system. Musculoskeletal: Reports pain in lumbar area. 19:56 Reassessment: Patient appears in no apparent distress at this time. Patient and/or tm6 family updated on plan of care and expected duration. Pain level reassessed. Patient is alert, oriented x 3, equal unlabored respirations, skin warm/dry/pink. 20:43 Reassessment: Patient appears in no apparent distress at this time. Patient and/or tm6 family updated on plan of care and expected duration. Pain level reassessed. Patient is alert, oriented x 3, equal unlabored respirations, skin warm/dry/pink. 20:44 Reassessment: patient stated back pain is a little better, but about every ten minutes tm6 he will have sharp pains in his abdomen "it feels like something is squeezing my insides". 21:43 Reassessment: Patient appears in no apparent distress at this time. tm6 22:48 Reassessment: Patient appears in no apparent distress at this time. Patient is alert, tm6 oriented x 3, equal unlabored respirations, skin warm/dry/pink. 01/02 00:00 Reassessment: Patient appears in no apparent distress at this time. No changes from vc1 previously documented assessment. Patient and/or family updated on plan of care and expected duration. Pain level reassessed. Patient is alert/active/playful, equal unlabored respirations, skin warm/dry/pink. 00:57 Reassessment: Patient appears in no apparent distress at this time. No changes from vc1 previously documented assessment. Patient and/or family updated on plan of care and expected duration. Pain level reassessed. Patient is alert, oriented x 3, equal unlabored respirations, skin warm/dry/pink. Vital Signs: 01/01 16:25 BP 124 / 88; Pulse 84; Resp 16; Temp 98.7; Pulse Ox 95% on R/A; iw 18:26 BP 132 / 97; Pulse 90; Resp 16; Pulse Ox 98% ; ko1 19:55 BP 123 / 89; Pulse 90; Resp 14; Pulse Ox 97% on R/A; Pain 10/10; tm6 20:43 BP 112 / 75; Pulse 82; Resp 24; Pulse Ox 96% on R/A; tm6 20:43 Pain 6/10; tm6 21:43 BP 111 / 83; Pulse 67; Pulse Ox 94% on R/A; tm6 22:48 BP 90 / 71; Pulse 73; Resp 22; Pulse Ox 96% on R/A; tm6 01/02 00:00 BP 105 / 57; Pulse 86; Resp 17; Pulse Ox 93% on R/A; vc1 19:55 Pain Scale: Adult tm6 20:43 Pain Scale: Adult tm6 ED Course: 01/01 15:42 Patient arrived in ED. iw 15:44 Joaquin Laws PA is PHCP. cp 15:45 Azam Huff MD is Attending Physician. cp 16:09 Anette Howe, RN is Primary Nurse. iw 16:10 Triage completed. iw 16:45 XRAY Chest (1 view) In Process Unspecified. EDMS 16:46 XRAY Pelvis In Process Unspecified. EDMS 16:58 Arm band placed on. iw 16:58 Maintain EMS IV. Dressing intact. Good blood return noted. Site clean \\T\\ dry. Gauge \\T\\ iw site: 20 LAC. 17:13 Krystina Bowen MD is Hospitalizing Provider. cp 17:52 XRAY Femur RIGHT In Process Unspecified. EDMS 18:26 Patient has correct armband on for positive identification. Bed in low position. Call ko1 light in reach. Side rails up X 1. Pulse ox on. NIBP on. Door closed. Noise minimized. Lights dimmed. Warm blanket given. 18:33 CT Traumagram (Head C Spine CAP W Con) In Process Unspecified. EDMS 19:55 Blood Culture Adult (2) Sent. tm6 20:40 Primary Nurse role handed off by Anette Howe RN as6 20:42 Florencia Cisneros, EVY is Primary Nurse. tm6 21:22 UDS Sent. vc1 21:22 Urinalysis W/Microscopic Sent. vc1 22:06 Joaquin Sams MD is Attending Physician. cp 22:26 initiated transfer to [facility] spoke with Beulah Watts. vk 22:28 patient accepted to [facility] ER by per Beulah Watts. vk 22:50 Patient was accepted to be transferred by EMS ETA 10 mins. vk 01/02 00:54 No provider procedures requiring assistance completed. Patient transferred, IV remains vc1 in place. Administered Medications: 01/01 16:58 Drug: Ondansetron IVP 4 mg IVP once; over 2 minutes Route: IVP; Site: left antecubital; iw 17:09 Not Given (Patient Refused): morphineor iv 4 mg IVP once over 4 mins iw 17:09 Drug: fentaNYL (PF) IVP 50 mcg IVP once Route: IVP; Site: left antecubital; iw 19:55 Drug: Ketorolac IVP 15 mg IVP once Route: IVP; Site: left antecubital; tm6 19:55 Drug: Methocarbamol IVPB 1 grams IVPB once over 1 hrs; (mix in NS 100 mL) Route: IVPB; tm6 Infused Over: 1 hrs; Site: left antecubital; 01/02 00:26 Drug: NS 0.9% IV 1000 ml IV at 100 ml/hr continuous Route: IV; Rate: 100 ml/hr; Site: vc1 left forearm; 00:26 Drug: fentaNYL (PF) IVP 50 mcg IVP once Route: IVP; Site: left forearm; vc1 00:29 Not Given (took home medd): [id number] mg PO once vc1 Medication: 01/01 16:58 VIS not applicable for this client. iw Outcome: 17:14 Decision to Hospitalize by Provider. cp 22:36 ER care complete, transfer ordered by MD. cp 01/02 00:58 Transferred by ground EMS to [facility], Transfer form completed. X-rays sent vc1 w/ patient. Condition: stable Instructed on the need for transfer, 00:58 Patient left the ED. vc1 Signatures: Dispatcher [employer] EDMS Anette Howe RN RN iw Joaquin Laws, GWENDOLYN PA cp James Montenegro RN RN as6 Laura Hendricks RN RN vc1 Josey Moralez RN RN ko1 Florencia Cisneros RN RN tm6 Jocelyne Pedersen
--- NOTE | 2024-01-01 17:15 | EDPHYS ---
Physician Documentation [facility] Name: Alejo Rae Age: 78 yrs Sex: Male : 1945 Arrival Date: 01/01/2024 Time: 15:27 Bed 7 Private MD: ED Physician Joaquin Sams HPI: 01/01 16:00 This 78 yrs old Male presents to ER via Unassigned with complaints of Fall Injury, Hip cp Injury. 16:00 Details of fall: The patient fell from an upright position, while walking, and struck a cp concrete surface, in garage at home. Onset: The symptoms/episode began/occurred 4 day(s) ago. Associated injuries: The patient sustained injury to the abdomen, specifically the right lower quadrant, right pelvis and right hip, painful injury. Severity of symptoms: in the emergency department the symptoms are unchanged, despite home interventions. Historical: - Allergies: 16:25 No Known Allergies; iw - Home Meds: 16:11 dofetilide 500 mcg Oral capsule once [Active]; atorvastatin 40 mg Oral tablet every day iw at bedtime [Active]; Eliquis 5 mg Oral tablet 2 times per day [Active]; 16:54 gabapentin 300 mg oral capsule 2 caps 2 times per day [Active]; calcium-vitamin D daily iw [Active]; cyanocobalamin (vitamin B-12) oral daily [Active]; spironolactone 100 mg Oral tablet daily [Active]; metformin 500 mg Oral tablet daily [Active]; - PMHx: 16:25 Atrial Fib; CHF; CVA; PTSD; Right lung cancer; iw ROS: 16:05 Back: Positive for pain at rest, pain with movement, cp 16:05 Abdomen/GI: Positive for abdominal pain, of the right lower quadrant, cp 16:05 Eyes: Negative for injury, pain, redness, and discharge, cp 16:05 Constitutional: Negative for body aches, chills, fever, poor PO intake, 16:05 Neck: Negative for pain with movement, pain at rest, stiffness, tenderness, bony tenderness, 16:05 Cardiovascular: Negative for chest pain, 16:05 Respiratory: Negative for cough, shortness of breath, wheezing, 16:05 MS/extremity: Positive for pain, of the right pelvis and right hip, 16:05 : Negative for urinary symptoms, cp 16:05 Neuro: Positive for weakness, Negative for altered mental status, dizziness, headache, syncope, 16:05 All other systems are negative, Exam: 16:10 Constitutional: The patient appears in no acute distress, alert, awake, cp non-diaphoretic, non-toxic, well developed, well nourished, obese, in obvious pain, uncomfortable, 16:10 Head/Face: Normocephalic, atraumatic. cp 16:10 Eyes: Periorbital structures: appear normal, Pupils: equal, round, and reactive to light and accomodation, Extraocular movements: intact throughout, Conjunctiva: normal, no exudate, no injection, Sclera: no appreciated abnormality, Lids and lashes: appear normal, bilaterally, 16:10 ENT: External ear(s): are unremarkable, Nose: is normal, Mouth: Lips: dry, Oral mucosa: moist, Posterior pharynx: Airway: no evidence of obstruction, patent, 16:10 Neck: C-spine: vertebral tenderness, is not appreciated, crepitus, is not appreciated, ROM/movement: is normal, is supple, without pain, no range of motions limitations, 16:10 Chest/axilla: Inspection: normal, Palpation: is normal, no crepitus, no tenderness, 16:10 Cardiovascular: Rate: normal, Rhythm: irregular, Edema: ankle edema, that is mild, JVD: is not appreciated, 16:10 Respiratory: the patient does not display signs of respiratory distress, Respirations: normal, no use of accessory muscles, no retractions, labored breathing, is not present, Breath sounds: are clear throughout, no decreased breath sounds, no stridor, no wheezing, 16:10 Abdomen/GI: Inspection: obese Bowel sounds: active, all quadrants, Palpation: soft, in all quadrants, moderate abdominal tenderness, in the anterior aspect of right lateral abdomen, posterior aspect of right lateral abdomen and right lower quadrant, 16:10 Back: pain, that is severe, of the mid and lower thoracic and lumbar area, ROM is painful, with all movement, Straight leg raises: right lower extremity illicits pain, 16:10 Musculoskeletal/extremity: Extremities: grossly normal except: noted in the right hip: pain, ROM: limited passive range of motion due to pain, in the right hip, 16:10 Skin: cellulitis, is not appreciated, no rash present. 16:10 Neuro: Orientation: to person, place \T\ time. Mentation: able to follow commands, Motor: moves all fours, no focal deficits, 16:27 ECG was reviewed by the Attending Physician. Vital Signs: 16:25 BP 124 / 88; Pulse 84; Resp 16; Temp 98.7; Pulse Ox 95% on R/A; iw 18:26 BP 132 / 97; Pulse 90; Resp 16; Pulse Ox 98% ; ko1 19:55 BP 123 / 89; Pulse 90; Resp 14; Pulse Ox 97% on R/A; Pain 10/10; tm6 20:43 BP 112 / 75; Pulse 82; Resp 24; Pulse Ox 96% on R/A; tm6 20:43 Pain 6/10; tm6 21:43 BP 111 / 83; Pulse 67; Pulse Ox 94% on R/A; tm6 22:48 BP 90 / 71; Pulse 73; Resp 22; Pulse Ox 96% on R/A; tm6 01/02 00:00 BP 105 / 57; Pulse 86; Resp 17; Pulse Ox 93% on R/A; vc1 19:55 Pain Scale: Adult tm6 20:43 Pain Scale: Adult tm6 MDM: 01/01 15:45 Patient medically screened. 17:00 Differential diagnosis: closed head injury, contusion, fracture, multiple trauma. 19:25 Data reviewed: vital signs, nurses notes, lab test result(s), EKG, radiologic studies, cp CT scan, plain films, I have discussed the patient's presentation/case with the attending Emergency Department Physician; and as a result, I will transfer patient. 19:25 I considered the following discharge prescriptions or medication management in the emergency department Medications were administered in the Emergency Department. See MAR. 20:30 Care significantly affected by the following chronic conditions: Congestive Heart cp Failure. 21:00 Counseling: I had a detailed discussion with the patient and/or guardian regarding the historical points, exam findings, and any diagnostic results supporting the discharge/admit diagnosis, lab results, radiology results. Response to treatment: the patient's symptoms have mildly improved after treatment. ED course: Patient continues to reports severe back and flank pain. will transfer for trauma services. 01/01 15:52 Order name: Basic Metabolic Panel; Complete Time: 16:59 cp 02/ 16:59 Interpretation: Normal except: GLUC 116; BUN 24; GFR 77. cp 01/01 15:52 Order name: CBC with Diff; Complete Time: 16:59 cp 01/01 19:23 Interpretation: Normal except: WBC 14.40; RBC 4.16; PATO% 82.8; LYM% 9.2; NEUT A 12.0. cp / 15:52 Order name: LFT's; Complete Time: 16:59 cp 01/01 15:52 Order name: Magnesium; Complete Time: 16:59 cp 01/01 15:52 Order name: NT PRO-BNP; Complete Time: 16:59 cp 01/01 15:52 Order name: PT-INR; Complete Time: 17:10 cp 01/01 17:11 Interpretation: Reviewed. cp 01/01 15:52 Order name: Troponin HS; Complete Time: 16:59 cp 01/01 16:02 Order name: Lactate w/ 2H reflex if indic.; Complete Time: 19:19 cp 01/01 19:23 Interpretation: Reviewed. cp 01/01 16:02 Order name: Urinalysis W/Microscopic; Complete Time: 21:40 cp 01/01 16:02 Order name: Blood Culture Adult (2) cp 01/01 16:02 Order name: ETOH Level; Complete Time: 17:10 cp 01/01 16:02 Order name: UDS; Complete Time: 21:43 cp 01/01 15:52 Order name: XRAY Chest (1 view); Complete Time: 16:59 cp 01/01 16:02 Order name: XRAY Pelvis; Complete Time: 17:10 cp 01/01 17:11 Interpretation: Report reviewed. cp 01/01 16:59 Order name: XRAY Femur RIGHT; Complete Time: 19:19 cp 01/01 17:00 Order name: CT Traumagram (Head C Spine CAP W Con); Complete Time: 19:19 cp 01/01 15:52 Order name: EKG; Complete Time: 15:53 cp 01/01 15:52 Order name: Cardiac monitoring; Complete Time: 16:24 cp 01/01 15:52 Order name: EKG - Nurse/Tech; Complete Time: 16:24 cp 01/01 15:52 Order name: IV Saline Lock; Complete Time: 16:24 cp 01/01 15:52 Order name: Labs collected and sent; Complete Time: 16:59 cp 01/01 15:52 Order name: O2 Per Protocol; Complete Time: 16:24 cp 01/01 15:52 Order name: O2 Sat Monitoring; Complete Time: 16:24 cp EC:27 Rate is 84 beats/min. Rhythm is irregular. QRS interval is normal. QT interval is cp normal. T waves are Inverted in lead aVR. Interpreted by me. Reviewed by me. Administered Medications: 16:58 Drug: Ondansetron IVP 4 mg IVP once; over 2 minutes Route: IVP; Site: left antecubital; iw 17:09 Not Given (Patient Refused): morphineor iv 4 mg IVP once over 4 mins iw 17:09 Drug: fentaNYL (PF) IVP 50 mcg IVP once Route: IVP; Site: left antecubital; iw 19:55 Drug: Ketorolac IVP 15 mg IVP once Route: IVP; Site: left antecubital; tm6 19:55 Drug: Methocarbamol IVPB 1 grams IVPB once over 1 hrs; (mix in NS 100 mL) Route: IVPB; tm6 Infused Over: 1 hrs; Site: left antecubital; 01/02 00:26 Drug: NS 0.9% IV 1000 ml IV at 100 ml/hr continuous Route: IV; Rate: 100 ml/hr; Site: vc1 left forearm; 00:26 Drug: fentaNYL (PF) IVP 50 mcg IVP once Route: IVP; Site: left forearm; vc1 00:29 Not Given (took home medd): [id number] mg PO once vc1 Disposition Summary: 01/01/24 22:36 Transfer Ordered Notes: Transfer Location: [facility] cp Reason: Higher level of care cp Condition: Stable(01/01/24 22:36) cp Problem: new(01/01/24 22:36) cp Symptoms: have improved(01/01/24 22:36) cp Accepting Physician: DR Carter Crum(01/02/24 00:58) vc1 Diagnosis - Repeated falls cp - Wedge compression fracture of unspecified lumbar vertebra - L2 cp - Wedge compression fracture of unspecified thoracic vertebra - multiple(01/01/24 cp 22:38) - Dorsalgia, unspecified - Intractable cp Forms: - Medication Reconciliation Form cp - SBAR form cp Signatures: Dispatcher [employer] Anette Ocampo RN RN Joaquin Barrientos PA PA cp Laura Hendricks RN RN vc1 Florencia Cisneros RN RN tm6 Corrections: (The following items were deleted from the chart) 01/01 17:26 17:14 Inpatient Admission cp cp 17:26 17:14 Krystina Bowen cp cp 17: 17:14 Telemetry/MedSurg (Inpatient) cp cp 17: 17:14 Stable cp cp 17: 17:14 new cp cp 17: 17:14 have improved cp cp 17:26 17:14 Standard cp cp 17:26 17:14 cp cp 17:26 17:14 Pneumonia in diseases classified elsewhere cp cp 17:26 17:14 Sepsis, unspecified organism cp cp 22:38 22:36 DR Carter Crum cp cp 22:38 22:36 Wedge compression fracture of unspecified thoracic vertebra cp cp 01/02 00:58 01/01 22:38 DR Carter Crum cp vc1
--- NOTE | 2024-01-01 18:24 | RAD REPORT ---
EXAM DESCRIPTION: RAD - Femur Right - 01/01/2024 5:50 pm CLINICAL HISTORY: PAIN COMPARISON: None available TECHNIQUE: Right femur, 2 views. FINDINGS: No fracture is identified. Up to moderate degenerative changes of the right hip and knee. Mineralization of the menisci medially and laterally There is no dislocation or periosteal reaction n oted. No acute or suspicious bony finding. IMPRESSION: No acute osseous abnormality. Degenerative changes as above, with mineralization of the menisci which may relate to the positional arthropathy.
--- NOTE | 2024-01-01 19:07 | RAD REPORT ---
EXAM DESCRIPTION: CT - Head C Spine Cap W Con - 01/01/2024 6:31 pm CLINICAL HISTORY: fall, right hip/pelvis pain COMPARISON: Head Brain Wo Cont dated 04/13/2023 TECHNIQUE: Head and cervical spine CT images were obtained without IV contrast. Chest, abdomen, and pelvis CT images were obtained following intravenous administration of iodinated contrast. Multiplana r reformats were generated and reviewed. All CT scans are performed using dose optimization technique as appropriate and may include automated exposure control or mA/KV adjustment according to patient size. FINDINGS: CT HEAD: No intracranial hemorrhage, mass effect, or edema. Stable right occipital encephalomalacia. No eviden ce of acute territorial infarct. No midline shift or abnormal fluid collection. The ventricles are no rmal in caliber and configuration for age. Basal cisterns are patent. Mastoid aircells and paranasal sinuses are clear. No acute skull fracture. CT CERVICAL SPINE: No acute cervical spine fracture or subluxation. Vertebral body heights are well maintained. Facet kiersten ints are normal in alignment. No hyperattenuating canal hematoma. Prevertebral and paraspinous soft t issues are unremarkable. CT CHEST: No pneumothorax, pulmonary contusion. Trace layering right effusion. No mediastinal hematoma and the aorta and pulmonary arteries are unremarkable. No chest will mass or abnormal axillary finding. No di splaced rib fracture or other significant bony finding. CT ABDOMEN/ PELVIS: No evidence of traumatic injury to solid abdominal viscera. No bowel injury or significant finding. I ncidentally noted left renal superior pole 7.7 cm cyst. Status post cholecystectomy. Atrophic changes with cortical calcifications along the left renal upper and lower poles may relate to sequelae of sc arring. Small left inguinal hernia containing fat. No free air, free fluid or abnormal fat stranding. No urinary bladder abnormality. No significant bony finding. Numerous midthoracic as well as L2 anterior wedge compression deformitie s, favored to be chronic although ultimately of indeterminate age. IMPRESSION: No acute traumatic findings. Trace right pleural effusion, nonspecific. Thoracic and lumbar wedge compression deformities as above, favored to be chronic. Other chronic findings including areas of scarring along the left renal parenchyma, right occipital e ncephalomalacia suggestive of remote ischemia, and sequelae of cholecystectomy.
[2024-01-01 21:32] LABS: Urine Bacteria None Seen /HPF (<20); Urine Bilirubin NEGATIVE (Negative); Urine Blood Negative (Negative); Urine Clarity Clear (Clear); Urine Color Yellow (Yellow); Urine Glucose NEGATIVE (Negative); Urine Mucus Slight /HPF (None Seen); Urine Protein TRACE (Negative); Urine RBC <5 /HPF (None Seen); Urine Urobilinogen Normal (Normal)
[2024-01-01 21:33] LABS: Specific Gravity > 1.030 (1.005-1.030)
[2024-01-01 21:42] LABS: Barbiturates NEGATIVE (NEGATIVE); Benzodiazepines NEGATIVE (NEGATIVE); Cocaine NEGATIVE (NEGATIVE); METHAMPHETAM NEGATIVE (NEGATIVE); Methadone NEGATIVE (NEGATIVE); Opiates NEGATIVE (NEGATIVE); Phencyclidine NEGATIVE (NEGATIVE); THC Cannibis NEGATIVE (NEGATIVE)
[2024-01-02 01:17] VITALS: BP 105/57; TEMP 98.7; O2SAT 93
--- NOTE | 2024-01-05 14:43 | EKG ---
Test Date: 2024-01-01 Test Time: 16:21:41 Log Inspector: EMIL MEASUREMENT RESULTS: Intervals: Rate: 84 HI: QRSD: 86 QT: 396 QTc: 467 [place]: P: HI: QRS: 68 T: 45 INTERPRETIVE STATEMENTS: Atrial flutter with variable AV block Abnormal ECG Compared to ECG 04/13/2023 19:48:41 Atrial fibrillation no longer present Electronically Signed On 01-05-24 14:31:52 MANAGER HEART FAILURE by Kishore Ortega
== END ==
LOC: ER 15:27
DX: S32.020A Wedge compression fracture of second lumbar vertebra, initial encounter for closed fracture (principal); S22.000A Wedge compression fracture of unspecified thoracic vertebra, initial encounter for closed fracture; R29.6 Repeated falls; W18.30XA Fall on same level, unspecified, initial encounter; I50.9 Heart failure, unspecified; I48.91 Unspecified atrial fibrillation; Z79.01 Long term (current) use of anticoagulants; Z85.118 Personal history of other malignant neoplasm of bronchus and lung
CPT/HCPCS: 93005; 87040 ×2; 85025; 81001; 80048; 36415; 83735; 85610; 80076; 83605; 84484; 83880; 80307; 70450; 72125; 71260; 74177; 71045; 72170; 73552; 82077; Q9967; J3010; J2405; J2800